=== PATIENT | male | born 1940 | race Caucasian/White ===

== ENCOUNTER 2025-05-02 13:25 | Outpatient (AMB) | payer MEDICARE, SELFPAY ==
--- NOTE | 2025-05-02 13:38 | A.OFFVIS_ITS ---
Intake Visit Reasons: urinary incontinence Intake Note: Patient is present for URINARY INCONTINENCE Urology Medication:TAMSULOSIN Antibiotic Allergy:NONE Blood Thinner:APIXABAN TODAY'S PVR:0ML'S Allergies No Known Allergies Allergy (Verified 05/02/25 23:07) Medication List - Last Reconciled 05/02/25 by VINICIO Aparicio-KHANG apixaban (Eliquis) 5 mg PO BID prednisone 5 mg PO DAILY tamsulosin 0.8 mg (2 x 0.4 mg) PO DAILY 90 days HPI Comments Details: Bryosn is a 85-year-old male patient who was accompanied by his significant other at today's office visit. He has a past medical history of inguinal hernia, rosacea, neuropathy, sick sinus syndrome status post pacemaker 2006, attention deficit disorder, hypercholesteremia, depression, hearing loss, chronic atrial fibrillation, central sleep apnea syndrome, obstructive sleep apnea syndrome, sensorineural hearing loss, polymyalgia rheumatica, and temporal arteritis. He presents to the office today as a new patient for urinary incontinence. He reports symptoms have been present for many years however feels they are worsening. He reports having followed up with his PCP in discussing this issue at which time he was started on Flomax and recommendations were made for urology referral for further assessment evaluation. He does feel Flomax has been helpful however he does continue to experience urge incontinence. He also reports noting occasional fecal incontinence however states this has improved and feels this is somewhat resolved. We did discussed potential causes of urinary incontinence as well as further treatment options and risks and benefits of these treatment options. He discusses using absorbent undergarments however they are not always soiled. In office urinalysis results reviewed with the patient today. PVR 0 mL. He denies hematuria, dysuria, foul smelling urine, changes to urinary stream, flank pain, fever, and or chills. We did discuss obtaining retroperitoneal ultrasound and PSA for further assessment evaluation. All questions were answered. He otherwise offers no other issues or concerns at this time. Discussion Notes During the consultation, we discussed the patient's urinary incontinence, which has been worsening over the past few months. The patient is currently on Tamsulosin 0.4 mg, which has provided some relief, but there is consideration to increase the dosage to 0.8 mg to improve symptoms. We reviewed the potential benefits of pelvic floor therapy, medications, and more procedures such as cystoscopy and urodynamics, emphasizing that these options can be tailored to the patient's specific needs and preferences. I explained that the urinalysis showed no signs of infection, bleeding, or other abnormalities, and the bladder scan confirmed complete emptying post-void. We also discussed the importance of hydration and regular bathroom habits to manage symptoms effectively. Follow-up plans include obtaining blood work and an ultrasound to further evaluate the urinary symptoms and consider adjustments to the current treatment regimen based on these results. Plan The patient will continue with Tamsulosin, with a potential increase in dosage from 0.4 mg to 0.8 mg, to address urinary incontinence and improve symptoms of urgency and frequency. Pelvic floor therapy is recommended as a non-invasive option to strengthen bladder control, with a referral to be made for the program, which has a waiting list. Further diagnostic evaluation will include blood work and an ultrasound to assess the kidneys and bladder for any anatomical issues contributing to the symptoms. Procedures such as cystoscopy and urodynamics may be considered if symptoms persist or worsen, to provide a more detailed assessment of bladder function and explore additional treatment options. The patient is advised to maintain adequate hydration and regular bathroom habits to help manage symptoms and prevent exacerbation of incontinence. 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 Hearing loss Chronic atrial fibrillation Spinal stenosis of lumbar region Sacroiliac instability Cardiac pacemaker Chest pain Central sleep apnea syndrome Obstructive sleep apnea syndrome Sacroiliac joint pain Sensorineural hearing loss Polymyalgia rheumatica Temporal arteritis Surgical History (Updated 04/18/25 @ 11:56 by Lorie Garcia [facility]) History of hernia repair History of total replacement of both hip joints Review of Systems Const All systems reviewed & are unremarkable except as noted in HPI and below Physical Exam Const General: cooperative, healthy appearing, comfortable, no acute distress, well developed, alert and awake Orientation/consciousness: patient oriented x3 Limitations: no limitations HEENT Head: Yes normal to inspection, Yes normocephalic and Yes atraumatic Ears: hearing grossly normal bilaterally Eyes General: appearance normal, both eyes and all related structures Neck Neck: Yes normal visual inspection and Yes trachea midline Chest Chest palpation & inspection: normal inspection of the chest Resp Effort & Inspection: normal respiratory effort and able to speak in complete sentences Cardio Rate: regular rate GI Inspection: Yes normal to inspection General: Yes no CVA tenderness Back/Spine/Pelvis Back: no CVA tenderness Skin General skin exam: no rashes or lesions noted Neuro General: patient oriented x3 Extrem General: Yes normal to inspection Psych Appearance: grossly normal and well kempt Mental Status: mental status grossly normal Speech and movement: Normal speech and movement present and Clear speech present Affect: normal affect Attitude: cooperative Thought process: Normal thought process present Thought content: Normal thought content present Insight: Fair insight present (Psych) Judgement: Fair judgement present (Psych) Office Procedures Post Void Residual Post Residual Void Post Void Residual (PVR): 0 31421-[id number] Void Residual by ultrasound Results AMB Urinalysis, Automated UA Leukoctes 0 Harjit/uL Last Edit by Claire Buck CCM on 05/02/25 14:25 UA Nitrite Negative Last Edit by Claire Buck CCM on 05/02/25 14:25 UA Urobilinogen 0.2 mg/dL Last Edit by Claire Buck CCM on 05/02/25 14:2 5 UA Protein 0 mg/dL Last Edit by Claire Buck CCM on 05/02/25 14:25 UA pH 6.0 Last Edit by Claire Buck CCM on 05/02/25 14:25 UA Blood 0 Joe/uL Last Edit by Claire Buck CCM on 05/02/25 14:25 UA Specific [place] 1.015 Last Edit by Claire Buck CCM on 05/02/25 14: 25 UA Ketone Negative Last Edit by Claire Buck CCM on 05/02/25 14:25 UA Bilirubin 0 mg/dL Last Edit by Claire Buck CCM on 05/02/25 14:25 UA Glucose 0 mg/dL Last Edit by Claire Buck [facility] on 05/02/25 14:25 Results Reviewed Results Reviewed: Laboratory Last Values Urine pH (Auto) 6.0 05/02/25 14:25 Specific [place] (Auto) 1.015 05/02/25 14:25 Urine Protein (Auto) 0 mg/dL 05/02/25 14:25 Glucose (UA)(Auto) 0 mg/dL 05/02/25 14:25 Urine Ketones (Auto) Negative 05/02/25 14:25 Urine Blood (Auto) 0 Joe/uL 05/02/25 14:25 Urine Nitrite (Auto) Negative 05/02/25 14:25 Urine Bilirubin (Auto) 0 mg/dL 05/02/25 14:25 Urine Urobilinogen (Auto) 0.2 mg/dL 05/02/25 14:25 Leukocyte Esterase (Auto) 0 Harjit/uL 05/02/25 14:25 Assessment & Plan Assessment & Plan (1) Urinary incontinence: Code(s): R32 - Unspecified urinary incontinence Category: Medical Plan In office urinalysis results with the patient today; as noted above. PVR 0 mL. Will obtain retroperitoneal ultrasound for further assessment evaluation. Will refer to pelvic floor therapy for further assessment evaluation. Will obtain PSA for further assessment evaluation. We did discussed potential causes of incontinence as well as further treatment options and risks and benefits of these treatment options. All questions were answered. Will increase Flomax to 0.8 mg daily. We discussed healthy bathroom behaviors. We also discussed importance of timed/scheduled voiding given decreased mobility. Information provided regarding cystoscopy and urodynamics. Follow-up in 3 months with imaging, PSA and PVR; or sooner with any issues, concerns, and or questions. Orders: Orders Prostate Specific Antigen Today R32 - Unspecified urinary incontinence AMB Urinalysis Automated Today Z13.9 - Encounter for screening, unspecified US retroperitoneal comp Today R32 - Unspecified urinary incontinence Medications: New tamsulosin 0.8 mg (2 x 0.4 mg) PO DAILY 180 caps 0RF 90 days Patient Instructions: The patient had an opportunity to ask questions regarding the treatment plan. All questions were answered. Physical exam, labs, and imaging were discussed and reviewed in detail. As well as risks, benefits, and discussion of treatment choices. No major barriers to understanding were identified. The patient expressed understanding and agreement with the above treatment plan. The patient was made aware they should contact our office by phone for worsening of their current condition, the appearance of new symptoms, or with any questions or concerns. Compliance is encouraged with any medications and follow up testing that is ordered. It is a privilege to be allowed the opportunity to participate in? your urological care.? Again, if you have any questions or concerns If you have any questions or concerns please do not hesitate to contact me. The office is [phone]. This note is constructed using voice recognition software. While every effort has been made to ensure accuracy clothes wringer errors may have been included. Yours sincerely, ODELL Aparicio Coding Level of Care Code New Pt Level 4 (81911) Diagnoses Urinary incontinence R32 CPT Codes Post Residual Void - PVR CPT Code: 03704-Pxwm Void Residual by ultrasound ([id number]) Time Spent (min) 40
--- OUTSIDE RECORDS SUMMARY | 2025-05-02 13:55 | XMS_ITS | Encounter Summary ---
Author Organization [facility] Address [address] [facility] [address] [place] [address] Phone Care Team Providers Care Eviscerator Name Role Phone Lance Jack MD Unavailable Orly Marquez NP Unavailable [phone] Romy Donis MD Primary Care Provider Lacie Olivares MD Unavailable [phone] Marina Richey Primary Care Provider [phone] Lacie Olivares MD Unavailable [phone] Encounter Details Date Type Department Care Team (Late st Contact Info) Description 02/26/2022 Procedure Pass Non-Invasive Cardiology [address] [place] [address] Social History Tobacco Use Types Packs/Day Years Used Date Smoking Tobacco: Never Smokeless Tobacco: Never Alcohol Use Standard Drinks/Week Comments Yes 2 (1 standard drink = 0.6 oz pur e alcohol) a couple drinks/wk Sex and Gender Information Value Date Recorded Sex Assigned at Male 02/02/2020 12:14 AM EDT Legal Sex Male 10:12 PM EDT Gender Identity Male 02/02/2020 12:14 AM EDT Sexual Orientation Straight 02/02/2020 12 :14 AM EDT documented as of this encounter Plan of Treatment Upcoming Encounters Date Type Department Care Team (Late st Contact Info) Description 06/05/2025 1:40 PM EDT Office Visit [facility] [address], [address] [place] [address] Abhay Tamayo MD 22 [facility], [address] [address] [email or web address] 07/13/2025 12:00 PM EDT Office Visit [facility] [address] 3rd [facility], [address] [place] [address] Sundar Martinez MD, MS 22 [facility], [address] [place] [address] [email or web address] 08/20/2025 1:30 PM EST Office Visit [facility] 22 [place] [address] Andi Wetzel, 22 [place] [address] [email or web address] documented as of this encounter Visit Diagnoses Not on filedocumented in this encounter Additional Health Concerns Assessment Noted Time PHQ-9 Depression Total Score: 11 022 9:47 AM EST PHQ-2 Depression Total Score: 3 10/14/19 22 9:47 AM EST documented as of this encounter Care Teams Eviscerator Relationship Specialty Start Date End Date Romy Donis MD [address] [place] [address] [email or web address] PCP - General Family Medicine 06/12/21 08/30/22 Marina Richey PA [address] [place] [address] PCP - General Enrobing Machine Corder 08/31/22 Lance Jack MD [email or web address] Historical LMR Provider 07/15/17 Orly Marquez NP [address] [place] [address] Historical LMR Provider 07/15/17 Lacie Olivares MD [address] [place] [address] [email or web address] Consulting Provider Geriatric Medicine 07/24/21 Lacie Olivares MD [address] [place] [address] [email or web address] Geriatric Medicine 07/31/24 documented as of this encounter Additional Source Comments The information contained in this document represents components of the legal health record. It is not the complete legal health record.[facility]
--- OUTSIDE RECORDS SUMMARY | 2025-05-02 13:55 | XMS_ITS | Clinical Summary ---
Author Organization [facility] Address [address] [place] [address] Care Team Providers Care Taxonomist Name Role Phone Romy Donis MD Primary Care Provider [phone] Social History Tobacco Use Types Packs/Day Years Used Date Smoking Tobacco: Never Assessed Sex and Gender Information Value Date Recorded Sex Assigned at Not on file Legal Sex Male 12:34 PM EDT Gender Identity Not on file Sexual Orientation Not on file Plan of Treatment Health Maintenance Due Date Last Done Comments Influenza Vaccine (#1) 2025 , 07/19/2019, 07/07/2018, Additional history exists Hepatitis B Vaccine Aged Out 11/04/2009 No longe r eligible based on patient's age to complete this topic Pneumococcal Vaccine: 50+ Years Completed 07/15/2017, 11/05/2015, 08/26/2005 Insurance [facility] Medicare Care Teams Taxonomist Relationship Specialty Start Date End Date Romy Donis MD [address] [place] [address] [phone] PCP - General Family Medicine 07/21/22
--- OUTSIDE RECORDS SUMMARY | 2025-05-02 13:55 | XMS_ITS | Clinical Summary ---
Author Organization [facility] Address [address] [place] [address] Care Team Providers Care Viticulture Teacher Name Role Phone Unavailable Primary Care Provider Unavailabl e Social History Tobacco Use Types Packs/Day Years Used Date Smoking Tobacco: Never Assessed Sex and Gender Information Value Date Recorded Sex Assigned at Not on file Gender Identity Not on file Sexual Orientation Not on file Plan of Treatment Not on file
== END 2025-05-02 14:40 | disposition home or self-care (01) ==
LOC: HO.HUSH 13:25
PROVIDERS: Visit Provider Nurse Practitioner Family
DX: R32 Unspecified urinary incontinence (principal)
CPT/HCPCS: 99204

== ENCOUNTER → 2025-05-02 13:25 | Outpatient (BNVA) | payer MEDICARE, SELFPAY | PROVIDERS: Visit Provider Nurse Practitioner Family | DX: R32 Unspecified urinary incontinence (principal) | CPT/HCPCS: 51798; 81003; 99202 ==

== ENCOUNTER 2025-05-09 14:09 | Outpatient (AMB) | payer MEDICARE, SELFPAY ==
--- NOTE | 2025-05-09 14:24 | A.SPINEOV_ITS ---
Intake Visit Reasons: compression fracture and spinal stenosis Intake Note: Mr. Jim is here today due to a compression fx. MRI done @ [facility] (brought disc). Ski Patrol Director Required: No Allergies No Known Allergies Allergy (Verified 05/02/25 23:07) Assessment & Plan Assessment & Plan (1) Lumbar stenosis with neurogenic claudication: Code(s): M48.062 - Spinal stenosis, lumbar region with neurogenic claudication Category: Medical Plan Dear colleague Thank you for referring Bryson Jim to the office today with a chief complaint of bilateral leg pain. HPI: This 85-year-old gentleman has progressive difficulty with walking and standing. He develops pain down the hips lateral thighs and outside of his lower legs. Sitting down or leaning forward improves the symptoms. Sleeping is undisturbed. In addition, he feels a weakness in his hips the walking and stand ing. The symptoms are debilitating and he is looking for permanent solution. Physical therapy and injections were not helpful. ts PMH: AFib would placement of pacemaker in 2004. Temporal arteritis for which he is using prednisone currently at 4 mg. Sleep apnea, urinary incontinence and poor memory. He had bilateral hip replaced 3 years ago. Medications: Eliquis and prednisone Allergies: NKDA Social history: Lives with his . Nonsmoker Physical Exam: Pleasant male, who looks very well for his age. Strength is 5/5. Sensory exam is intact. No pathological reflexes. No ankle edema. Radiological Studies: CT scan of the lumbar spine done at [facility] on 03/22/2025 shows osteoporosis and an L1 and L4 mild compression fracture of undetermined age. More importantly, there is moderate L4-5 spinal stenosis Impression/Plan: This patient is suffering from neurogenic claudication due to L4-5 spinal stenosis. The symptoms are bothersome and he would like to have a permanent solution if the success rate is higher than 50% and risk of surgery are low. I told him that the success rate is approximately 75-80% and that the risk of instability or giving him more back pain are minor. The surgery will be done in day stay. He wants to proceed. He has seen his hazmat tanker driver within the last 6 months and no major issues were observed. He told him to eat a lot of ice cream. He is tentatively scheduled for 06/28/2025. We will do pre testing at least 2-3 weeks prior to surgery to have enough time to get him cleared. He is aware that he needs to stop Eliquis 3 days prior to surgery. Thank you for allowing me to participate in your patients care. total time spent was 50 minutes in counseling ,coordination of plan, personal review of imaging, surgical decision making and subsequent plan Robert Hooper MD, PhD Spine Fellowship Trained Neurosurgeon Director, [facility] Coding Level of Care Code New Pt Level 4 (39259) Diagnoses Lumbar stenosis with neurogenic claudication M48.062
--- OUTSIDE RECORDS SUMMARY | 2025-05-09 14:27 | XMS_ITS | Clinical Summary ---
Author Organization [facility] Address [address] [place] [address] Care Team Providers Care Cellar Worker Name Role Phone Unavailable Primary Care Provider Unavailabl e Social History Tobacco Use Types Packs/Day Years Used Date Smoking Tobacco: Never Assessed Sex and Gender Information Value Date Recorded Sex Assigned at Not on file Gender Identity Not on file Sexual Orientation Not on file Plan of Treatment Not on file
--- OUTSIDE RECORDS SUMMARY | 2025-05-09 14:27 | XMS_ITS | Clinical Summary ---
Author Organization [facility] Address [address] [place] [address] Care Team Providers Care Software Engineer Advisor Name Role Phone Romy Donis MD Primary Care Provider [phone] Social History Tobacco Use Types Packs/Day Years [...] 50+ Years Completed 07/15/2017, 11/05/2015, 08/26/2005 Insurance [facility] Medicare Care Teams Software Engineer Advisor Relationship Specialty Start Date End Date Romy Donis MD [address] [place] [address] [phone] PCP - General Family Medicine 07/21/22
--- OUTSIDE RECORDS SUMMARY | 2025-05-09 14:27 | XMS_ITS | Encounter Summary ---
Author Organization [facility] Address [address] [facility] [address] [place] [address] Phone Care Team Providers Care Patient Services Manager Name Role Phone Lance Jack MD Unavailable Orly Marquez NP Unavailable [phone] Romy Donis MD Primary Care Provider Lacie Olivares MD Unavailable [phone] Marina Richey Primary Care Provider [phone] Lacie Olivares MD Unavailable [phone] Encounter Details Date Type Department Care Team (Late st Contact Info) Description 02/26/2022 Procedure Pass Non-Invasive Cardiology [address] [place] [address] Social History Tobacco Use Types Packs/Day Years [...] Description 06/05/2025 1:40 PM EDT Office Visit [facility] [address], [address] [place] [address] Abhay Tamayo MD 22 [facility], [address] [address] [email or web address] 07/13/2025 12:00 PM EDT Office Visit [facility] [address] [facility], [address] [place] [address] Sundar Mratinez MD, MS 22 [facility], [address] [place] [address] [email or web address] 08/20/2025 1:30 PM EST Office Visit [facility] [address] [place] [address] Andi Wetzel, [address] [place] [address] [email or web address] documented as of this encounter Visit Diagnoses Not on filedocumented in this encounter Additional Health Concerns Assessment Noted Time PHQ-9 Depression Total Score: 11 022 9:47 AM EST PHQ-2 Depression Total Score: 3 10/14/19 22 9:47 AM EST documented as of this encounter Care Teams Patient Services Manager Relationship Specialty Start Date End Date Romy Donis MD [address] [place] [address] [email or web address] PCP - General Family Medicine 06/12/21 08/30/22 Marina Richey PA [address] [place] [phone] PCP - General Striper 08/31/22 Lance Jack MD [email or web address] Historical LMR Provider 07/15/17 Orly Marquez NP [address] [place] [address] Historical LMR Provider 07/15/17 Lacie Olivares MD [address] [place] [address] [email or web address] Consulting Provider Geriatric Medicine 07/24/21 Lacie Olviares MD [address] [place] [address] [email or web address] Geriatric Medicine 07/31/24 documented as of this encounter Additional Source Comments The information contained in this document represents components of the legal health record. It is not the complete legal health record.[facility]
== END 2025-05-09 15:08 | disposition home or self-care (01) ==
LOC: HO.HNS 14:10
PROVIDERS: PCP Nurse Practitioner Family; Referring Provider Nurse Practitioner Family; Visit Provider Neurological Surgery
DX: M48.062 Spinal stenosis, lumbar region with neurogenic claudication (principal)
CPT/HCPCS: 99204

== ENCOUNTER → 2025-05-09 14:09 | Outpatient (BNVA) | payer MEDICARE, SELFPAY | PROVIDERS: PCP Nurse Practitioner Family; Referring Provider Nurse Practitioner Family; Visit Provider Neurological Surgery | DX: M48.062 Spinal stenosis, lumbar region with neurogenic claudication (principal); M80.88XA Other osteoporosis with current pathological fracture, vertebra(e), initial encounter for fracture | CPT/HCPCS: 99202 ==

== ENCOUNTER 2025-06-28 05:40 | Day surgery (SDC) | payer MEDICARE, SELFPAY ==
--- OUTSIDE RECORDS SUMMARY | 2018-12-22 13:00 | XMS_ITS | Encounter Summary ---
Author Organization [facility] Address [address] [facility] [address] [place] [address] Phone Care Team Providers Care Workers Compensation Claims Adjuster Name Role Phone Orly Marquez NP Primary Care Provider Lance Jack MD Unavailable Jael Rodriguez PA-C Unavailable [phone] Orly Marquez NP Unavailable [phone] Jose Hansen NP Unavailable [phone] Flower Jacobson MD Unavailable Encounter Details Date Type Department Care Team (Late st Contact Info) Description 12/22/2018 1:00 PM EDT Hospital Encounter Non-Invasive Cardiology [address] [place] [address] Social History Tobacco Use Types Packs/Day Years [...] with a working camera? Not on file 05 / Intimate Partner Violence Answer Date R ecorded [...] AM EDT documented as of this encounter Functional Status * Calculated C-SSRS Risk Score (Lifetime/Recent) Answer Date of Assessment Author No Risk Indicated 07/18/2022 1:37 AM EDT Jose Cid RN * [place] Suicide Severity Rating Scale (Screener/Recent Self-Report) Question Answer Date of Assessment Author 1. Wish to be (Past 1 Month) No 022 1:37 AM EDT Jose Cid, SANDRA 2. Non-Specific Active Suici isamar Thoughts (Past 1 Month) No 07/18/2022 1:37 AM EDT James Cid, SANDRA 6. Suicidal Behavior (Lifetime) No 1:37 AM EDT Jose Cid, RN documented as of this encounter Plan of Treatment Upcoming Encounters Date Type Department Care Team (Late st Contact Info) Description 06/05/2025 Procedure Pass Non-Invasive Cardiology [address] [place] [address] 06/05/2025 Procedure Pass Non-Invasive Cardiology [address] [place] [address] 07/13/2025 12:00 PM EDT Office Visit [facility] [address], [address] [place] [address] Sundar Martinez MD, MS [address] [facility], [address] [place] [address] 08/20/2025 1:30 PM EST Office Visit [facility] [address] [place] [address] Andi Wetzel DO [address] [place] [address] 12/11/2025 12:20 PM EDT Appointment Non-Invasive Cardiology [address] [place] [address] Abhay Tamayo MD [address] [place] [address], [address] [place] [address] 12/11/2025 12:40 PM EDT Office Visit [facility] [address] [place] [address] 3rd Floor, [address] [place] [address] Abhay Tamayo MD [address] [place] [address], [address] [place] [address] [email or web address] documented as of this encounter Procedures Procedure [...] interrogation HPI: Routine in-office pacemaker interrogation with [employer] rep Nunez, using iterative adjustment to test the function of the device and select optimal permanent programmed values. No device related complaints. Indication for device: SSS Examination: Device type: Pacemaker Aquaculture Farmer: [employer] Mode: DDD LRL/URL: 60/120 bpm Thresholds, [...] interrogation HPI: Routine in-office pacemaker interrogation with [employer] Kapri,using iterative adjustment to test the function of the device and selectoptimal permanent programmed values. No device related complaints. Indication for device: SSS Examination: Device type: Pacemaker Aquaculture Farmer: [employer] Mode: DDD LRL/URL: 60/120 bpm Thresholds, impedances, [...] months Report prepared by Jena Ramon RN Lance Jack MD CV CARDIAC SERVICES ORDER JOSUÉ Final Result documented in this encounter Visit Diagnoses Diagnosis Sick sinus syndrome Sinoatrial node dysfunction documented in this encounter Care Teams Workers Compensation Claims Adjuster Relationship Specialty Start Date End Date Orly Marquez NP [address] [place] [address] PCP - General 07/15/17 06/11/21 Lance Jack MD [address] [place] [address] [email or web address] Historical LMR Provider 07/15/17 Jael Rodriguez PA-C [address] [place] [address] [email or web address] Historical LMR Provider 07/15/17 10/04/21 Orly Marquez SENIOR INFORMATION SECURITY ENGINEER [address] [place] [address] Historical LMR Provider 07/15/17 Jose Hansen, MARIAN [address] [place] [phone] Historical LMR Provider 07/15/17 2 Flower Jacobson MD [address] [place] [address] [facility], [place] [address] [email or web address] Historical LMR Provider 07/15/17 10/04/21 documented as of this encounter Additional Source Comments The information contained in this document represents components of the legal health record. It is not the complete legal health record.[facility]
--- OUTSIDE RECORDS SUMMARY | 2025-06-05 13:30 | XMS_ITS | Encounter Summary ---
Author Organization [facility] Address [address] [facility] [address] [place] [address] Phone Care Team Providers Care Signals Analyst Name Role Phone Lance Jack MD Unavailable [phone] Orly Marquez NP Unavailable [phone] Lacie Olivares MD Unavailable [phone] Marina Richey Primary Care Provider [phone] Lacie Olivares MD Unavailable [phone] Encounter Details Date Type Department Care Team (Latest Contact Info) Description 06/05/2025 1:30 PM EDT - 06/05/2025 11:59 PM EDT Hospital Encounter Non-Invasive Cardiology [address] [place] [address] Abhay Tamayo MD 22 [facility], [address] [place] [address] [email or web address] Arrived Discharge Disposition: Home or Self Care Social History Tobacco Use Types Packs/Day Years [...] AM EDT documented as of this encounter Medications at Time of Discharge apixaban (ELIQUIS) 5 mg tabletIndications :Medication refill Take 1 tablet (5 mg total) by mouth 2 (two) times a day. 180 tablet 3 05/10/2025 multivitamin-mine rals-lutein (CENTRUM SILVER) Tab Take 1 tablet by mouth daily. PREDNISONE ORAL Take 2 mg by mouth daily. tamsulosin (FLOMAX) 0.4 mg Cap 01/16/2025 documented as of this encounter Plan of Treatment Upcoming Encounters Date Type Department Care Team (Late st Contact Info) Description 06/05/2025 Procedure Pass Non-Invasive Cardiology [address] [place] [address] 06/05/2025 Procedure Pass Non-Invasive Cardiology [address] [place] [address] 07/13/2025 12:00 PM EDT Office Visit [facility] [address], [address] [place] [address] Sundar Martinez MD, MS 22 [facility], [address] [place] [address] 08/20/2025 1:30 PM EST Office Visit [facility] [address] [place] [address] Andi Wetzel, [address] [place] [address] 12/11/2025 12:20 PM EDT Appointment Non-Invasive Cardiology [address] [place] [address] Abhay Tamayo MD [address] [place] [address], [address] [place] [address] 12/11/2025 12:40 PM EDT Office Visit [facility] [address] [place] [address] 3rd Floor, [address] [place] [address] Abhay Tamayo MD [address] [place] [address], [address] [place] [address] [email or web address] documented as of this encounter Procedures Procedure Name Priority Date/Time Associated Diagnosis Comments DEVICE CHECK: PPM IN-PERSON PROGRAMMING DUAL LEAD Routine 06/06/2025 4:52 PM EDT Presence of cardiac pacemaker documented in this encounter Results * DEVICE CHECK: PPM IN-PERSON PROGRAMMING DUAL LEAD (06/06/2025 4:52 PM EDT) Narrative Abhay Tamayo MD - 06/07/2025 12:10 PM EDT Table formatting from the original result was not included. Reason for appointment: In-office pacemaker interrogation HPI: Routine in-office pacemaker interrogation during visit w/Dr. Tamayo, using iterative adjustment to test the function of the device and select optimal permanent programmed values. No device related complaints. Indication for device: SSS Examination: Device type: Pacemaker Linux Unix Administrator: [employer] Mode: DDDR LRL/URL: 60/130 bpm Thresholds, impedances, and sensing stable. High V rates: 7 brief NSVT f Mode switches: Numerous brief for AF burden of <1% AF/AT: Patient is currently taking Eliquis daily. Atrial pacin% Ventricular pacin% Battery: 1.5 yrs RA RV LV Sensing 3.3mV 18.9mV Threshold 0.7V@.4ms 0.7V@.4ms Impedance 526 ohms 475 ohms Additional comments or changes: normal pacemaker function and stable pacing and sensing thresholds Patient will return for in-office device check in: 6 months, Bryson's home monitor is still disconnected, will have him try to download tonight and will order a new monitor IF his HM is set up with either phone or cellular, and not both, as that could be a reason why it is not functioning Report prepared by Jena Hollins RN us Abhay Tamayo MD [facility] CARDIAC SERVICES ORDERABLE S Final Result documented in this encounter Visit Diagnoses Diagnosis Presence of cardiac pacemaker Cardiac pacemaker in situ documented in this encounter Additional Health Concerns Assessment Noted Time PHQ-9 Depression Total Score: 11 022 9:47 AM EST PHQ-2 Depression Total Score: 3 10/14/19 22 9:47 AM EST documented as of this encounter Care Teams Signals Analyst Relationship Specialty Start Date End Date Marina Richey PA [address] [place] [address] PCP - General Contracts Advisor 08/31/22 Lance Jack MD [email or web address] Historical LMR Provider 07/15/17 Orly Marquez NP [address] [place] [address] Historical LMR Provider 07/15/17 Lacie Olivares MD [address] [place] [address] [email or web address] Consulting Provider Geriatric Medicine 07/24/21 Lacie Olivares MD [address] [place] [address] [email or web address] Geriatric Medicine 07/31/24 documented as of this encounter Additional Source Comments The information contained in this document represents components of the legal health record. It is not the complete legal health record.[facility]
--- OUTSIDE RECORDS SUMMARY | 2025-06-05 13:40 | XMS_ITS | Encounter Summary ---
Author Organization [facility] Address [address] [place] [address] Phone Care Team Providers Care Foundry Worker Apprentice Name Role Phone Lance Jack MD Unavailable Orly Marquez NP Unavailable [phone] Lacie Olivares MD Unavailable Marina Richey Primary Care Provider [phone] Lacie Olivares MD Unavailable [phone] Encounter Details Date Type Department Care Team (Latest Contact Info) Description 06/05/2025 1:40 PM EDT Office Visit [facility] [address] [place] [address] 3rd Floor, [address] [place] [address] Abhay Tamayo MD [address] [place] [address], [address] [place] [address] [email or web address] Pre-operative examination (Primary Dx); Paroxysmal atrial fibrillation; Sick sinus syndrome Social History Tobacco Use Types Packs/Day Years Used Date Smoking Tobacco: Never Smokeless Tobacco: Never Tobacco Cessation:Counseling Given: Not Answered Alcohol Use Standard Drinks/Week Comments Not Currently [...] AM EDT documented as of this encounter Last Filed Vital Signs Vital Sign Reading Time Taken Comments Blood Pressure 108/70 06/05/2025 1:43 PM EDT Pulse 69 06/05/2025 1:43 PM EDT Temperature - - Respiratory Rate - - Oxygen Saturation 93% 06/05/2025 1:43 PM EDT Inhaled Oxygen Concentration - - Weight 87.1 kg (192 lb) 06/05/2025 1:43 PM EDT Height 170.2 cm (5' 7.01 ) 06/05/2025 1:43 PM ED T Body Mass Index 30.06 06/05/2025 1:43 PM EDT documented in this encounter Progress Notes * Abhay Tamayo MD - 06/05/2025 1:40 PM EDT [facility] Cardiology follow up Date: 06/05/2025 Referring Physician: Marina Richey PA Primary Chocolate Production Machine Operator: Roin HPI: Mr. Jim is an 85-year-old gentleman with past medical history of SSS s/p Jean Claude Sci PPM, pericarditis, pAF on Eliquis, and esophageal spasm who presents today for follow up. To review: I first met him in the hospital in June 2022 when he presented with chest pain which we felt wasclassic for pericarditis. He was started on colchicine and high-dose aspirin. He had a nuclear MPI showing a basal anterior wall reversible defect and we recommended he proceed with cardiac catheterization if his renal function allowed. Dr. Quinones performed the procedure the next day and found no obstructive coronary artery disease and the conclusion was to treat him for myopericarditis. Past Medical History: Past Medical History: Diagnosis Date Abnormal electrocardiogram ADD (attention deficit disorder) Anxiety disorder Arthritis CAD (coronary artery disease) Listed in record but patient denies Central sleep apnea CPAP treatment emergent Osmani-Keller respiration Circadian rhythm sleep disorder, delayed sleep phase type Depressive disorder Esophageal spasm distant history, nothing recent Gastroesophageal reflux disease Hearing loss Hiatal hernia 07/18/2022 CT chest Hypercholesteremia Insomnia LBBB (left bundle branch block) Lower back pain Neuropathy TANI (obstructive sleep apnea) 11/06/2022 AHI 12.0, mild to moderate, with minimal hypoxemia; Rx CPAP. Paroxysmal atrial fibrillation Pericarditis Polymyalgia rheumatica Short-term memory loss Seen in consultation by Dr. Olivares Sick sinus syndrome Followed by [facility] Steroid dependence Current Medications: Outpatient Medications Marked as Taking for the 06/05/25 encounter (Office Visit) with Arline Tamayo MD Medication Sig Dispense Refill Last Dispense apixaban (ELIQUIS) 5 mg tablet Take 1 tablet (5 mg total) by mouth 2 (two) times a day. 180 tablet 3 Unknown (outside pharmacy) lrohlvqbrhwa-rolckkis-zyvcxk (CENTRUM SILVER) Tab Take 1 tablet by mouth daily. Unknown (patient-reported) PREDNISONE ORAL Take 2 mg by mouth daily. Unknown (patient-reported) tamsulosin (FLOMAX) 0.4 mg Cap Unknown (patient-reported) Review of Systems: Constitutional: Denies subjective fever, weight loss, or chills. Eyes: Denies blurred vision or vision loss. Ear, Nose, & Throat: Denies dysphagia, sore throat, rhinorrhea, or otalgia. Respiratory: Denies cough, wheezing, or hemoptysis. Gastrointestinal: Denies diarrhea, vomiting, constipation, or abdominal pain. Genitourinary: Denies dysuria, frequency, urgency, rash, or flank pain. Musculoskeletal: Denies myalgias, arthralgias, or weakness. Hematologic: Denies abnormal bruising or bleeding. Skin: Denies rash or other lesions. Neurologic: Denies altered mental status, weakness, numbness, or paresthesias. Psychiatric: Denies agitation or psychosis. Physical Examination: Vital Signs: Vitals: 06/05/25 1343 BP: 108/70 Pulse: 69 SpO2: 93% Weight: 87.1 kg (192 lb) Height: 170.2 cm (5' 7.01 ) BMI: Body mass index is 30.06 kg/m??. Cardiovascular: Normal PMI, no thrills/heave. Normal S1 and S2. No added murmurs, gallops, or rubs. General Appearance: No acute distress, well-nourished. Neurologic: Alert, awake, and oriented, normal affect. Eyes: No conjunctival pallor, xanthelasma, or arcus senilis. Pupils equal. ENT: Normal dentition, no pallor/cyanosis/inflammation of the oral mucosa. Neck: No JVD or hepatojugular reflux. No enlargement of the thyroid. Carotid pulse 2+ bilaterally. No carotid bruits. Respiratory: Appropriate respiratory effort. Lungs clear to auscultation bilaterally, no wheezing/rhonchi/rales. Musculoskeletal: Normal curvature of the spine without kyphosis or scoliosis. Normal gait. Extremities/Skin: Warm and well perfused peripherally, no edema Relevant Testing: EKG: Twelve-lead EKG 07/18/2022 shows an atrial sensed ventricular paced rhythm without any significant ST changes. 12/15/2023 shows an atrial sensed ventricular paced rhythm at 75 bpm with intermittent PACs and PVCs. 12/14/2024 shows an atrial sensed ventricular paced rhythm 60 bpm. Echo: His last echocardiogram August 2022 was limited to rule out pericardial effusion, which it did. His previous echo in June 2022 at [facility] showed normal biventricular size and function with EF 60 to 65% and no hemodynamically significant valvular disease. Other Cardiovascular Testing: He had a nuclear MPI showing a basal anterior wall reversible defect and we recommended he proceed with cardiac catheterization if his renal function allowed. Dr. Quinones performed the procedure thenext day and found no obstructive coronary artery disease and the conclusion was to treat him for my opericarditis. Labs: Lab Results Component Value Date LDL 62 07/18/2022 Lab Results Component Value Date CHOL 136 07/18/2022 Lab Results Component Value Date HDL 64 07/18/2022 No results found for: LDLCALC Lab Results Component Value Date TRIG 50 07/18/2022 Lab Results Component Value Date CHOLHDL 2.1 (L) 07/18/2022 WBC Date Value Ref Range Status 07/23/2022 9.34 4.00 - 11.00 K/uL Final HGB Date Value Ref Range Status 07/23/2022 13.1 12.4 - 17.3 g/dL Final HCT Date Value Ref Range Status 07/23/2022 38.8 37.0 - 51.0 % Final Lab Results Component Value Date NA 137 07/26/2022 K 4.5 07/26/2022 CL 99 07/26/2022 CO2 27 07/26/2022 BUN 20 (H) 07/26/2022 CRE 0.90 07/26/2022 GLU 108 (H) 07/26/2022 CA 8.8 07/26/2022 GFR 85 07/26/2022 ANION 16 07/26/2022 Assessment: Mr. Jim is an 85-year-old gentleman with past medical history of SSS s/p Jean Claude Sci PPM, pericarditis, pAF on Eliquis, and esophageal spasm who presents today for follow up. He continues to do well from a cardiac standpoint and denies any symptoms concerning for angina or congestive heart failure. He has had workup for pericardial pain in the past which included a stresstest and cardiac catheterization that revealed no obstructive CAD. He does have electrophysiologic cardiac issues, primarily sick sinus syndrome which was treated adequately with a [employer] pacemaker that is functioning well on interrogation today. He has ahistory of rare paroxysms of atrial fibrillation, which have not recurred since a brief episode in January according to his pacemaker report. He is on Eliquis anticoagulation without any bleeding issues. Today he tells me he is going for minimally invasive spinal surgery and will need to hold his Eliquis for 3 days, which I think is perfectly fine. He is a low cardiac risk patient for anesthesia and I have no concerns about him undergoing this procedure at this juncture. Plan: No changes to his current cardiac medications. Follow-up: In office device check and follow-up in 6 months. Electronically signed by: Abhay Tamayo MD [facility] 06/05/2025 documented in this encounter Plan of Treatment Upcoming Encounters Date Type Department Care Team (Late st Contact Info) Description 06/05/2025 Procedure Pass Non-In[facility] Cardiology [address] [place] [address] 06/05/2025 Procedure Pass Non-Invasive Cardiology [address] [place] [address] 07/13/2025 12:00 PM EDT Office Visit [address] 3rd [facility], [address] [place] [address] Sundar Martinez MD, MS [address] [place] [address], [address] [address] 08/20/2025 1:30 PM EST Office Visit [facility] [address] [place] [address] Andi Wetzel DO [address] [place] [address] 12/11/2025 12:20 PM EDT Appointment Non-Invasive Cardiology [address] [place] [address] [place] [address] Abhay Tamayo MD [address] [place] [address], [address] [address] 12/11/2025 12:40 PM EDT Office Visit [address] 3rd [facility], [address] [place] [address] Abhay Tamayo MD [address] [place] [address], [address] [address] documented as of this encounter Visit Diagnoses Diagnosis Pre-operative examination- Primary Unspecified pre-operative examination Paroxysmal atrial fibrillation Atrial fibrillation Sick sinus syndrome Sinoatrial node dysfunction documented in this encounter Additional Health Concerns Assessment Noted Time PHQ-9 Depression Total Score: 11 022 9:47 AM EST PHQ-2 Depression Total Score: 3 10/14/19 22 9:47 AM EST documented as of this encounter Care Teams Foundry Worker Apprentice Relationship Specialty Start Date End Date Marina Richey PA [address] [place] [address] PCP - General Lockstitch Zipper Setter 08/31/22 Lance Jack MD [email or web address] Historical LMR Provider 07/15/17 Orly Marquez NP [address] [place] [address] Historical LMR Provider 07/15/17 Lacie Olivares MD [address] [place] [address] [email or web address] Consulting Provider Geriatric Medicine 07/24/21 Lacie Olivares MD [address] [place] [address] [email or web address] Geriatric Medicine 07/31/24 documented as of this encounter Additional Source Comments The information contained in this document represents components of the legal health record. It is not the complete legal health record.[facility]
--- OUTSIDE RECORDS SUMMARY | 2025-06-07 17:50 | XMS_ITS | Clinical Summary ---
Author Organization [facility] Facility Address [address] [place] [address] Care Team Providers Care Mother Helper Name Role Phone Romy Donis MD Primary Care Provider Social History Tobacco Use Types Packs/Day Years [...] 50+ Years Completed 07/15/2017, 11/05/2015, 08/26/2005 Insurance [facility] Medicare Care Teams Mother Helper Relationship Specialty Start Date End Date Romy Donis MD [address] [place] [address] [phone] PCP - General Family Medicine 07/21/22
--- OUTSIDE RECORDS SUMMARY | 2025-06-07 17:50 | XMS_ITS | Encounter Summary ---
Author Organization [facility] Address [address] [place] [address] Phone Care Team Providers Care Plant Biology Professor Name Role Phone Lance Jack MD Unavailable [phone] Orly Marquez NP Unavailable [phone] Romy Donis MD Primary Care Provider Lacie Olivares MD Unavailable [phone] Marina Richey Primary Care Provider [phone] Lacie Olivares MD Unavailable [phone] Encounter Details Date Type Department Care Team (Late st Contact Info) Description 02/26/2022 Procedure Pass Non-Invasive Cardiology [address] [place] [address] Social History Tobacco Use Types Packs/Day Years [...] Description 06/05/2025 Procedure Pass Non-Invasive Cardiology [address] [place] [address] 06/05/2025 Procedure Pass Non-Invasive Cardiology [address] [place] [address] 07/13/2025 12:00 PM EDT Office Visit [facility] [address]rd Floor, [address] [place] [address] Sundar Martinez MD, MS 22 [facility], [address] [address] 08/20/2025 1:30 PM EST Office Visit [facility] [address] [place] [address] Andi Wetzel DO 22 [place] [address] 12/11/2025 12:20 PM EDT Appointment Non-Invasive Cardiology [address] [place] [address] Abhay Tamayo MD [address] [place] [address], [address] [address] 12/11/2025 12:40 PM EDT Office Visit [facility] [address] [facility], [address] [place] [address] Abhay Tamayo MD [address] [place] [address], [address] [address] documented as of this encounter Visit Diagnoses Not on filedocumented in this encounter Additional Health Concerns Assessment Noted Time PHQ-9 Depression Total Score: 11 022 9:47 AM EST PHQ-2 Depression Total Score: 3 10/14/19 22 9:47 AM EST documented as of this encounter Care Teams Plant Biology Professor Relationship Specialty Start Date End Date Romy Donis MD [address] [place] [address] [email or web address] PCP - General Family Medicine 06/12/21 08/30/22 Marina Richey PA [address] [place] [address] PCP - General Inventory Clerk 08/31/22 Lance Jack MD [email or web address] Historical LMR Provider 07/15/17 Orly Marquez NP [address] [place] [address] Historical LMR Provider 07/15/17 Lacie Olivares MD [address] [place] [address] [email or web address] Consulting Provider Geriatric Medicine 07/24/21 Lacie Olivares MD [address] [place] [address] [email or web address] Geriatric Medicine 07/31/24 documented as of this encounter Additional Source Comments The information contained in this document represents components of the legal health record. It is not the complete legal health record.[facility]
--- OUTSIDE RECORDS SUMMARY | 2025-06-07 17:50 | XMS_ITS | Encounter Summary ---
Author Organization [facility] Address [address] [place] [address] Phone Care Team Providers Care Panel Cutter Name Role Phone Lance Jack MD Unavailable [phone] Orly Marquez NP Unavailable [phone] Romy Donis MD Primary Care Provider Lacie Olivares MD Unavailable [phone] Marina Richey Primary Care Provider + [phone] Lacie Olivares MD Unavailable [phone] Encounter Details Date Type Department Care Team (Late st Contact Info) Description 10/21/2021 Procedure Pass Non-Invasive Cardiology [address] [place] [address] Social History Tobacco Use Types Packs/Day Years [...] Description 06/05/2025 Procedure Pass Non-Invasive Cardiology [address] [place] [address] 06/05/2025 Procedure Pass Non-Invasive Cardiology [address] [place] [address] 07/13/2025 12:00 PM EDT Office Visit [facility] [address] 3rd Floor, [address] [place] [address] Sundar Martniez MD, MS 22 [facility], [address] [address] 08/20/2025 1:30 PM EST Office Visit [facility] [address] [place] [address] Andi Wetzel DO [address] [place] [address] 12/11/2025 12:20 PM EDT Appointment Non-Invasive Cardiology [address] [place] [address] Abhay Tamayo MD [address] [place] [address], [address] [address] 12/11/2025 12:40 PM EDT Office Visit [facility] [address] [facility], [address] [place] [address] Abhay Tamayo MD [address] [place] [address], [address] [address] documented as of this encounter Visit Diagnoses Not on filedocumented in this encounter Additional Health Concerns Assessment Noted Time PHQ-9 Depression Total Score: 11 022 9:47 AM EST PHQ-2 Depression Total Score: 3 10/14/19 22 9:47 AM EST documented as of this encounter Care Teams Panel Cutter Relationship Specialty Start Date End Date Romy Donis MD [address] [place] [address] [email or web address] PCP - General Family Medicine 06/12/21 08/30/22 Marina Richey PA [address] [place] [address] PCP - General Band Singer 08/31/22 Lance Jack MD [email or web address] Historical LMR Provider 07/15/17 Orly Marquez NP [address] [place] [address] Historical LMR Provider 07/15/17 Lacie Olivares MD [address] [place] [address] [email or web address] Consulting Provider Geriatric Medicine 07/24/21 Lacie Olivares MD [address] [place] [address] [email or web address] Geriatric Medicine 07/31/24 documented as of this encounter Additional Source Comments The information contained in this document represents components of the legal health record. It is not the complete legal health record.[facility]
--- OUTSIDE RECORDS SUMMARY | 2025-06-07 17:50 | XMS_ITS | Clinical Summary ---
Author Organization [facility] Address [address] [place] [address] Care Team Providers Care Senior Technical Recruiter Name Role Phone Unavailable Primary Care Provider Unavailabl e Social History Tobacco Use Types Packs/Day Years Used Date Smoking Tobacco: Never Assessed Sex and Gender Information Value Date Recorded Sex Assigned at Not on file Gender Identity Not on file Sexual Orientation Not on file Plan of Treatment Not on file
--- OUTSIDE RECORDS SUMMARY | 2025-06-07 17:50 | XMS_ITS | Encounter Summary ---
Author Organization [facility] Address [address] [place] [address] Phone Care Team Providers Care Photoengraving Sketch Maker Name Role Phone Orly Marquez NP Primary Care Provider Lance Jack MD Unavailable Jael Rodriguez PA-C Unavailable Orly Marquez NP Unavailable Jose Hansen NP Unavailable Flower Jacobson MD Unavailable Romy Donis MD Primary Care Provider Lacie Olivares MD Unavailable Marina Richey Primary Care Provider + [phone] Lacie Olivares MD Unavailable [phone] Encounter Details Date Type Department Care Team (Latest Contact Info) Description 04/25/2019 Ancillary [facility] [address] [place] [address] Lance Jack MD [address] [place] [address] [place] [address] [email or web address] SSS (sick sinus syndrome) Social History Tobacco Use Types Packs/Day Years Used Date Smoking Tobacco: Never Smokeless Tobacco: Never Alcohol Use Standard Drinks/Week Comments Yes 0 (1 standard drink = 0.6 oz pur e alcohol) Sex and Gender Information Value Date Recorded Sex Assigned at Male 02/02/2020 12:14 AM EDT Legal Sex Male 10:12 PM EDT Gender Identity Male 02/02/2020 12:14 AM EDT Sexual Orientation Straight 02/02/2020 12 :14 AM EDT documented as of this encounter Plan of Treatment Upcoming Encounters Date Type Department Care Team (Late st Contact Info) Description 06/05/2025 Procedure Pass Non-Invasive Cardiology [address] [place] [address] 06/05/2025 Procedure Pass Non-Invasive Cardiology [address] [place] [address] 07/13/2025 12:00 PM EDT Office Visit [facility] [address] [place] [address] 3rd [facility], [address] [place] [address] Sundar Martinez MD, MS 22 [facility], [address] [address] 08/20/2025 1:30 PM EST Office Visit [facility] [address] [place] [address] Andi Wetzel DO [address] [place] [address] 12/11/2025 12:20 PM EDT Appointment Non-Invasive Cardiology [address] [place] [address] [place] [address] Abhay Tamayo MD [address] [place] [address], [address] [place] [address] 12/11/2025 12:40 PM EDT Office Visit [facility] [address] [place] [address] [address] [facility], [address] [place] [address] Abhay Tamayo MD [address] [place] [address], [address] [address] [email or web address] Pending Results Name Type Priority Associated Diagnoses Date /Time EP Device Check / Follow Up Cardiac Monitors Routine SSS (sick sinus syndrome) 05/01/2019 1:12 PM EDT Scheduled Orders Name Type Priority Associated Diagnoses Orde r Schedule EP Device Check / Follow Up Cardiac Monitors Routine SSS (sick sinus syndrome) Expected: 04/25/2019, Expires: 04/25/2020 documented as of this encounter Visit Diagnoses Diagnosis SSS (sick sinus syndrome) Sinoatrial node dysfunction documented in this encounter Care Teams Photoengraving Sketch Maker Relationship Specialty Start Date End Date Orly Marquez NP [address] [place] [address] PCP - General 07/15/17 06/11/21 Romy Donis MD [address] [place] [address] [facility], [place] [address] [email or web address] PCP - General Family Medicine 06/12/21 08/30/22 Marina Richey PA [address] [place] [address] PCP - General Rail Manager 08/31/22 Lance Jack MD [address] [place] [address] [email or web address] Historical LMR Provider 07/15/17 Jael Rodriguez PA-C [address] [place] [address] [email or web address] Historical LMR Provider 07/15/17 10/04/21 Orly Marquez NP [address] [place] [address] Historical LMR Provider 07/15/17 Jose Hansen NP [address] [place] [address] [address] Historical LMR Provider 07/15/17 2 Flower Jacobson MD [address] [place] [address] Orthopedics Sports [facility], [place] [address] [email or web address] Historical LMR Provider 07/15/17 10/04/21 Lacie Olivares MD [address] [place] [address], [place] [address] Consulting Provider Geriatric Medicine 07/24/21 Lacie Olivares MD [address] [place] [address] [facility] [place] [address] Geriatric Medicine 07/31/24 documented as of this encounter Additional Source Comments The information contained in this document represents components of the legal health record. It is not the complete legal health record.[facility]
--- OUTSIDE RECORDS SUMMARY | 2025-06-07 17:50 | XMS_ITS | Encounter Summary ---
Author Organization [facility] Address [address] [place] [address] Phone Care Team Providers Care Mat Gauger Name Role Phone Lance Jack MD Unavailable [phone] Orly Marquez NP Unavailable [phone] Romy Donis MD Primary Care Provider Lacie Olivares MD Unavailable [phone] Marina Richey Primary Care Provider + [phone] Lacie Olivares MD Unavailable [phone] Encounter Details Date Type Department Care Team (Late st Contact Info) Description 02/03/2022 Procedure Pass Non-Invasive Cardiology [address] [place] [address] Social History Tobacco Use Types Packs/Day Years [...] Description 06/05/2025 Procedure Pass Non-Invasive Cardiology [address] [place] [address] 06/05/2025 Procedure Pass Non-Invasive Cardiology [address] [place] [address] 07/13/2025 12:00 PM EDT Office Visit [facility] [address] Floor, [address] [place] [address] Sundar Martinez MD, [place] 22 [facility], [address] [address] 08/20/2025 1:30 PM EST Office Visit [facility] [address] [place] [address] Andi Wetzel DO 22 [place] [address] 12/11/2025 12:20 PM EDT Appointment Non-Invasive Cardiology [address] [place] [address] Abhay Tamayo MD [address] [place] [address], [address] [address] 12/11/2025 12:40 PM EDT Office Visit [facility] [address] [facility], [address] [place] [address] Abhay Tamayo MD [address] [place] [address], [address] [address] documented as of this encounter Visit Diagnoses Not on filedocumented in this encounter Additional Health Concerns Assessment Noted Time PHQ-9 Depression Total Score: 11 022 9:47 AM EST PHQ-2 Depression Total Score: 3 10/14/19 22 9:47 AM EST documented as of this encounter Care Teams Mat Gauger Relationship Specialty Start Date End Date Romy Donis MD [address] [place] [address] [email or web address] PCP - General Family Medicine 06/12/21 08/30/22 Marina Richey PA [address] [place] [address] PCP - General Director Of Content Marketing 08/31/22 Lance Jack MD [email or web address] Historical LMR Provider 07/15/17 Orly Marquez NP [address] [place] [address] Historical LMR Provider 07/15/17 Lacie Olivares MD [address] [place] [address] [email or web address] Consulting Provider Geriatric Medicine 07/24/21 Lacie Olivares MD [address] [place] [address] [email or web address] Geriatric Medicine 07/31/24 documented as of this encounter Additional Source Comments The information contained in this document represents components of the legal health record. It is not the complete legal health record.[facility]
--- OUTSIDE RECORDS SUMMARY | 2025-06-07 17:51 | XMS_ITS | Encounter Summary ---
Author Organization [facility] Address [address] [address] Phone Care Team Providers Care Noc Technician Name Role Phone Lance Jack MD Unavailable [phone] Orly Marquez NP Unavailable [phone] Lacie Olivares MD Unavailable [phone] Marina Richey Primary Care Provider + [phone] Lacie Olivares MD Unavailable [phone] Encounter Details Date Type Department Care Team (Late st Contact Info) Description 06/16/2023 Procedure Pass Non-Invasive Cardiology [address] [place] [address] Social History Tobacco Use Types Packs/Day Years [...] with a working camera? Not on file Sex and Gender Information Value Date Recorded Sex Assigned at Male 02/02/2020 12:14 AM EDT Legal Sex Male 10:12 PM EDT Gender Identity Male 02/02/2020 12:14 AM EDT Sexual Orientation Straight 02/02/2020 12 :14 AM EDT documented as of this encounter Plan of Treatment Upcoming Encounters Date Type Department Care Team (Late st Contact Info) Description 06/05/2025 Procedure Pass Non-Invasive Cardiology [address] [place] [address] 06/05/2025 Procedure Pass Non-Invasive Cardiology [address] [place] [address] 07/13/2025 12:00 PM EDT Office Visit [facility] [address] [facility], [address] [place] [address] Sundar Martinez MD, MS [address] [place] [address] 08/20/2025 1:30 PM EST Office Visit [facility] [address] [place] [address] Andi Wetzel DO [address] [place] [address] 12/11/2025 12:20 PM EDT Appointment Non-Invasive Cardiology [address] [place] [address] Abhay Tamayo MD [address] [place] [address], [address] [address] 12/11/2025 12:40 PM EDT Office Visit [facility] [address] [facility], [address] [place] [address] Abhay Tamayo MD [address] [place] [address] documented as of this encounter Visit Diagnoses Not on filedocumented in this encounter Additional Health Concerns Assessment Noted Time PHQ-9 Depression Total Score: 11 022 9:47 AM EST PHQ-2 Depression Total Score: 3 10/14/19 22 9:47 AM EST documented as of this encounter Care Teams Noc Technician Relationship Specialty Start Date End Date Marina Richey PA [address] [place] [address] PCP - General Lollypop Machine Operator 08/31/22 Lance Jack MD [email or web address] Historical LMR Provider 07/15/17 Orly Marquez NP [address] [place] [address] Historical LMR Provider 07/15/17 Lacie Olivares MD [address] [place] [address] [email or web address] Consulting Provider Geriatric Medicine 07/24/21 Lacie Olivares MD [address] [place] [address] [email or web address] Geriatric Medicine 07/31/24 documented as of this encounter Additional Source Comments The information contained in this document represents components of the legal health record. It is not the complete legal health record.[facility]
--- OUTSIDE RECORDS SUMMARY | 2025-06-07 17:51 | XMS_ITS | Encounter Summary ---
Author Organization [facility] Address [address] [address] Phone Care Team Providers Care Visual Basic Programmer Name Role Phone Lance Jack MD Unavailable Orly Marquez NP Unavailable [phone] Lacie Olivares MD Unavailable [phone] Marina Richey Primary Care Provider + [phone] Lacie Olivares MD Unavailable [phone] Encounter Details Date Type Department Care Team (Late st Contact Info) Description 09/16/2023 Procedure Pass Non-Invasive Cardiology [address] [place] [address] Social History Tobacco Use Types Packs/Day Years [...] Description 06/05/2025 Procedure Pass Non-Invasive Cardiology [address] [place] [address] 06/05/2025 Procedure Pass Non-Invasive Cardiology [address] [place] [address] 07/13/2025 12:00 PM EDT Office Visit [facility] [address] [facility], [address] [place] [address] Sundar Martinez MD, MS [address] [place] [address] 08/20/2025 1:30 PM EST Office Visit [facility] [address] [place] [address] Andi Wetzel DO [address] [place] [address] 12/11/2025 12:20 PM EDT Appointment Non-Invasive Cardiology [address] [place] [address] Abhay Tamayo MD [address] [place] [address], [address] [address] 12/11/2025 12:40 PM EDT Office Visit [facility] [address] [facility], [address] [place] [address] Abhay Tamayo MD [address] [place] [address] documented as of this encounter Visit Diagnoses Not on filedocumented in this encounter Additional Health Concerns Assessment Noted Time PHQ-9 Depression Total Score: 11 022 9:47 AM EST PHQ-2 Depression Total Score: 3 10/14/19 22 9:47 AM EST documented as of this encounter Care Teams Visual Basic Programmer Relationship Specialty Start Date End Date Marina Richey PA [address] [place] [address] PCP - General Strickler Attendant 08/31/22 Lance Jack MD [email or web address] Historical LMR Provider 07/15/17 Orly Marquez NP [address] [place] [address] Historical LMR Provider 07/15/17 Lacie Olivares MD [address] [place] [address] [email or web address] Consulting Provider Geriatric Medicine 07/24/21 Lacie Olivares MD [address] [place] [address] [email or web address] Geriatric Medicine 07/31/24 documented as of this encounter Additional Source Comments The information contained in this document represents components of the legal health record. It is not the complete legal health record.[facility]
--- OUTSIDE RECORDS SUMMARY | 2025-06-07 17:51 | XMS_ITS | Encounter Summary ---
Author Organization [facility] Address [address] [place] [address] Phone Care Team Providers Care Gravel Hauler Name Role Phone Lance Jack MD Unavailable Orly Marquez NP Unavailable [phone] Romy Donis MD Primary Care Provider Lacie Olivares MD Unavailable [phone] Marina Richey Primary Care Provider [phone] Lacie Olivares MD Unavailable [phone] Encounter Details Date Type Department Care Team (Late st Contact Info) Description 07/18/2022 Procedure Pass [facility], Ct Scan - [address] [address] Social History Tobacco Use Types Packs/Day Years [...] 1:37 AM EDT Jose Cid RN * [place] Suicide Severity Rating Scale (Screener/Recent Self-Report) Question Answer Date of Assessment Author 1. Wish to be (Past 1 Month) No 022 1:37 AM EDT Jose Cid, SANDRA 2. Non-Specific Active Suici isamar Thoughts (Past 1 Month) No 07/18/2022 1:37 AM EDT James Cid, SANDRA 6. Suicidal Behavior (Lifetime) No 1:37 AM EDT Jose Cid RN documented as of this encounter Plan of Treatment Upcoming Encounters Date Type Department Care Team (Late st Contact Info) Description 06/05/2025 Procedure Pass Non-Invasive Cardiology [address] [place] [address] 06/05/2025 Procedure Pass Non-Invasive Cardiology [address] [place] [address] [place] [address] 07/13/2025 12:00 PM EDT Office Visit [facility] [address] 3[address] [facility], [address] [place] [address] Sundar Martinez MD, MS 22 [facility], [address] [place] [address] 08/20/2025 1:30 PM EST Office Visit [facility] [address] [place] [address] [place] [address] Andi Wetzel, [address] [place] [address] 12/11/2025 12:20 PM EDT Appointment Non-Invasive Cardiology [address] [place] [address] [place] [address] Abhay Tamayo MD [address] [place] [address], [address] [place] [address] 12/11/2025 12:40 PM EDT Office Visit [address] 3[address] [facility], [address] [place] [address] Abhay Tamayo MD 22 [facility], [address] [place] [address] [email or web address] documented as of this encounter Visit Diagnoses Not on filedocumented in this encounter Additional Health Concerns Assessment Noted Time PHQ-9 Depression Total Score: 11 022 9:47 AM EST PHQ-2 Depression Total Score: 3 10/14/19 22 9:47 AM EST documented as of this encounter Care Teams Gravel Hauler Relationship Specialty Start Date End Date Romy Donis MD [address] [place] [address] [email or web address] PCP - General Family Medicine 06/12/21 08/30/22 Marina Richey PA [address] [place] [address] PCP - General Injection Mold Tooling Technician 08/31/22 Lance Jack MD [email or web address] Historical LMR Provider 07/15/17 Orly Marquez NP [address] [place] [address] Historical LMR Provider 07/15/17 Lacie Olivares MD [address] [place] [address] [email or web address] Consulting Provider Geriatric Medicine 07/24/21 Lacie Olivares MD [address] [place] [address] Geriatric Medicine 07/31/24 documented as of this encounter Additional Source Comments The information contained in this document represents components of the legal health record. It is not the complete legal health record.[facility]
--- OUTSIDE RECORDS SUMMARY | 2025-06-07 17:51 | XMS_ITS | Encounter Summary ---
Author Organization [facility] Address [address] [address] Phone Care Team Providers Care Kiln Operator Helper Name Role Phone Orly Marquez NP Primary Care Provider [phone] Lance Jack MD Unavailable [phone] Jael RodriguezC Unavailable [phone] Orly Marquez NP Unavailable [phone] Jose Hansen NP Unavailable Flower Jacobson MD Unavailable [phone] Romy Donis MD Primary Care Provider [phone] Lacie Olivares MD Unavailable [phone] Marina Richey Primary Care Provider + [phone] Lacie Olivares MD Unavailable [phone] Encounter Details Date Type Department Care Team (Late st Contact Info) Description 05/23/2021 Procedure Pass Non-Invasive Cardiology [address] [place] [address] Social History Tobacco Use Types Packs/Day Years [...] Description 06/05/2025 Procedure Pass Non-Invasive Cardiology [address] [place] [address] 06/05/2025 Procedure Pass Non-Invasive Cardiology [address] [place] [address] 07/13/2025 12:00 PM EDT Office Visit [facility] [address] [place] [address] [address]rd [facility], [address] [place] [address] Sundar Martinez MD, MS [address] [place] [address], [address] [address] 08/20/2025 1:30 PM EST Office Visit [facility] [address] [place] [address] Andi Wetzel DO [address] [place] [address] 12/11/2025 12:20 PM EDT Appointment Non-Invasive Cardiology [address] [place] [address] [place] [address] Abhay Tamayo MD [address] [place] [address], [address] [address] 12/11/2025 12:40 PM EDT Office Visit [facility] [address] [facility], [address] [place] [address] Abhay Tamayo MD [address] [place] [address], [address] [address] [email or web address] documented as of this encounter Visit Diagnoses Not on filedocumented in this encounter Care Teams Kiln Operator Helper Relationship Specialty Start Date End Date Orly Marquez NP [address] [place] [address] PCP - General 07/15/17 06/11/21 Romy Donis MD [address] [place] [address] [facility], [place] [address] [email or web address] PCP - General Family Medicine 06/12/21 08/30/22 Marina Richey PA [address] [place] [address] PCP - General System Manager 08/31/22 Lance Jack MD [address] [place] [address] [email or web address] Historical LMR Provider 07/15/17 Jael Rodriguez PA-C [address] [place] [address] [email or web address] Historical LMR Provider 07/15/17 10/04/21 Orly Marquez NP [address] [place] [address] Historical LMR Provider 07/15/17 Jose Hansen NP [address] [place] [address] [address] Historical LMR Provider 07/15/17 2 Flower Jacobson MD [address] [place] [address] [facility], [place] [address] [email or web address] Historical LMR Provider 07/15/17 10/04/21 Lacie Olivares MD 4 [facility], [place] [address] [email or web address] Consulting Provider Geriatric Medicine 07/24/21 Lacie Olivares MD 4 [facility], [place] [address] [email or web address] Geriatric Medicine 07/31/24 documented as of this encounter Additional Source Comments The information contained in this document represents components of the legal health record. It is not the complete legal health record.[facility]
--- OUTSIDE RECORDS SUMMARY | 2025-06-07 17:51 | XMS_ITS | Encounter Summary ---
Author Organization [facility] Address [address] [facility] [address] [place] [address] Phone Care Team Providers Care Manager Hair Name Role Phone Lance Jack MD Unavailable Orly Marquez NP Unavailable [phone] Lacie Olivares MD Unavailable Marina Richey Primary Care Provider [phone] Lacie Olivares MD Unavailable [phone] Reason for Referral * MRI/CAT Scan - Closed Specialty Diagnoses / Procedures Referred By Lydia brush Referred To Contact Radiology Diagnoses Low back pain, unspecified back pain laterality, unspecified chronicity, unspecified whether sciatica present Procedures CT Lumbar Spine Marina Richey PA [address] [place] [address] Phone: tel: fax: Referral ID Status Reason Start Date Expiration Date Visits Re quested Visits Authorized [id number] Closed 03/12/2025 03/12/2026 1 1 Encounter Details Date Type Department Care Team (Latest Contact Info) Description 03/12/2025 Transcribe Orders Virtual Department [address] [place], [place] [id number] Marina Richey PA [address] [place] [address] Low back pain, unspecified back pain laterality, unspecified chronicity, unspecified whether sciatica present (Primary Dx) Social History Tobacco Use Types Packs/Day Years [...] Description 06/05/2025 Procedure Pass Non-Invasive Cardiology [address] [place] [address] 06/05/2025 Procedure Pass Non-Invasive Cardiology [address] [place] [address] 07/13/2025 12:00 PM EDT Office Visit [facility] [address], [address] [place] [address] Sundar Martinez MD, [place] 22 [facility], [address] [place] [address] 08/20/2025 1:30 PM EST Office Visit [facility] [address] [place] [address] Andi Wetzel, 22 [place] [address] 12/11/2025 12:20 PM EDT Appointment Non-Invasive Cardiology [address] [place] [address] Abhay Tamayo MD [address] [place] [address], [address] [place] [address] 12/11/2025 12:40 PM EDT Office Visit [facility] [address], [address] [place] [address] Abhay Tamayo MD [address] [place] [address], [address] [place] [address] [email or web address] documented as of this encounter Results * CT LUMBAR SPINE WITHOUT CONTRAST (03/22/2025 11:00 AM EDT) Anatomical Region Laterality Modality L-spine Computed Tomogra phy 03/24/2025 9:02 PM EDT Impressions 03/24/2025 9:05 PM EDT 1. New, subacute to chronic appearing compression fractures of L1 and L4. 2. Moderate spinal stenosis at L4-5. Narrative 03/24/2025 9:[address] LUMBAR SPINE WITHOUT CONTRAST Referring clinician's provided indication for this examination in Epic: Outside Radiology Order; spinal stenosis TECHNIQUE: Multidetector-row CT of the lumbar spine was performed without intravenous contrast using tailored dose modulation techniques. Images were reconstructed in the axial, coronal, and sagittal planes. COMPARISON: CT LUMBAR SPINE WITHOUT CONTRAST FINDINGS: Since prior study there is a compression fracture of the L1 vertebral body with between 25 and 40% loss of vertebral body height. There is vacuum disc phenomenon at the T12-L1 and L1-2 levels in addition to a small amount of intraosseous gas, suggesting a subacute time course. There is also mild sclerosis within the vertebral body suggesting healing. There is an inferior endplate compression fracture of the L4 vertebral body which is new since prior study with less than 25% loss of height. There is vacuum disc phenomenon at the L4-5 level. No other compression fractures visualized. Alignment is unchanged from prior study with grade 1 anterolisthesis of L5 on S1. Multilevel endplate degenerative changes and facet arthropathy are present. There is moderate spinal stenosis at L4-5 secondary to diffuse disc bulge, facet arthropathy, and ligamentum flavum thickening. There is moderate foraminal narrowing at nearly all lumbar levels, similar to prior study, and without any level demonstrating severe stenosis. Hiatal hernia. Mild atelectasis at the lung bases. Vascular atherosclerotic calcifications. Procedure Note Jairo Devlin MD - 03/24/2025 CT LUMBAR SPINE WITHOUT CONTRAST Referring clinician's provided indication for this examination in Epic:Outside Radiology Order; spinal stenosis TECHNIQUE: Multidetector-row CT of the lumbar spine was performed withoutintravenous contrast using tailored dose modulation techniques. Imageswere reconstructed in the axial, coronal, and sagittal planes. COMPARISON: CT LUMBAR SPINE WITHOUT CONTRAST FINDINGS: Since prior study there is a compression fracture of the L1 vertebral bodywith between 25 and 40% loss of vertebral body height. There is vacuumdisc phenomenon at the T12-L1 and L1-2 levels in addition to a smallamount of intraosseous gas, suggesting a subacute time course. There isalso mild sclerosis within the vertebral body suggesting healing. There is an inferior endplate compression fracture of the L4 vertebralbody which is new since prior study with less than 25% loss of height.There is vacuum disc phenomenon at the L4-5 level. No other compression fractures visualized. Alignment is unchanged from prior study with grade 1 anterolisthesis of L5on S1. Multilevel endplate degenerative changes and facet arthropathy arepresent. There is moderate spinal stenosis at L4-5 secondary to diffuse disc bulge,facet arthropathy, and ligamentum flavum thickening. There is moderate foraminal narrowing at nearly all lumbar levels, similarto prior study, and without any level demonstrating severe stenosis. Hiatal hernia. Mild atelectasis at the lung bases. Vascularatherosclerotic calcifications. IMPRESSION: 1. New, subacute to chronic appearing compression fractures of L1 andL4. 2. Moderate spinal stenosis at L4-5. Marina CAMACHO IMG CT XSPECIALTY ORDERABL ES Final Result documented in this encounter Visit Diagnoses Diagnosis Low back pain, unspecified back pain laterality, unspecified chronicity, unspecified whether sciatica present- Primary Low back pain, unspecified back pain laterality, unspecified chronicity, unspecified whether sciatica present documented in this encounter Additional Health Concerns Assessment Noted Time PHQ-9 Depression Total Score: 11 022 9:47 AM EST PHQ-2 Depression Total Score: 3 10/14/19 22 9:47 AM EST documented as of this encounter Care Teams Manager Hair Relationship Specialty Start Date End Date Marina Richey PA [address] [place], [place] PCP - General Transport Corps Officer 08/31/22 Lance Jack MD [email or web address] Historical LMR Provider 07/15/17 Orly Marquez NP [address] [place], [place] Historical LMR Provider 07/15/17 Lacie Olivares MD [address] [place], [place] [email or web address] Consulting Provider Geriatric Medicine 07/24/21 Lacie Olivares MD [address] [place] [address] [email or web address] Geriatric Medicine 07/31/24 documented as of this encounter Additional Source Comments The information contained in this document represents components of the legal health record. It is not the complete legal health record.[facility]
--- OUTSIDE RECORDS SUMMARY | 2025-06-07 17:51 | XMS_ITS | Encounter Summary ---
Author Organization [facility] Address [address] [facility] [address] [place] [address] Phone Care Team Providers Care Director Of Strategic Programs Name Role Phone Lance Jack MD Unavailable [phone] Orly Marquez NP Unavailable [phone] Lacie Olivares MD Unavailable [phone] Marina Richey Primary Care Provider [phone] Lacie Olivares MD Unavailable [phone] Encounter Details Date Type Department Care Team (Late st Contact Info) Description 11/21/2024 Procedure Pass [facility], Ct Scan - [address] [address] Social History Tobacco Use Types Packs/Day Years [...] 06/05/2025 Procedure Pass Non-Invasive Cardiology [address] [place] [address] 06/05/2025 Procedure Pass Non-Invasive Cardiology [address] [place] [address] 07/13/2025 12:00 PM EDT Office Visit [facility] [address] [facility], [address] [place] [address] Sundar Martinez MD, MS [address] [place] [address], [address] [address] 08/20/2025 1:30 PM EST Office Visit [facility] [address] [place] [address] Andi Wetzel DO 22 [place] [address] 12/11/2025 12:20 PM EDT Appointment Non-Invasive Cardiology [address] [place] [address] [place] [address] Abhay Tamayo MD [address] [place] [address], [address] [address] 12/11/2025 12:40 PM EDT Office Visit [facility] [address] [facility], [address] [place] [address] Abhay Tamayo MD [address] [place] [address], [address] [address] documented as of this encounter Visit Diagnoses Not on filedocumented in this encounter Additional Health Concerns Assessment Noted Time PHQ-9 Depression Total Score: 11 022 9:47 AM EST PHQ-2 Depression Total Score: 3 10/14/19 22 9:47 AM EST documented as of this encounter Care Teams Director Of Strategic Programs Relationship Specialty Start Date End Date Marina Richey PA [address] [place] [address] PCP - General Hris Developer 08/31/22 Lance Jack MD [email or web address] Historical LMR Provider 07/15/17 Orly Marquez NP [address] [place] [address] Historical LMR Provider 07/15/17 Lacie Olivares MD [address] [place] [address] [email or web address] Consulting Provider Geriatric Medicine 07/24/21 Lacie Olivares MD [address] [place] [address] [email or web address] Geriatric Medicine 07/31/24 documented as of this encounter Additional Source Comments The information contained in this document represents components of the legal health record. It is not the complete legal health record.[facility]
--- OUTSIDE RECORDS SUMMARY | 2025-06-07 17:51 | XMS_ITS | Encounter Summary ---
Author Organization [facility] Address [address] [place] [address] Phone Care Team Providers Care Line And Frame Poler Name Role Phone Lance Jack MD Unavailable Orly Marquez NP Unavailable [phone] Romy Donis MD Primary Care Provider Lacie Olivares MD Unavailable [phone] Marina Richey Primary Care Provider [phone] Lacie Olivares MD Unavailable [phone] Encounter Details Date Type Department Care Team (Late st Contact Info) Description 07/18/2022 Procedure Pass [facility], Ct Scan - [address] [address] Social History Tobacco Use Types Packs/Day Years [...] 1:37 AM EDT Jose Cid RN * [place] Suicide Severity Rating Scale (Screener/Recent Self-Report) Question [...] Description 06/05/2025 Procedure Pass Non-Invasive Cardiology [address] [place] [address] 06/05/2025 Procedure Pass Non-Invasive Cardiology [address] [place] [address] [place] [address] 07/13/2025 12:00 PM EDT Office Visit [facility] [address] 3rd [facility], [address] [place] [address] Sundar Martinez MD, MS 22 [facility], [address] [place] [address] 08/20/2025 1:30 PM EST Office Visit [facility] [address] [place] [address] [place] [address] Andi Wetzel, [address] [place] [address] 12/11/2025 12:20 PM EDT Appointment Non-Invasive Cardiology [address] [place] [address] [place] [address] Abhay Tamayo MD [address] [place] [address], [address] [place] [address] 12/11/2025 12:40 PM EDT Office Visit [address] 3rd [facility], [address] [place] [address] Abhay Tamayo MD 22 [facility], [address] [place] [address] [email or web address] documented as of this encounter Visit Diagnoses Not on filedocumented in this encounter Additional Health Concerns Assessment Noted Time PHQ-9 Depression Total Score: 11 022 9:47 AM EST PHQ-2 Depression Total Score: 3 10/14/19 22 9:47 AM EST documented as of this encounter Care Teams Line And Frame Poler Relationship Specialty Start Date End Date Romy Donis MD [address] [place] [address] [email or web address] PCP - General Family Medicine 06/12/21 08/30/22 Marina Richey PA [address] [place] [address] PCP - General Exhaust And Muffler Fitter 08/31/22 Lance Jack MD [email or web address] Historical LMR Provider 07/15/17 Orly Marquez NP [address] [place] [address] Historical LMR Provider 07/15/17 Lacie Olivares MD [address] [place] [address] [email or web address] Consulting Provider Geriatric Medicine 07/24/21 Lacie Olivares MD [address] [place] [address] Geriatric Medicine 07/31/24 documented as of this encounter Additional Source Comments The information contained in this document represents components of the legal health record. It is not the complete legal health record.[facility]
--- OUTSIDE RECORDS SUMMARY | 2025-06-07 17:51 | XMS_ITS | Encounter Summary ---
Author Organization [facility] Address [address] [address] Phone Care Team Providers Care Plastics Factory Worker Name Role Phone Orly Marquez NP Primary Care Provider [phone] Lance Jack MD Unavailable [phone] Jael RodriguezC Unavailable [phone] Orly Marquez NP Unavailable [phone] Jose Hansen NP Unavailable Flower Jacobson MD Unavailable [phone] Romy Donis MD Primary Care Provider [phone] Lacie Olivares MD Unavailable [phone] Marina Richey Primary Care Provider + [phone] Lacie Olivares MD Unavailable [phone] Encounter Details Date Type Department Care Team (Late st Contact Info) Description 03/10/2019 Procedure Pass [facility] Cardiovascular And Interventional Radiology [address] [place] [address] Social History Tobacco Use Types Packs/Day Years [...] Description 06/05/2025 Procedure Pass Non-Invasive Cardiology [address] [place] [address] 06/05/2025 Procedure Pass Non-Invasive Cardiology [address] [place] [address] 07/13/2025 12:00 PM EDT Office Visit [facility] [address] [place] [address] 3rd [facility], [address] [place] [address] Sundar Martinez MD, MS [address] [place] [address], [address] [address] 08/20/2025 1:30 PM EST Office Visit [facility] [address] [place] [address] Andi Wetzel DO [address] [place] [address] 12/11/2025 12:20 PM EDT Appointment Non-Invasive Cardiology [address] [place] [address] [place] [address] Abhay Tamayo MD [address] [place] [address], [address] [address] 12/11/2025 12:40 PM EDT Office Visit [facility] [address] 3rd [facility], [address] [place] [address] Abhay Tamayo MD [address] [place] [address] [email or web address] documented as of this encounter Visit Diagnoses Not on filedocumented in this encounter Care Teams Plastics Factory Worker Relationship Specialty Start Date End Date Orly Marquez, MARIAN [address] [place] [address] PCP - General 07/15/17 06/11/21 Romy Donis MD [address] [place] [address] Orthopedics [facility], [place] [address] [email or web address] PCP - General Family Medicine 06/12/21 08/30/22 Marina Richey PA [address] [place] [address] PCP - General Assembler Dc Field Yoke 08/31/22 Lance Jack MD [address] [place] [address] [email or web address] Historical LMR Provider 07/15/17 Jeal Rodriguez PA-C [address] [place] [address] [email or web address] Historical LMR Provider 07/15/17 10/04/21 Orly Marquez NP [address] [place] [address] Historical LMR Provider 07/15/17 Jose Hansen NP [address] [place] [address] Historical LMR Provider 07/15/17 2 Flower Jacobson MD [address] [place] [address] Orthopedics [facility], [place] [address] [email or web address] Historical LMR Provider 07/15/17 10/04/21 Lacie Olivares MD [address] [facility], [place] [address] [email or web address] Consulting Provider Geriatric Medicine 07/24/21 Lacie Olivares MD [address] [facility] Orthoped[facility], [place] [address] [email or web address] Geriatric Medicine 07/31/24 documented as of this encounter Additional Source Comments The information contained in this document represents components of the legal health record. It is not the complete legal health record.[facility]
--- OUTSIDE RECORDS SUMMARY | 2025-06-07 17:51 | XMS_ITS | Encounter Summary ---
Author Organization [facility] Address [address] [place] [address] [place] [address] Phone Care Team Providers Care Hogshead Hand Name Role Phone Lance Jack MD Unavailable Orly Marquez NP Unavailable [phone] Romy Donis MD Primary Care Provider Lacie Olivares MD Unavailable [phone] Marina Richey Primary Care Provider [phone] Lacie Olivares MD Unavailable [phone] Encounter Details Date Type Department Care Team (Late st Contact Info) Description 07/21/2022 Procedure Pass [facility] Cardiovascular And Interventional Radiology [address] [place] [address] Social History Tobacco Use Types Packs/Day Years [...] Description 06/05/2025 Procedure Pass Non-Invasive Cardiology 22 [place] [address] 06/05/2025 Procedure Pass Non-Invasive Cardiology [address] [place] [address] 07/13/2025 12:00 PM EDT Office Visit [facility] 22 [facility] 3rd [facility], [address] [place] [address] Sundar Martinez MD, MS 22 [facility], [address] [place] [address] 08/20/2025 1:30 PM EST Office Visit [facility] [address] [place] [address] Andi Wetzel DO 22 [place] [address] 12/11/2025 12:20 PM EDT Appointment Non-Invasive Cardiology [address] [place] [address] Abhay Tamayo MD [address] [place] [address], [address] [address] 12/11/2025 12:40 PM EDT Office Visit [facility] 22 [facility] 3rd [facility], [address] [place] [address] Abhay Tamayo MD [address] [place] [address], [address] [address] documented as of this encounter Visit Diagnoses Not on filedocumented in this encounter Additional Health Concerns Assessment Noted Time PHQ-9 Depression Total Score: 11 022 9:47 AM EST PHQ-2 Depression Total Score: 3 10/14/19 22 9:47 AM EST documented as of this encounter Care Teams Hogshead Hand Relationship Specialty Start Date End Date Romy Donis MD [address] [place] [address] [email or web address] PCP - General Family Medicine 06/12/21 08/30/22 Marina Richey PA [address] [place] [address] PCP - General Fish Icer 08/31/22 Lance Jack MD [email or web address] Historical LMR Provider 07/15/17 Orly Marquez NP [address] [place] [address] Historical LMR Provider 07/15/17 Lacie Olivares MD [address] [place] [address] [email or web address] Consulting Provider Geriatric Medicine 07/24/21 Lacie Olivares MD [address] [place] [address] [email or web address] Geriatric Medicine 07/31/24 documented as of this encounter Additional Source Comments The information contained in this document represents components of the legal health record. It is not the complete legal health record.[facility]
--- OUTSIDE RECORDS SUMMARY | 2025-06-07 17:51 | XMS_ITS | Encounter Summary ---
Author Organization [facility] Address [address] [address] Phone Care Team Providers Care Assembler Deck And Hull Name Role Phone Lance Jack MD Unavailable [phone] Orly Marquez NP Unavailable [phone] Lacie Olivares MD Unavailable [phone] Marina Richey Primary Care Provider [phone] Lacie Olivares MD Unavailable [phone] Encounter Details Date Type Department Care Team (Late st Contact Info) Description 11/30/2023 Procedure Pass [facility] [place], Ct Scan - [address] [address] Social History Tobacco Use Types Packs/Day Years [...] Description 06/05/2025 Procedure Pass [facility]-Invasive [facility]iology [address] [place] [address] 06/05/2025 Procedure Pass Non-Invasive Cardiology [address] [place] [address] 07/13/2025 12:00 PM EDT Office Visit [facility] [address] [facility], [address] [place] [address] Sundar Martinez MD, MS [address] [place] [address], [address] [address] 08/20/2025 1:30 PM EST Office Visit [facility] [address] [place] [address] Andi Wetzel DO 22 [place] [address] 12/11/2025 12:20 PM EDT Appointment Non-Invasive Cardiology [address] [place] [address] [place] [address] Abhay Tamayo MD [address] [place] [address], [address] [address] 12/11/2025 12:40 PM EDT Office Visit [facility] [address] [facility], [address] [place] [address] Abhay Tamayo MD [address] [place] [address], [address] [address] documented as of this encounter Visit Diagnoses Not on filedocumented in this encounter Additional Health Concerns Assessment Noted Time PHQ-9 Depression Total Score: 11 022 9:47 AM EST PHQ-2 Depression Total Score: 3 10/14/19 22 9:47 AM EST documented as of this encounter Care Teams Assembler Deck And Hull Relationship Specialty Start Date End Date Marina Richey PA [address] [place] [address] PCP - General Basket Bottom Machine Operator 08/31/22 Lance Jack MD [email or web address] Historical LMR Provider 07/15/17 Orly Marquez NP [address] [place] [address] Historical LMR Provider 07/15/17 Lacie Olivares MD [address] [place] [address] [email or web address] Consulting Provider Geriatric Medicine 07/24/21 Lacie Olivares MD [address] [place] [address] [email or web address] Geriatric Medicine 07/31/24 documented as of this encounter Additional Source Comments The information contained in this document represents components of the legal health record. It is not the complete legal health record.[facility]
--- OUTSIDE RECORDS SUMMARY | 2025-06-07 17:51 | XMS_ITS | Clinical Summary ---
Author Organization [facility] Address [address] [address] Phone Care Team Providers Care Detail Assembler Name Role Phone Lance Jack MD Unavailable Orly Marquez NP Unavailable [phone] Lacie Olivares MD Unavailable [phone] Marina Richey Primary Care Provider [phone] Lacie Olivares MD Unavailable [phone] Allergies No known active allergies Medications multivitamin-mi nerals-lutein (CENTRUM SILVER) Tab Take 1 tablet by mouth daily. Active PREDNISONE ORAL Take 2 mg by mouth daily. Active tamsulosin (FLOMAX) 0.4 mg Cap 5 Active apixaban (ELIQUIS) 5 mg tabletIndicatio ns:Medication refill Take 1 tablet (5 mg total) by mouth 2 (two) times a day. 180 tablet 3 5 Active ELIQUIS 5 mg tabletIndicatio ns:Medication refill TAKE 1 TABLET BY MOUTH TWICE A DAY 180 tablet 3 4 05/09/20 25 Discontinu ed(Reorder ) Active Problems Problem Noted Date Diagnosed Date PMT (pacemaker-mediated tachycardia) 07/30/2022 Assessment & Plan (07/30/2022 5:29 PM EDT): Interrogation of the pacemaker showed episodes of PMT. We increase the P wave today programmed it hopefully that will prevent his PMT. Pericarditis 07/30/2022 Assessment & Plan (08/03/2022 12:20 PM EST): The patient presented with pleuritic type chest pain worse with breathing and bending forward. He will continue to take his colchicine. He reports that his chest pain has improved but is not completely gone. Assessment & Plan (07/30/2022 5:32 PM EDT): He had presented with pleuritic type of chest pain and the pain was worse with breathing and forward bending. After he was started on colchicine his pain got better. He will continue his colchicine but I could not hear any pericardial rub today and he does not have any fever. We will schedule another echocardiogram for pericardial effusion. Paroxysmal atrial fibrillation 07/30/2022 Assessment & Plan (08/03/2022 12:19 PM EST): Mr. Jim was found to have episodes of paroxysmal atrial fibrillation through his pacemaker interrogations. His longest episode was more than 8 hours and it occurred while he had been in the hospital for several days for the pericarditis. He was totally asymptomatic. He met with Dr. Mathis to discuss starting anticoagulation but given the patient's acute pericarditis, Dr. Mathis noted that there would be risk of pericardial effusion and tamponade so he wanted to hold off on anticoagulation for now. Today, the patient comes in with multiple questions about A. fib. I have discussed atrial fibrillation seemingly to his satisfaction with him. For now, we will stick with the plan. We will hold off on anticoagulation. The patient has a follow-up with Dr. Mathis scheduled for August 27. Of note, the patient is interested in getting the [employer] mobile potentially. I have discussed with him that in his case, he will likely be placed on anticoagulation anyway but he would like to know when he is in it. Assessment & Plan (07/30/2022 5:34 PM EDT): He was found to have episodes of paroxysmal atrial fibrillation through the interrogation of the pacemaker. The longest episode was more than 8 hours. Point he is in sinus rhythm. Patient was totally asymptomatic. We talked about starting him on him on anticoagulation but because of his acute pericarditis there is a risk of pericardial effusion and tamponade so we will hold onto the anticoagulation I explained the risk of thromboembolism and it was acceptable to the patient and his . Hypoxia 07/23/2022 Assessment & Plan (07/25/2022 4:35 PM EDT): Persistent hypoxia but this is slowly resolving. Patient not taking deep breaths due to pleuritic chest pain. Significant low lung volumes on imaging with bilateral atelectasis and pleural effusions. He was evaluated by respiratory for home O2 but they determined him to be borderline and as he does not have a qualifying diagnosis, insurance company would not pay for home oxygen over the short-term. No concern at this point for pneumonia but certainly with those lung volumes and atelectasis he is at increased risk. He is aware. -No evidence of volume overload had a trial of Lasix with no change to his hypoxia. Hypoxia secondary to splinting. Patient unable to move incentive spirometer beyond a few millimeters. - Improved pain control as noted above. - No indication for continued Lasix. -Continue to wean oxygen as tolerated. -Continue incentive spirometry MAC (acute kidney injury) 07/23/2022 Assessment & Plan (07/25/2022 4:36 PM EDT): Resolved. Patient developed acute kidney injury likely secondary to IV contrast and high- dose NSAIDs to treat his pericarditis. He was seen by nephrology who recommended discontinuing ibuprofen, not using aspirin and renally dosing his colchicine. Unfortunately, his pain has worsened since decreasing his NSAID use. 07/24 Creatinine peaked at 1.3 with a GFR down to 51. - Creatinine has improved and GFR is now 44. -Colchicine dose increased to 0.6 twice daily. 07/25 -Creatinine 1.0 with GFR 105. -Continue with increased dose of colchicine. - Repeat renal labs in a.m. -readdress his NSAID dosing with nephrology, as his shallow breathing is causing atelectasis and contributing to his hypoxia. NSTEMI (non-ST elevated myocardial infarction) 1 Abnormal stress test 07/21/2022 Assessment & Plan (07/25/2022 4:36 PM EDT): Patient evaluated with stress test as well as echo due to chest pain complaints. Echo was reassuring but stress test indicated patient had anterior wall ischemia. -Cardiac catheterization was done and was unremarkable. -No further work-up planned. Pericarditis 07/18/2022 Assessment & Plan (07/25/2022 4:34 PM EDT): Due to COVID-vaccine. Initially started on colchicine twice daily and ibuprofen however renal function bumped and nephrology recommended decreasing colchicine to daily and discontinuing NSAIDs. The patient continues to have chest discomfort. Due to suboptimal pericarditis treatment (unable to optimally treat due to creatinine clearance) patient is likely to have prolonged pleuritic pain. He is hypoxic today, I suspect it is secondary to splinting due to pericarditis. Incentive spirometer was given he was educated to get out of bed is much as possible. Chest x-ray 07/19 with atelectasis and low lung volumes, repeat chest x-ray 07/23 shows the same. 07/25- continued pain with inspiration. Splinting. -Colchicine increased to 0.6 mg twice daily on 07/24. No significant decrease in pain at present Plan -Continue colchicine 0.6 mg twice daily for 3 months -Follow renal function on the increased dose. -Increase scheduled oxycodone to 7.5 mg 3 times daily and attempts to improve pain control and ability to take deep breaths to mitigate hypoxia. Abdominal pain 07/18/2022 Assessment & Plan (07/24/2022 5:56 PM EDT): Resolved. Patient described abdominal pain during past week. This could be related to his low back problems. Patient says he has began to have discomfort radiating into his legs. He has had problems with low back pain chronically. He has an appoint with Dr. Santillan in August Abdominal CT done 07/19 unremarkable. Patient has not had abdominal pain in the hospital Status post bilateral total hip replacement 05/28 Presence of cardiac pacemaker 10/02/2017 Assessment & Plan (07/30/2022 5:30 PM EDT): His pacemaker was interrogated he has still 4 years left for the pacemaker interrogation revealed that he had episodes of atrial fibrillation and PMT. Thresholds and sensing were checked and thresholds sensing and impedance there were all normal Assessment & Plan (02/26/2022 3:02 PM EDT): No concern on device interrogation today. We will continue remote downloads every three months as well as in-person device checks every 6 months. Assessment & Plan (05/23/2021 9:28 AM EDT): He has a history for sick sinus syndrome s/p [employer] pacemaker. Interrogation today shows he has had 10 episodes of atrial fibrillation since March 15 with the longest 57 minutes in duration. He is not on anticoagulation and has not met criteria yet to be placed on anticoagulation. If his atrial fibrillation episodes last longer than an hour we will consider starting NOAC. He was on a full dose aspirin however his blood count dropped and his aspirin was stopped. His blood count recovered after stopping aspirin. He does give blood often. He is a low risk surgical candidate per NS Q IP calculator. No further cardiac testing needed prior to surgery. Continue to monitor his device every 3 months remotely with in person check yearly. Assessment & Plan (04/15/2021 3:24 PM EDT): As noted above there are no EKGs in the [facility] system to compare to since 2014. He has had multiple visits to the [facility] so we will have them take a look at the EKG, again based on his ability to use rower for an hour a day no further work-up is indicated prior to surgery. Resolved Problems Problem Noted Date Diagnosed Date Resolved Date Preop examination 04/15/2021 06/14/2021 Assessment & Plan (04/15/2021 3:20 PM EDT): This is a reasonably healthy 81-year-old patient of Orly Marquez at [facility] for planned bilateral hip replacement with Dr. Mancini for June 13. The patient's risk factor evaluation include the following. His STO{P BANG score indicates no concerns for sleep apnea. His RCRI score for cardiovascular risk including CHF and arrhythmia is 0.4%, considered a very low risk on the scale. His Zapata cardiovascular risk score is also 0.4% risk of cardiac event in the perioperative period of first 30 days. His NSQIP cardiovascular score is 0.2%. All of the other risk factors on this particular scale are all considered below average. His DASI score total is 38.95 showing some moderate dysfunction secondary to the hip limitations. He is able to achieve 7.53 METS. His EKG today shows a sinus rhythm with PACs. He has a pacemaker and which was last evaluated at [facility] in January when he was atrial pacing 75% of the time and ventricular pacing 9% of the time. We will review this strip with cardiology but it will not change the plan for him to go forward with surgery based on his functional capacity. His hemoglobin A1c, CBC, and BMP are currently pending as he did not get them done prior to the visit. All of the risk calculators were done with a creatinine under 1.5. These will need to be recalculated if that is not the case. He should have standard antibiotic and DVT prophylaxis postoperatively. He can continue his regular medicines through the perioperative period, but hold his Adderall on the morning of surgery. Bradycardia 02/27/2021 04/15/2021 Primary osteoarthritis of both hips 02/27/2021 04/15/2021 Sick sinus syndrome 10/02/2017 04/15/20 21 Assessment & Plan (03/27/2019 11:43 AM EDT): He is in the office today after having a scheduled battery change to his pacemaker. I removed the Steri-Strips. There was no erythema to the site, no drainage and no areas of induration. Overall appears to be healing quite well and without evidence of infection. I did instruct him to refrain from applying lotions or creams directly to his incision until it has been completely healed. He may shower normally. He will follow-up with his usual schedule of remote downloads in an office device interrogation. Assessment & Plan (04/04/2018 1:45 PM EDT): Programming device evaluation with iterative adjustment of the implantable device to test the function of the device and select optimal permanent program values with analysis review and report. No device related complaints. Generally he is feeling well. We have arranged for a device clinic visit in 3 months. He will see Dr. Jack in 6 months. Encounters Date Type Department Care Team Description 06/05/2025 1:40 PM EDT Office Visit [facility] [place] [address] [place] [address], [address] [place] [address] Abhay Tamayo MD Pre-operative examination (Primary Dx); Paroxysmal atrial fibrillation; Sick sinus syndrome 06/05/2025 1:30 PM EDT - 06/05/2025 11:59 PM EDT Hospital Encounter Non-Invasive Cardiology [address] [place] [address] Abhay Tamayo MD Arrived Discharge Disposition: Home or Self Care 06/05/2025 Transcribe Orders [address] [place] [address], [address] [place] [address] Sundar Martinez MD, MS Mixed sleep apnea (Primary Dx) 06/04/2025 Procedure Pass Non-Invasive Cardiology [address] [place] [address] 06/04/2025 Orders Only [address] [place] [address], [address] [place] [address] Abhay Tamayo MD Presence of cardiac pacemaker (Primary Dx) 05/11/2025 Transcribe Orders Virtual Department [address] [place] [address] Marina Richey PA Polymyalgia rheumatica (Primary Dx) 05/09/2025 Refill [facility] [address] [place] [address], [address] [place] [address] Abhay Tamayo MD Medication Refill 03/22/2025 10:47 AM EDT - 03/22/2025 11:59 PM EDT Hospital Encounter [facility], Ct Scan - [facility] [address] [place] [address] Marina Richey PA Discharge Disposition: Home or Self Care 03/12/2025 11:40 AM EDT Office Visit [facility] [address] [place] [address], [address] [place] [address] Sundar Martinez MD, MS Mixed sleep apnea (Primary Dx); Osmani-Keller respiration; Obesity (BMI 30.0-34.9) 03/12/2025 Procedure Pass [facility], Ct Scan - [address] [address] 03/12/2025 Transcribe Orders Virtual Department [address] [place] [address] Marina Richey PA Low back pain, unspecified back pain laterality, unspecified chronicity, unspecified whether sciatica present (Primary Dx) from Last 3 Months Immunizations Immunization Administration Dates Next Due COVID-19 (Pre-07/19) Pfizer Vaccine, mRNA, PF 11/04/2020,10/14/2020 COVID-19, Unspecified Formulation 12/12/2020, Hepatitis A, Unspecified 07/10/1998,10/22/1997 Hepatitis B Adult 11/04/2009 INFLUENZA, SPLIT VIRUS, TRIV ALENT W/ PRESERVATIVE IM 06/21/2012,07/16/2010,06/17/2009 Influenza High-Dose Quadriva lent Preservative Free IM 06/14/2021 Influenza High-Dose Trivalen t Preservative Free IM 07/19/2019,07/07/2018,07/15/2017,08/29,08/10/2014,06/17/2011 Influenza Quadrivalent Prese rvative Free IM 06/05/2016,08/08/2013 Influenza Quadrivalent w/ Pr eservative IM 07/02/2020 Influenza, Unspecified Formulation 07/30/2008 Novel [id number], Injectable 10/16/2009 Pneumococcal conjugate PCV13 11/05/2015 Pneumococcal conjugate, PCV 7 08/26/2005 Pneumococcal polysaccharide PPSV23 07/15/2017 Td, unspecified formulation 07/30/2008, 1 Tdap 06/21/2012 Zoster live 09/03/2008 Zoster recombinant 04/19/2019,02/03/2019 Family History Medical History Relation Comments Schizoaffective disorder Daughter 2 Heart attack Father Stroke Mother Breast cancer Sister Schizoaffective disorder Son Relation Status Comments Daughter 1 Alive Daughter 2 Alive Father Mother Sister Alive Son Alive Social History Tobacco Use Types Packs/Day Years [...] Orientation Straight 02/02/2020 12 :14 AM EDT Last Filed Vital Signs Vital Sign Reading Time Taken Comments Blood Pressure 108/70 06/05/2025 1:43 PM EDT Pulse 69 06/05/2025 1:43 PM EDT Temperature 36.4 C (97.5 F) 12/08/2024 1:45 PM EDT Respiratory Rate 26 12/08/2024 12:15 PM EDT Oxygen Saturation 93% 06/05/2025 1:43 PM EDT Inhaled Oxygen Concentration - - Weight 87.1 kg (192 lb) 06/05/2025 1:43 PM EDT Height 170.2 cm (5' 7.01 ) 06/05/2025 1:43 PM ED T Body Mass Index 30.06 06/05/2025 1:43 PM EDT Plan of Treatment Upcoming Encounters Date Type Department Care Team (Late st Contact Info) Description 06/05/2025 Procedure Pass [facility]-In[facility] Cardiology [address] [place] [address] 06/05/2025 Procedure Pass Non-Invasive Cardiology [address] [place] [address] 07/13/2025 12:00 PM EDT Office Visit [facility] [address] [facility], [address] [place] [address] Sundar Martinez MD, MS 22 [facility], [address] [address] 08/20/2025 1:30 PM EST Office Visit [facility] [address] [place] [address] Andi Wetzel DO [address] [place] [address] 12/11/2025 12:20 PM EDT Appointment Non-Invasive Cardiology [address] [place] [address] Abhay Tamayo MD [address] [place] [address], [address] [address] 12/11/2025 12:40 PM EDT Office Visit [address] [facility], [address] [place] [address] Abhay Tamayo MD [address] [place] [address], [address] [address] Health Maintenance Due Date Last Done Comments DEPRESSION SCREENING 10/14/2022 10/14/2021, 10/14/19 22 CREATININE LEVEL 07/26/2023 07/26/2022, , 07/24/2022, Additional history exists INFLUENZA VACCINE (#1) 2025 , 06/24/2023, 07/14/2022, Additional history exists COVID-19 VACCINE ( season) 2025 05/24/2024, 12/14/2023, 07/13/2023, Additional history exists Adult Td,Tdap Booster 05/15/2032 05/15/2022 , 06/21/2012, 07/30/2008, Additional history exists HEPATITIS A VACCINES Aged Out 07/10/1998, 10/22/18 98 No longer eligible based on patient's age to complete this topic PNEUMOCOCCAL VACCINES (50+ years) Completed 07/15/2017, 11/05/2015 ZOSTER VACCINES Completed 04/19/2019, 01/25, 09/03/2008 RSV VACCINE Completed 07/27/2023 HIB VACCINES Aged Out No longer eligi ble based on patient's age to complete this topic MENINGOCOCCAL VACCINES (ACWY) Aged Out No longer eligible based on patient's age to complete this topic MENINGOCOCCAL VACCINES (B) Aged Out N o longer eligible based on patient's age to complete this topic Medical Devices Implanted Type Area Carton Making Machine Operator Device Identifier Shelf Expiration Date Model / Serial / Lot Lead-03/14/2007 Implanted:02/25 by Sundar Merrill MD (Quantity not on file) Lead [employer] [id number] / [id number] / Lead-03/14/2007 Implanted:02/25 by Sundar Merrill MD (Quantity not on file) Lead [employer] [id number] / [id number] / Pacemaker Essentio 13.7cc 4.45cm 5.02cm .75cm 23.6g Dr Bojorquez Is1/Rv Is1 Connector - [id number] Implanted:Qty: 1 on 03/10/2019 by Lance Jack MD at [facility] Pacemaker [employer] [id number] 03/22/2020 [id number] / [id number] / Hip 36mm 3.0 G7 George Modular Type 1 Tapered Plus - [id number] Implanted:Qty: 1 on 06/11/2021 by Rodney Mancini MD at [facility] STANDARD Right: Acetabulum [employer] 02/21/2031 -[id number] / / [id number] Hip 36mm 6.0 G7 George Modular Type 1 Tapered Plus - [id number] Implanted:Qty: 1 on 06/11/2021 by Rodney Mancini MD at [facility] STANDARD Left: Acetabulum [employer] 09/02/[id number] / / [id number] Hip Stem [id number] 130deg Echo Bi Metric Titanium Alloy Porous Plasma Sprayed Full Proximalimal Profile Standard Lateralized - [id number] Implanted:Qty: 1 on 06/11/2021 by Rodney Mancini MD at [facility] Left: Femur [employer] 11/06/2025 [id number] / / [id number] Acetabular Shell 56mm Size F G7 Porous Plasma [place] [employer] Hole - [id number] Implanted:Qty: 1 on 06/11/2021 by Rodney Mancini MD at [facility] Right: Acetabulum [employer] 12/09/2030 [id number] / / [id number] Hip Liner 36mm F Acetabular Neutral G7 Longevity - [id number] Implanted:Qty: 1 on 06/11/2021 by Rodney Mancini MD at [facility] Right: Acetabulum AMPARO / [employer]STOL [employer] 02/02/[id number] / / [id number] Hip Stem [id number] 130deg Echo Bi Metric Titanium Alloy Porous Plasma Sprayed Full Proximalimal Profile Standard Lateralized - [id number] Implanted:Qty: 1 on 06/11/2021 by Rodney Mancini MD at [facility] Right: Femur [employer] 05/30/2029 [id number] / / [id number] Acetabular Shell 54mm Size F G7 Porous Plasma [place] [employer] Hole - [id number] Implanted:Qty: 1 on 06/11/2021 by Rodney Mancini MD at [facility] Left: Acetabulum [employer] 02/13/2031 [id number] / / [id number] Screw Dome 6.5x35mm G7 Aceetabular Low Profile Hip - [id number] Implanted:Qty: 1 on 06/11/2021 by Rodney Mancini MD at [facility] Left: Acetabulum [employer] 06/24/2025 [id number] / / [id number] Hip Liner 36mm F Acetabular Neutral G7 Longevity - [id number] Implanted:Qty: 1 on 06/11/2021 by Rodney Mancini MD at [facility] Left: [employer] / [employer] 04/12/2026 [id number] / / [id number] Procedures Procedure Name Priority Date/Time Associated Diagnosis Comments DEVICE CHECK: PPM IN-PERSON PROGRAMMING DUAL LEAD Routine 06/06/2025 4:52 PM EDT Presence of cardiac pacemaker CT LUMBAR SPINE WITHOUT CONTRAST Routine 03/22/2025 11:00 AM EDT Low back pain, unspecified back pain laterality, unspecified chronicity, unspecified whether sciatica present BASIC METABOLIC PANEL Routine 07/26/2022 3:12 AM EDT from Last 3 Months or Most Recently Relevant to Health Maintenance Results * DEVICE CHECK: PPM IN-PERSON PROGRAMMING [...] for device: SSS Examination: Device type: Pacemaker Carton Making Machine Operator: [employer] Mode: DDDR LRL/URL: 60/130 bpm Thresholds, [...] CV CARDIAC SERVICES ORDERABLE S Final Result * CT LUMBAR SPINE WITHOUT CONTRAST (03/22/2025 [...] Moderate spinal stenosis at L4-5. Marina CAMACHO IM CT XSPECIALTY ORDERABL ES Final Result * (ABNORMAL) Basic metabolic panel (07/26/2022 3:12 AM EDT) SODIUM 137 133 - 146 mmol/L [facility] CHLORIDE 99 96 - 108 mmol/L [facility] POTASSIUM 4.5 3.3 - 5.1 mmol/L [facility] CO2 27 21 - 35 mmol/L [facility] BUN 20(H) 6 - 19 mg/dL [facility] CREATININE 0.90 0.5 - 1.5 mg/dL [facility] GLUCOSE 108(H) 70 - 99 mg/dL [facility] CALCIUM 8.8 8.4 - 10.3 mg/dL [facility] EGFR 85 >59 mL/min/1.7 3m2 [facility] Comment:Estimated glomerular filtration rate calculated using the CKD-EPI refit equation. ANION GAP 16 10 - 20 mmol/L [facility] Blood 07/26/2022 3:12 AM EDT 07/26/2022 4:07 AM EDT us Aure Deleon MD LAB BLOOD ORDERABLES Final Resu lt Performing Organization Address City/State/[facility] Co de Phone Number [address] [address] from Last 3 Months or Most Recently Relevant to Health Maintenance Insurance [facility] [employer] RE[facility] [place]PLAC[place] [address] [address] MEDICARE REPLACEMENT [facility] REPLACEMENT [facility] RE[facility]ACEMENT [facility] RE[facility]EMENT [facility] RE[facility]EMENT [facility] MED[employer] REPLACEMENT [facility] MED[employer] REPLACEMENT CIG DENTAL Advance Directives For more information, please contact: [phone] (9AM - 5PM [facility], Wednesday-Wednesday) Documents on File Type Date Recorded Patient Sociology Research Assistant Expl anation Healthcare Proxy 06/17/2021 9:06 AM * Full Code (Latest Code Status on File) Date Activated Date Inactivated Comments 06/11/2021 8:29 AM Question Answer Comments Code Status Confirmed With: Patient * Full Code (Confirmed) Date Activated Date Inactivated Comments 03/10/2019 10:12 AM 03/10/2019 3:52 PM Question Answer Comments Code Status Confirmed With: Patient * Full Code (Presumed) Date Activated Date Inactivated Comments 03/10/2019 7:01 AM 03/10/2019 10:12 AM Healthcare Agents on File Name Relationship Healthcare Agent Relationship Communication Isabel Jim Spouse .Primary Health Care Agent (Proxy form on file) josé eva Montes De Ocaer Alternate He althcare Agent (Proxy form on file) Care Teams Detail Assembler Relationship Specialty Start Date End Date Marina Richey PA [address] [place] [address] PCP - General Event Staff 08/31/22 Lance Jack MD [email or web address] Historical LMR Provider 07/15/17 Orly Marquez NP [address] [place] [address] Historical LMR Provider 07/15/17 Lacie Olivares MD [address] [place] [address] [email or web address] Consulting Provider Geriatric Medicine 07/24/21 Lacie Olivares MD [address] [place] [address] [email or web address] Geriatric Medicine 07/31/24 Additional Source Comments The information contained in this document represents components of the legal health record. It is not the complete legal health record.[facility]
--- OUTSIDE RECORDS SUMMARY | 2025-06-07 17:51 | XMS_ITS | Encounter Summary ---
Author Organization [facility] Address [address] [address] Phone Care Team Providers Care Policy Advisor Name Role Phone Orly Marquez NP Primary Care Provider [phone] Lance Jack MD Unavailable [phone] Jael Rodriguez-C Unavailable [phone] Orly Marquez NP Unavailable [phone] Jose Hansen NP Unavailable Flower Jacobson MD Unavailable [phone] Romy Donis MD Primary Care Provider [phone] Lacie Olivares MD Unavailable [phone] Marina Richey Primary Care Provider + [phone] Lacie Olivares MD Unavailable [phone] Reason for Referral * MRI/CAT Scan - Closed Specialty Diagnoses / Procedures Referred By Lydia brush Referred To Contact Radiology Diagnoses Lumbar radiculopathy Procedures MRI Lumbar Spine Ethan Guillory DO Phone: tel: fax: [email or web address] Referral ID Status Reason Start Date Expiration Date Visits Re quested Visits Authorized [id number] Closed 03/06/2020 07/02/2020 1 1 Encounter Details Date Type Department Care Team (Latest Contact Info) Description 04/30/2020 Ancillary Orders Virtual Department [address] [place] [address] Ethan Guillory DO [address] [place] [address] [email or web address] Lumbar radiculopathy Social History Tobacco Use Types Packs/Day Years [...] Description 06/05/2025 Procedure Pass Non-Invasive Cardiology [address] [place] [address] 06/05/2025 Procedure Pass Non-Invasive Cardiology [address] [place] [address] 07/13/2025 12:00 PM EDT Office Visit [facility] [address] [place] [address] 3rd Floor, [address] [place] [address] Sundar Martinez MD, MS 22 [facility], [address] [address] 08/20/2025 1:30 PM EST Office Visit [facility] [address] [place] [address] Andi Wetzel DO 22 [place] [address] 12/11/2025 12:20 PM EDT Appointment Non-Invasive Cardiology [address] [place] [address] [place] [address] Abhay Tamayo MD 22 [facility], [address] [place] [address] [email or web address] 12/11/2025 12:40 PM EDT Office Visit [facility] [address]rd Floor, [address] [place] [address] Abhay Tamayo MD 22 [facility], [address] [place] [address] [email or web address] documented as of this encounter Results * MRI LUMBAR SPINE (NEURO) WITHOUT CONTRAST (05/21/2020 12:59 PM EDT) Anatomical Region Laterality Modality L-spine Magnetic Resonan ce 05/21/2020 1:21 PM EDT Impressions 05/21/2020 1:36 PM EDT Chronic grade 1 spondylolisthesis at the L1-2, L2-3, and L5-S1 levels. No acute disc protrusion or central canal stenosis. Moderate L2-3 disc bulge and right L3-4 and left L4-5 neural foraminal narrowing which could be correlated with any associated clinical findings of radiculopathy. Marrow edema underlying the inferior L1 and superior L2 endplates may be reactive and related to Schmorl's node formation, without vertebral body compression deformity apparent. POS - [id number] Narrative 05/21/2020 1:36 PM EDT TECHNIQUE: Exam performed on a 1.5 Lynette high-field MRI scanner. Sagittal T1, T2 and STIR, axial T1 and T2 sequences were obtained. FINDINGS: Comparisons made with the CT of 12/11/2014. T11-T12: No focal disc protrusion, central canal stenosis, or significant neural foraminal compromise. T12-L1: Negligible disc bulge without focal disc protrusion, central canal stenosis, or significant neural foraminal compromise. L1-2: Disc space narrowing and disc desiccation. Chronic retrolisthesis of the L1 vertebral body is measured at approximately 5 mm. No focal disc protrusion or central canal stenosis. Bilateral neural foraminal narrowing without overt mass-effect upon the exiting L1 nerve roots. L2-L3: There is mild broad-based disc bulge without focal disc protrusion or central canal stenosis. There is a chronic retrolisthesis of the L2 body currently measured at approximately 4 mm. There is mild bilateral neural foraminal narrowing due to the spondylolisthesis but without overt mass-effect upon the exiting L2 nerve roots. L3-L4: There is mild broad-based disc bulge and minimal posterior spondylosis without focal disc protrusion or central canal stenosis. Mild hypertrophic facet arthropathy and minimal ligamentum flavum prominence contribute to early bilateral recess stenosis. Left neural foramen is patent. There is right neural foraminal narrowing apparently related to foraminal disc bulge and facet osteoarthropathy which causes borderline mass-effect upon the exiting L3 nerve root. L4-L5: There is moderate posterior central disc bulge which does not appear to represent a cyst true protrusion. No central canal stenosis. Hypertrophic facet arthropathy contributes to bilateral recess stenosis. There is bilateral neural foraminal narrowing due to foraminal disc bulge and mild endplate spurring, more pronounced on the left than right with borderline mass-effect upon the exiting L4 nerve root. L5-S1: There is a chronic anterolisthesis of the L5 body currently measured at 4 mm which uncovers the roof of the intervening disc but the disc does not project dorsal to the S1 corner to imply true protrusion. No central canal stenosis. Bilateral neural foraminal narrowing without overt mass-effect upon the exiting nerve roots. Prominent hypertrophic facet arthropathy. There is marrow edema underlying the inferior L1 and superior L2 endplates, most pronounced the left of midline and possibly related to Schmorl's node formation without definitive fracture apparent. No other significant abnormality of vertebral body marrow signal is noted. Visualized portions of the conus are unremarkable. No paraspinal soft tissue mass apparent. Procedure Note Rodney Hu MD - 05/21/2020 TECHNIQUE: Exam performed on a 1.5 Lynette high-field MRI scanner. SagittalT1, T2 and STIR, axial T1 and T2 sequences were obtained. FINDINGS: Comparisons made with the CT of 12/11/2014. T11-T12: No focal disc protrusion, central canal stenosis, or significantneural foraminal compromise. T12-L1: Negligible disc bulge without focal disc protrusion, central canalstenosis, or significant neural foraminal compromise. L1-2: Disc space narrowing and disc desiccation. Chronic retrolisthesis ofthe L1 vertebral body is measured at approximately 5 mm. No focal discprotrusion or central canal stenosis. Bilateral neural foraminal narrowingwithout overt mass-effect upon the exiting L1 nerve roots. L2-L3: There is mild broad-based disc bulge without focal disc protrusionor central canal stenosis. There is a chronic retrolisthesis of the L2body currently measured at approximately 4 mm. There is mild bilateralneural foraminal narrowing due to the spondylolisthesis but without overtmass-effect upon the exiting L2 nerve roots. L3-L4: There is mild broad-based disc bulge and minimal posteriorspondylosis without focal disc protrusion or central canal stenosis. Mildhypertrophic facet arthropathy and minimal ligamentum flavum prominencecontribute to early bilateral recess stenosis. Left neural foramen ispatent. There is right neural foraminal narrowing apparently related toforaminal disc bulge and facet osteoarthropathy which causes borderlinemass-effect upon the exiting L3 nerve root. L4-L5: There is moderate posterior central disc bulge which does notappear to represent a cyst true protrusion. No central canal stenosis.Hypertrophic facet arthropathy contributes to bilateral recess stenosis.There is bilateral neural foraminal narrowing due to foraminal disc bulgeand mild endplate spurring, more pronounced on the left than right withborderline mass-effect upon the exiting L4 nerve root. L5-S1: There is a chronic anterolisthesis of the L5 body currentlymeasured at 4 mm which uncovers the roof of the intervening disc but thedisc does not project dorsal to the S1 corner to imply true protrusion. Nocentral canal stenosis. Bilateral neural foraminal narrowing without overtmass-effect upon the exiting nerve roots. Prominent hypertrophic facetarthropathy. There is marrow edema underlying the inferior L1 and superior [id number], most pronounced the left of midline and possibly related toSchmorl's node formation without definitive fracture apparent. No othersignificant abnormality of vertebral body marrow signal is noted.Visualized portions of the conus are unremarkable. No paraspinal softtissue mass apparent. IMPRESSION: Chronic grade 1 spondylolisthesis at the L1-2, L2-3, and L5-S1 levels. Noacute disc protrusion or central canal stenosis. Moderate L2-3 disc bulgeand right L3-4 and left L4-5 neural foraminal narrowing which could becorrelated with any associated clinical findings of radiculopathy. Marrowedema underlying the inferior L1 and superior L2 endplates may be reactiveand related to Schmorl's node formation, without vertebral bodycompression deformity apparent. POS - [id number] us Ethan Guillory DO IMG MR XSPECIALTY Final Resu lt documented in this encounter Visit Diagnoses Diagnosis Lumbar radiculopathy Thoracic or lumbosacral neuritis or radiculitis, unspecified Lumbar radiculopathy Thoracic or lumbosacral neuritis or radiculitis, unspecified documented in this encounter Care Teams Policy Advisor Relationship Specialty Start Date End Date Orly Marquez NP [address] [place] [address] PCP - General 07/15/17 06/11/21 Romy Donis MD [address] [place] [address] Orthopedics & Sports Medicine, [place] [address] [email or web address] PCP - General Family Medicine 06/12/21 08/30/22 Marina Richey PA [address] [place] [address] PCP - General Clinical Trainer 08/31/22 Lance Jack MD [address] [place] [address] [email or web address] Historical LMR Provider 07/15/17 Jael Rodriguez PA-C [address] [place] [address] Historical LMR Provider 07/15/17 10/04/21 Orly Marquez TRAVELING REPAIR ACCOUNTANT [address] [place] [address] Historical LMR Provider 07/15/17 Jose Hansen NP [address] [place] [address] 21 [place] [phone] Historical LMR Provider 07/15/17 2 Flower Jacobson MD [address] [place] [address] Orthopedics Sports [facility], [place] [address] [email or web address] Historical LMR Provider 07/15/17 10/04/21 Lacie Olivares MD [address] [place] [address] Orthopedics Sports [facility], [place] [address] Consulting Provider Geriatric Medicine 07/24/21 Lacie Olivares MD [address] [place] [address] [facility] [place] [address] Geriatric Medicine 07/31/24 documented as of this encounter Additional Source Comments The information contained in this document represents components of the legal health record. It is not the complete legal health record.[facility]
--- OUTSIDE RECORDS SUMMARY | 2025-06-07 17:51 | XMS_ITS | Encounter Summary ---
Author Organization [facility] Address [address] [address] Phone Care Team Providers Care Sugar Cane Planter Machine Operator Name Role Phone Orly Marquez NP Primary Care Provider Lance Jack MD Unavailable [phone] Jael Rodriguez-C Unavailable [phone] Orly Marquez NP Unavailable [phone] Jose Hansen NP Unavailable Flower Jacobson MD Unavailable [phone] Romy Donis MD Primary Care Provider [phone] Lacie Olivares MD Unavailable [phone] Marina Richey Primary Care Provider + [phone] Lacie Olivares MD Unavailable [phone] Encounter Details Date Type Department Care Team (Late st Contact Info) Description 11/04/2020 Ancillary Orders Virtual Department 30 [place] [address] Ethan Guillory, [address] [place] [address] [email or web address] Pain in hip Social History Tobacco Use Types Packs/Day Years [...] Description 06/05/2025 Procedure Pass Non-Invasive Cardiology [address] [place] [address] 06/05/2025 Procedure Pass Non-Invasive Cardiology [address] [place] [address] 07/13/2025 12:00 PM EDT Office Visit [facility] [address] [facility], [address] [place] [address] Sundar Martinez MD, MS [address] [place] [address], [address] [address] 08/20/2025 1:30 PM EST Office Visit [facility] [address] [place] [address] Andi Wetzel DO 22 [place] [address] 12/11/2025 12:20 PM EDT Appointment Non-Invasive Cardiology [address] [place] [address] [place] [address] Abhay Tamayo MD [address] [place] [address], [address] [place] [address] 12/11/2025 12:40 PM EDT Office Visit [facility] [address] [place] [address] 3rd [facility], [address] [place] [address] Abhay Tamayo MD [address] [place] [address], [address] [address] [email or web address] documented as of this encounter Results * XR HIPS 2+ VW EA BILAT PLUS PELVIS (11/05/2020 11:34 AM EST) Anatomical Region Laterality Modality Hip, Pelvis Computed Radiogr aphy 11/05/2020 11:3 7 AM EST Impressions 11/05/2020 11:41 AM EST 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 Narrative 11/05/2020 11:41 AM EST TECHNIQUE: XR HIPS 2+ VW EA BILAT PLUS PELVIS COMPARISON: None HISTORY: Hip pain FINDINGS: There is evidence of severe degenerative osteoarthritis at both hip joints. There is mild generalized underlying osteopenia. The trabecular pattern is maintained. There is no evidence of fracture or dislocation. The sacral arches are intact. There is suggestion of prior pelvic surgery. Degenerative changes of the lumbar spine are incidentally noted. Procedure Note Willard Hutton MD - 11/05/2020 TECHNIQUE: XR HIPS 2+ VW EA BILAT PLUS PELVIS COMPARISON: None HISTORY: Hip pain FINDINGS: There is evidence of severe degenerative osteoarthritis at both hipjoints. There is mild generalized underlying osteopenia. The trabecularpattern is maintained. There is no evidence of fracture or dislocation.The sacral arches are intact. There is suggestion of prior pelvic surgery.Degenerative changes of the lumbar spine are incidentally noted. 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 Ethan Guillory DO IMG XR PELVIS Final Result documented in this encounter Visit Diagnoses Diagnosis Pain in hip Pain in hip documented in this encounter Care Teams Sugar Cane Planter Machine Operator Relationship Specialty Start Date End Date Orly Marquez NP [address] [place] [address] PCP - General 07/15/17 06/11/21 Romy Donis MD [address] [place] [address] Orthopedics & Sports Medicine, [place] [address] [email or web address] PCP - General Family Medicine 06/12/21 08/30/22 Marina Richey PA [address] [place] [address] PCP - General Hearing Officer 08/31/22 Lance Jack MD [address] [place] [address] [email or web address] Historical LMR Provider 07/15/17 Jael Rodriguez PA-C [address] [place] [address] Historical LMR Provider 07/15/17 10/04/21 Orly Marquez NP [address] [place] [address] Historical LMR Provider 07/15/17 Jose Hansen, MARIAN [address] [place] [phone] Historical LMR Provider 07/15/17 Flower Smith MD [address] [place] [address] Orthopedics & Sports Medicine, [facility] [place] [address] Historical LMR Provider 07/15/17 10/04/21 Lacie Olivares MD [address] [place] [address] Orthopedics & Sports Medicine, [facility] [place] [address] [email or web address] Consulting Provider Geriatric Medicine 07/24/21 Lacie Olivares MD [address] [place] [address] Orthopedics & Sports Medicine, [place] [address] [email or web address] Geriatric Medicine 07/31/24 documented as of this encounter Additional Source Comments The information contained in this document represents components of the legal health record. It is not the complete legal health record.[facility]
--- OUTSIDE RECORDS SUMMARY | 2025-06-07 17:51 | XMS_ITS | Encounter Summary ---
Author Organization [facility] Address 399 [facility] [address] [place] [address] Phone Care Team Providers Care Library Helper Name Role Phone Lance Jack MD Unavailable Orly Marquez NP Unavailable [phone] aLcie Olivares MD Unavailable Marina Richey Primary Care Provider [phone] Lacie Olivares MD Unavailable [phone] Encounter Details Date Type Department Care Team (Latest Contact Info) Description 11/18/2023 Transcribe Orders Virtual Department 30 [place] [address] Sanya Delacruz PA [address] [address] Radiculopathy, lumbar region (Primary Dx); Spondylosis, unspecified Social History Tobacco Use Types Packs/Day Years [...] Description 06/05/2025 Procedure Pass Non-Invasive Cardiology [address] [place] [address] 06/05/2025 Procedure Pass Non-Invasive Cardiology [address] [place] [address] 07/13/2025 12:00 PM EDT Office Visit [facility] [address] [place] [address] [place] [address], [address] [place] [address] Sundar Martinez MD, MS [address] [place] [address], [address] [address] 08/20/2025 1:30 PM EST Office Visit [facility] [address] [place] [address] [place] [address] Andi Wetzel DO 22 [place] [address] 12/11/2025 12:20 PM EDT Appointment Non-Invasive Cardiology [address] [place] [address] [place] [address] Abhay Tamayo MD [address] [place] [address], [address] [place] [address] 12/11/2025 12:40 PM EDT Office Visit [facility] [address] 3rd [facility], [address] [place] [address] Abhay Tamayo MD [address] [place] [address], [address] [address] [email or web address] documented as of this encounter Visit Diagnoses Diagnosis Radiculopathy, lumbar region- Primary Thoracic or lumbosacral neuritis or radiculitis, unspecified Spondylosis, unspecified documented in this encounter Additional Health Concerns Assessment Noted Time PHQ-9 Depression Total Score: 11 022 9:47 AM EST PHQ-2 Depression Total Score: 3 10/14/19 22 9:47 AM EST documented as of this encounter Care Teams Library Helper Relationship Specialty Start Date End Date Marina Richey PA [address] [place] [address] PCP - General Doctor Of Audiology 08/31/22 Lance Jack MD [email or web address] Historical LMR Provider 07/15/17 Orly Marquez NP [address] [place] [address] Historical LMR Provider 07/15/17 Lacie Olivares MD [address] [place] [address] [email or web address] Consulting Provider Geriatric Medicine 07/24/21 Lacie Olivares MD [address] [place] [address] [email or web address] Geriatric Medicine 07/31/24 documented as of this encounter Additional Source Comments The information contained in this document represents components of the legal health record. It is not the complete legal health record.[facility]
--- OUTSIDE RECORDS SUMMARY | 2025-06-07 17:51 | XMS_ITS | Encounter Summary ---
Author Organization [facility] Address [address] [address] Phone Care Team Providers Care Veterinary Practitioner Name Role Phone Orly Marquez NP Primary Care Provider [phone] Lance Jack MD Unavailable [phone] Jael RodriguezC Unavailable [phone] Orly Marquez NP Unavailable [phone] Jose Hansen NP Unavailable Flower Jacobson MD Unavailable [phone] Romy Donis MD Primary Care Provider [phone] Lacie Olivares MD Unavailable [phone] Marina Richey Primary Care Provider + [phone] Lacie Olivares MD Unavailable [phone] Encounter Details Date Type Department Care Team (Late st Contact Info) Description 04/18/2019 Procedure Pass [facility], [address] [address] Social History Tobacco Use Types Packs/Day Years [...] Description 06/05/2025 Procedure Pass Non-Invasive Cardiology [address] [place] [address] 06/05/2025 Procedure Pass Non-Invasive Cardiology [address] [place] [address] 07/13/2025 12:00 PM EDT Office Visit [facility] [address] [place] [address] 3rd [facility], [address] [place] [address] Sundar Martinez MD, MS [address] [place] [address], [address] [address] 08/20/2025 1:30 PM EST Office Visit [facility] [address] [place] [address] Andi Wetzel DO [address] [place] [address] 12/11/2025 12:20 PM EDT Appointment Non-Invasive Cardiology [address] [place] [address] [place] [address] Abhay Tamayo MD [address] [place] [address], [address] [address] 12/11/2025 12:40 PM EDT Office Visit [facility] [address] 3[address] [facility], [address] [place] [address] Abhay Tamayo MD [address] [place] [address], [address] [address] documented as of this encounter Visit Diagnoses Not on filedocumented in this encounter Care Teams Veterinary Practitioner Relationship Specialty Start Date End Date Orly Marquez NP [address] [place] [address] PCP - General 07/15/17 06/11/21 Romy Donis MD [address] [place] [address] Orthopedics Sports [facility], [place] [address] [email or web address] PCP - General Family Medicine 06/12/21 08/30/22 Marina Richey PA [address] [place] [address] PCP - General Kitchenwhere Maker 08/31/22 Lance Jcak MD [address] [place] [address] [email or web address] Historical LMR Provider 07/15/17 Jael Rodriguez PA-C [address] [place] [address] [email or web address] Historical LMR Provider 07/15/17 10/04/21 Orly Marquez NP [address] [place] [address] Historical LMR Provider 07/15/17 Jose Hansen NP [address] [place] [address] [address] Historical LMR Provider 07/15/17 2 Flower Jacobson MD [address] [place] [address] Orthopedics Sports [facility], [place] [address] [email or web address] Historical LMR Provider 07/15/17 10/04/21 Lacie Olivares MD 4 [facility] Orthopedics Sports [facility], [place] [address] [email or web address] Consulting Provider Geriatric Medicine 07/24/21 Lacie Olivares MD 4 [facility] Orthopedics Sports [facility], [place] [address] [email or web address] Geriatric Medicine 07/31/24 documented as of this encounter Additional Source Comments The information contained in this document represents components of the legal health record. It is not the complete legal health record.[facility]
--- OUTSIDE RECORDS SUMMARY | 2025-06-07 17:51 | XMS_ITS | Encounter Summary ---
Author Organization Located [facility] Address [address] [address] Phone Care Team Providers Care Data Architect Name Role Phone Orly Marquez NP Primary Care Provider [phone] Lance Jack MD Unavailable [phone] Jael RodriguezC Unavailable [phone] Orly Marquez NP Unavailable [phone] Jose Hansen NP Unavailable [phone] Flower Jacobson MD Unavailable [phone] Romy Donis MD Primary Care Provider [phone] Lacie Olivares MD Unavailable [phone] Marina Richey Primary Care Provider + [phone] Lacie Olivares MD Unavailable [phone] Reason for Referral * MRI/CAT Scan - Closed Specialty Diagnoses / Procedures Referred By Lydia brush Referred To Contact Radiology Diagnoses Other amnesia Poor short term memory Procedures MRI Brain Orly Marquez NP Phone: tel: Referral ID Status Reason Start Date Expiration Date Visits Re quested Visits Authorized [id number] Closed 04/17/2019 06/15/2019 1 1 Encounter Details Date Type Department Care Team (Late st Contact Info) Description 04/18/2019 Transcribe Orders Virtual Department [address] [place] [address] Orly Marquez NP [address] [place] [address] Other amnesia (Primary Dx); Poor short term memory Social History Tobacco Use Types Packs/Day Years [...] Encounters Date Type Department Care Team (Late Contact Info) Description 06/05/2025 Procedure Pass Non-Invasive Cardiology [address] [place] [address] 06/05/2025 Procedure Pass Non-Invasive Cardiology [address] [place] [address] 07/13/2025 12:00 PM EDT Office Visit [facility] [address] [place] [address] 3rd Floor, [address] [address] Sundar Martinez MD, MS [address] [place] [address] 08/20/2025 1:30 PM EST Office Visit [facility] [address] [place] [address] Andi Wetzel DO [address] [place] [address] 12/11/2025 12:20 PM EDT Appointment Non-Invasive Cardiology [address] [place] [address] [place] [address] Abhay Tamayo MD [address] [place] [address], [address] [address] [email or web address] 12/11/2025 12:40 PM EDT Office Visit [facility] 22 [facility] 3rd Floor, [address] [place] [address] Abhay Tamayo MD 22 [facility], [address] [place] [address] [email or web address] documented as of this encounter Results * MRI BRAIN WITHOUT CONTRAST (05/01/2019 1:30 PM EDT) Anatomical Region Laterality Modality Head Magnetic Resonan ce 05/01/2019 1:30 PM EDT Impressions 05/01/2019 1:42 PM EDT Multiple white matter lesions which may be on the basis of demyelinating disease/MS or chronic microangiopathic ischemic disease. POS - [id number] Narrative 05/01/2019 1:42 PM EDT COMPARISON: None. TECHNIQUE: Exam performed on a 1.5 Lynette high-field MRI scanner. Axial T1, T2, T2*, T2 FLAIR and diffusion-weighted imaging with ADC map, sagittal FLAIR and T1 sequences were obtained. MRI HEAD FINDINGS: Brain: No cerebellar tonsil herniation. Pituitary gland is not enlarged. No restricted diffusion to indicate acute or subacute ischemia. 2 mm intraparenchymal susceptibility artifact in the left parietal lobe likely volume averaging with a vessel. No definite findings of hemorrhage. There are multiple nodular T2 hyperintense periventricular white matter lesions many of which are oriented perpendicular to the lateral ventricles and some are cystic in the left centrum semiovale and chaves radiata. No cerebellar, brainstem or corpus callosum signal abnormalities. No mass, mass effect, midline shift or extra-axial fluid collections. Ventricles: No hydrocephalus. Vasculature: Normal vascular flow-voids. Orbits: Normal. Mastoids/Middle Ear/Paranasal Sinuses: Mild pansinus mucosal thickening. Right nasal septal deviation. Soft Tissues: Unremarkable. Bone Marrow: Unremarkable. Procedure Note Katherine Richard MD - 05/01/2019 COMPARISON: None. TECHNIQUE: Exam performed on a 1.5 Lynette high-field MRI scanner. AxialT1, T2, T2*, T2 FLAIR and diffusion-weighted imaging with ADC map,sagittal FLAIR and T1 sequences were obtained. MRI HEAD FINDINGS: Brain: No cerebellar tonsil herniation. Pituitary gland is not enlarged.No restricted diffusion to indicate acute or subacute ischemia. 2 mmintraparenchymal susceptibility artifact in the left parietal lobe likelyvolume averaging with a vessel. No definite findings of hemorrhage.There are multiple nodular T2 hyperintense periventricular white matterlesions many of which are oriented perpendicular to the lateral ventriclesand some are cystic in the left centrum semiovale and chaves radiata. Nocerebellar, brainstem or corpus callosum signal abnormalities. No mass,mass effect, midline shift or extra-axial fluid collections. Ventricles: No hydrocephalus. Vasculature: Normal vascular flow-voids. Orbits: Normal. Mastoids/Middle Ear/Paranasal Sinuses: Mild pansinus mucosal thickening.Right nasal septal deviation. Soft Tissues: Unremarkable. Bone Marrow: Unremarkable. IMPRESSION: Multiple white matter lesions which may be on the basis of demyelinatingdisease/MS or chronic microangiopathic ischemic disease. POS - [id number] Orly Marquez NP IMG MR HEAD/NECK Final Result documented in this encounter Visit Diagnoses Diagnosis Other amnesia- Primary Poor short term memory Memory loss Other amnesia Poor short term memory Memory loss documented in this encounter Care Teams Data Architect Relationship Specialty Start Date End Date Orly Marquez NP [address] [place] [address] PCP - General 07/15/17 06/11/21 Romy Donis MD [address] [place] [address] Orthopedics [facility] Sports Medicine, [place] [address] [email or web address] PCP - General Family Medicine 06/12/21 08/30/22 Marina Richey PA [address] [place] [address] PCP - General Internal Combustion Engine Subassembler 08/31/22 Lance Jack MD [address] [place] [address] [email or web address] Historical LMR Provider 07/15/17 Jael Rodriguez PA-C [address] [place] [address] [email or web address] Historical LMR Provider 07/15/17 10/04/21 Orly Marquez NP [address] [place] [address] Historical LMR Provider 07/15/17 Jose Hansen, MARIAN [address] [place] [phone] Historical LMR Provider 07/15/17 Flower Smith MD [address] [place] [address] [facility], [place] [address] [email or web address] Historical LMR Provider 07/15/17 10/04/21 Lacie Olivares MD [address] [place] [address] Orthopedics Sports [facility], [place] [address] Consulting Provider Geriatric Medicine 07/24/21 Lacie Olivares MD [address] [place] [address] Orthopedics Sports [facility], [place] [address] [email or web address] Geriatric Medicine 07/31/24 documented as of this encounter Additional Source Comments The information contained in this document represents components of the legal health record. It is not the complete legal health record.[facility]
--- OUTSIDE RECORDS SUMMARY | 2025-06-07 17:51 | XMS_ITS | Encounter Summary ---
Author Organization [facility] Address [address] [place] [address] Phone Care Team Providers Care Stretching Machine Tender Frame Name Role Phone Lance Jack MD Unavailable [phone] Orly Marquez NP Unavailable [phone] Romy Donis MD Primary Care Provider Lacie Olivares MD Unavailable [phone] Marina Richey Primary Care Provider [phone] Lacie Olivares MD Unavailable [phone] Encounter Details Date Type Department Care Team (Late st Contact Info) Description 07/19/2022 Procedure Pass [facility] [address] [place], [place] [id number] Social History Tobacco Use Types Packs/Day Years [...] Description 06/05/2025 Procedure Pass Non-Invasive Cardiology 22 [place] [address] 06/05/2025 Procedure Pass Non-Invasive Cardiology [address] [place] [address] 07/13/2025 12:00 PM EDT Office Visit [facility] [address] 3rd Floor, [address] [place] [address] Sundar Martinez MD, MS 22 [facility], [address] [address] 08/20/2025 1:30 PM EST Office Visit [facility] [address] [place] [address] Andi Wetzel DO 22 [place] [address] 12/11/2025 12:20 PM EDT Appointment Non-Invasive Cardiology [address] [place] [address] Abhay Tamayo MD [address] [place] [address], [address] [address] 12/11/2025 12:40 PM EDT Office Visit [facility] [address] [facility], [address] [place] [address] Abhay Tamayo MD [address] [place] [address], [address] [address] documented as of this encounter Visit Diagnoses Not on filedocumented in this encounter Additional Health Concerns Assessment Noted Time PHQ-9 Depression Total Score: 11 022 9:47 AM EST PHQ-2 Depression Total Score: 3 10/14/19 22 9:47 AM EST documented as of this encounter Care Teams Stretching Machine Tender Frame Relationship Specialty Start Date End Date Romy Donis MD [address] [place] [address] [email or web address] PCP - General Family Medicine 06/12/21 08/30/22 Marina Richey PA [address] [place] [address] PCP - General Body Shop Worker 08/31/22 Lance Jack MD [email or web address] Historical LMR Provider 07/15/17 Orly Marquez NP [address] [place] [address] Historical LMR Provider 07/15/17 Lacie Olivares MD [address] [place] [address] [email or web address] Consulting Provider Geriatric Medicine 07/24/21 Lacie Olivares MD [address] [place] [address] [email or web address] Geriatric Medicine 07/31/24 documented as of this encounter Additional Source Comments The information contained in this document represents components of the legal health record. It is not the complete legal health record.[facility]
--- OUTSIDE RECORDS SUMMARY | 2025-06-07 17:51 | XMS_ITS | Encounter Summary ---
Author Organization [facility] Address [address] [facility] [address] [place] [address] Phone Care Team Providers Care Spa Manager Name Role Phone Orly Marquez NP Primary Care Provider Lance Jack MD Unavailable Jael RodriguezC Unavailable [phone] Orly Marquez NP Unavailable Jose Hansen NP Unavailable Flower Jacobson MD Unavailable Romy Donis MD Primary Care Provider Lacie Olivares MD Unavailable [phone] Marina Richey Primary Care Provider + [phone] Lacie Olivares MD Unavailable [phone] Encounter Details Date Type Department Care Team (Late st Contact Info) Description 12/17/2020 Ancillary Orders [facility] [address] 3rd Floor, [address] [place] [address] Shreyas Lu MD [address] [place] [address] [email or web address] Social History Tobacco Use Types Packs/Day Years [...] Description 06/05/2025 Procedure Pass Non-Invasive Cardiology [address] [place] [address] 06/05/2025 Procedure Pass Non-Invasive Cardiology [address] [place] [address] 07/13/2025 12:00 PM EDT Office Visit [facility] [address] [facility], [address] [place] [address] uSndar Martinez MD, MS [address] [place] [address], [address] [address] 08/20/2025 1:30 PM EST Office Visit [facility] [address] [place] [address] Andi Wetzel DO 22 [place] [address] 12/11/2025 12:20 PM EDT Appointment Non-Invasive [place] [address] Abhay Tamayo MD [address] [place] [address], [address] [place] [address] 12/11/2025 12:40 PM EDT Office Visit [facility] [address] [place] [address] 3rd [facility], [address] [place] [address] Abhay Tamayo MD [address] [place] [address], [address] [address] documented as of this encounter Visit Diagnoses Not on filedocumented in this encounter Care Teams Spa Manager Relationship Specialty Start Date End Date Orly Marquez, FLOAT PHLEBOTOMIST [address] [place] [address] PCP - General 07/15/17 06/11/21 Romy Donis MD [address] [place] [address] Orthopedics & Sports Medicine, [place] [address] [email or web address] PCP - General Family Medicine 06/12/21 08/30/22 Marina Richey PA [address] [place] [address] PCP - General Cloth Drier 08/31/22 Lance Jack MD [address] [place] [address] [email or web address] Historical LMR Provider 07/15/17 Jael Rodriguez PA-C [address] [place] [address] [email or web address] Historical LMR Provider 07/15/17 10/04/21 Orly Marquez, FLOAT PHLEBOTOMIST [address] [place] [address] Historical LMR Provider 07/15/17 Jose Hansen, MARIAN [address] [place] [address] [phone] Historical LMR Provider 07/15/17 2 Flower Jacobson MD 4 [facility] Orthopedics Sports [facility], [place] [address] [email or web address] Historical LMR Provider 07/15/17 10/04/21 Lacie Olivares MD [address] [place] [address] Orthopedics Sports [facility], [place] [address] [email or web address] Consulting Provider Geriatric Medicine 07/24/21 Lacie Olivares MD 4 [facility] Orthopedics Sports [facility], [place] [address] [email or web address] Geriatric Medicine 07/31/24 documented as of this encounter Additional Source Comments The information contained in this document represents components of the legal health record. It is not the complete legal health record.[facility]
--- OUTSIDE RECORDS SUMMARY | 2025-06-07 17:51 | XMS_ITS | Encounter Summary ---
Author Organization [facility] Address [address] [place] [address] Phone Care Team Providers Care Chief Design Drafter Name Role Phone Lance Jack MD Unavailable Orly Marquez NP Unavailable [phone] Lacie Olivares MD Unavailable [phone] Marina Richey Primary Care Provider + [phone] Lacie Olivares MD Unavailable [phone] Encounter Details Date Type Department Care Team (Late st Contact Info) Description 12/16/2022 Procedure Pass Non-Invasive Cardiology [address] [place] [address] Social History Tobacco Use Types Packs/Day Years [...] Description 06/05/2025 Procedure Pass Non-Invasive Cardiology [address] [place] [address] 06/05/2025 Procedure Pass Non-Invasive Cardiology [address] [place] [address] 07/13/2025 12:00 PM EDT Office Visit [facility] [address] 3[address] [facility], [address] [place] [address] Sundar Martinez MD, MS 22 [facility], [address] [address] 08/20/2025 1:30 PM EST Office Visit [facility] 22 [place] [address] Andi Wetzel DO [address] [place] [address] 12/11/2025 12:20 PM EDT Appointment Non-Invasive Cardiology [address] [place] [address] Abhay Tamayo MD [address] [place] [address], [address] [address] 12/11/2025 12:40 PM EDT Office Visit [address] 3rd [facility], [address] [place] [address] Abhay Tamayo MD [address] [place] [address] documented as of this encounter Visit Diagnoses Not on filedocumented in this encounter Additional Health Concerns Assessment Noted Time PHQ-9 Depression Total Score: 11 022 9:47 AM EST PHQ-2 Depression Total Score: 3 10/14/19 22 9:47 AM EST documented as of this encounter Care Teams Chief Design Drafter Relationship Specialty Start Date End Date Marina Richey PA [address] [place] [address] PCP - General Shadowgraph Operator 12/5/22 Lance Jack MD [email or web address] Historical LMR Provider 07/15/17 Orly Marquez NP [address] [place] [address] Historical LMR Provider 07/15/17 Lacie Olivares MD [address] [place] [address] [email or web address] Consulting Provider Geriatric Medicine 07/24/21 Lacie Olivares MD [address] [place] [address] Geriatric Medicine 07/31/24 documented as of this encounter Additional Source Comments The information contained in this document represents components of the legal health record. It is not the complete legal health record.[facility]
--- OUTSIDE RECORDS SUMMARY | 2025-06-07 17:51 | XMS_ITS | Encounter Summary ---
Author Organization [facility] Address [address] [address] Phone Care Team Providers Care Photo Checker Name Role Phone Orly Marquez NP Primary Care Provider [phone] Lance Jack MD Unavailable [phone] Jael RodriguezC Unavailable [phone] Orly Marquez NP Unavailable [phone] Jose Hansen NP Unavailable Flower Jacobson MD Unavailable [phone] Romy Donis MD Primary Care Provider [phone] Lacie Olivares MD Unavailable [phone] Marina Richey Primary Care Provider + [phone] Lacie Olivares MD Unavailable [phone] Encounter Details Date Type Department Care Team (Late st Contact Info) Description 12/17/2020 Procedure Pass Non-Invasive Cardiology [address] [place] [address] Social History Tobacco Use Types Packs/Day Years [...] Description 06/05/2025 Procedure Pass Non-Invasive Cardiology [address] [place] [address] 06/05/2025 Procedure Pass Non-Invasive Cardiology [address] [place] [address] 07/13/2025 12:00 PM EDT Office Visit [facility] [address] [place] [address] 3rd [facility], [address] [place] [address] Sundar Martinez MD, MS [address] [place] [address], [address] [address] 08/20/2025 1:30 PM EST Office Visit [facility] [address] [place] [address] Andi Wetzel DO [address] [place] [address] 12/11/2025 12:20 PM EDT Appointment Non-Invasive Cardiology [address] [place] [address] [place] [address] Abhay Tamayo MD [address] [place] [address], [address] [address] 12/11/2025 12:40 PM EDT Office Visit [facility] [address] [facility], [address] [place] [address] Abhay Tamayo MD [address] [place] [address] documented as of this encounter Visit Diagnoses Not on filedocumented in this encounter Care Teams Photo Checker Relationship Specialty Start Date End Date Orly Marquez, MARIAN [address] [place] [address] PCP - General 07/15/17 06/11/21 Romy Donis MD [address] [place] [address] Orthopedics & Sports [facility], [place] [address] PCP - General Family Medicine 06/12/21 08/30/22 Marina Richey PA [address] [place] [address] PCP - General Acid Etch Operator 08/31/22 Lance Jack MD [address] [place] [address] [email or web address] Historical LMR Provider 07/15/17 Jael Rodriguez PA-C [address] [place] [address] Historical LMR Provider 07/15/17 10/04/21 Orly Marquez NP [address] [place] [address] Historical LMR Provider 07/15/17 Jose Hansen NP [address] [place] [phone] Historical LMR Provider 07/15/17 2 Flower Jacobson MD [address] [place] [address] Orthopedics Sports [facility], [place] [address] Historical LMR Provider 07/15/17 10/04/21 Lacie Olivares MD 4 [facility] Orthopedics Sports [facility], [place] [address] Consulting Provider Geriatric Medicine 07/24/21 Lacie Olivares MD 4 [facility] Orthopedics Sports [facility], [place] [address] Geriatric Medicine 07/31/24 documented as of this encounter Additional Source Comments The information contained in this document represents components of the legal health record. It is not the complete legal health record.[facility]
--- OUTSIDE RECORDS SUMMARY | 2025-06-07 17:51 | XMS_ITS | Encounter Summary ---
Author Organization [facility] Address [address] [address] Phone Care Team Providers Care Delivery Driver Name Role Phone Lance Jack MD Unavailable Orly Marquez NP Unavailable [phone] Lacie Olivares MD Unavailable [phone] Marina Richey Primary Care Provider [phone] Lacie Olivares MD Unavailable [phone] Reason for Referral * MRI/CAT Scan - Closed Specialty Diagnoses / Procedures Referred By Lydia brush Referred To Contact Radiology Diagnoses Radiculopathy, lumbar region Spondylosis, unspecified Procedures CT Lumbar Spine Sanya Delacruz PA [address] [address] Phone: tel: fax: Referral ID Status Reason Start Date Expiration Date Visits Re quested Visits Authorized [id number] Closed 11/30/2023 1 1 Encounter Details Date Type Department Care Team (Latest Contact Info) Description 11/30/2023 Transcribe Orders [facility] [address] [place] [address] Sanya Delacruz PA 1050 [facility] [address] [place], [place] [id number] Radiculopathy, lumbar region (Primary Dx); Spondylosis, unspecified [...] Description 06/05/2025 Procedure Pass Non-Invasive Cardiology [address] [place] [address] 06/05/2025 Procedure Pass Non-Invasive Cardiology [address] [place] [address] 07/13/2025 12:00 PM EDT Office Visit [facility] [address] [place] [address] 3rd Floor, [address] [place] [address] Sundar Martinez MD, MS 22 [facility], [address] [place] [address] 08/20/2025 1:30 PM EST Office Visit [facility] [address] [place] [address] Andi Wetzel, 22 [place] [address] 12/11/2025 12:20 PM EDT Appointment Non-Invasive Cardiology [address] [place] [address] Abhay Tamayo MD 22 [facility], [address] [place] [address] [email or web address] 12/11/2025 12:40 PM EDT Office Visit [facility] [address] 3rd Floor, [address] [place] [address] Abhay Tamayo MD [address] [place] [address], [address] [place] [address] [email or web address] documented as of this encounter Results * CT LUMBAR SPINE WITHOUT CONTRAST (12/31/2023 3:38 PM EDT) Anatomical Region Laterality Modality L-spine Computed Tomogra phy 01/04/2024 11:2 3 AM EDT Impressions 01/04/2024 11:46 AM EDT 1. Chronic grossly stable degenerative changes and multilevel grade 1 spondylolistheses as above without large acute disc protrusion or central canal stenosis. Multilevel neural foraminal narrowing without definitive change from the 05/21/2020 MR. Recommend correlation with any associated clinical levels of radiculopathy. Narrative 01/04/2024 11:[address] LUMBAR SPINE WITHOUT CONTRAST Referring clinician's provided indication for this examination in Epic: Outside Radiology Order; RADICULOPATHY, LUMBAR REGION TECHNIQUE: Multidetector-row CT of the lumbar spine was performed without intravenous contrast using tailored dose modulation techniques. Images were reconstructed in the axial, coronal, and sagittal planes. COMPARISON: 05/21/2020 MRI FINDINGS: LUMBAR SPINE: Alignment and Vertebrae: Stable chronic grade 1 spondylolistheses at L1-2, L2-3, and L5-S1. No new fracture or subluxation. Discs and Endplates: Chronic stable disc space narrowing the lower thoracic spine with minimal progressive narrowing of the dorsal L2-3 disc space and stable narrowing of the L5-S1 disc space, with internal vacuum phenomena in demonstrated at multiple levels and with mild stable inferior L1 endplate irregularity. Soft Tissue: No discrete paraspinal mass or prevertebral edema demonstrated. Other Findings: None. T10-11: No bony central canal stenosis. Prominent left neural foraminal narrowing due to facet osteoarthropathy. Right neural foramen grossly patent. No large disc protrusion. T10-11: No large disc protrusion or central canal stenosis. No significant neural foraminal narrowing suggested. T11-12: Negligible disc bulge. No large disc protrusion. No bony central canal or neural foraminal stenosis. L1-2: No bony central canal stenosis or large disc protrusion. Chronic bilateral neural foraminal narrowing. L2-3: Stable spondylolisthesis. No acute disc protrusion suggested. No bony central canal stenosis or significant neural foraminal narrowing. L3-4: Chronic disc bulge and mild spondylosis without large disc protrusion. No bony central canal stenosis. Mild left neural foraminal narrowing. No bony right neural foraminal narrowing. L4-5: Stable mild disc bulge without large acute disc protrusion. No bony central canal stenosis. Chronic right foraminal disc bulge and advanced degenerative facet arthropathy may slightly impinge upon the nerve root once it leaves the foramen. Stable mild left neural foraminal narrowing. L5-S1: Stable grade 1 spondylolisthesis. No large disc protrusion or bony central canal stenosis. Chronic grossly stable bilateral neural foraminal narrowing due to the spondylolisthesis and advanced degenerative facet arthropathy. Procedure Note Rodney Hu MD - 01/04/2024 CT LUMBAR SPINE WITHOUT CONTRAST Referring clinician's provided indication for this examination in Epic:Outside Radiology Order; RADICULOPATHY, LUMBAR REGION TECHNIQUE: Multidetector-row CT of the lumbar spine was performed withoutintravenous contrast using tailored dose modulation techniques. Imageswere reconstructed in the axial, coronal, and sagittal planes. COMPARISON: 05/21/2020 MRI FINDINGS: LUMBAR SPINE: Alignment and Vertebrae: Stable chronic grade 1 spondylolistheses at L1-2,L2-3, and L5-S1. No new fracture or subluxation. Discs and Endplates: Chronic stable disc space narrowing the lowerthoracic spine with minimal progressive narrowing of the dorsal L2-3 discspace and stable narrowing of the L5-S1 disc space, with internal vacuumphenomena in demonstrated at multiple levels and with mild stable inferiorL1 endplate irregularity. Soft Tissue: No discrete paraspinal mass or prevertebral edemademonstrated. Other Findings: None. T10-11: No bony central canal stenosis. Prominent left neural foraminalnarrowing due to facet osteoarthropathy. Right neural foramen grosslypatent. No large disc protrusion. T10-11: No large disc protrusion or central canal stenosis. No significantneural foraminal narrowing suggested. T11-12: Negligible disc bulge. No large disc protrusion. No bony centralcanal or neural foraminal stenosis. L1-2: No bony central canal stenosis or large disc protrusion. Chronicbilateral neural foraminal narrowing. L2-3: Stable spondylolisthesis. No acute disc protrusion suggested. Nobony central canal stenosis or significant neural foraminal narrowing. L3-4: Chronic disc bulge and mild spondylosis without large discprotrusion. No bony central canal stenosis. Mild left neural foraminalnarrowing. No bony right neural foraminal narrowing. L4-5: Stable mild disc bulge without large acute disc protrusion. No bonycentral canal stenosis. Chronic right foraminal disc bulge and advanceddegenerative facet arthropathy may slightly impinge upon the nerve rootonce it leaves the foramen. Stable mild left neural foraminal narrowing. L5-S1: Stable grade 1 spondylolisthesis. No large disc protrusion or bonycentral canal stenosis. Chronic grossly stable bilateral neural foraminalnarrowing due to the spondylolisthesis and advanced degenerative facetarthropathy. IMPRESSION: 1. Chronic grossly stable degenerative changes and multilevel grade 1spondylolistheses as above without large acute disc protrusion or centralcanal stenosis. Multilevel neural foraminal narrowing without definitivechange from the 05/21/2020 MR. Recommend correlation with any associatedclinical levels of radiculopathy. Sanya CAMACHO IMG CT XSPECIALTY ORDERABLES F inal Result documented in this encounter Visit Diagnoses Diagnosis Radiculopathy, lumbar region- Primary Thoracic or lumbosacral neuritis or radiculitis, unspecified Spondylosis, unspecified Radiculopathy, lumbar region Thoracic or lumbosacral neuritis or radiculitis, unspecified Spondylosis, unspecified documented in this encounter Additional Health Concerns Assessment Noted Time PHQ-9 Depression Total Score: 11 022 9:47 AM EST PHQ-2 Depression Total Score: 3 10/14/19 22 9:47 AM EST documented as of this encounter Care Teams Delivery Driver Relationship Specialty Start Date End Date Marina Richey PA [address] [place] [address] PCP - General Chief Enterprise Architect 08/31/22 Lance Jack MD [email or web address] Historical LMR Provider 07/15/17 Orly Marquez NP [address] [place] [address] Historical LMR Provider 07/15/17 Lacie Olivares MD [address] [place] [address] [email or web address] Consulting Provider Geriatric Medicine 07/24/21 Lacie Olivares MD [address] [place] [address] [email or web address] Geriatric Medicine 07/31/24 documented as of this encounter Additional Source Comments The information contained in this document represents components of the legal health record. It is not the complete legal health record.[facility]
--- OUTSIDE RECORDS SUMMARY | 2025-06-07 17:51 | XMS_ITS | Encounter Summary ---
Author Organization [facility] Address 399 [facility] [address] [place] [address] Phone Care Team Providers Care Relay Repairer Name Role Phone Lance Jack MD Unavailable [phone] Orly Marquez NP Unavailable [phone] Lacie Olivares MD Unavailable [phone] Marina Richey Primary Care Provider [phone] Lacie Olivares MD Unavailable [phone] Encounter Details Date Type Department Care Team (Late st Contact Info) Description 03/12/2025 Procedure Pass [facility], Ct Scan - [address] [address] Social History Tobacco Use Types Packs/Day Years [...] Description 06/05/2025 Procedure Pass Non-Invasive Cardiology [address] [place] [address] 06/05/2025 Procedure Pass Non-Invasive Cardiology [address] [place] [address] [place] [address] 07/13/2025 12:00 PM EDT Office Visit [facility] [address] Floor, [address] [place] [address] Sundar Martinez MD, [place] [address] [place] [address], [address] [address] 08/20/2025 1:30 PM EST Office Visit [facility] [address] [place] [address] Andi Wetzel, 22 [place] [address] 12/11/2025 12:20 PM EDT Appointment Non-Invasive [place] [address] Abhay Tamayo MD [address] [place] [address], [address] [place] [address] 12/11/2025 12:40 PM EDT Office Visit [facility] [address] [place] [address] 3rd Floor, [address] [place] [address] Abhay Tamayo MD 22 [facility], [address] [place] [address] documented as of this encounter Visit Diagnoses Not on filedocumented in this encounter Additional Health Concerns Assessment Noted Time PHQ-9 Depression Total Score: 11 022 9:47 AM EST PHQ-2 Depression Total Score: 3 10/14/19 22 9:47 AM EST documented as of this encounter Care Teams Relay Repairer Relationship Specialty Start Date End Date Marina Richey PA [address] [place] [address] PCP - General Package Sorter 08/31/22 Lance Jack MD [email or web address] Historical LMR Provider 07/15/17 Orly Marquez NP [address] [place] [address] Historical LMR Provider 07/15/17 Lacie Olivares MD [address] [place] [address] Consulting Provider Geriatric Medicine 07/24/21 Lacie Olivares MD [address] [place] [address] Geriatric Medicine 07/31/24 documented as of this encounter Additional Source Comments The information contained in this document represents components of the legal health record. It is not the complete legal health record.[facility]
--- OUTSIDE RECORDS SUMMARY | 2025-06-07 17:51 | XMS_ITS | Encounter Summary ---
Author Organization [facility] Address 399 [facility] [address] [place] [address] Phone Care Team Providers Care Deck Scaler Name Role Phone Lance Jack MD Unavailable Orly Marquez NP Unavailable [phone] Lacie Olivares MD Unavailable [phone] Marina Richey Primary Care Provider [phone] Lacie Olivares MD Unavailable [phone] Encounter Details Date Type Department Care Team (Late st Contact Info) Description 12/08/2024 Procedure Pass OR Admitting Dept - Virtual Department [address] [place] [address] Social History Tobacco Use Types Packs/Day Years [...] Description 06/05/2025 Procedure Pass Non-Invasive Cardiology [address] [place] [address] 06/05/2025 Procedure Pass Non-Invasive Cardiology [address] [place] [address] [place] [address] 07/13/2025 12:00 PM EDT Office Visit [facility] [address] [place] [address] 3rd Floor, [address] [place] [address] Sundar Martinez MD, MS [address] [place] [address], [address] [address] 08/20/2025 1:30 PM EST Office Visit [facility] [address] [place] [address] Andi Wetzel, [address] [place] [address] 12/11/2025 12:20 PM EDT Appointment Non-Invasive Cardiology [place] [address] Abhay Tamayo MD [address] [place] [address], [address] [address] 12/11/2025 12:40 PM EDT Office Visit [facility] [address] [place] [address] 3rd Floor, [address] [place] [address] Abhay Tamayo MD 22 [facility], [address] [place] [address] documented as of this encounter Visit Diagnoses Not on filedocumented in this encounter Additional Health Concerns Assessment Noted Time PHQ-9 Depression Total Score: 11 022 9:47 AM EST PHQ-2 Depression Total Score: 3 10/14/19 22 9:47 AM EST documented as of this encounter Care Teams Deck Scaler Relationship Specialty Start Date End Date Marina Richey PA [address] [place] [address] PCP - General Jet Dyeing Machine Operator 08/31/22 Lance Jack MD [email or web address] Historical LMR Provider 07/15/17 Orly Marquez NP [address] [place] [address] Historical LMR Provider 07/15/17 Lacie Olivares MD [address] [place] [address] Consulting Provider Geriatric Medicine 07/24/21 Lacie Olivares MD [address] [place] [address] Geriatric Medicine 07/31/24 documented as of this encounter Additional Source Comments The information contained in this document represents components of the legal health record. It is not the complete legal health record.[facility]
--- OUTSIDE RECORDS SUMMARY | 2025-06-07 17:51 | XMS_ITS | Encounter Summary ---
Author Organization [facility] Address [address] [address] Phone Care Team Providers Care External Grinder Name Role Phone Lance Jack MD Unavailable [phone] Orly Marquez NP Unavailable [phone] Lacie Olivares MD Unavailable [phone] Marina Richey Primary Care Provider + [phone] Lcaie Olivares MD Unavailable [phone] Encounter Details Date Type Department Care Team (Late st Contact Info) Description 06/16/2023 Procedure Pass Non-Invasive Cardiology [address] [place] [address] Social History Tobacco Use Types Packs/Day Years [...] Description 06/05/2025 Procedure Pass Non-Invasive Cardiology [address] [place] [address] 06/05/2025 Procedure Pass Non-Invasive Cardiology [address] [place] [address] 07/13/2025 12:00 PM EDT Office Visit [facility] [address] [facility], [address] [place] [address] Sundar Martinez MD, MS [address] [place] [address] 08/20/2025 1:30 PM EST Office Visit [facility] [address] [place] [address] Andi Wetzel DO [address] [place] [address] 12/11/2025 12:20 PM EDT Appointment Non-Invasive Cardiology [address] [place] [address] Abhay Tamayo MD [address] [place] [address], [address] [address] 12/11/2025 12:40 PM EDT Office Visit [facility] [address] [facility], [address] [place] [address] Abhay Tamayo MD [address] [place] [address] documented as of this encounter Visit Diagnoses Not on filedocumented in this encounter Additional Health Concerns Assessment Noted Time PHQ-9 Depression Total Score: 11 022 9:47 AM EST PHQ-2 Depression Total Score: 3 10/14/19 22 9:47 AM EST documented as of this encounter Care Teams External Grinder Relationship Specialty Start Date End Date Marina Richey PA [address] [place] [address] PCP - General Ivory Carver 08/31/22 Lance Jack MD [email or web address] Historical LMR Provider 07/15/17 Orly Marquez NP [address] [place] [address] Historical LMR Provider 07/15/17 Lacie Olivares MD [address] [place] [address] [email or web address] Consulting Provider Geriatric Medicine 07/24/21 Lacie Olivares MD [address] [place] [address] [email or web address] Geriatric Medicine 07/31/24 documented as of this encounter Additional Source Comments The information contained in this document represents components of the legal health record. It is not the complete legal health record.[facility]
--- OUTSIDE RECORDS SUMMARY | 2025-06-07 17:51 | XMS_ITS | Encounter Summary ---
Author Organization [facility] Address [address] [address] Phone Care Team Providers Care Community Health Coordinator Name Role Phone Orly Marquez NP Primary Care Provider [phone] Lance Jack MD Unavailable [phone] Jael RodriguezC Unavailable [phone] Orly Marquez NP Unavailable [phone] Jose Hansen NP Unavailable [phone] Flower Jacobson MD Unavailable [phone] Romy Donis MD Primary Care Provider [phone] Lacie Olivares MD Unavailable [phone] Marina Richey Primary Care Provider + [phone] Lacie Olivares MD Unavailable [phone] Encounter Details Date Type Department Care Team (Late st Contact Info) Description 04/30/2020 Procedure Pass [facility], [address] [address] Social History Tobacco Use Types Packs/Day Years [...] Description 06/05/2025 Procedure Pass Non-Invasive Cardiology [address] [place] [address] 06/05/2025 Procedure Pass Non-Invasive Cardiology [address] [place] [address] 07/13/2025 12:00 PM EDT Office Visit [facility] [address] [place] [address] 3rd [facility], [address] [place] [address] Sundar Martinez MD, MS [address] [place] [address], [address] [address] 08/20/2025 1:30 PM EST Office Visit [facility] [address] [place] [address] Andi Wetzel DO [address] [place] [address] 12/11/2025 12:20 PM EDT Appointment Non-Invasive Cardiology [address] [place] [address] [place] [address] Abhay Tamayo MD [address] [place] [address], [address] [address] 12/11/2025 12:40 PM EDT Office Visit [facility] [address] 3rd [facility], [address] [place] [address] Abhay Tamayo MD [address] [place] [address], [address] [address] documented as of this encounter Visit Diagnoses Not on filedocumented in this encounter Care Teams Community Health Coordinator Relationship Specialty Start Date End Date Orly Marquez NP [address] [place] [address] PCP - General 07/15/17 06/11/21 Romy Donis MD [address] [place] [address] [facility], [place] [address] [email or web address] PCP - General Family Medicine 06/12/21 08/30/22 Marina Richey PA [address] [place] [address] PCP - General Measurer 08/31/22 Lance Jack MD [address] [place] [address] [email or web address] Historical LMR Provider 07/15/17 Jael Rodriguez PA-C [address] [place] [address] [email or web address] Historical LMR Provider 07/15/17 10/04/21 Orly Marquez NP [address] [place] [address] Historical LMR Provider 07/15/17 Jose Hansen NP [address] [place] [address] [address] Historical LMR Provider 07/15/17 2 Flower Jacobson MD [address] [place] [address] [facility], [place] [address] [email or web address] Historical LMR Provider 07/15/17 10/04/21 Lacie Olivares MD [address] [facility] [address] [facility], [place] [address] [email or web address] Consulting Provider Geriatric Medicine 07/24/21 Lacie Olivares MD [address] [facility] [address] [facility], [place] [address] [email or web address] Geriatric Medicine 07/31/24 documented as of this encounter Additional Source Comments The information contained in this document represents components of the legal health record. It is not the complete legal health record.[facility]
--- OUTSIDE RECORDS SUMMARY | 2025-06-07 17:51 | XMS_ITS | Encounter Summary ---
Author Organization [facility] Address [address] [address] Phone Care Team Providers Care Recreation Aide Name Role Phone Lance Jack MD Unavailable Orly Marquez NP Unavailable [phone] Lacie Olivares MD Unavailable [phone] Marina Richey Primary Care Provider [phone] Lacie Olivares MD Unavailable [phone] Encounter Details Date Type Department Care Team (Late st Contact Info) Description 05/08/2024 Procedure Pass [facility], Ct Scan - [address] [address] Social History Tobacco Use Types Packs/Day Years [...] Description 06/05/2025 Procedure Pass Non-Invasive Cardiology [address] [place] [address] 06/05/2025 Procedure Pass Non-Invasive Cardiology [address] [place] [address] 07/13/2025 12:00 PM EDT Office Visit [facility] [address] [facility], [address] [place] [address] Sundar Martinez MD, MS [address] [place] [address], [address] [address] 08/20/2025 1:30 PM EST Office Visit [facility] [address] [place] [address] Andi Wetzel DO 22 [place] [address] 12/11/2025 12:20 PM EDT Appointment Non-Invasive Cardiology [address] [place] [address] [place] [address] Abhay Tamayo MD [address] [place] [address], [address] [address] 12/11/2025 12:40 PM EDT Office Visit [facility] [address] [facility], [address] [place] [address] Abhay Tamayo MD [address] [place] [address], [address] [address] documented as of this encounter Visit Diagnoses Not on filedocumented in this encounter Additional Health Concerns Assessment Noted Time PHQ-9 Depression Total Score: 11 022 9:47 AM EST PHQ-2 Depression Total Score: 3 10/14/19 22 9:47 AM EST documented as of this encounter Care Teams Recreation Aide Relationship Specialty Start Date End Date Marina Richey PA [address] [place] [address] PCP - General Information Technology Technician 08/31/22 Lance Jack MD [email or web address] Historical LMR Provider 07/15/17 Orly Marquez NP [address] [place] [address] Historical LMR Provider 07/15/17 Lacie Olivares MD [address] [place] [address] [email or web address] Consulting Provider Geriatric Medicine 07/24/21 Lacie Olivares MD [address] [place] [address] [email or web address] Geriatric Medicine 07/31/24 documented as of this encounter Additional Source Comments The information contained in this document represents components of the legal health record. It is not the complete legal health record.[facility]
--- OUTSIDE RECORDS SUMMARY | 2025-06-07 17:51 | XMS_ITS | Encounter Summary ---
Author Organization [facility] Address [address] [place] [address] Phone Care Team Providers Care Technology Administrator Name Role Phone Lance Jack MD Unavailable [phone] Orly Marquez NP Unavailable [phone] Romy Donis MD Primary Care Provider Lacie Olivares MD Unavailable [phone] Marina Richey Primary Care Provider + [phone] Lacie Olivares MD Unavailable [phone] Encounter Details Date Type Department Care Team (Late st Contact Info) Description 08/27/2022 Procedure Pass [facility] [address] [place] [address] Social History Tobacco Use Types Packs/Day Years [...] 06/05/2025 Procedure Pass Non-Invasive Cardiology [address] [place] [address] 06/05/2025 Procedure Pass Non-Invasive Cardiology [address] [place] [address] 07/13/2025 12:00 PM EDT Office Visit [facility] [address] 3rd Floor, [address] [place] [address] Sundar Martinez MD, MS 22 [facility], [address] [address] 08/20/2025 1:30 PM EST Office Visit [facility] [address] [place] [address] Andi Wetzel DO 22 [place] [address] 12/11/2025 12:20 PM EDT Appointment Non-Invasive Cardiology [address] [place] [address] Abhay Tamayo MD [address] [place] [address], [address] [address] 12/11/2025 12:40 PM EDT [facility] Visit [facility] [address] [facility], [address] [place] [address] Abhay Tamayo MD [address] [place] [address], [address] [address] documented as of this encounter Visit Diagnoses Not on filedocumented in this encounter Additional Health Concerns Assessment Noted Time PHQ-9 Depression Total Score: 11 022 9:47 AM EST PHQ-2 Depression Total Score: 3 10/14/19 22 9:47 AM EST documented as of this encounter Care Teams Technology Administrator Relationship Specialty Start Date End Date Romy Donis MD [address] [place] [address] [email or web address] PCP - General Family Medicine 06/12/21 08/30/22 Marina Richey PA [address] [place] [address] PCP - General Media Account Executive 08/31/22 Lance Jack MD [email or web address] Historical LMR Provider 07/15/17 Orly Marquez NP [address] [place] [address] Historical LMR Provider 07/15/17 Lacie Olivares MD [address] [place] [address] [email or web address] Consulting Provider Geriatric Medicine 07/24/21 Lacie Olivares MD [address] [place] [address] [email or web address] Geriatric Medicine 07/31/24 documented as of this encounter Additional Source Comments The information contained in this document represents components of the legal health record. It is not the complete legal health record.[facility]
--- OUTSIDE RECORDS SUMMARY | 2025-06-07 17:51 | XMS_ITS | Encounter Summary ---
Author Organization [facility] Address [address] [address] Phone Care Team Providers Care Blog Writer Name Role Phone Orly Marquez NP Primary Care Provider Lance Jack MD Unavailable [phone] Jael RodriguezC Unavailable [phone] Orly Marquez NP Unavailable [phone] Jose Hansen NP Unavailable [phone] Flower Jacobson MD Unavailable [phone] Romy Donis MD Primary Care Provider [phone] Lacie Olivares MD Unavailable [phone] Marina Richey Primary Care Provider + [phone] Lacie Olivares MD Unavailable [phone] Encounter Details Date Type Department Care Team (Late st Contact Info) Description 12/17/2020 Ancillary Orders Non-Invasive Cardiology [address] [place] [address] Shreyas Lu MD 30 [place] [address] [email or web address] Sick sinus syndrome Social History Tobacco Use [...] Description 06/05/2025 Procedure Pass Non-Invasive Cardiology [address] [place] [address] 06/05/2025 Procedure Pass Non-Invasive Cardiology [address] [place] [address] 07/13/2025 12:00 PM EDT Office Visit [facility] [address] [place] [address] 3rd [facility], [address] [place] [address] Sundar Martinez MD, MS [address] [place] [address], [address] [address] 08/20/2025 1:30 PM EST Office Visit [facility] [address] [place] [address] Andi Wetzel, [address] [place] [address] 12/11/2025 12:20 PM EDT Appointment Non-Invasive Cardiology [address] [place] [address] [place] [address] Abhay Tamayo MD [address] [place] [address], [address] [place] [address] 12/11/2025 12:40 PM EDT Office Visit [facility] [address] 3rd [facility], [address] [place] [address] Abhay Tamayo MD [address] [place] [address], [address] [address] [email or web address] documented as of this encounter Results * DEVICE CHECK: PPM IN-HOME INTERROGATION (12/17/2020 3:23 PM EDT) Narrative Shreyas Lu MD - 12/22/2020 2:20 PM EDT Reason for appointment: Remote pacemaker interrogation HPI: Routine 3 month remote pacemaker interrogation. No device related complaints. Indication for device: SSS. Examination: Device type: Pacemaker Cyber Security Administrator: [employer] Mode: DDDR LRL/UPL: 60/130 bpm Mode switches: 0 High V rates: 0 Thresholds, impedances, and sensing stable. Atrial pacin% Ventricular pacin% Battery: 6 yrs Additional comments: Device functioning appropriately. Normal device function. Patient to follow-up for continued monitoring every 3 months. Report prepared by Jena Ramon RN Shreyas Lu MD [facility] ORDER JOSUÉ Final Result documented in this encounter Visit Diagnoses Diagnosis Sick sinus syndrome Sinoatrial node dysfunction Sick sinus syndrome Sinoatrial node dysfunction documented in this encounter Care Teams Blog Writer Relationship Specialty Start Date End Date Orly Marquez NP [address] [place] [address] PCP - General 07/15/17 06/11/21 Romy Donis MD [address] [place] [address] [facility] Medicine, [place] [address] [email or web address] PCP - General Family Medicine 06/12/21 08/30/22 Marina Richey PA [address] [place] [address] PCP - General Observer Gravity Prospecting 08/31/22 Lance Jack MD [address] [place] [address] [email or web address] Historical LMR Provider 07/15/17 Jael Rodriguez PA-C [address] [place] [address] Historical LMR Provider 07/15/17 10/04/21 Orly Marquez, SLIP CASTER [address] [place] [address] Historical LMR Provider 07/15/17 Jose Hansen, MARIAN [address] [place] [phone] Historical LMR Provider 07/15/17 2 Flower Jacobson MD [address] [place] [address] Orthopedics & Sports [facility], [place] [address] [email or web address] Historical LMR Provider 07/15/17 10/04/21 Lacie Olivares MD [address] [place] [address] [facility], [place] [address] Consulting Provider Geriatric Medicine 07/24/21 Lacie Olivares MD [address] [place] [address] Orthopedics Sports [facility], [place] [address] Geriatric Medicine 07/31/24 documented as of this encounter Additional Source Comments The information contained in this document represents components of the legal health record. It is not the complete legal health record.[facility]
--- OUTSIDE RECORDS SUMMARY | 2025-06-07 17:51 | XMS_ITS | Encounter Summary ---
Author Organization [facility] Address [address] [address] Phone Care Team Providers Care Journal Entry Audit Clerk Name Role Phone Lance Jack MD Unavailable Orly Marquez NP Unavailable [phone] Lacie Olivares MD Unavailable [phone] Marina Richey Primary Care Provider [phone] Lacie Olivares MD Unavailable [phone] Reason for Referral * MRI/CAT Scan - Closed Specialty Diagnoses / Procedures Referred By Lydia brush Referred To Contact Radiology Diagnoses Cervicalgia Spondylosis, unspecified Cervicogenic headache Procedures CT Cervical Spine Sanya Delacruz PA [address] [address] Phone: tel: fax: Referral ID Status Reason Start Date Expiration Date Visits Re quested Visits Authorized [id number] Closed 05/08/2024 05/08/2025 1 1 Encounter Details Date Type Department Care Team (Latest Contact Info) Description 05/08/2024 Transcribe Orders Virtual Department [address] [place] [address] Sanya Delacruz PA [address] [phone] Cervicalgia (Primary Dx); Spondylosis, unspecified; Cervicogenic headache Social History Tobacco Use Types Packs/Day Years [...] Description 06/05/2025 Procedure Pass Non-Invasive Cardiology [address] [place] [address] 06/05/2025 Procedure Pass Non-Invasive Cardiology [address] [place] [address] 07/13/2025 12:00 PM EDT Office Visit [facility] [address] [place] [address] 3rd Floor, [address] [place] [address] Sundar Martinez MD, MS 22 [facility], [address] [place] [address] 08/20/2025 1:30 PM EST Office Visit [facility] [address] [place] [address] Andi Wetzel, 22 [place] [address] 12/11/2025 12:20 PM EDT Appointment Non-Invasive Cardiology [address] [place] [address] Abhay Tamayo MD 22 [facility], [address] [place] [address] [email or web address] 12/11/2025 12:40 PM EDT Office Visit [facility] [address] 3rd Floor, [address] [place] [address] Abahy Tamayo MD [address] [place] [address], [address] [place] [address] [email or web address] documented as of this encounter Results * CT CERVICAL SPINE WITHOUT CONTRAST (05/25/2024 5:37 PM EDT) Anatomical Region Laterality Modality C-spine Computed Tomogra phy 05/28/2024 9:29 AM EDT Impressions 05/28/2024 9:32 AM EDT 1. Degenerative changes as detailed. No severe spinal stenosis or foraminal narrowing. Narrative 05/28/2024 9:[address] CERVICAL SPINE WITHOUT CONTRAST Referring clinician's provided indication for this examination in Epic: Outside Radiology Order; cervicalgia TECHNIQUE: Multidetector-row CT of the cervical spine was performed without intravenous contrast using tailored dose modulation techniques. Images were reconstructed in the axial, coronal, and sagittal planes. COMPARISON: FINDINGS: Alignment and Vertebrae: Mild anterolisthesis of C7 on T1. Endplate remodeling with mild superior endplate loss of height at C6, likely due to chronic degenerative change or a prior low-grade compression deformity.. No evidence of fracture. Discs and Endplates: Multilevel loss of disc height. Craniocervical Junction: Imaged posterior fossa structures are normal. Alignment is normal. No fracture. Soft Tissue: No prevertebral soft tissue thickening. Other Findings: There is no severe spinal stenosis at any level. Secondary to facet arthropathy and endplate degenerative changes, multiple levels demonstrate at least moderate foraminal narrowing, most prominently on the RIGHT at C4-5 and on the LEFT at C4-5 and C6-7. Facet degenerative changes are most prominent at C7-T1 on the RIGHT. Ossification in the posterior nuchal ligament likely from prior trauma. Procedure Note Jairo Devlin MD - 05/28/2024 CT CERVICAL SPINE WITHOUT CONTRAST Referring clinician's provided indication for this examination in Epic:Outside Radiology Order; cervicalgia TECHNIQUE: Multidetector-row CT of the cervical spine was performedwithout intravenous contrast using tailored dose modulation techniques.Images were reconstructed in the axial, coronal, and sagittal planes. COMPARISON: FINDINGS: Alignment and Vertebrae: Mild anterolisthesis of C7 on T1. Endplateremodeling with mild superior endplate loss of height at C6, likely due tochronic degenerative change or a prior low-grade compression deformity..No evidence of fracture. Discs and Endplates: Multilevel loss of disc height. Craniocervical Junction: Imaged posterior fossa structures are normal.Alignment is normal. No fracture. Soft Tissue: No prevertebral soft tissue thickening. Other Findings: There is no severe spinal stenosis at any level. Secondaryto facet arthropathy and endplate degenerative changes, multiple levelsdemonstrate at least moderate foraminal narrowing, most prominently on theRIGHT at C4-5 and on the LEFT at C4-5 and C6-7. Facet degenerative changesare most prominent at C7-T1 on the RIGHT. Ossification in the posteriornuchal ligament likely from prior trauma. IMPRESSION: 1. Degenerative changes as detailed. No severe spinal stenosis orforaminal narrowing. Sanya CAMACHO [facility] CT XSPECIALTY ORDERABLES F inal Result documented in this encounter Visit Diagnoses Diagnosis Cervicalgia- Primary Spondylosis, unspecified Cervicogenic headache Headache Cervicalgia Spondylosis, unspecified Cervicogenic headache Headache documented in this encounter Additional Health Concerns Assessment Noted Time PHQ-9 Depression Total Score: 11 022 9:47 AM EST PHQ-2 Depression Total Score: 3 10/14/19 22 9:47 AM EST documented as of this encounter Care Teams Journal Entry Audit Clerk Relationship Specialty Start Date End Date Marina Richey PA [address] [place] [address] PCP - General Process Area Supervisor 08/31/22 Lance Jack MD [email or web address] Historical LMR Provider 07/15/17 Orly Marquez NP [address] [place] [address] Historical LMR Provider 07/15/17 Lacie Olivares MD [address] [place] [address] [email or web address] Consulting Provider Geriatric Medicine 07/24/21 Lacie Olivares MD [address] [place] [address] Geriatric Medicine 07/31/24 documented as of this encounter Additional Source Comments The information contained in this document represents components of the legal health record. It is not the complete legal health record.[facility]
--- OUTSIDE RECORDS SUMMARY | 2025-06-07 17:51 | XMS_ITS | Encounter Summary ---
Author Organization [facility] Address [address] [address] Phone Care Team Providers Care Tissue Packer Name Role Phone Lance Jack MD Unavailable Orly Marquez NP Unavailable [phone] Lacie Olivares MD Unavailable [phone] Marina Richey Primary Care Provider + [phone] Lacie Olivares MD Unavailable [phone] Encounter Details Date Type Department Care Team (Late st Contact Info) Description 12/15/2023 Procedure Pass Non-Invasive Cardiology [address] [place] [address] Social History Tobacco Use Types Packs/Day Years [...] Description 06/05/2025 Procedure Pass Non-Invasive Cardiology [address] [place] [address] 06/05/2025 Procedure Pass Non-Invasive Cardiology [address] [place] [address] 07/13/2025 12:00 PM EDT Office Visit [facility] [address] [facility], [address] [place] [address] Sundar Martinez MD, MS [address] [place] [address] 08/20/2025 1:30 PM EST Office Visit [facility] Geriatrics [address] [place] [address] Andi Wetzel DO [address] [place] [address] 12/11/2025 12:20 PM EDT Appointment Non-Invasive Cardiology [address] [place] [address] Abhay Tamayo MD [address] [place] [address], [address] [address] 12/11/2025 12:40 PM EDT Office Visit [facility] [address] [facility], [address] [place] [address] Abhay Tamayo MD [address] [place] [address] documented as of this encounter Visit Diagnoses Not on filedocumented in this encounter Additional Health Concerns Assessment Noted Time PHQ-9 Depression Total Score: 11 022 9:47 AM EST PHQ-2 Depression Total Score: 3 10/14/19 22 9:47 AM EST documented as of this encounter Care Teams Tissue Packer Relationship Specialty Start Date End Date Marina Richey PA [address] [place] [address] PCP - General Washer Repairman 08/31/22 Lance Jack MD [email or web address] Historical LMR Provider 07/15/17 Orly Marquez NP [address] [place] [address] Historical LMR Provider 07/15/17 Lacie Olivares MD [address] [place] [place] [address] [email or web address] Consulting Provider Geriatric Medicine 07/24/21 Lacie Olivares MD [address] [place] [place] [address] [email or web address] Geriatric Medicine 07/31/24 documented as of this encounter Additional Source Comments The information contained in this document represents components of the legal health record. It is not the complete legal health record.[facility]
--- OUTSIDE RECORDS SUMMARY | 2025-06-07 17:51 | XMS_ITS | Encounter Summary ---
Author Organization [facility] Address [address] [address] Phone Care Team Providers Care Tier Truck Driver Name Role Phone Orly Marquez NP Primary Care Provider Lance Jack MD Unavailable [phone] Jael RodriguezC Unavailable [phone] Orly Marquez NP Unavailable [phone] Jose Hansen NP Unavailable Flower Jacobson MD Unavailable [phone] Romy Donis MD Primary Care Provider [phone] Lacie Olivares MD Unavailable [phone] Marina Richey Primary Care Provider + [phone] Lacie Olivares MD Unavailable [phone] Encounter Details Date Type Department Care Team (Latest Contact Info) Description 04/15/2021 Transcribe Orders [facility] EKG 30 [place] [address] Yefri Mccartney MD 30 [place], [place] [id number] [email or web address] Preop examination (Primary Dx) Social History Tobacco Use Types [...] Description 06/05/2025 Procedure Pass Non-Invasive Cardiology [address] [place] [address] 06/05/2025 Procedure Pass Non-Invasive Cardiology [address] [place] [address] 07/13/2025 12:00 PM EDT Office Visit [facility] [address] [place] [address] [place] [address], [address] [place] [address] Sundar Martinez MD, MS [address] [place] [address], [address] [address] 08/20/2025 1:30 PM EST Office Visit [facility] [address] [place] [address] Andi Wetzel DO [address] [place] [address] 12/11/2025 12:20 PM EDT Appointment Non-Invasive Cardiology [address] [place] [address] [place] [address] Abhay Tamayo MD [address] [place] [address], [address] [address] 12/11/2025 12:40 PM EDT Office Visit [facility] [address] [place] [address] 3rd [facility], [address] [place] [address] Abhay Tamayo MD [address] [place] [address], [address] [address] [email or web address] documented as of this encounter Results * ECG 12-LEAD (04/15/2021 1:57 PM EDT) Ventricular Rate EKG/MIN 72 BPM [facility] Atrial Rate 72 BPM [facility] [place] Interval 180 ms [facility] QRS Duration 148 ms [facility] QT Interval 428 ms [facility] QTC Interval 468 ms [facility] P [place] 99 degrees [facility] R Wave [place] -67 degrees [facility] T Wave [place] 71 degrees [facility] 04/15/2021 1:57 PM EDT 04/16/2021 7:41 AM EDT Narrative [facility] - 04/16/2021 7:41 AM EDT Sinus rhythm with occasional Premature ventricular complexes and Premature atrial complexes Left axis deviation Left bundle branch block Abnormal ECG When compared with ECG of 10-DEC-2014 05:29, Premature ventricular complexes are now Present Premature atrial complexes are now Present Left bundle branch block is now Present Confirmed by Lance Conklin ([id number]) on 04/16/2021 7:41:10 AM us Yefri Mccartney MD ECG ORDERABLES Final Resul t [facility] documented in this encounter Visit Diagnoses Diagnosis Preop examination- Primary Unspecified pre-operative examination Presence of cardiac pacemaker Cardiac pacemaker in situ Preop examination- Primary Unspecified pre-operative examination documented in this encounter Care Teams Tier Truck Driver Relationship Specialty Start Date End Date Orly Marquez NP [address] [place] [address] PCP - General 07/15/17 06/11/21 Romy Donis MD [address] [place] [address] [facility] [place] [address] [email or web address] PCP - General Family Medicine 06/12/21 08/30/22 Marina Richey PA [facility] [place] [address] PCP - General Hooker Machine Tender 08/31/22 Lance Jack MD [address] [place] [address] [email or web address] Historical LMR Provider 07/15/17 Jael Rodriguez PA-C [address] [place] [address] [email or web address] Historical LMR Provider 07/15/17 10/04/21 Orly Marquez HYDROMETER CALIBRATOR [address] [place] [address] Historical LMR Provider 07/15/17 Jose Hansen NP [address] [place] [phone] Historical LMR Provider 07/15/17 2 Flower Jacobson MD [address] [place] [address] Orthopedics & Sports [facility], [place] [address] Historical LMR Provider 07/15/17 10/04/21 Lacie Olivares MD [address] [place] [address] [address] [facility], [place] [address] Consulting Provider Geriatric Medicine 07/24/21 Lacie Olivares MD [address] [place] [address] Orthopedics & Sports [facility], [place], [place] [id number] [email or web address] Medicine 07/31/24 documented as of this encounter Additional Source Comments The information contained in this document represents components of the legal health record. It is not the complete legal health record.[facility]
--- OUTSIDE RECORDS SUMMARY | 2025-06-07 17:51 | XMS_ITS | Encounter Summary ---
Author Organization [facility] Address [address] [address] Phone Care Team Providers Care Afterschool Name Role Phone Orly Marquez NP Primary Care Provider [phone] Lance Jack MD Unavailable [phone] Jael RodriguezC Unavailable [phone] Orly Marquez NP Unavailable [phone] Jose Hansen NP Unavailable [phone] Flower Jacobson MD Unavailable [phone] Romy Donis MD Primary Care Provider [phone] Lacie Olivares MD Unavailable [phone] Marina Richey Primary Care Provider + [phone] Lacie Olivares MD Unavailable [phone] Encounter Details Date Type Department Care Team (Late st Contact Info) Description 06/11/2021 Procedure Pass OR Admitting Dept - Virtual Department [address] [place] [address] Social History Tobacco Use Types Packs/Day Years [...] Date of Assessment Author No Risk Indicated 06/11/2021 6:02 PM EDT Dorene Wolff, SANDRA * [place] Suicide Severity Rating Scale (Screener/Recent Self-Report) Question Answer Date of Assessment Author 1. Wish to be (Past 1 Month) No 06/11/2021 6:02 PM EDT Dorene Wolff RN 2. Non-Specific Active Suici isamar Thoughts (Past 1 Month) No 06/11/2021 6:02 PM EDT Shaylee Wolff, SANDRA 6. Suicidal Behavior (Lifetime) No 6:02 PM EDT Dorene Wolff, SANDRA documented as of this encounter Plan of Treatment Upcoming Encounters Date Type Department Care Team (Late st Contact Info) Description 06/05/2025 Procedure Pass Non-Invasive Cardiology [address] [place] [address] 06/05/2025 Procedure Pass Non-Invasive Cardiology [address] [place] [address] 07/13/2025 12:00 PM EDT Office Visit [facility] [address] [place] [address] 3rd Floor, [address] [place] [address] Sundar Martinez MD, MS 22 [facility], [address] [place] [address] 08/20/2025 1:30 PM EST Office Visit [facility] [address] [place] [address] Andi Wetzel DO 22 [place] [address] 12/11/2025 12:20 PM EDT Appointment Non-Invasive Cardiology [address] [place] [address] [place] [address] Abhay Tamayo MD [address] [place] [address], [address] [place] [address] 12/11/2025 12:40 PM EDT Office Visit [facility] [address] [place] [address] 3rd Floor, [address] [place] [address] Abhay Tamayo MD [address] [place] [address], [address] [address] [email or web address] documented as of this encounter Visit Diagnoses Not on filedocumented in this encounter Care Teams Afterschool Relationship Specialty Start Date End Date Orly Marquez, PRODUCT DEVELOPMENT INTERN [address] [place] [address] PCP - General 07/15/17 06/11/21 Romy Donis MD [address] [place] [address] [facility], [place] [address] [email or web address] PCP - General Family Medicine 06/12/21 08/30/22 Marina Richey PA [address] [place] [address] PCP - General Woods Laborer 08/31/22 Lance Jack MD [address] [place] [address] [email or web address] Historical LMR Provider 07/15/17 Jael Rodriguez PA-C [address] [place] [address] Historical LMR Provider 07/15/17 10/04/21 Orly Marquez NP [address] [place] [address] Historical LMR Provider 07/15/17 Jose Hansen NP [address] [place] [address] [phone] Historical LMR Provider 07/15/17 2 Flower Jacobson MD [address] [place] [address] Orthopedics Sports [facility], [place] [address] Historical LMR Provider 07/15/17 10/04/21 Lacie Olivares MD [address] [place] [address] [facility], [place] [address] Consulting Provider Geriatric Medicine 07/24/21 Lacie Olivares MD [address] [place] [address], [place] [address] Geriatric Medicine 07/31/24 documented as of this encounter Additional Source Comments The information contained in this document represents components of the legal health record. It is not the complete legal health record.[facility]
--- OUTSIDE RECORDS SUMMARY | 2025-06-07 17:51 | XMS_ITS | Encounter Summary ---
Author Organization [facility] Address [address] [place] [address] Phone Care Team Providers Care Fuller Brush Man Name Role Phone Orly Marquez NP Primary Care Provider Lance Jack MD Unavailable Jael Rodriguez PA-C Unavailable [phone] Orly Marquez NP Unavailable Jose Hansen NP Unavailable Flower Jacobson MD Unavailable [phone] Romy Donis MD Primary Care Provider Lacie Olivares MD Unavailable Marina Rcihey Primary Care Provider + [phone] Lacie Olivares MD Unavailable [phone] Encounter Details Date Type Department Care Team (Latest Contact Info) Description 04/30/2020 Ancillary Orders [facility] Cardiovascular And Interventional Radiology 30 [place] [address] Lance Jack MD 22 [place] [address] [email or web address] SSS (sick sinus syndrome) Social [...] Description 06/05/2025 Procedure Pass Non-Invasive Cardiology [address] [place] [address] 06/05/2025 Procedure Pass Non-Invasive Cardiology [address] [place] [address] 07/13/2025 12:00 PM EDT Office Visit [facility] [address] [place] [address] 3rd [facility], [address] [place] [address] Sundar Martinez MD, MS [address] [place] [address], [address] [address] 08/20/2025 1:30 PM EST Office Visit [facility] [address] [place] [address] Andi Wetzel DO 22 [place] [address] 12/11/2025 12:20 PM EDT Appointment Non-Invasive Cardiology [address] [place] [address] [place] [address] Abhay Tamayo MD [address] [place] [address], [address] [place] [address] 12/11/2025 12:40 PM EDT Office Visit [facility] [address] [place] [address] 3rd [facility], [address] [place] [address] Abhay Tamayo MD [address] [place] [address], [address] [address] [email or web address] [email or web address] Results Name Type Priority Associated Diagnoses Date /Time EP Device Check / Follow Up Cardiac Monitors Routine SSS (sick sinus syndrome) 05/21/2020 2:01 PM EDT Scheduled Orders Name Type Priority Associated Diagnoses Orde r Schedule EP Device Check / Follow Up Cardiac Monitors Routine SSS (sick sinus syndrome) Expected: 04/30/2020, Expires: 04/30/2021 documented as of this encounter Visit Diagnoses Diagnosis SSS (sick sinus syndrome) Sinoatrial node dysfunction documented in this encounter Care Teams Fuller Brush Man Relationship Specialty Start Date End Date Orly Marquez PHYSICAL TRAINER [address] [place] [address] PCP - General 07/15/17 06/11/21 Romy Donis MD [address] [place] [address] [facility], [place] [address] [email or web address] PCP - General Family Medicine 06/12/21 08/30/22 Marina Richey PA [address] [place] [address] PCP - General Tea Leaf Reader 08/31/22 Lance Jack MD [address] [place] [address] [email or web address] Historical LMR Provider 07/15/17 Jael Rodriguez PA-C [address] [place] [address] [email or web address] Historical LMR Provider 07/15/17 10/04/21 Orly Marquez PHYSICAL TRAINER [address] [place] [address] Historical LMR Provider 07/15/17 Jose Hansen NP [address] [place] [address] [address] Historical LMR Provider 07/15/17 2 Flower Jacobson MD [address] [place] [address] Orthopedics Sports [facility], [place] [address] [email or web address] Historical LMR Provider 07/15/17 10/04/21 Lacie Olivares MD [address] [place] [address], [place] [address] Consulting Provider Geriatric Medicine 07/24/21 Lacie Olivares MD [address] [place] [address] [facility] [place] [address] Geriatric Medicine 07/31/24 documented as of this encounter Additional Source Comments The information contained in this document represents components of the legal health record. It is not the complete legal health record.[facility]
--- OUTSIDE RECORDS SUMMARY | 2025-06-07 17:52 | XMS_ITS | Encounter Summary ---
Author Organization [facility] Address 399 [facility] [address] [place] [address] Phone Care Team Providers Care News Commentator Name Role Phone Lance Jack MD Unavailable Orly Marquez NP Unavailable Lacie Olivares MD Unavailable Marina Richey Primary Care Provider [phone] Lacie Olivares MD Unavailable Encounter Details Date Type Department Care Team (Late st Contact Info) Description 06/04/2025 [facility] [address] [place] [address] 3rd Floor, [address] [place] [address] Abhay Tamayo MD 22 [facility], [address] [place] [address] [email or web address] Presence of cardiac pacemaker (Primary Dx) Social History Tobacco Use Types [...] AM EDT documented as of this encounter Progress Notes * Henry Sutherland MA - 06/04/2025 1:28 PM EDTAddended by: HENRY SUTHERLAND on: 06/04/2025 01:34 PM Modules accepted: Orders documented in this encounter Plan of Treatment Upcoming Encounters Date Type Department Care Team (Late st Contact Info) Description 06/05/2025 Procedure Pass Non-Invasive Cardiology [address] [place] [address] 06/05/2025 Procedure Pass [place] [address] 07/13/2025 12:00 PM EDT Office Visit [facility] [address] 3rd Floor, [address] [place] [address] Sundar Martinez MD, MS 22 [facility], [address] [place] [address] 08/20/2025 1:30 PM EST Office Visit [facility] [address] [place] [address] Andi Wetzel DO 22 [place] [address] [email or web address] 12/11/2025 12:20 PM EDT Appointment Non-Invasive Cardiology [address] [place] [address] Abhay Tamayo MD [address] [place] [address], [address] [place] [address] [email or web address] 12/11/2025 12:40 PM EDT Office Visit [facility] [address] Floor, [address] [place] [address] Abhay Tamayo MD [address] [place] [address], [address] [address] [email or web address] Scheduled Orders Name Type Priority Associated Diagnoses Orde r Schedule EP Device Check / Follow Up Cardiac Monitors Routine Presence of cardiac pacemaker Other for 12 Occurrences starting 06/04/2025 until 06/04/2027, 1 completed documented as of this encounter Results * [...] for device: SSS Examination: Device type: Pacemaker Collateral Clerk: [employer] Mode: DDDR LRL/URL: 60/130 bpm Thresholds, [...] encounter Visit Diagnoses Diagnosis Presence of cardiac pacemaker- Primary Cardiac pacemaker in situ Presence of cardiac pacemaker Cardiac pacemaker in situ documented in this encounter Additional Health Concerns Assessment Noted Time PHQ-9 Depression Total Score: 11 022 9:47 AM EST PHQ-2 Depression Total Score: 3 10/14/19 22 9:47 AM EST documented as of this encounter Care Teams News Commentator Relationship Specialty Start Date End Date Marina Richey PA [address] [place] [address] PCP - General Collateral Clerk 08/31/22 Lance Jack MD [email or web address] Historical LMR Provider 07/15/17 Orly Marquez NP [address] [place] [address] Historical LMR Provider 07/15/17 Lacie Olivares MD [address] [place] [address] Consulting Provider Geriatric Medicine 07/24/21 Lacie Olivares MD [address] [place] [address] [email or web address] Geriatric Medicine 07/31/24 documented as of this encounter Additional Source Comments The information contained in this document represents components of the legal health record. It is not the complete legal health record.[facility]
--- OUTSIDE RECORDS SUMMARY | 2025-06-07 17:52 | XMS_ITS | Encounter Summary ---
Author Organization [facility] Address [address] [address] Phone Care Team Providers Care Nuclear Engineer Name Role Phone Orly Marquez NP Primary Care Provider [phone] Lance Jack MD Unavailable [phone] Jael RodriguezC Unavailable [phone] Orly Marquez NP Unavailable [phone] Jose Hansen NP Unavailable [phone] Flower Jacobson MD Unavailable [phone] Romy Donis MD Primary Care Provider [phone] Lacie Olivares MD Unavailable [phone] Marina Richey Primary Care Provider + [phone] Lacie Olivares MD Unavailable [phone] Encounter Details Date Type Department Care Team (Late st Contact Info) Description 10/14/2018 Procedure Pass [facility] Endoscopy Admitting Dept Virtual Department 30 [place] [address] Social History Tobacco Use Types Packs/Day Years [...] Description 06/05/2025 Procedure Pass Non-Invasive Cardiology [address] [place] [address] 06/05/2025 Procedure Pass Non-Invasive Cardiology [address] [place] [address] 07/13/2025 12:00 PM EDT Office Visit [facility] [address] [place] [address] 3rd [facility], [address] [place] [address] Sundar Martinez MD, MS [address] [place] [address] 08/20/2025 1:30 PM EST Office Visit [facility] [address] [place] [address] Andi Wetzel DO [address] [place] [address] 12/11/2025 12:20 PM EDT Appointment Non-Invasive Cardiology [address] [place] [address] [place] [address] Abhay Tamayo MD [address] [place] [address], [address] [address] 12/11/2025 12:40 PM EDT Office Visit [address] 3rd [facility], [address] [place] [address] Abhay Tamayo MD [address] [place] [address], [address] [address] [email or web address] documented as of this encounter Visit Diagnoses Not on filedocumented in this encounter Care Teams Nuclear Engineer Relationship Specialty Start Date End Date Orly Marquez NP [address] [place] [address] PCP - General 07/15/17 06/11/21 Romy Donis MD [address] [place] [address] Orthopedics Sports [facility], [place] [address] [email or web address] PCP - General Family Medicine 06/12/21 08/30/22 Marina Richey PA [address] [place] [address] PCP - General Glove Wrapper 08/31/22 Lance Jack MD [address] [place] [address] [email or web address] Historical LMR Provider 07/15/17 Jael Rodriguez PA-C [address] [place] [address] [email or web address] Historical LMR Provider 07/15/17 10/04/21 Orly Marquez NP [address] [place] [address] Historical LMR Provider 07/15/17 Jose Hansen NP [address] [place] [address] [address] Historical LMR Provider 07/15/17 2 Flower Jacobson MD [address] [place] [address] Orthopedics Sports [facility], [place] [address] [email or web address] Historical LMR Provider 07/15/17 10/04/21 Lacie Olivares MD 4 [facility] Orthopedics Sports [facility], [place] [address] [email or web address] Consulting Provider Geriatric Medicine 07/24/21 Lacie Olivares MD 4 [facility] Orthopedics Sports [facility], [place] [address] [email or web address] Geriatric Medicine 07/31/24 documented as of this encounter Additional Source Comments The information contained in this document represents components of the legal health record. It is not the complete legal health record.[facility]
--- OUTSIDE RECORDS SUMMARY | 2025-06-07 17:52 | XMS_ITS | Encounter Summary ---
Author Organization [facility] Address [address] [facility] [address] [place] [address] Phone Care Team Providers Care Project Lead Name Role Phone Lance Jack MD Unavailable Orly Marquez NP Unavailable [phone] Lacie Olivares MD Unavailable [phone] Marina Richey Primary Care Provider + [phone] Lacie Olivares MD Unavailable [phone] Encounter Details Date Type Department Care Team (Late st Contact Info) Description 06/04/2025 Procedure Pass Non-Invasive Cardiology [address] [place] [address] Social History Tobacco Use Types Packs/Day Years [...] Info) Description 06/05/2025 Procedure Pass Non-Invasive Cardiology [address] [place] [address] [place] [address] 06/05/2025 Procedure Pass Non-Invasive Cardiology [address] [place] [address] [place] [address] 07/13/2025 12:00 PM EDT Office Visit [facility] [address] [place] [address] 3rd Floor, [address] [place] [address] Sundar Martinez MD, [place] [address] [place] [address], [address] [address] 08/20/2025 1:30 PM EST Office Visit [facility] [address] [place] [address] [place] [address] Andi Wetzel, [address] [place] [address] 12/11/2025 12:20 PM EDT Appointment Non-Invasive Cardiology [address] [place] [address] [place] [address] Abhay Tamayo MD [address] [place] [address], [address] [place] [address] 12/11/2025 12:40 PM EDT Office Visit [facility] [address] [place] [address] 3rd Floor, [address] [place] [address] Abhay Tamayo MD 22 [facility], [address] [place] [address] [email or web address] documented as of this encounter Visit Diagnoses Not on filedocumented in this encounter Additional Health Concerns Assessment Noted Time PHQ-9 Depression Total Score: 11 022 9:47 AM EST PHQ-2 Depression Total Score: 3 10/14/19 22 9:47 AM EST documented as of this encounter Care Teams Project Lead Relationship Specialty Start Date End Date Marina Richey PA [address] [place] [address] PCP - General Event Sales Representative 08/31/22 Lance Jack MD [email or web address] Historical LMR Provider 07/15/17 Orly Marquez NP [address] [place] [address] Historical LMR Provider 07/15/17 Lacie Olivares MD [address] [place] [address] [email or web address] Consulting Provider Geriatric Medicine 07/24/21 Lacie Olivares MD [address] [place] [address] Geriatric Medicine 07/31/24 documented as of this encounter Additional Source Comments The information contained in this document represents components of the legal health record. It is not the complete legal health record.[facility]
--- OUTSIDE RECORDS SUMMARY | 2025-06-07 17:52 | XMS_ITS | Encounter Summary ---
Author Organization [facility] Address 399 [facility] [address] [place] [address] Phone Care Team Providers Care Wood Tank Builder Name Role Phone Lance Jack MD Unavailable [phone] Orly Marquez NP Unavailable [phone] Lacie Olivares MD Unavailable [phone] Marina Richey Primary Care Provider [phone] Lacie Olivares MD Unavailable [phone] Reason for Referral * Sleep Center - New Request Specialty Diagnoses / Procedures Referred By Lydia brush Referred To Contact Sleep Medicine Diagnoses Mixed sleep apnea Procedures Polysomnography Sundar Martinez MD, MS 22 [facility], [address] [address] Phone: tel: fax: [email or web address] Referral ID Status Reason Start Date Expiration Date V isits Requested Visits Authorized [id number] New Request 06/05/2025 1 1 Encounter Details Date Type Department Care Team (Latest Contact Info) Description 06/05/2025 Transcribe [facility] [address] [place] [address] 3rd Floor, [address] [place], [place] [phone] Sundar Martinez MD, MS 22 [facility], [address] [id number] [email or web address] Mixed sleep apnea (Primary Dx) Social History Tobacco Use Types [...] Pass Non-Invasive Cardiology [address] [place] [address] 06/05/2025 Procedure Pass Non-Invasive Cardiology [address] [place] [address] 07/13/2025 12:00 PM EDT Office Visit [facility] [address]rd Floor, [address] [place] [address] Sundar Martinez MD, MS 22 [facility], [address] [place] [address] [email or web address] 08/20/2025 1:30 PM EST Office Visit [facility] [address] [place] [address] Anid Wetzel DO 22 [place] [address] [email or web address] 12/11/2025 12:20 PM EDT Appointment Non-Invasive Cardiology [address] [place] [address] [place] [address] Abhay Tamayo MD [address] [place] [address], [address] [address] [email or web address] 12/11/2025 12:40 PM EDT Office Visit [facility] [address] [place] [address] 3rd Floor, [address] [place] [address] Abhay Tamayo MD [address] [place] [address], [address] [address] [email or web address] Scheduled Orders Name Type Priority Associated Diagnoses Orde r Schedule Polysomnography Sleep Center Routine Mixed sleep apnea Expected: 06/05/2025, Expires: 06/05/2026 documented as of this encounter Visit Diagnoses Diagnosis Mixed sleep apnea- Primary Other organic sleep apnea documented in this encounter Additional Health Concerns Assessment Noted Time PHQ-9 Depression Total Score: 11 022 9:47 AM EST PHQ-2 Depression Total Score: 3 10/14/19 22 9:47 AM EST documented as of this encounter Care Teams Wood Tank Builder Relationship Specialty Start Date End Date Marina Richey PA [address] [place] [address] PCP - General Neuro Intensivist Physician 08/31/22 Lance Jack MD [email or web address] Historical LMR Provider 07/15/17 Orly Marquez NP [address] [place] [address] Historical LMR Provider 07/15/17 Lacie Olivares MD [address] [place] [address] [email or web address] Consulting Provider Geriatric Medicine 07/24/21 Lacie Olivares MD [address] [place] [address] [email or web address] Geriatric Medicine 07/31/24 documented as of this encounter Additional Source Comments The information contained in this document represents components of the legal health record. It is not the complete legal health record.[facility]
--- OUTSIDE RECORDS SUMMARY | 2025-06-07 17:52 | XMS_ITS | Encounter Summary ---
Author Organization [facility] Address 399 [facility] [address] [place] [address] Phone Care Team Providers Care Teacher'S Assistant Name Role Phone Lance Jack MD Unavailable Orly Marquez NP Unavailable Lacie Olivares MD Unavailable [phone] Marina Richey Primary Care Provider [phone] Lacie Olivares MD Unavailable Encounter Details Date Type Department Care Team (Latest Contact Info) Description 05/11/2025 Transcribe Orders Virtual Department [address] [place] [address] Marina Richey PA [address] [place] [address] [place] [phone] Polymyalgia rheumatica (Primary Dx) Social History Tobacco Use Types [...] Description 06/05/2025 Procedure Pass Non-Invasive Cardiology [address] [place] [address] 06/05/2025 Procedure Pass Non-Invasive Cardiology [address] [place] [address] 07/13/2025 12:00 PM EDT Office Visit [facility] [address] [place] [address] 3rd Floor, [address] [place] [address] Sundar Martinez MD, MS 22 [facility], [address] [place] [address] 08/20/2025 1:30 PM EST Office Visit [facility] [address] [place] [address] Andi Wetzel, 22 [place] [address] 12/11/2025 12:20 PM EDT Appointment Non-Invasive Cardiology [address] [place] [address] [place] [address] Abhay Tamayo MD [address] [place] [address], [address] [place] [address] [email or web address] 12/11/2025 12:40 PM EDT Office Visit [facility] [address] [place] [address] 3rd Floor, [address] [place] [address] Abhay Tamayo MD [address] [place] [address], [address] [place] [address] [email or web address] Scheduled Orders Name Type Priority Associated Diagnoses Orde r Schedule DXA Screening Imaging Routine Polymyalgia rheumatica Expected: 06/10/2025, Expires: 05/11/2026 documented as of this encounter Visit Diagnoses Diagnosis Polymyalgia rheumatica- Primary documented in this encounter Additional Health Concerns Assessment Noted Time PHQ-9 Depression Total Score: 11 022 9:47 AM EST PHQ-2 Depression Total Score: 3 10/14/19 22 9:47 AM EST documented as of this encounter Care Teams Teacher'S Assistant Relationship Specialty Start Date End Date Marina Richey PA [address] [place], [place] PCP - General Sprinkler Tender 08/31/22 Lance Jack MD [email or web address] Historical LMR Provider 07/15/17 Orly Marquez NP [address] [place] [address] Historical LMR Provider 07/15/17 Lacie Olivares MD [address] [place] [address] [email or web address] Consulting Provider Geriatric Medicine 07/24/21 Lacie Olivares MD [address] [place] [address] [email or web address] Geriatric Medicine 07/31/24 documented as of this encounter Additional Source Comments The information contained in this document represents components of the legal health record. It is not the complete legal health record.[facility]
--- OUTSIDE RECORDS SUMMARY | 2025-06-07 17:52 | XMS_ITS | Encounter Summary ---
Author Organization [facility] Address [address] [address] Phone Care Team Providers Care Electric Motor Mechanic Name Role Phone Orly Marquez NP Primary Care Provider Lance Jack MD Unavailable [phone] Jael Rodriguez PA-C Unavailable [phone] Orly Marquez NP Unavailable [phone] Jose Hansen NP Unavailable Flower Jacobson MD Unavailable [phone] Romy Donis MD Primary Care Provider [phone] Lacie Olivares MD Unavailable [phone] Marina Richey Primary Care Provider [phone] Lacie Olivares MD Unavailable [phone] Encounter Details Date Type Department Care Team (Late st Contact Info) Description 01/13/2018 Ancillary Orders Non-Invasive Cardiology [address] [place] [address] Lance Jack MD [address] [place] [address] [email or web address] Sick sinus syndrome Social History Tobacco Use Types Packs/Day Years Used Date Smoking Tobacco: Never Smokeless Tobacco: Never Alcohol Use Standard Drinks/Week Comments Yes 0 (1 standard drink = 0.6 oz pur e alcohol) occasionally Sex and Gender Information Value Date Recorded Sex Assigned at Male 02/02/2020 12:14 AM EDT Legal Sex Male 10:12 PM EDT Gender Identity Male 02/02/2020 12:14 AM EDT Sexual Orientation Straight 02/02/2020 12 :14 AM EDT documented as of this encounter Plan of Treatment Upcoming Encounters Date Type Department Care Team (Late st Contact Info) Description 06/05/2025 Procedure Pass Non-Invasive Cardiology [address] [place] [address] 06/05/2025 Procedure Pass Non-Invasive Cardiology [address] [place] [address] 07/13/2025 12:00 PM EDT Office Visit [facility] [address] [place] [address] 3rd [facility], [address] [place] [address] Sundar Martinez MD, MS [address] [place] [address], [address] [address] 08/20/2025 1:30 PM EST Office Visit [facility] [address] [place] [address] Andi Wetzel DO 22 [place] [address] 12/11/2025 12:20 PM EDT Appointment Non-Invasive Cardiology [address] [place] [address] Abhay Tamayo MD [address] [place] [address], [address] [place] [address] 12/11/2025 12:40 PM EDT Office Visit [facility] [address] 3rd [facility], [address] [place] [address] Abhay Tamayo MD [address] [place] [address], [address] [address] [email or web address] documented as of this encounter Visit Diagnoses Diagnosis Sick sinus syndrome Sinoatrial node dysfunction documented in this encounter Care Teams Electric Motor Mechanic Relationship Specialty Start Date End Date Orly Marquez, COMMUNITY ARTS WORKER [address] [place] [address] PCP - General 07/15/17 06/11/21 Romy Donis MD [address] [place] [address] [facility], [place] [address] [email or web address] PCP - General Family Medicine 06/12/21 08/30/22 Marina Richey PA [address] [place] [address] PCP - General Imaging Clerk 08/31/22 Lance Jack MD [address] [place] [address] [email or web address] Historical LMR Provider 07/15/17 Jael Rodriguez PA-C [address] [place] [address] [email or web address] Historical LMR Provider 07/15/17 10/04/21 Orly Marquez COMMUNITY ARTS WORKER [address] [place] [address] Historical LMR Provider 07/15/17 Jose Hansen NP [address] [place] [phone] Historical LMR Provider 07/15/17 Flower Jacobson MD [address] [place] [address] Orthopedics Sports [facility], [place] [address] Historical LMR Provider 07/15/17 10/04/21 Lacie Olivares MD [address] [place] [address] Orthoped[facility], [place] [address] [email or web address] Consulting Provider Geriatric Medicine 07/24/21 Lacie Olivares MD [address] [place] [address] Orthopedics [facility], [place] [address] Geriatric Medicine 07/31/24 documented as of this encounter Additional Source Comments The information contained in this document represents components of the legal health record. It is not the complete legal health record.[facility]
--- OUTSIDE RECORDS SUMMARY | 2025-06-07 17:52 | XMS_ITS | Encounter Summary ---
Author Organization [facility] Address [address] [facility] [address] [place] [address] Phone Care Team Providers Care Nurse Specialist Name Role Phone Orly Marquez NP Primary Care Provider Lance Jack MD Unavailable Jael Rodriguez PA-C Unavailable Orly Marquez NP Unavailable [phone] Jose Hansen NP Unavailable [phone] Flower Jacobson MD Unavailable [phone] Romy Donis MD Primary Care Provider Lacie Olivares MD Unavailable [phone] Marina Richey Primary Care Provider + [phone] Lacie Olivares MD Unavailable [phone] Encounter Details Date Type Department Care Team (Latest Contact Info) Description 02/06/2019 Prep for Surgery [facility] [address] 3rd Floor, [address] [place], [place] [phone] Lance Jack MD [address] [place] [address] [email or web address] Sick sinus syndrome (Primary Dx) Social History Tobacco Use Types [...] Description 06/05/2025 Procedure Pass Non-Invasive Cardiology [address] [place] [address] 06/05/2025 Procedure Pass Non-Invasive Cardiology [address] [place] [address] 07/13/2025 12:00 PM EDT Office Visit [facility] [address] [place] [address] [place] [address], [address] [place] [address] Sundar Martinez MD, MS 22 [facility], [address] [address] 08/20/2025 1:30 PM EST Office Visit [facility] [address] [place] [address] [place] [address] Andi Wetzel, 22 [place] [address] 12/11/2025 12:20 PM EDT Appointment Non-Invasive Cardiology [address] [place] [address] [place] [address] Abhay Tamayo MD [address] [place] [address], [address] [address] 12/11/2025 12:40 PM EDT Office Visit [facility] [address]rd [facility], [address] [place] [address] Abhay Tamayo MD [address] [place] [address], [address] [address] [email or web address] documented as of this encounter Visit Diagnoses Diagnosis Sick sinus syndrome- Primary Sinoatrial node dysfunction documented in this encounter Care Teams Nurse Specialist Relationship Specialty Start Date End Date Orly Marquez, MARIAN [address] [place] [address] PCP - General 07/15/17 06/11/21 Romy Donis MD [address] [place] [address] [facility], [place] [address] [email or web address] PCP - General Family Medicine 06/12/21 08/30/22 Marina Richey PA [address] [place] [address] PCP - General Contract Negotiation Manager 08/31/22 Lance Jack MD [address] [place] [address] [email or web address] Historical LMR Provider 07/15/17 Jael Rodriguez PA-C [address] [place] [address] [email or web address] Historical LMR Provider 07/15/17 10/04/21 Orly Marquez NP [address] [place] [address] Historical LMR Provider 07/15/17 Jose Hansen NP [address] [place] [address] [address] [place] [address] Historical LMR Provider 07/15/17 2 Flower Jacobson MD [address] [place] [address] [facility], [place] [address] Historical LMR Provider 07/15/17 10/04/21 Lacie Olivares MD [address] [place] [address] [facility], [place] [address] Consulting Provider Geriatric Medicine 07/24/21 Lacie Olivares MD [address] [place] [address], [place] [address] Geriatric Medicine 07/31/24 documented as of this encounter Additional Source Comments The information contained in this document represents components of the legal health record. It is not the complete legal health record.[facility]
--- OUTSIDE RECORDS SUMMARY | 2025-06-07 17:52 | XMS_ITS | Encounter Summary ---
Author Organization [facility] Address [address] [facility] [address] [place] [address] Phone Care Team Providers Care Forklift Truck Operator Name Role Phone Lance Jack MD Unavailable [phone] Orly Marquez NP Unavailable [phone] Lacie Olivares MD Unavailable [phone] Marina Richey Primary Care Provider [phone] Lacie Olivares MD Unavailable [phone] Reason for Referral * MRI/CAT Scan - Closed Specialty Diagnoses / Procedures Referred By Lydia brush Referred To Contact Radiology Diagnoses Nonintractable headache, unspecified chronicity pattern, unspecified headache type Nausea Vision changes Procedures CT Head Marina Richey PA [address] [place] [address] Phone: tel: fax: Referral ID Status Reason Start Date Expiration Date Visits Re quested Visits Authorized [id number] Closed 11/21/2024 11/21/2025 1 1 Encounter Details Date Type Department Care Team (Latest Contact Info) Description 11/21/2024 Transcribe Orders Virtual Department [address], [place] [phone] Marina Richey PA [address] [place] [address] Nonintractable headache, unspecified chronicity pattern, unspecified headache type (Primary Dx); Nausea; Vision changes Social History Tobacco Use Types Packs/Day Years [...] Info) Description 06/05/2025 Procedure Pass Non-Invasive Cardiology [address] [place] [address] [place] [address] 06/05/2025 Procedure Pass Non-Invasive Cardiology [address] [place] [address] 07/13/2025 12:00 PM EDT Office Visit [facility] [address] [place] [address] 3rd Floor, [address] [place] [address] Sundar Martinez MD, MS [address] [facility], [address] [place] [address] 08/20/2025 1:30 PM EST Office Visit [facility] [address] [place] [address] Andi Wetzel, [address] [place] [address] [email or web address] 12/11/2025 12:20 PM EDT Appointment Non-Invasive Cardiology [address] [place] [address] Abhay Tamayo MD [address] [facility], [address] [place] [address] [email or web address] 12/11/2025 12:40 PM EDT Office Visit [facility] [address], [address] [place] [address] Abhay Tamayo MD [address] [facility], [address] [place] [address] documented as of this encounter Results * CT HEAD WITHOUT CONTRAST (11/24/2024 10:05 AM EST) Anatomical Region Laterality Modality Head Computed Tomogra phy 11/27/2024 3:53 PM EST Impressions 11/27/2024 4:03 PM EST 1. No acute intracranial findings. Narrative 11/27/2024 4:[address] HEAD WITHOUT CONTRAST Referring clinician's provided indication for this examination in Epic: Outside Radiology Order; headache TECHNIQUE: Multidetector-row CT of the head was performed without intravenous contrast using tailored dose modulation techniques. Images were reconstructed in the axial, coronal, and sagittal planes. COMPARISON: MRI BRAIN WITHOUT CONTRAST FINDINGS: Brain Parenchyma: No midline shift, mass effect, parenchymal hemorrhage, or evidence of acute territorial infarct. There are areas of hypodensity in the periventricular white matter, likely a manifestation of chronic small vessel disease. 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 Ventricular System and Extra-Axial Spaces: The ventricles and sulci are prominent. No extra-axial fluid collections. Basilar cisterns are patent. No hydrocephalus. Osseous and Extracranial Structures: Patient is status post bilateral cataract surgery. There is mild mucosal thickening and the paranasal sinuses. The mastoid air cells are clear. No acute osseous abnormalities are identified. Procedure Note Jong Flower MD - 11/27/2024 CT HEAD WITHOUT CONTRAST Referring clinician's provided indication for this examination in [facility]:Outside Radiology Order; headache TECHNIQUE: Multidetector-row CT of the head was performed withoutintravenous contrast using tailored dose modulation techniques. Imageswere reconstructed in the axial, coronal, and sagittal planes. COMPARISON: MRI BRAIN WITHOUT CONTRAST FINDINGS: Brain Parenchyma: No midline shift, mass effect, parenchymal hemorrhage,or evidence of acute territorial infarct. There are areas of hypodensityin the periventricular white matter, likely a manifestation of chronicsmall vessel disease. There are chronic lacunar infarcts in bilateralcerebellar hemisphere and right centrum semiovale. Ventricular System and Extra-Axial Spaces: The ventricles and sulci areprominent. No extra-axial fluid collections. Basilar cisterns are patent.No hydrocephalus. Osseous and Extracranial Structures: Patient is status post bilateralcataract surgery. There is mild mucosal thickening and the paranasalsinuses. The mastoid air cells are clear. No acute osseous abnormalitiesare identified. IMPRESSION: 1. No acute intracranial findings. Marina CAMACHO [facility] HEAD/NECK Final Res ult documented in this encounter Visit Diagnoses Diagnosis Nonintractable headache, unspecified chronicity pattern, unspecified headache type- Primary Nausea Nausea alone Vision changes Nonintractable headache, unspecified chronicity pattern, unspecified headache type Nausea Nausea alone Vision changes documented in this encounter Additional Health Concerns Assessment Noted Time PHQ-9 Depression Total Score: 11 022 9:47 AM EST PHQ-2 Depression Total Score: 3 10/14/19 22 9:47 AM EST documented as of this encounter Care Teams Forklift Truck Operator Relationship Specialty Start Date End Date Marina Richey PA [address] [place] [address] PCP - General Seismic Survey Assistant 08/31/22 Lance Jack MD [email or web address] Historical LMR Provider 07/15/17 Orly Marquez NP [address] [place] [address] Historical LMR Provider 07/15/17 Lacie Olivares MD [address] [place] [address] [email or web address] Consulting Provider Geriatric Medicine 07/24/21 Lacie Olivares MD [address] [place] [address] [email or web address] Geriatric Medicine 07/31/24 documented as of this encounter Additional Source Comments The information contained in this document represents components of the legal health record. It is not the complete legal health record.[facility]
--- OUTSIDE RECORDS SUMMARY | 2025-06-07 17:52 | XMS_ITS | Encounter Summary ---
Author Organization [facility] Address [address] [address] Phone Care Team Providers Care Customs Opener Verifier Packer Name Role Phone Orly Marquez NP Primary Care Provider [phone] Lance Jack MD Unavailable [phone] Jael Rodriguez PA-C Unavailable [phone] Orly Marquez NP Unavailable [phone] Jose Hansen NP Unavailable Flower Jacobson MD Unavailable Romy Donis MD Primary Care Provider [phone] Lacie Olivares MD Unavailable [phone] Marina Richey Primary Care Provider + [phone] Lacie Olivares MD Unavailable [phone] Encounter Details Date Type Department Care Team (Late st Contact Info) Description 01/13/2018 [facility] [address] [place] [address] Lance Jack MD [address] [place] [address] [email or web address] Social History Tobacco Use Types Packs/Day Years [...] Description 06/05/2025 Procedure Pass Non-Invasive Cardiology [address] [place] [address] 06/05/2025 Procedure Pass Non-Invasive Cardiology [address] [place] [address] 07/13/2025 12:00 PM EDT Office Visit [facility] [address] [facility], [address] [place] [address] Sundar Martinez MD, MS [address] [place] [address], [address] [address] 08/20/2025 1:30 PM EST Office Visit [facility] [address] [place] [address] Andi Wetzel DO [address] [place] [address] 12/11/2025 12:20 PM EDT Appointment Non-Invasive Card[place] [address] Abhay Tamayo MD [address] [place] [address], [address] [place] [address] 12/11/2025 12:40 PM EDT Office Visit [facility] [address] [place] [address] [address] [facility], [address] [place] [address] Abhay Tamayo MD [address] [place] [address], [address] [address] documented as of this encounter Visit Diagnoses Not on filedocumented in this encounter Care Teams Customs Opener Verifier Packer Relationship Specialty Start Date End Date Orly [place], QUALITY ASSURANCE TESTER [address] [place] [address] PCP - General 07/15/17 06/11/21 Romy Donis MD [address] [place] [address] [facility], [place] [address] [email or web address] PCP - General Family Medicine 06/12/21 08/30/22 Marina Richey PA [address] [place] [address] PCP - General Head Still Operator 08/31/22 Lance Jack MD [address] [place] [address] [email or web address] Historical LMR Provider 07/15/17 Jael Rodriguez PA-C [address] [place] [address] [email or web address] Historical LMR Provider 07/15/17 10/04/21 Orly Marquez QUALITY ASSURANCE TESTER [address] [place] [address] Historical LMR Provider 07/15/17 Jose Hansen, MARIAN [address] [place] [address] [phone] Historical LMR Provider 07/15/17 2 Flower Jacobson MD [facility] Orthopedics Sports [facility], [place] [address] [email or web address] Historical LMR Provider 07/15/17 10/04/21 Lacie Oilvares MD [address] [place] [address] Orthopedics Sports [facility], [place] [address] [email or web address] Consulting Provider Geriatric Medicine 07/24/21 Lacie Olivares MD 4 [facility] Orthopedics Sports [facility], [place] [address] [email or web address] Geriatric Medicine 07/31/24 documented as of this encounter Additional Source Comments The information contained in this document represents components of the legal health record. It is not the complete legal health record.[facility]
--- OUTSIDE RECORDS SUMMARY | 2025-06-07 17:52 | XMS_ITS | Encounter Summary ---
Author Organization [facility] Address [address] [address] Phone Care Team Providers Care Rifle Case Repairer Name Role Phone Orly Mar[place] NP Primary Care Provider [phone] Lance Jack MD Unavailable [phone] Jael RodriguezC Unavailable [phone] Orly Marquez NP Unavailable [phone] Jose Hansen NP Unavailable [phone] Flower Jacobson MD Unavailable [phone] Romy Donis MD Primary Care Provider [phone] Lacie Olivares MD Unavailable [phone] Marina Richey Primary Care Provider [phone] Lacie Olivares MD Unavailable [phone] Encounter Details Date Type Department Care Team (Late st Contact Info) Description 05/23/2021 Procedure Pass Non-Invasive Cardiology [address] [place] [address] Social History Tobacco Use Types Packs/Day Years [...] Description 06/05/2025 Procedure Pass Non-Invasive Cardiology [address] [place] [address] 06/05/2025 Procedure Pass Non-Invasive Cardiology [address] [place] [address] 07/13/2025 12:00 PM EDT Office Visit [facility] [address] [facility], [address] [place] [address] Sundar Martinez MD, MS [address] [place] [address], [address] [address] 08/20/2025 1:30 PM EST Office Visit [facility] [address] [place] [address] Andi Wetzel DO [address] [place] [address] [email or web address] 12/11/2025 12:20 PM EDT Appointment Non-Invasive Cardiology [address] [place] [address] [place] [address] Abhay Tamayo MD [address] [place] [address], [address] [address] 12/11/2025 12:40 PM EDT Office Visit [facility] [address] [facility], [address] [place] [address] Abhay Tamayo MD [address] [place] [address] [email or web address] documented as of this encounter Visit Diagnoses Not on filedocumented in this encounter Additional Health Concerns Assessment Noted Time PHQ-9 Depression Total Score: 11 022 9:47 AM EST PHQ-2 Depression Total Score: 3 10/14/19 22 9:47 AM EST documented as of this encounter Care Teams Rifle Case Repairer Relationship Specialty Start Date End Date Orly Marquez, LETTUCE TRIMMER [address] [place] [address] PCP - General 07/15/17 06/11/21 Romy Donis MD [address] [place] [address] [facility], [place] [address] [email or web address] PCP - General Family Medicine 06/12/21 08/30/22 Marina Richey PA [address] [address] PCP - General Hotel Office Manager 08/31/22 Lance Jack MD [address] [place] [address] [email or web address] Historical LMR Provider 07/15/17 Jael Rodriguez PA-C [address] [place] [address] [email or web address] Historical LMR Provider 07/15/17 10/04/21 Orly Marquez LETTUCE TRIMMER [address] [place] [address] Historical LMR Provider 07/15/17 Jose Hansen, MARIAN [address] [place] [address] [address] Historical LMR Provider 07/15/17 2 Flower Jacobson MD [facility] Orthopedics Sports [facility], [place] [address] [email or web address] Historical LMR Provider 07/15/17 10/04/21 Lacie Olivares MD [address] [place] [address] Orthopedics Sports [facility], [place] [address] [email or web address] Consulting Provider Geriatric Medicine 07/24/21 Lacie Olivares MD [address] [facility] Orthopedics Sports [facility], [place] [address] [email or web address] Geriatric Medicine 07/31/24 documented as of this encounter Additional Source Comments The information contained in this document represents components of the legal health record. It is not the complete legal health record.[facility]
--- OUTSIDE RECORDS SUMMARY | 2025-06-07 17:52 | XMS_ITS | Encounter Summary ---
Author Organization [facility] Address [address] [facility] [address] [place] [address] Phone Care Team Providers Care Distribution District Supervisor Name Role Phone Orly Marquez NP Primary Care Provider Lance Jack MD Unavailable Jael Rodriguez PA-C Unavailable Orly Marquez NP Unavailable Jose Hansen NP Unavailable Flower Jacobson MD Unavailable [phone] Romy Donis MD Primary Care Provider Lacie Olivares MD Unavailable Marina Richey Primary Care Provider + [phone] Lacie Olivares MD Unavailable [phone] Encounter Details Date Type Department Care Team (Latest Contact Info) Description 09/07/2017 Transcribe Orders [facility] [address], [address] [place], [place] [phone] Lance Jack MD [address] [place] [address] [email or web address] Sick sinus syndrome (Primary Dx) Social History [...] Description 06/05/2025 Procedure Pass Non-Invasive Cardiology [address] [place] [address] 06/05/2025 Procedure Pass Non-Invasive Cardiology [address] [place] [address] 07/13/2025 12:00 PM EDT Office Visit [facility] [address] [place] [address] [place] [address], [address] [place] [address] Sundar Martinez MD, MS [address] [place] [address], [address] [address] 08/20/2025 1:30 PM EST Office Visit [facility] [address] [place] [address] [place] [address] Andi Wetzel DO [address] [place] [address] 12/11/2025 12:20 PM EDT Appointment Non-Invasive Cardiology [address] [place] [address] [place] [address] Abhay Tamayo MD [address] [place] [address], [address] [address] 12/11/2025 12:40 PM EDT Office Visit [facility] [address] [facility], [address] [place] [address] Abhay Tamayo MD [address] [place] [address] [email or web address] documented as of this encounter Results * TTE COMPREHENSIVE (09/08/2017 12:50 PM EST) Body Surface Area 1.92 m2 Anatomical Region Laterality Modality Heart Ultrasound us Irwin Quinones MD CV ECHO ORDERABLES Final Re sult documented in this encounter Visit Diagnoses Diagnosis Sick sinus syndrome- Primary Sinoatrial node dysfunction documented in this encounter Care Teams Distribution District Supervisor Relationship Specialty Start Date End Date Orly Marquez NP [address] [place] [address] PCP - General 07/15/17 06/11/21 Romy Donis MD [address] [place] [address] [facility], [place] [address] [email or web address] PCP - General Family Medicine 06/12/21 08/30/22 Marina Richey PA [address] [place] [address] PCP - General Chair Installer 08/31/22 Lance Jack MD [address] [place] [address] [email or web address] Historical LMR Provider 07/15/17 Jael Rodriguez PA-C [address] [place] [address] [email or web address] Historical LMR Provider 07/15/17 10/04/21 Orly Marquez STORE PRODUCT DEMONSTRATOR [address] [place] [address] Historical LMR Provider 07/15/17 Jose Hansen NP [address] [place] [address] [address] Historical LMR Provider 07/15/17 2 Flower Jacobson MD [address] [place] [address] Orthopedics Sports [facility], [place] [address] [email or web address] Historical LMR Provider 07/15/17 10/04/21 Lacie Olivares MD [address] [place] [address], [place] [address] Consulting Provider Geriatric Medicine 07/24/21 Lacie Olivares MD [address] [place] [address], [place] [address] Geriatric Medicine 07/31/24 documented as of this encounter Additional Source Comments The information contained in this document represents components of the legal health record. It is not the complete legal health record.[facility]
[2025-06-08 10:01] VITALS: BP 123/68; PULSE 60; RESP 16; O2SAT 95; BMI 28.5
--- NOTE | 2025-06-08 10:37 | HO.ANESPROP2 ---
Documented by User: Jessy Barnes NP 06/11/25 12:22 HPI - Anesthesia Eval Consult details Narrative: Pending: Pacer interrogation, echo, stress 85yo M for L4-5 Decompression, 06/28/25 Cardiac optimized. Follows [facility] for SSS (pacer), PAF, hx myopericarditis (2021) No recent illness No CP/SOB with recumbent stepper. 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 Following with specialist in [place] with reassuring testing. Discussed risk for post-op delirium and transient exacerbation of memory/confusion, risk with GA and opiates. Verbalized understanding and will discuss with . [facility] Active Problems Active Problems: All Active Problems Lumbar stenosis with neurogenic claudication (Acute) Urinary incontinence (Acute) Past Medical History Medical History Wears hearing aid in both ears Hx of cardiac pacemaker (~2018) Steroid dependence Lower back pain LBBB (left bundle branch block) Hiatal hernia GERD (gastroesophageal reflux disease) Depression Anxiety Inguinal hernia with obstruction without gangrene Pain in joint Adenomatous colon polyp Rosacea Neuropathy Sick sinus syndrome Attention deficit disorder Paroxysmal atrial fibrillation Pure hypercholesterolemia Recurrent major depressive episodes, 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 Hearing loss Chronic atrial fibrillation Spinal stenosis of lumbar region Sacroiliac instability Cardiac pacemaker Chest pain Central sleep apnea syndrome Obstructive sleep apnea syndrome Sacroiliac joint pain Sensorineural hearing loss Polymyalgia rheumatica Temporal arteritis Family History Family history of problems with anesthesia: No Surgical History Surgical History Hx of cardiac catheterization Hx of colonoscopy Hx of bilateral inguinal hernia repair History of total replacement of both hip joints History of Problems with Anesthesia: No Social History Social History Household Members: Spouse Housing: Apartment Are you a primary career resource specialist to a significant other at home: No ( frail) Do you presently have visiting nurse or other home services: No Patient Tobacco Use Status: Never used Tobacco e-Cigarette/Vaping Use: Never Used Use of substances other than those prescribed or required for medical reasons: No Have you been hit, kicked, punched, or otherwise hurt by someone within the past year? If so, by whom?: No Are you DNR?: No Advance Directives: No (will bring DOS) Advance Directives Information Provided: Yes Advance Directives on File: No Poor oral hygiene: No Meds Allergies Allergy/AdvReac Type Severity Reaction Status Date / Time No Known Allergies Allergy Verified 06/08/25 10:18 Home Medications ?Medication ?Instructions ?Recorded ?Confirmed ?Last Taken ?Type apixaban 5 mg tablet (Eliquis) 5 mg PO BID 04/18/25 06/28/25 06/24/25 History Held on 06/26/25. Instructions: Resume on 07/01/25. You may restart Eliquis 3 days after surgery acetaminophen 325 mg tablet 650 mg PO Q6H PRN Pain 06/08/25 06/28/25 Unknown History multivitamin 1 tab PO DAILY 06/08/25 06/28/25 06/27/25 History Exam Height,Weight and Vital Signs: Height 5 ft 7 in Weight 82.554 kg Last Vital Signs Pulse 60 06/08/25 10:01 Resp 16 06/08/25 10:01 BP 123/68 06/08/25 10:01 Pulse Ox 95 06/08/25 10:01 O2 Del Method Room Air 06/08/25 10:01 Pertinent Lab Results Pertinent Lab Results: Lab Results 06/08/25 Range/Units 11:09 WBC 9.7 (4.8-10.8) X10*3/uL RBC 4.38 L (4.60-5.80) X10*6/uL Hgb 13.5 L (14.0-18.0) g/dl Hct 40.5 L (42.0-52.0) % MCV 92.5 (80.0-98.0) fL MCH 30.8 (27.0-33.0) pg MCHC 33.3 (31.0-36.0) g/dl RDW 14.2 (11.0-16.0) % Plt Count 232 (160-400) X10*3/uL MPV 11.4 (9.4-12.4) fL Absolute Nucleated RBC 0.000 (0.0-0.012) X10*3/uL Nucleated RBC % (auto) 0.0 (0.0-0.2) /100WBC Sodium 141 (135-145) mmol/L Potassium 4.5 (3.3-5.1) mmol/L Chloride 109 H (96-108) mmol/L Carbon Dioxide 25 (22-29) mmol/L Anion Gap 12 (12-20) BUN 33 H (9-16) mg/dL Creatinine 1.18 (0.5-1.4) mg/dL Estim Creat Clear Calc 47.0 Estimated GFR 59 Random Glucose 96 (60-115) mg/dL Calcium 9.4 (8.4-10.2) mg/dL Narrative Narrative: EKG 11/2024 A-sensed V-Paced at 60 LAD LBBB Pacer interrogation 05/2025 DDDR 60-130 ~90% paced Limited ECHO 2021 - no pericardial effusion 2021 MPI showed basal anterior wall reversible defect. Cardiac cath negative for obstructive CAD Airway Mallampati Class: III (small opening) TM Dist: >3cm Neck ROM: Full (occassional stiff neck) Loose/Missing/Broken Teeth: Yes (missing side molars) Heart: irreg Lungs: fine crackles in the bases. Improves with cough. Encouraged deep breathe and cough daily preop Assessment and Plan Assessment Anesthesia Assessment: Anesthesia Plan Discussed and PAT Visit Final Anesthetic Review Family History of Problems with Anesthesia: No History of Problems with Anesthesia: No Documented by User: Amy Zapata MD 06/28/25 08:14 [facility] Past Medical History Medical History Wears hearing aid in both ears Hx of cardiac pacemaker (~2018) Steroid dependence Lower back pain LBBB (left bundle branch block) Hiatal hernia GERD (gastroesophageal reflux disease) Depression Anxiety Inguinal hernia with obstruction without gangrene Pain in joint Adenomatous colon polyp Rosacea Neuropathy Sick sinus syndrome Attention deficit disorder Paroxysmal atrial fibrillation Pure hypercholesterolemia Recurrent major depressive episodes, 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 Hearing loss Chronic atrial fibrillation Spinal stenosis of lumbar region Sacroiliac instability Cardiac pacemaker Chest pain Central sleep apnea syndrome Obstructive sleep apnea syndrome Sacroiliac joint pain Sensorineural hearing loss Polymyalgia rheumatica Temporal arteritis Surgical History Surgical History Hx of cardiac catheterization Hx of colonoscopy Hx of bilateral inguinal hernia repair History of total replacement of both hip joints Social History Social History Household Members: Spouse Housing: Apartment Are you a primary career resource specialist to a significant other at home: No ( frail) Do you presently have visiting nurse or other home services: No Patient Tobacco Use Status: Never used Tobacco e-Cigarette/Vaping Use: Never Used Use of substances other than those prescribed or required for medical reasons: No Have you been hit, kicked, punched, or otherwise hurt by someone within the past year? If so, by whom?: No Are you DNR?: No Advance Directives: No (will bring DOS) Advance Directives Information Provided: Yes Advance Directives on File: No Poor oral hygiene: No Meds Allergies Allergy/AdvReac Type Severity Reaction Status Date / Time No Known Allergies Allergy Verified 06/08/25 10:18 Home Medications ?Medication ?Instructions ?Recorded ?Confirmed ?Last Taken ?Type apixaban 5 mg tablet (Eliquis) 5 mg PO BID 04/18/25 06/28/25 06/24/25 History Held on 06/26/25. Instructions: Resume on 07/01/25. You may restart Eliquis 3 days after surgery acetaminophen 325 mg tablet 650 mg PO Q6H PRN Pain 06/08/25 06/28/25 Unknown History multivitamin 1 tab PO DAILY 06/08/25 06/28/25 06/27/25 History Exam Airway Mallampati Class: IV (small opening) Assessment and Plan Assessment Anesthesia Assessment: Chart Reviewed Final Anesthetic Review NPO: Yes ASA Class: III Final Preanesthetic Review: No Changes in Pt Med Stat, Meds/Allgs Chart Reviewed, Consent Obtained/Reviewed and Anes Risks/Benef Reviewed Patient Risk: Intermediate Procedure Risk: Intermediate Anesthetic Plan Anesthetic Plan: GA Disposition: Standard PACU
[2025-06-08 11:51] LABS: Hematocrit 40.5 % (42.0-52.0); Hemoglobin 13.5 g/dl (14.0-18.0); Mean Corpuscular HGB Conc 33.3 g/dl (31.0-36.0); Mean Corpuscular Hemoglobin 30.8 pg (27.0-33.0); Mean Corpuscular Volume 92.5 fL (80.0-98.0); NRBC Abs Auto 0.000 X10*3/uL (0.0-0.012); NRBC Pct Auto 0.0 /100WBC (0.0-0.2); Platelet Count 232 X10*3/uL (160-400); Red Blood Count 4.38 X10*6/uL (4.60-5.80); White Blood Count 9.7 X10*3/uL (4.8-10.8)
[2025-06-08 12:43] LABS: Anion Gap 12 (12-20); Blood Urea Nitrogen 33 mg/dL (9-16); Calcium 9.4 mg/dL (8.4-10.2); Carbon Dioxide 25 mmol/L (22-29); Chloride 109 mmol/L (96-108); Creatinine Clr Calc Pharmacy 47.0; Estimated Glomerular Filt Rate 59; Potassium 4.5 mmol/L (3.3-5.1); Sodium 141 mmol/L (135-145)
--- NOTE | 2025-06-26 15:37 | P.DS_ITS ---
DS: Providers Provider Date of Service: 06/28/25 Date of discharge: 06/28/25 Primary care physician: Marina Richey PA-C Admitting clinician: Robert Hooper DS: Diagnosis Discharge Diagnosis (1) Lumbar stenosis with neurogenic claudication: Status: Acute DS: Summary Time Attestation Discharge Coordination Time (in mins): 5 Quality: Safe Use of Opioids Does Pt have an Active Cancer Diagnosis on the Problem List?: No Quality: Stroke Does the patient have a stroke diagnosis?: No Physical Exam Vital Signs: Vital Signs: Last Vital Signs Pulse 60 06/08/25 10:01 Resp 16 06/08/25 10:01 BP 123/68 06/08/25 10:01 Pulse Ox 95 06/08/25 10:01 O2 Del Method Room Air 06/08/25 10:01 BMI result Body Mass Index 28.5 Discharge Plan Discharge Patient Disposition: Home, Self-Care Referrals: Marina Richey PA-C [Primary Care Provider, Family Practice] - 1 Week Discharge Medications: New oxycodone 5 mg tablet 5 mg PO Q8H PRN (Reason: pain) Qty: 10 0RF Rx Instructions: Partial Fill upon patient request. docusate sodium [Colace] 100 mg capsule 100 mg PO BID Qty: 20 0RF Continued tamsulosin 0.4 mg capsule 0.8 mg PO DAILY 90 Days Qty: 180 0RF multivitamin Tablet 1 tab PO DAILY acetaminophen 325 mg Tablet 650 mg PO Q6H PRN (Reason: Pain) Held Eliquis 5 mg tablet 5 mg PO BID Hold Instructions: Resume on 07/01/25. You may restart Eliquis 3 days after surgery Discontinued prednisone 1 mg tablet 2 mg PO DAILY Patient Comments: will decrease to 1 mg daily starting 06/12/25 Discharge Orders: Discharge Order (Routine); Ordered 06/28/25 Ordered By: Derian Birch Diet: Advance to usual diet Activity on Discharge: As tolerated Activity Restrictions/Additional Instructions: After your spinal surgery we ask you to observe the following restrictions/guidelines: Activity: It is normal to feel some discomfort as you increase your activity, but that will improve with time. We ask you avoid heavy lifting or acitivities that cause pain. As a general rule, 8lbs is a safe limit for lifting right after surgery. Walk as much as you feel comfortable but not to exhaustion. You will feel extra tired the first few days after surgery. Stay well hydrated. It is OK to walk up and down stairs You may return to driving when you are off narcotics (such as vicodin, oxycodone, dilaudid, etc), and you are back to normal functional capacity. If you have any concerns please check with office before driving. Return to work is specific to each patient and each surgery, so please speak with your doctor/PA at first follow up. Please bring paperwork such as FMLA at that time if you need it filled out. Medications: You may restart Eliquis 3 days after surgery For optimum pain control, it is best to start with a combination of 500 mg of Tylenol every 4 hours with 600 mg of Motrin every 8 hours, and use narcotics as needed in between for breakthrough pain. We will give you a short supply of narcotics after surgery (usually one weeks worth). If you need more please call the office but do not use more than prescribed. You will need to give our office 48 hours notice if you need narcotics refilled and we do not fill narcotics on weekends or evenings. If you are on a narcotic, it is a good idea to take a stool softener such as colace or senna to avoid constipation If you take blood thinner such as aspirin, Plavix, Coumadin, Effient, Eliquis etc for conditions such as Afib, DVT, Pulmonary embolus, coronary disease, st ents etc please speak with your surgeon about specific details as to when you can resume these medications. Follow up: Please call the office, , after surgery to arrange a 3 week follow up for wound check. Wound Care: You may remove your dressing on the first day after surgery. ?You may ?leave open to air. Please do not remove the steri strips underneath. they will fall off on their own in one week. IT IS NORMAL FOR THE WOUND TO OOZE OR BE BLOODY FOR A FEW DAYS AFTER SURGERY. ?IF THIS HAPPENS JUST PLACE NEW DRESSING OVER IT TO AVOID STAINING CLOTHES. You may shower on post op day # 1 We ask that you do not let the water soak the wound. If it does get wet, just towel dry lightly. Please do not scrub your incision or place any type of chemical/ointment on the wound. No tub baths, pools or jacuzzis for one month. If you have any leaking or redness from your wound, or fevers, please call office Print Language: Turkish
[2025-06-28] VITALS (7 sets, daily range): BP systolic 106–141; BP diastolic 51–76; PULSE 60–74; RESP 12–16; TEMP 36.1–36.3; O2SAT 92–97
--- NOTE | ~2025-06-28 | FL_ITS ---
EXAMINATION: XR FLUOROSCOPY WITH IMAGES CLINICAL INFORMATION: L4-5 decompression. COMPARISON: None available. TECHNIQUE: Fluoroscopy provided to: Dr. Hooper Fluoroscopy time: 0.0 minutes DAP: 2.903 Gycm2 Images: 1 FINDINGS: Solitary fluoroscopic spot image of the lower lumbar spine obtained during L4-5 decompression surgery. Please refer to the full operative report for details. FL/FL guidance in OR IMPRESSION: Fluoroscopic guidance. Electronically signed by: Trent Shirley MD 06/28/2025 08:38 AM EDT
[2025-06-28] MEDS: Lactated Ringers 1,000 ML 100 ML IVCONT (06:33)
--- NOTE | 2025-06-28 07:05 | MHC.SHP ---
Pre-Procedural Eval Section A - 24 Hr Update-Section A only Date of Service: 06/28/25 The patient is an INPATIENT: No Changes since office visit: No Cold of Flu in the past 2 weeks, No New Medical Problems, No Changes in Medication and No Patient answered all questions The patient has been examined within 24 hours of the surgical procedure. The History & Physical has been completed within 30 days and I have reviewed it.: No Section B - Complete if H&P > 30 days Chief Complaint: Spinal stenosis, lumbar region with neurogenic Allergies: Allergies Allergy/AdvReac Type Severity Reaction Status Date / Time No Known Allergies Allergy Verified 06/08/25 10:18 Review of Systems Sugical H&P ROS: Negative: Constitution, Cardiovascular, Respiratory, Neurological, Psychiatric, Hem-Onc, Allergic/Immunologic, Gastrointestinal, Genitourinary, Musculoskeletal, Integumentary, Endocrine and Eyes/Ears/Nose/Throat Exam Surgical H&P Exam: Normal: HEENT, Normal: Heart, Normal: Lungs, Normal: Extremities, Normal: Abdomen, Normal: Skin and Normal: Neurological (awake, alert,oriented x 3 ) Plan Diagnosis/Plan: Unchanged L4-5 decompression Time Spent With Patient Time: Total time managing care of this patient today __6__ minutes.
--- NOTE | 2025-06-28 08:25 | P.OP_ITS ---
Operative Note Operative Note Date of Service: 06/28/25 Narrative: Preoperative Diagnosis: L4-5 spinal stenosis/lateral recess stenosis/neural foraminal stenosis Operation: L4-5 Laminotomy, Partial facetectomy and foraminotomy with use of microscope Consent Informed Consent was obtained for this operation. I have explained the nature, purpose and benefits of the operation. I have discussed the risks and benefit of the operation including possible complications or adverse events with patient/family. Alternative(s) were discussed with the patient with their relative benefits and risks as well as the consequences of not accepting the operation were included in obtaining consent. Surgeon: FERNANDA WHITTAKER MD, PHD Procedure Assisted By: Derian Simons Description of Procedure This 85-year-old male suffering from neurogenic claudication due to L4-5 spinal stenosis. The patient was offered a decompression. The procedure complications were explained. The patient was consented. The patient was brought to the operating room and endotracheally intubated. The patient was turned in prone position on the [place] frame. Prep and drape was done followed by timeout. The Physician seismic survey assistant provided access. A mid lumbar incision was made followed by release of the paravertebral muscle on the left to expose the L4-5 lamina and facet joints. An intraoperative x-ray was obtained to confirm the correct level. The microscope was brought in. I took over the procedure. The high-speed drill was used to do a L4-5 laminotomy until flavum ligament was reached. A #2 Kerrison was used to expand the laminotomy near flush to the pedicle and to include a partial facetectomy. The flavum ligament was opened and resected with a #3 Kerrison to decompress the underlying thecal sac. The flavum ligament was removed to decompress the lateral recess and the exiting L5 nerve root. The patient was turned contralaterally. The spinous process was undercut and in this way I was able to decompress the contralateral side by removing more flavum ligament. A long nerve hook could be easily passed along the medial side of the pedicles as a sign of adequate decompression. The microscope was removed. Hemostasis was done. The physician seismic survey assistant close the Incision in 2 layers. Steri-Strips were used to approximate incision. An OpSite with Tegaderm was used to cover the incision. All sponge needle counts were correct. Patient was extubated and transported in stable is to recovery room. Anesthesia: General Estimated Blood Loss (ml): 15 Complications: None Duration of Surgery: Under 35 Minutes Postoperative Plan: Discharge to home
== END 2025-06-28 10:28 | disposition home or self-care (01) ==
LOC: HO.SSS 05:40
PROVIDERS: PCP Physician Assistant Medical; Visit Provider Neurological Surgery
PROC: (CPT 63047; principal; 2025-06-28 07:30)
DX: M48.062 Spinal stenosis, lumbar region with neurogenic claudication (principal); R26.2 Difficulty in walking, not elsewhere classified; M79.605 Pain in left leg; M79.604 Pain in right leg; M80.08XA Age-related osteoporosis with current pathological fracture, vertebra(e), initial encounter for fracture; I48.0 Paroxysmal atrial fibrillation; I49.5 Sick sinus syndrome; Z95.0 Presence of cardiac pacemaker; M31.6 Other giant cell arteritis; G47.33 Obstructive sleep apnea (adult) (pediatric); Z79.01 Long term (current) use of anticoagulants; Z79.52 Long term (current) use of systemic steroids
CPT/HCPCS: 63047; 36415; 80048; 85027; J0131; J0330; J0690; J1100; J2003; J2405; J2704; J3010

== ENCOUNTER → 2025-06-28 05:40 | Outpatient (BNV) | payer MEDICARE, SELFPAY | PROVIDERS: PCP Physician Assistant Medical; Visit Provider Neurological Surgery | DX: M48.062 Spinal stenosis, lumbar region with neurogenic claudication (principal) | CPT/HCPCS: 63047; 99499 ==

== ENCOUNTER 2025-07-19 10:45 | Outpatient (AMB) | payer MEDICARE, SELFPAY ==
--- NOTE | 2025-07-19 10:48 | HO.SPINEOV ---
Intake Visit Reasons: 1st post op Intake Note: Mr. Jim is here today for his 1st post op. Classification Case Manager Required: No Allergies No Known Allergies Allergy (Verified 06/08/25 10:18) Assessment & Plan Assessment & Plan (1) Lumbar stenosis with neurogenic claudication: Code(s): M48.062 - Spinal stenosis, lumbar region with neurogenic claudication Category: Medical Plan Operation: L4-5 Laminotomy, Partial facetectomy and foraminotomy Bryson is a pleasant 85 year old male who underwent L4-[address] Hooper on 06/28/25 for neurogenic claudication as a result of stenosis at L4-5. He comes in today for his 1st postoperative visit. He reports that overall his pain and overall discomfort has remained similar to how it was prior to surgery. He expressed some concerns regarding this. He also disclosed that he lives in a senior care community that recently started offering free physical therapy sessions with the physical therapist who comes to their home and helps them with stretching/exercise. Both he and his have been doing 3-4 45 minute sessions of physical therapy since his surgery. He reports he has not taken any prescribed pain medications since his surgery, and has primarily been relying on [id number] medications such as Tylenol/ibuprofen. We discussed the postoperative healing course at length, and I answered any questions that he had. No new neurological deficits. The patient ambulates well and rises from a seated position without difficulty. His posterior incision site is closed and well healing. He uses no assistive devices to ambulate. I would like to follow up with Bryson again in 6 weeks for his 2nd postoperative visit. He is likely suffering from a protracted course of postoperative inflammation. I advised him to discontinue the physical therapy exercises and instead focus on basic activities of daily living and walking preferably outdoors. It is quite possible that this increased activity with physical therapy is protracting his postoperative healing course. If he sees no benefit by his next visit, we may recommend a formal course of outpatient physical therapy. Cristóbal Hooper MD,PhD [facility] Coding Level of Care Code Global (87564) Diagnoses Lumbar stenosis with neurogenic claudication M48.062
--- OUTSIDE RECORDS SUMMARY | 2025-07-19 13:08 | XMS_ITS | Clinical Summary ---
Author Organization [facility] Address [address] [place] [address] Care Team Providers Care Fixed Assets Accountant Name Role Phone Unavailable Primary Care Provider Unavailabl e Social History Tobacco Use Types Packs/Day Years Used Date Smoking Tobacco: Never Assessed Sex and Gender Information Value Date Recorded Sex Assigned at Not on file Gender Identity Not on file Sexual Orientation Not on file Plan of Treatment Not on file
--- OUTSIDE RECORDS SUMMARY | 2025-07-19 13:09 | XMS_ITS | Clinical Summary ---
Author Organization [facility] Address [address] [place] [id number] Care Team Providers Care Business Performance Manager Name Role Phone Romy Donis MD Primary Care Provider [phone] Social History Tobacco Use Types Packs/Day Years [...] 50+ Years Completed 07/15/2017, 11/05/2015, 08/26/2005 Insurance [facility] Medicare Care Teams Business Performance Manager Relationship Specialty Start Date End Date Romy Donis MD [address] [place] [address] [phone] PCP - General Family Medicine 07/21/22
== END 2025-07-19 13:35 | disposition home or self-care (01) ==
LOC: HO.HNS 10:46
PROVIDERS: PCP Physician Assistant Medical; Visit Provider Physician Assistant
DX: M48.062 Spinal stenosis, lumbar region with neurogenic claudication (principal)
CPT/HCPCS: 99024

== ENCOUNTER → 2025-07-19 10:45 | Outpatient (BNVA) | payer MEDICARE, SELFPAY | PROVIDERS: PCP Physician Assistant Medical; Visit Provider Physician Assistant | DX: M48.062 Spinal stenosis, lumbar region with neurogenic claudication (principal); Z48.89 Encounter for other specified surgical aftercare | CPT/HCPCS: 99212 ==

== ENCOUNTER 2025-08-30 11:22 | Outpatient (AMB) | payer MEDICARE, SELFPAY ==
--- NOTE | 2025-08-30 11:29 | HO.SPINEOV ---
Intake Visit Reasons: 2nd post op Intake Note: Mr. Jim is here today for his 2nd post op. Special Needs Nanny Required: No Allergies No Known Allergies Allergy (Verified 06/08/25 10:18) Assessment & Plan Assessment & Plan (1) Status post lumbar spine surgery for decompression of spinal cord: Code(s): Z98.890 - Other specified postprocedural states Category: Surgical Plan Operation: L4-5 Laminotomy, Partial facetectomy and foraminotomy Bryson is a pleasant 85-year-old male who comes in today for a 2nd postoperative visit after having the above-listed procedure with Dr. Hooper. He reports that overall he feels his pain is very similar to the pain that he had prior to surgery. He is somewhat concerned regarding this. We did discuss this during his last visit, in the was some concern that his free physical therapy sessions offered by his [place] community which he had been engaging in since the day after surgery may have been somewhat responsible. He has stopped these since our last conversation but his pain persists. We discussed the postoperative healing course, and I answered all questions related to his surgery that he had. No new neurological deficits. The patient ambulates well and rises from a seated position without difficulty. He uses no assistive devices to ambulate. I discussed the continuum of potential treatment options for his continued pain, including medication management and further occupational/physical therapy completed by a licensed PT professional here at [facility]. He denied the want/needed for further conservative interventions, and stated that he will try instead to set a goal to walk 1 mile in total per day as we discussed during this office visit. He will call the office to follow up with Dr. Hooper if he continues to experience the same symptoms he had prior to surgery after a couple of more months. Cristóbal Hooper MD,PhD [facility] Coding Level of Care Code Global (40108) Diagnoses Status post lumbar spine surgery for decompression of spinal cord Z98.890
== END 2025-08-30 11:47 | disposition home or self-care (01) ==
LOC: HO.HNS 11:23
PROVIDERS: PCP Physician Assistant Medical; Visit Provider Physician Assistant
DX: Z98.890 Other specified postprocedural states (principal)
CPT/HCPCS: 99024

== ENCOUNTER → 2025-08-30 11:22 | Outpatient (BNVA) | payer MEDICARE, SELFPAY | PROVIDERS: PCP Physician Assistant Medical; Visit Provider Physician Assistant | DX: G89.18 Other acute postprocedural pain (principal); Z98.890 Other specified postprocedural states | CPT/HCPCS: 99212 ==

== ENCOUNTER 2025-09-21 14:38 | Outpatient (REF) | payer MEDICARE, SELFPAY ==
--- OUTSIDE RECORDS SUMMARY | 2018-12-22 12:00 | XMS_ITS | Encounter Summary ---
Author Organization [facility] Address [address] [facility] [address] [place] [address] Phone Care Team Providers Care Anger Control Counselor Name Role Phone Orly Marquez NP Primary Care Provider [phone] Lance Jack MD Unavailable Jael Rodriguez Unavailable [email or web address] Orly Marquez NP Unavailable [phone] Jose Hansen NP Unavailable [phone] Flower Jacobson MD Unavailable Encounter Details Date Type Department Care Team (Late st Contact Info) Description 12/22/2018 1:00 PM EDT Hospital Encounter [facility] [address] [place] [address] Social History Tobacco Use Types Packs/Day Years Used Date Smoking Tobacco: Never Smokeless Tobacco: Never Alcohol Use Standard Drinks/Week Comments Not Currently 2 (1 standard drink = 0.6 oz pur e alcohol) a couple drinks/wk Education Answer Date Recorded Are you interested in more education? Not on antwan e 01/22/2023 Are you concerned about learning? Not on file 01/22/2023 No 01/22/2023 No 01/22/2023 Digital Access Answer Date Recorded No 02/22/2023 No 02/22/2023 Reliable internet access at home? Not on file 02/22/2023 Device with a working camera? Not on file Intimate Partner Violence Answer Date R ecorded Are you denied basic needs s uch as food, clothing, or medical care? No 12/08/2024 In the past 12 months have y ou been in a relationship with a person who hurts, threatens, or tries to control you? No 12/08/2024 Are you denied basic needs s uch as food, clothing, or medical care? No 12/08/2024 In the past 12 months have y ou been in a relationship with a person who hurts, threatens, or tries to control you? No 12/08/2024 Sex and Gender Information Value Date Recorded Sex Assigned at Male 02/02/2020 12:14 AM EDT Legal Sex Male 10:12 PM EDT Gender Identity Male 02/02/2020 12:14 AM EDT Sexual Orientation Straight 02/02/2020 12 :14 AM EDT documented as of this encounter Plan of Treatment Upcoming Encounters Date Type Department Care Team (Late st Contact Info) Description 06/05/2025 Procedure Pass [facility] [address] [place] [address] 06/05/2025 Procedure Pass [facility] [address] [place] [address] 10/05/2025 12:20 PM EST Office Visit [facility] [address] [place] [address] [place] [address], [address] [place] [address] Sundar Martinez MD, MS [address] [place] [address], [address] [address] [email or web address] 12/11/2025 12:20 PM EDT Appointment [facility] [place] [address] Abhay Tamayo MD [address] [place] [address], [address] [address] 12/11/2025 12:40 PM EDT Office Visit [facility] [address] [facility], [address] [place] [address] Abhay Tamayo MD [address] [place] [address], [address] [place] [address] [email or web address] documented as of this encounter Procedures Procedure Name Priority Date/Time Associated Diagnosis Comments DEVICE CHECK: PPM IN-PERSON PROGRAMMING DUAL LEAD Routine 12/22/2018 1:40 PM EDT Sick sinus syndrome documented in this encounter Results * DEVICE CHECK: PPM IN-PERSON PROGRAMMING DUAL LEAD (12/22/2018 1:40 PM EDT) Narrative Lance Jack MD - 12/22/2018 4:44 PM EDT Reason for appointment: In-office pacemaker interrogation HPI: Routine in-office pacemaker interrogation with [employer] rep Kapri, using iterative adjustment to test the function of the device and select optimal permanent programmed values. No device related complaints. Indication for device: SSS Examination: Device type: Pacemaker Mosaic Layer: [employer] Mode: DDD LRL/URL: 60/120 bpm Thresholds, impedances, and sensing stable. High V rates: 0 Mode switches: 0 Atrial pacin% Ventricular pacin% Battery: < 6 mos RA RV LV Sensing 3.3mV Paced Threshold .6V@.5ms .6V@.4ms Impedance 480 ohms 440 ohms Additional comments or changes: normal pacemaker function, approaching ANJANA, continue with frequent in office checks, as remote is not available. Patient will return for in-office device check in: 2 months Report prepared by Jena Ramon RN Procedure Note Lance Jack MD - 12/22/2018 Reason for appointment: In-office pacemaker interrogation HPI: Routine in-office pacemaker interrogation with [employer] rep Kapri,using iterative adjustment to test the function of the device and selectoptimal permanent programmed values. No device related complaints. Indication for device: SSS Examination: Device type: Pacemaker Mosaic Layer: [employer] Mode: DDD LRL/URL: 60/120 bpm Thresholds, impedances, and sensing stable. High V rates: 0 Mode switches: 0 Atrial pacin% Ventricular pacin% Battery: < 6 mos RA RV LV Sensing 3.3mV Paced Threshold .6V@.5ms .6V@.4ms Impedance 480 ohms 440 ohms Additional comments or changes: normal pacemaker function, approachingERI, continue with frequent in office checks, as remote is notavailable. Patient will return for in-office device check in: 2 months Report prepared by Jena Ramon RN us Lance Jack MD CV CARDIAC SERVICES ORDER JOSUÉ Final Result documented in this encounter Visit Diagnoses Diagnosis Sick sinus syndrome Sinoatrial node dysfunction documented in this encounter Care Teams Anger Control Counselor Relationship Specialty Start Date End Date Orly Marquez BIOSECURITY OFFICER [address] [place] [address] PCP - General 07/15/17 06/11/21 Lance Jack MD [address] [place] [address] [email or web address] Historical LMR Provider 07/15/17 Jael Rodriguez PA Historical LMR Provider 07/15/17 10/04/21 Orly Marquez BIOSECURITY OFFICER [address] [place] [address] Historical LMR Provider 07/15/17 Jose Hansen NP [address] [place] [address] [address] Historical LMR Provider 07/15/17 2 Flower Jacobson MD [address] [place] [address] [facility], [place], [place] [id number] Historical LMR Provider 07/15/17 10/04/21 documented as of this encounter Additional Source Comments The information contained in this document represents components of the legal health record. It is not the complete legal health record.[facility]
--- OUTSIDE RECORDS SUMMARY | 2025-09-21 14:42 | XMS_ITS | Encounter Summary ---
Author Organization [facility] Address [address] [facility] [address] [place] [address] Phone Care Team Providers Care Buffet Server Name Role Phone Lance Jack MD Unavailable Orly Marquez NP Unavailable [phone] Lacie Olivares MD Unavailable [phone] Marina Richey Primary Care Provider [phone] Lacie Olivares MD Unavailable [phone] Andi Wetzel DO Unavailable [phone] Encounter Details Date Type Department Care Team (Late st Contact Info) Description 06/16/2023 Procedure Pass [facility] [address] [place] [address] Social History Tobacco Use Types Packs/Day Years [...] st Contact Info) Description 06/05/2025 Procedure Pass [facility] [address] [place] [address] 06/05/2025 Procedure Pass [facility] [address] [place] [address] 10/05/2025 12:20 PM EST Office Visit [facility] [address] 3rd [facility], [address] [address] Sundar Martinez MD, [place] [address] [place] [address], [address] [address] [email or web address] 12/11/2025 12:20 PM EDT Appointment [facility] [address] [place] [address] [place] [address] Abhay Tamayo MD [address] [place] [address], [address] [address] 12/11/2025 12:40 PM EDT Office Visit [facility] [address] 3rd [facility], [address] [place] [address] Abhay Tamayo MD [address] [place] [address], [address] [address] documented as of this encounter Visit Diagnoses Not on filedocumented in this encounter Additional Health Concerns Assessment Noted Time PHQ-9 Depression Total Score: 11 022 9:47 AM EST PHQ-2 Depression Total Score: 3 10/14/19 22 9:47 AM EST documented as of this encounter Care Teams Buffet Server Relationship Specialty Start Date End Date Marina Richey PA [address] [place] [address] PCP - General Paper Conservator 08/31/22 Lance Jack MD [email or web address] Historical LMR Provider 07/15/17 Orly Marquez NP 238 [place] [address] Historical LMR Provider 07/15/17 Lacie Olivares MD [address] [place] [address] [email or web address] Consulting Provider Geriatric Medicine 07/24/21 08/07/25 Lacie Olivares MD 238 [place] [address] Geriatric Medicine 07/31/24 08/07/25 Andi Wetzel DO 22 [place] [address] Geriatric Medicine 08/08/25 documented as of this encounter Additional Source Comments The information contained in this document represents components of the legal health record. It is not the complete legal health record.[facility]
--- OUTSIDE RECORDS SUMMARY | 2025-09-21 14:42 | XMS_ITS | Encounter Summary ---
Author Organization [facility] Address [address] [address] Phone Care Team Providers Care Equal Opportunity Assistant Name Role Phone Lance Jack MD Unavailable Orly Marquez NP Unavailable [phone] Lacie Olivares MD Unavailable [phone] Marina Richey Primary Care Provider [phone] Lacie Olivares MD Unavailable Andi Wetzel DO Unavailable [phone] Encounter Details Date Type Department Care Team (Latest Contact Info) Description 11/18/2023 Transcribe Orders Virtual Department 30 [place] [address] Sanya Delacruz, [place] [address] [address] Radiculopathy, lumbar region (Primary Dx); Spondylosis, unspecified [...] Procedure Pass [facility] [address] [place] [place] [address] 06/05/2025 Procedure Pass [facility] [address] [place] [place] [address] 10/05/2025 12:20 PM EST Office Visit [facility] [address] [place] [address] [facility], [address] [place] [address] Sundar Martinez MD, MS [address] [place] [address], [address] [address] [email or web address] 12/11/2025 12:20 PM EDT Appointment [facility] Non-Invasive Cardiology [address] [place] [address] Abhay Tamayo MD [address] [place] [address], [address] [address] 12/11/2025 12:40 PM EDT Office Visit [facility] [address] [facility], [address] [place] [address] Abhay Tamayo MD [address] [place] [address], [address] [address] documented as of this encounter Visit Diagnoses Diagnosis Radiculopathy, lumbar region- Primary Thoracic or lumbosacral neuritis or radiculitis, unspecified Spondylosis, unspecified documented in this encounter Additional Health Concerns Assessment Noted Time PHQ-9 Depression Total Score: 11 022 9:47 AM EST PHQ-2 Depression Total Score: 3 10/14/19 22 9:47 AM EST documented as of this encounter Care Teams Equal Opportunity Assistant Relationship Specialty Start Date End Date Marina Richey PA [address] [place] [address] PCP - General Tire Service Supervisor 08/31/22 Lance Jack MD [email or web address] Historical LMR Provider 07/15/17 Orly Marquez NP 238 [place] [address] Historical LMR Provider 07/15/17 Lacie Olivares MD 238 [place] [address] [email or web address] Consulting Provider Geriatric Medicine 07/24/21 08/07/25 Lacie Olivares MD 238 [place] [address] [email or web address] Geriatric Medicine 07/31/24 08/07/25 Andi Wetzel DO 22 [place] [address] [email or web address] Geriatric Medicine 08/08/25 documented as of this encounter Additional Source Comments The information contained in this document represents components of the legal health record. It is not the complete legal health record.[facility]
--- OUTSIDE RECORDS SUMMARY | 2025-09-21 14:42 | XMS_ITS | Encounter Summary ---
Author Organization [facility] Address [address] [place] [address] Phone Care Team Providers Care Black Leather Trimmer Name Role Phone Lance Jack MD Unavailable [phone] Orly Marquez NP Unavailable [phone] Romy Donis MD Primary Care Provider [phone] Lacie Olivares MD Unavailable [phone] Marina Richey Primary Care Provider + [phone] Lacie Olivares MD Unavailable [phone] Andi Wetzel DO Unavailable [phone] Encounter Details Date Type Department Care Team (Late st Contact Info) Description 10/21/2021 Procedure Pass [facility] [address] [place] [address] Social History Tobacco Use Types Packs/Day Years [...] st Contact Info) Description 06/05/2025 Procedure Pass [facility] Non-Invasive Cardiology [address] [place] [address] 06/05/2025 Procedure Pass [facility] Non-Invasive Cardiology [address] [place] [address] 10/05/2025 12:20 PM EST Office Visit [facility] [address] [place] [address] 3rd Floor, [address] [place] [address] Sundar Martinez MD, MS [address] [place] [address], [address] [address] 12/11/2025 12:20 PM EDT Appointment [facility] Non-Invasive Cardiology [address] [place] [address] [place] [address] Abhay Tmaayo MD [address] [place] [address], [address] [address] 12/11/2025 12:40 PM EDT Office Visit [facility] [address] 3rd [facility], [address] [place] [address] Abhay Tamayo MD [address] [place] [address], [address] [address] documented as of this encounter Visit Diagnoses Not on filedocumented in this encounter Additional Health Concerns Assessment Noted Time PHQ-9 Depression Total Score: 11 022 9:47 AM EST PHQ-2 Depression Total Score: 3 10/14/19 22 9:47 AM EST documented as of this encounter Care Teams Black Leather Trimmer Relationship Specialty Start Date End Date Romy Donis MD [address] [place] [address] PCP - General Family Medicine 06/12/21 08/30/22 Marina Richey PA 238 [place] [address] PCP - General Gas Meter Checker 08/31/22 Lance Jack MD [email or web address] Historical LMR Provider 07/15/17 Orly Marquez NP 238 [place] [address] Historical LMR Provider 07/15/17 Lacie Olivares MD [address] [place] [address] Consulting Provider Geriatric Medicine 07/24/21 08/07/25 Lacie Olivares MD [address] [place] [address] Geriatric Medicine 07/31/24 08/07/25 Andi Wetzel DO 22 [place] [address] Geriatric Medicine 08/08/25 documented as of this encounter Additional Source Comments The information contained in this document represents components of the legal health record. It is not the complete legal health record.[facility]
--- OUTSIDE RECORDS SUMMARY | 2025-09-21 14:42 | XMS_ITS | Encounter Summary ---
Author Organization [facility] Address [address] [facility] [address] [place] [address] Phone Care Team Providers Care Hris Coordinator Name Role Phone Orly Marquez NP Primary Care Provider Lance Jack MD Unavailable Jael Rodriguez Unavailable [email or web address] Orly Marquez NP Unavailable Jose Hansen NP Unavailable Flower Jacobson MD Unavailable Roym Donis MD Primary Care Provider [phone] Lacie Olivares MD Unavailable [phone] Marina Richey Primary Care Provider [phone] Lacie Olivares MD Unavailable [phone] Andi Wetzel DO Unavailable [phone] Encounter Details Date Type Department Care Team (Late st Contact Info) Description 12/17/2020 Ancillary Orders [facility] [address] 3rd Floor, [address] [place], [place] [phone] Shreyas Lu MD 30 [place] [address] [email or web address] Social History Tobacco Use Types Packs/Day Years [...] st Contact Info) Description 06/05/2025 Procedure Pass [facility] Non-Invasive Cardiology [address] [place] [address] 06/05/2025 Procedure Pass [facility] Non-Invasive Cardiology [address] [place] [address] 10/05/2025 12:20 PM EST Office Visit [facility] [address] [place] [address] [place] [address], [address] [place] [address] Sundar Martinez MD, MS [address] [place] [address] 12/11/2025 12:20 PM EDT Appointment [facility] Non-Invasive Cardiology [address] [place] [address] [place] [address] Abhay Tamayo MD [address] [place] [address] 12/11/2025 12:40 PM EDT Office Visit [facility] [address] [place] [address] 3rd [facility], [address] [place] [address] Abhay Tamayo MD [address] [place] [address] documented as of this encounter Visit Diagnoses Not on filedocumented in this encounter Care Teams Hris Coordinator Relationship Specialty Start Date End Date Orly Marquez NP [address] [place] [address] PCP - General 07/15/17 06/11/21 Romy Donis MD [address] [place] [address] Orthopedics Sports [facility] [place], [place] [address] [email or web address] PCP - General Family Medicine 06/12/21 08/30/22 Marina Richey PA [address] [place] [address] PCP - General Biometrics Analyst 08/31/22 Lance Jack MD [address] [place] [address] [email or web address] Historical LMR Provider 07/15/17 Jael Rodriguez PA Historical LMR Provider 07/15/17 10/04/21 Orly Marquez INSTRUMENTATION TECHNOLOGIST [address] [place] [address] Historical LMR Provider 07/15/17 Jose Hansen NP [address] [place] [address] [address] Historical LMR Provider 07/15/17 Flower Smith MD [address] [place] [address] Orthopedics & Sports [facility] [place], [place] [address] Historical LMR Provider 07/15/17 10/04/21 Lacie Olivares MD 4 [facility], [facility] [place] [address] [email or web address] Consulting Provider Geriatric Medicine 07/24/21 08/07/25 Lacie Olivares MD 4 [facility] Orthopedics & Sports [facility] [place] [address] [email or web address] Geriatric Medicine 07/31/24 08/07/25 Andi Wetzel DO [address] [place] [address] [email or web address] Geriatric Medicine 08/08/25 documented as of this encounter Additional Source Comments The information contained in this document represents components of the legal health record. It is not the complete legal health record.[facility]
--- OUTSIDE RECORDS SUMMARY | 2025-09-21 14:42 | XMS_ITS | Encounter Summary ---
Author Organization [facility] Address [address] [place] [address] Phone Care Team Providers Care Bowling Ball Finisher Name Role Phone Lance Jack MD Unavailable [phone] Orly Marquez NP Unavailable [phone] Romy Donis MD Primary Care Provider [phone] Lacie Olivares MD Unavailable [phone] Marina Richey Primary Care Provider + [phone] Lacie Olivares MD Unavailable [phone] Andi Wetzel DO Unavailable [phone] Encounter Details Date Type Department Care Team (Late st Contact Info) Description 07/18/2022 Procedure Pass [facility] Ct Scan - [address] [address] Social History Tobacco Use Types Packs/Day Years [...] st Contact Info) Description 06/05/2025 Procedure Pass [facility] [address] [place] [address] 06/05/2025 Procedure Pass [facility] [address] [place] [address] 10/05/2025 12:20 PM EST Office Visit [facility] [address] [place] [address] 3rd Floor, [address] [place] [address] Sundar Martinez MD, MS [address] [place] [address], [address] [address] 12/11/2025 12:20 PM EDT Appointment [facility] Non-Invasive Cardiology [address] [place] [address] Abhay Tamayo MD [address] [place] [address] 12/11/2025 12:40 PM EDT Office Visit [facility] [address] 3rd [facility], [address] [place] [address] Abhay Tamayo MD [address] [place] [address], [address] [address] documented as of this encounter Visit Diagnoses Not on filedocumented in this encounter Additional Health Concerns Assessment Noted Time PHQ-9 Depression Total Score: 11 022 9:47 AM EST PHQ-2 Depression Total Score: 3 10/14/19 22 9:47 AM EST documented as of this encounter Care Teams Bowling Ball Finisher Relationship Specialty Start Date End Date Romy Donis MD [address] [place] [address] PCP - General Family Medicine 06/12/21 08/30/22 Marina Richey PA 238 [place] [address] PCP - General Elastic Attacher Overlock 08/31/22 Lance Jack MD [email or web address] Historical LMR Provider 07/15/17 Orly Marquez NP 238 [place] [address] Historical LMR Provider 07/15/17 Lacie Olivares MD [address] [place] [address] Consulting Provider Geriatric Medicine 07/24/21 08/07/25 Lacie Olivares MD [address] [place] [address] Geriatric Medicine 07/31/24 08/07/25 Andi Wetzel DO 22 [place] [address] Geriatric Medicine 08/08/25 documented as of this encounter Additional Source Comments The information contained in this document represents components of the legal health record. It is not the complete legal health record.[facility]
--- OUTSIDE RECORDS SUMMARY | 2025-09-21 14:42 | XMS_ITS | Encounter Summary ---
Author Organization [facility] Address [address] [facility] [address] [place] [address] Phone Care Team Providers Care Precast Concrete Products Installer Name Role Phone Orly Marquez NP Primary Care Provider Lance Jack MD Unavailable [phone] Jael Rodriguez Unavailable [email or web address] Orly Marquez NP Unavailable Jose Hansen NP Unavailable Flower Jacobson MD Unavailable [phone] Romy Donis MD Primary Care Provider [phone] Lacie Olivares MD Unavailable [phone] Marina Richey Primary Care Provider [phone] Lacie Olivares MD Unavailable [phone] Andi Wetzel DO Unavailable [phone] Encounter Details Date Type Department Care Team (Late st Contact Info) Description 04/25/2019 Ancillary Orders [facility] [address] [place] [address] Lance Jack MD [address] [place] [address] [email or web address] SSS (sick sinus syndrome) Social History Tobacco [...] Procedure Pass [facility] [address] [place] [address] 06/05/2025 Procedure Pass [facility] [address] [place] [address] 10/05/2025 12:20 PM EST Office Visit [facility] [address] [place] [address] 3rd [facility], [address] [place] [address] Sundar Martinez MD, MS [address] [place] [address], [address] [address] [email or web address] 12/11/2025 12:20 PM EDT Appointment [facility] Non-Invasive Cardiology [address] [place] [address] [place] [address] Abhay Tamayo MD [address] [place] [address], [address] [address] 12/11/2025 12:40 PM EDT Office Visit [facility] [address] [place] [address] 3rd [facility], [address] [place] [address] Abhay Tamayo MD [address] [place] [address], [address] [address] Pending Results Name Type Priority Associated Diagnoses [...] dysfunction documented in this encounter Care Teams Precast Concrete Products Installer Relationship Specialty Start Date End Date Orly Marquez NP [address] [place] [address] PCP - General 07/15/17 06/11/21 Romy Donis MD [address] [place] [address] Orthopedics & Sports Medicine, [place] [address] [email or web address] PCP - General Family Medicine 06/12/21 08/30/22 Marina Richey PA [address] [place] [address] PCP - General Concrete Worker 08/31/22 Lance Jack MD [address] [place] [address] [email or web address] Historical LMR Provider 07/15/17 Jael Rodriguez PA Historical LMR Provider 07/15/17 10/04/21 Orly Marquez NP [address] [place] [address] Historical LMR Provider 07/15/17 Jose Hansen NP [address] [place] [phone] Historical LMR Provider 07/15/17 2 Flower Jacobson MD 4 [facility] Orthopedics & Sports [facility], [place] [address] Historical LMR Provider 07/15/17 10/04/21 Lacie Olivares MD [address] [place] [address] Orthopedics Sports [facility], [place] [address] [email or web address] Consulting Provider Geriatric Medicine 07/24/21 08/07/25 Lacie Olivares MD [address] [place] [address] Orthopedics Sports [facility], [place] [address] Geriatric Medicine 07/31/24 08/07/25 Andi Wetzel DO 22 [place] [address] [email or web address] Geriatric Medicine 08/08/25 documented as of this encounter Additional Source Comments The information contained in this document represents components of the legal health record. It is not the complete legal health record.[facility]
--- OUTSIDE RECORDS SUMMARY | 2025-09-21 14:42 | XMS_ITS | Encounter Summary ---
Author Organization [facility] Address [address] [place] [address] Phone Care Team Providers Care Toolroom Machinist Name Role Phone Lance Jack MD Unavailable [phone] Orly Marquez NP Unavailable [phone] Romy Donis MD Primary Care Provider [phone] Lacie Olivares MD Unavailable [phone] Marina Richey Primary Care Provider [phone] Lacie Olivares MD Unavailable [phone] Andi Wetzel DO Unavailable [phone] Encounter Details Date Type Department Care Team (Late st Contact Info) Description 07/19/2022 Procedure Pass [facility] [address] [place] [address] Social History Tobacco Use Types Packs/Day Years [...] st Contact Info) Description 06/05/2025 Procedure Pass [facility] Non-Invasive Cardiology [address] [place] [address] 06/05/2025 Procedure Pass [facility] Non-Invasive Cardiology [address] [place] [address] 10/05/2025 12:20 PM EST Office Visit [facility] [address] [place] [address] [facility], [address] [place] [address] Sundar Martinez MD, MS [address] [place] [address], [address] [address] 12/11/2025 12:20 PM EDT Appointment [facility] Non-Invasive Cardiology [address] [place] [address] Abhay Tamayo MD [address] [place] [address] 12/11/2025 12:40 PM EDT Office Visit [facility] [address] [facility], [address] [place] [address] Abhay Tamayo MD [address] [place] [address], [address] [address] documented as of this encounter Visit Diagnoses Not on filedocumented in this encounter Additional Health Concerns Assessment Noted Time PHQ-9 Depression Total Score: 11 022 9:47 AM EST PHQ-2 Depression Total Score: 3 10/14/19 22 9:47 AM EST documented as of this encounter Care Teams Toolroom Machinist Relationship Specialty Start Date End Date Romy Donis MD [address] [place] [address] PCP - General Family Medicine 06/12/21 08/30/22 Marina Richey PA [address] [place] [address] PCP - General Shortage Worker 08/31/22 Lance Jack MD [email or web address] Historical LMR Provider 07/15/17 Orly Marquez NP 238 [place] [address] Historical LMR Provider 07/15/17 Lacie Olivares MD [address] [place] [address] [email or web address] Consulting Provider Geriatric Medicine 07/24/21 08/07/25 Lacie Olivares MD [address] [place] [address] Geriatric Medicine 07/31/24 08/07/25 Andi Wetzel DO 22 [place] [address] Geriatric Medicine 08/08/25 documented as of this encounter Additional Source Comments The information contained in this document represents components of the legal health record. It is not the complete legal health record.[facility]
--- OUTSIDE RECORDS SUMMARY | 2025-09-21 14:42 | XMS_ITS | Encounter Summary ---
Author Organization [facility] Address [address] [address] Phone Care Team Providers Care Book Shelver Name Role Phone Orly Marquez NP Primary Care Provider [phone] Lance Jack MD Unavailable [phone] Jael Rodriguez Unavailable [email or web address] Orly Marquez NP Unavailable [phone] Jose Hansen NP Unavailable Flower Jacobson MD Unavailable [phone] Romy Donis MD Primary Care Provider [phone] Lacie Olivares MD Unavailable [phone] Marina Richey Primary Care Provider [phone] Lacie Olivares MD Unavailable [phone] Andi Wetzel DO Unavailable [phone] Encounter Details Date Type Department Care Team (Late st Contact Info) Description 03/10/2019 Procedure Pass [facility] 30 [place] [address] Social History Tobacco Use Types Packs/Day Years [...] st Contact Info) Description 06/05/2025 Procedure Pass [facility] Cardiology [address] [place] [address] 06/05/2025 Procedure Pass [facility] Non-Invasive Cardiology [address] [place] [address] 10/05/2025 12:20 PM EST Office Visit [facility] [address] [place] [address] [place] [address], [address] [address] Sundar Martinez MD, MS [address] [place] [address] 12/11/2025 12:20 PM EDT Appointment [facility] Non-Invasive Cardiology [address] [place] [address] [place] [address] Abhay Tamayo MD [address] [place] [address], [address] [address] 12/11/2025 12:40 PM EDT Office Visit [facility] [address] [place] [address], [address] [address] Abhay Tamayo MD [address] [place] [address] documented as of this encounter Visit Diagnoses Not on filedocumented in this encounter Care Teams Book Shelver Relationship Specialty Start Date End Date Orly Marquez NP [address] [place] [address] PCP - General 07/15/17 06/11/21 Romy Donis MD [address] [place] [address] Orthopedics & Sports Medicine, [place] [address] [email or web address] PCP - General Family Medicine 06/12/21 08/30/22 Marina Richey PA 238 [place] [address] PCP - General Civil Service Clerk 08/31/22 Lance Jack MD 238 [place] [address] [email or web address] Historical LMR Provider 07/15/17 Jael Rodriguez PA Historical LMR Provider 07/15/17 10/04/21 Orly Marquez NP [address] [place] [address] Historical LMR Provider 07/15/17 Jose Hansen NP [address] [place] [address] [phone] Historical LMR Provider 07/15/17 Flower Smith MD [address] [place] [address] [facility] Medicine, [place] [address] Historical LMR Provider 07/15/17 10/04/21 Lacie Olivares MD [address] [place] [address] [facility], [place] [address] Consulting Provider Geriatric Medicine 07/24/21 08/07/25 Lacie Olivares MD [address] [place] [address] Orthopedics [facility] Sports Medicine, [place] [address] [email or web address] Geriatric Medicine 07/31/24 08/07/25 Andi Wetzel DO [address] [place] [address] [email or web address] Geriatric Medicine 08/08/25 documented as of this encounter Additional Source Comments The information contained in this document represents components of the legal health record. It is not the complete legal health record.[facility]
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
--- OUTSIDE RECORDS SUMMARY | 2025-09-21 14:42 | XMS_ITS | Encounter Summary ---
Author Organization [facility] Address 399 [facility] [address] [place] [address] Phone Care Team Providers Care Stranner Name Role Phone Lance Jack MD Unavailable Orly Marquez NP Unavailable [phone] Lacie Olivares MD Unavailable [phone] Marina Richey Primary Care Provider [phone] Lacie Olivares MD Unavailable [phone] Andi Wetzel DO Unavailable [phone] Encounter Details Date Type Department Care Team (Late st Contact Info) Description 03/12/2025 Procedure Pass [facility] Ct Scan - [address] [address] Social History Tobacco Use Types Packs/Day Years [...] 06/05/2025 Procedure Pass [facility] [address] [place] [address] [place] [address] 06/05/2025 Procedure Pass [facility] [address] [place] [address] 10/05/2025 12:20 PM EST Office Visit [facility] [address] [place] [address] [place] [address], [address] [place] [address] Sundar Martinez MD, MS [address] [place] [address], [address] [address] [email or web address] 12/11/2025 12:20 PM EDT Appointment [facility] [address] [address] Abhay Tamayo MD [address] [place] [address], [address] [address] 12/11/2025 12:40 PM EDT Office Visit [facility] [address] [place] [address] [place] [address], [address] [place] [address] Abhay Tamayo MD 22 [facility], [address] [place] [address] [email or web address] documented as of this encounter Visit Diagnoses Not on filedocumented in this encounter Additional Health Concerns Assessment Noted Time PHQ-9 Depression Total Score: 11 022 9:47 AM EST PHQ-2 Depression Total Score: 3 10/14/19 22 9:47 AM EST documented as of this encounter Care Teams Stranner Relationship Specialty Start Date End Date Marina Richey PA 238 [place] [address] PCP - General Blade Grinder 08/31/22 Lance Jack MD [email or web address] Historical LMR Provider 07/15/17 Orly Marquez INFECTION PREVENTION COORDINATOR [address] [place] [address] Historical LMR Provider 07/15/17 Lacie Olivares MD [address] [place] [address] [email or web address] Consulting Provider Geriatric Medicine 07/24/21 08/07/25 Lacie Olivares MD [address] [place] [address] [email or web address] Geriatric Medicine 07/31/24 08/07/25 Andi Wetzel DO 22 [place] [address] [email or web address] Geriatric Medicine 08/08/25 documented as of this encounter Additional Source Comments The information contained in this document represents components of the legal health record. It is not the complete legal health record.[facility]
--- OUTSIDE RECORDS SUMMARY | 2025-09-21 14:42 | XMS_ITS | Encounter Summary ---
Author Organization [facility] Address 399 [facility] [address] [place] [address] Phone Care Team Providers Care Processing Tech Name Role Phone Lance Jack MD Unavailable Orly Marquez NP Unavailable [phone] Lacie Olivares MD Unavailable [phone] Marina Richey Primary Care Provider [phone] Lacie Olivares MD Unavailable [phone] Andi Wetzel DO Unavailable [phone] Encounter Details Date Type Department Care Team (Late st Contact Info) Description 12/15/2023 Procedure Pass [facility]iology [address] [place] [address] Social History Tobacco Use Types Packs/Day Years [...] st Contact Info) Description 06/05/2025 Procedure Pass [facility] Non-Invasive Cardiology [address] [place] [address] 06/05/2025 Procedure Pass [facility] Non-Invasive Cardiology [address] [place] [address] 10/05/2025 12:20 PM EST Office Visit [facility] [address] 3rd [facility], [address] [address] Sundar Martinez MD, MS [address] [place] [address], [address] [address] [email or web address] 12/11/2025 12:20 PM EDT Appointment [facility] Non-Invasive Cardiology [address] [place] [address] [place] [address] Abhay Tamayo MD [address] [place] [address], [address] [address] 12/11/2025 12:40 PM EDT Office Visit [facility] [address] [facility], [address] [place] [address] Abhay Tamayo MD [address] [place] [address], [address] [address] documented as of this encounter Visit Diagnoses Not on filedocumented in this encounter Additional Health Concerns Assessment Noted Time PHQ-9 Depression Total Score: 11 022 9:47 AM EST PHQ-2 Depression Total Score: 3 10/14/19 22 9:47 AM EST documented as of this encounter Care Teams Processing Tech Relationship Specialty Start Date End Date Marina Richey PA 238 [place] [address] PCP - General Outcome Analyst 08/31/22 Lance Jack MD [email or web address] Historical LMR Provider 07/15/17 Orly Marquez NP 238 [place] [address] Historical LMR Provider 07/15/17 Lacie Olivares MD [address] [place] [address] [email or web address] Consulting Provider Geriatric Medicine 07/24/21 08/07/25 Lacie Olivares MD 238 [place] [address] Geriatric Medicine 07/31/24 08/07/25 Andi Wetzel DO 22 [place] [address] Geriatric Medicine 08/08/25 documented as of this encounter Additional Source Comments The information contained in this document represents components of the legal health record. It is not the complete legal health record.[facility]
--- OUTSIDE RECORDS SUMMARY | 2025-09-21 14:42 | XMS_ITS | Encounter Summary ---
Author Organization [facility] Address [address] [place] [address] [place] [address] Phone Care Team Providers Care Media Analyst Name Role Phone Lance Jack MD Unavailable Orly Marquez NP Unavailable [phone] Lacie Olivares MD Unavailable [phone] Marina Richey Primary Care Provider [phone] Lacie Olivares MD Unavailable [phone] Andi Wetzel DO Unavailable [phone] Encounter Details Date Type Department Care Team (Late st Contact Info) Description 12/16/2022 Procedure Pass [facility] [address] [place] [address] Social History Tobacco Use Types Packs/Day Years [...] Procedure Pass [facility] [address] [place] [address] 06/05/2025 Procedure Pass [facility] Non-Invasive Cardiology [address] [place] [address] 10/05/2025 12:20 PM EST Office Visit [facility] [address] 3rd Floor, [address] [place] [address] Sundar Martinez MD, MS [address] [place] [address], [address] [address] [email or web address] 12/11/2025 12:20 PM EDT Appointment [facility] Non-Invasive Cardiology [address] [place] [address] [place] [address] Abhay Tamayo MD [address] [place] [address], [address] [address] 12/11/2025 12:40 PM EDT Office Visit [facility] [address] 3rd Floor, [address] [place] [address] Abhay Tamayo MD [address] [place] [address], [address] [address] documented as of this encounter Visit Diagnoses Not on filedocumented in this encounter Additional Health Concerns Assessment Noted Time PHQ-9 Depression Total Score: 11 022 9:47 AM EST PHQ-2 Depression Total Score: 3 10/14/19 22 9:47 AM EST documented as of this encounter Care Teams Media Analyst Relationship Specialty Start Date End Date Marina Richey PA [address] [place] [address] PCP - General Escalator Attendant 08/31/22 Lance Jack MD [email or web address] Historical LMR Provider 07/15/17 Orly Marquez NP 238 [place] [address] Historical LMR Provider 07/15/17 Lacie Olivares MD [address] [place] [address] [email or web address] Consulting Provider Geriatric Medicine 07/24/21 08/07/25 Lacie Olivares MD [address] [place] [address] [email or web address] Geriatric Medicine 07/31/24 08/07/25 Andi Wetzel DO [address] [place] [address] [email or web address] Geriatric Medicine 08/08/25 documented as of this encounter Additional Source Comments The information contained in this document represents components of the legal health record. It is not the complete legal health record.[facility]
--- OUTSIDE RECORDS SUMMARY | 2025-09-21 14:42 | XMS_ITS | Clinical Summary ---
Author Organization [facility] Address [address] [place] [address] Care Team Providers Care Food And Beverage Attendant Name Role Phone Romy Donis MD Primary Care Provider [phone] Social History Tobacco Use Types Packs/Day Years [...] 50+ Years Completed 07/15/2017, 11/05/2015, 08/26/2005 Insurance [facility] [place] [address] Care Teams Food And Beverage Attendant Relationship Specialty Start Date End Date Romy Donis MD [address] [place] [phone] PCP - General Family Medicine 07/21/22
--- OUTSIDE RECORDS SUMMARY | 2025-09-21 14:42 | XMS_ITS | Clinical Summary ---
Author Organization [facility] Prior to 02/24/[address] [place] [address] Care Team Providers Care Special Education Resource Teacher Name Role Phone Unavailable Primary Care Provider Unavailabl e Social History Tobacco Use Types Packs/Day Years Used Date Smoking Tobacco: Never Assessed Sex and Gender Information Value Date Recorded Sex Assigned at Not on file Gender Identity Not on file Sexual Orientation Not on file Plan of Treatment Not on file
--- OUTSIDE RECORDS SUMMARY | 2025-09-21 14:42 | XMS_ITS | Encounter Summary ---
Author Organization [facility] Address [address] [place] [address] Phone Care Team Providers Care Auto Radiator Mechanic Name Role Phone Lance Jack MD Unavailable [phone] Orly Marquez NP Unavailable [phone] Romy Donis MD Primary Care Provider [phone] Lacie Olivares MD Unavailable [phone] Marina Richey Primary Care Provider [phone] Lacie Olivares MD Unavailable [phone] Andi Wetzel DO Unavailable [phone] Encounter Details Date Type Department Care Team (Late st Contact Info) Description 07/21/2022 Procedure Pass [facility] [address] [place] [address] Social History Tobacco Use Types Packs/Day Years [...] st Contact Info) Description 06/05/2025 Procedure Pass [facility] Non-Invasive Cardiology [address] [place] [address] 06/05/2025 Procedure Pass [facility] Non-Invasive Cardiology [address] [place] [address] 10/05/2025 12:20 PM EST Office Visit [facility] [address] [place] [address] 3rd Floor, [address] [place] [address] Sundar Martinez MD, MS [address] [place] [address], [address] [address] 12/11/2025 12:20 PM EDT Appointment [facility] Non-Invasive Cardiology [address] [place] [address] Abhay Tamayo MD [address] [place] [address], [address] [address] 12/11/2025 12:40 PM EDT Office Visit [facility] [address] [place] [address] 3rd [facility], [address] [place] [address] Abhay Tamayo MD [address] [place] [address], [address] [address] documented as of this encounter Visit Diagnoses Not on filedocumented in this encounter Additional Health Concerns Assessment Noted Time PHQ-9 Depression Total Score: 11 022 9:47 AM EST PHQ-2 Depression Total Score: 3 10/14/19 22 9:47 AM EST documented as of this encounter Care Teams Auto Radiator Mechanic Relationship Specialty Start Date End Date Romy Donis MD [address] [place] [address] PCP - General Family Medicine 06/12/21 08/30/22 Marina Richey PA 238 [place] [address] PCP - General Tool Smith 08/31/22 Lance Jack MD [email or web address] Historical LMR Provider 07/15/17 Orly Marquez NP 238 [place] [address] Historical LMR Provider 07/15/17 Lacie Olivares MD 238 [place] [address] Consulting Provider Geriatric Medicine 07/24/21 08/07/25 Lacie Olivares MD [address] [place] [address] Geriatric Medicine 07/31/24 08/07/25 Andi Wetzel DO 22 [place] [address] Geriatric Medicine 08/08/25 documented as of this encounter Additional Source Comments The information contained in this document represents components of the legal health record. It is not the complete legal health record.[facility]
--- OUTSIDE RECORDS SUMMARY | 2025-09-21 14:42 | XMS_ITS | Encounter Summary ---
Author Organization [facility] Address [address] [address] Phone Care Team Providers Care Hand Grinder Name Role Phone Orly Marquez NP Primary Care Provider [phone] Lance Jack MD Unavailable [phone] Jale Rodriguez Unavailable [email or web address] Orly Marquez NP Unavailable +[phone] Jose Hansen NP Unavailable [phone] Flower Jacobson MD Unavailable +[phone] Romy Donis MD Primary Care Provider [phone] Lacie Olivares MD Unavailable [phone] Marina Richey Primary Care Provider +[phone] Lacie Olivares MD Unavailable [phone] Andi Wetzel DO Unavailable [phone] Encounter Details Date Type Department Care Team (Late st Contact Info) Description 04/18/2019 Procedure Pass [facility], [address] [address] Social History Tobacco Use Types Packs/Day Years [...] st Contact Info) Description 06/05/2025 Procedure Pass [facility]vasive Cardiology [address] [place] [address] 06/05/2025 Procedure Pass [facility]-Invasive Cardiology [address] [place] [address] 10/05/2025 12:20 PM EST Office Visit [facility] [address] [place] [address], [address] [address] Sundar Martinez MD, MS [address] [place] [address] 12/11/2025 12:20 PM EDT Appointment [facility] Non-Invasive Cardiology [address] [place] [address] [place] [address] Abhay Tamayo MD [address] [place] [address], [address] [address] 12/11/2025 12:40 PM EDT Office Visit [facility] [address], [address] [address] Abhay Tamayo MD [address] [place] [address] documented as of this encounter Visit Diagnoses Not on filedocumented in this encounter Care Teams Hand Grinder Relationship Specialty Start Date End Date Orly Marquez NP [address] [place] [address] PCP - General 07/15/17 06/11/21 Romy Donis MD [address] [place] [address] [facility] [place] [address] [email or web address] PCP - General Family Medicine 06/12/21 08/30/22 Marina Richey PA [address] [place] [address] PCP - General Cyber Workforce Developer And Manager 08/31/22 Lance Jack MD 238 [place] [address] [email or web address] Historical LMR Provider 07/15/17 Jael Rodriguez PA Historical LMR Provider 07/15/17 10/04/21 Orly Marquez NP [address] [place] [address] Historical LMR Provider 07/15/17 Jose Hansen, MARIAN [address] [place] [phone] Historical LMR Provider 07/15/17 Flower Smith MD [address] [place] [address] [facility], [place] [address] [email or web address] Historical LMR Provider 07/15/17 10/04/21 Lacie Olivares MD [address] [place] [address] [facility], [place], [place] 9[address]88 [email or web address] Consulting Provider Geriatric Medicine 07/24/21 08/07/25 Lacie Olivares MD [address] [place] [address] [facility], [place] [address] [email or web address] Geriatric Medicine 07/31/24 08/07/25 Andi Wetzel DO [address] [place] [address] [email or web address] Geriatric Medicine 08/08/25 documented as of this encounter Additional Source Comments The information contained in this document represents components of the legal health record. It is not the complete legal health record.[facility]
--- OUTSIDE RECORDS SUMMARY | 2025-09-21 14:42 | XMS_ITS | Encounter Summary ---
Author Organization [facility] Address [address] [place] [address] Phone Care Team Providers Care Ballistic Technician Name Role Phone Lance Jack MD Unavailable [phone] Orly Marquez NP Unavailable [phone] Romy Donis MD Primary Care Provider [phone] Lacie Olivares MD Unavailable [phone] Marina Richey Primary Care Provider +[phone] Lacie Olivares MD Unavailable [phone] Andi Wetzel DO Unavailable [phone] Encounter Details Date Type Department Care Team (Late st Contact Info) Description 08/27/2022 Procedure Pass [facility] [address] [place] [address] Social History Tobacco Use Types Packs/Day Years [...] st Contact Info) Description 06/05/2025 Procedure Pass [facility] Non-Invasive Cardiology [address] [place] [address] 06/05/2025 Procedure Pass [facility]iology [address] [place] [address] 10/05/2025 12:20 PM EST Office Visit [facility] [address] [place] [address] [address]rd [facility], [address] [place] [address] Sundar Martinez MD, [place] [address] [place] [address], [address] [address] 12/11/2025 12:20 PM EDT Appointment [facility] Non-Invasive Cardiology [address] [place] [address] Abhay Tamayo MD [address] [place] [address] 12/11/2025 12:40 PM EDT Office Visit [facility] [address] 3rd [facility], [address] [place] [address] Abhay Tamayo MD [address] [place] [address], [address] [address] documented as of this encounter Visit Diagnoses Not on filedocumented in this encounter Additional Health Concerns Assessment Noted Time PHQ-9 Depression Total Score: 11 022 9:47 AM EST PHQ-2 Depression Total Score: 3 10/14/19 22 9:47 AM EST documented as of this encounter Care Teams Ballistic Technician Relationship Specialty Start Date End Date Romy Donis MD [address] [place] [address] PCP - General Family Medicine 06/12/21 08/30/22 Marina Richey PA [address] [place] [address] PCP - General Industrial Relations Officer 08/31/22 Lance Jack MD [email or web address] Historical LMR Provider 07/15/17 Orly Marquez NP 238 [place] [address] Historical LMR Provider 07/15/17 Lacie Olivares MD [address] [place] [address] [email or web address] Consulting Provider Geriatric Medicine 07/24/21 08/07/25 Lacie Olivares MD [address] [place] [address] Geriatric Medicine 07/31/24 08/07/25 Andi Wetzel DO 22 [place] [address] Geriatric Medicine 08/08/25 documented as of this encounter Additional Source Comments The information contained in this document represents components of the legal health record. It is not the complete legal health record.[facility]
--- OUTSIDE RECORDS SUMMARY | 2025-09-21 14:42 | XMS_ITS | Encounter Summary ---
Author Organization [facility] Address [address] [place] [address] Phone Care Team Providers Care Senior Director Name Role Phone Lance Jack MD Unavailable [phone] Orly Marquez NP Unavailable [phone] Romy Donis MD Primary Care Provider [phone] Lacie Olivares MD Unavailable [phone] Marina Richey Primary Care Provider + [phone] Lacie Olivares MD Unavailable [phone] Andi Wetzel DO Unavailable [phone] Encounter Details Date Type Department Care Team (Late st Contact Info) Description 02/03/2022 Procedure Pass [facility] [address] [place] [address] Social History Tobacco Use Types Packs/Day Years [...] st Contact Info) Description 06/05/2025 Procedure Pass [facility] Non-Invasive Cardiology [address] [place] [address] 06/05/2025 Procedure Pass [facility] Non-Invasive Cardiology [address] [place] [address] 10/05/2025 12:20 PM EST Office Visit [facility] [address] [place] [address] 3rd Floor, [address] [place] [address] Sundar Martinez MD, MS [address] [place] [address], [address] [address] 12/11/2025 12:20 PM EDT Appointment [facility] Non-Invasive Cardiology [address] [place] [address] [place] [address] Abhay Tamayo MD [address] [place] [address], [address] [address] 12/11/2025 12:40 PM EDT Office Visit [facility] [address] 3rd [facility], [address] [place] [address] Abhay Tamayo MD [address] [place] [address], [address] [address] documented as of this encounter Visit Diagnoses Not on filedocumented in this encounter Additional Health Concerns Assessment Noted Time PHQ-9 Depression Total Score: 11 022 9:47 AM EST PHQ-2 Depression Total Score: 3 10/14/19 22 9:47 AM EST documented as of this encounter Care Teams Senior Director Relationship Specialty Start Date End Date Romy Donis MD [address] [place] [address] PCP - General Family Medicine 06/12/21 08/30/22 Marina Richey PA 238 [place] [address] PCP - General Cloth Examiner Hand 08/31/22 Lance Jack MD [email or web address] Historical LMR Provider 07/15/17 Orly Marquez NP 238 [place] [address] Historical LMR Provider 07/15/17 Lacie Olivares MD [address] [place] [address] Consulting Provider Geriatric Medicine 07/24/21 08/07/25 Lacie Olivares MD [address] [place] [address] Geriatric Medicine 07/31/24 08/07/25 Andi Wetzel DO 22 [place] [address] Geriatric Medicine 08/08/25 documented as of this encounter Additional Source Comments The information contained in this document represents components of the legal health record. It is not the complete legal health record.[facility]
--- OUTSIDE RECORDS SUMMARY | 2025-09-21 14:42 | XMS_ITS | Encounter Summary ---
Author Organization [facility] Address 399 [facility] [address] [place] [address] Phone Care Team Providers Care Educational Resource Center Teacher Name Role Phone Lance Jack MD Unavailable Orly Marquez NP Unavailable [phone] Lacie Olivares MD Unavailable [phone] Marina Richey Primary Care Provider [phone] Lacie Olivares MD Unavailable +[phone] nAdi Wetzel DO Unavailable [phone] Reason for Referral * MRI/CAT Scan - Closed Specialty Diagnoses / Procedures Referred By Conthermes t Referred To Contact Radiology Diagnoses Cervicalgia Spondylosis, unspecified Cervicogenic headache Procedures CT Cervical Spine Sanya Dealcruz PA [address] [address] Phone: tel: fax: Referral ID Status Reason Start Date Expiration Date Visits Re quested Visits Authorized [id number] Closed 05/08/2024 05/08/2025 1 1 Encounter Details Date Type Department Care Team (Latest Contact Info) Description 05/08/2024 Transcribe Orders [facility] Department 30 [place] [address] Sanya Delacruz PA [address] [address] Cervicalgia (Primary Dx); Spondylosis, unspecified; Cervicogenic headache [...] 06/05/2025 Procedure Pass [facility] [address] [place] [address] [place] [address] 06/05/2025 Procedure Pass [facility] [address] [place] [address] [place] [address] 10/05/2025 12:20 PM EST Office Visit [facility] [address] [place] [address] 3rd Floor, [address] [place] [address] Sundar Martinez MD, MS 22 [facility], [address] [address] 12/11/2025 12:20 PM EDT Appointment [facility] [place] [address] Abhay Tamayo MD 22 [facility], [address] [address] [email or web address] 12/11/2025 12:40 PM EDT Office Visit [facility] 22 [facility] 3rd Floor, [address] [place] [address] Abhay Tamayo MD 22 [facility], [address] [place] [address] documented as of this encounter Results * [...] severe spinal stenosis orforaminal narrowing. Sanya CAMACHO IMG CT XSPECIALTY ORDERABLES F [...] documented as of this encounter Care Teams Educational Resource Center Teacher Relationship Specialty Start Date End Date Marina Richey PA [address] [place] [address] PCP - General Pie Maker 08/31/22 Lance Jack MD [email or web address] Historical LMR Provider 07/15/17 Orly Marquez NP 238 [place] [address] Historical LMR Provider 07/15/17 Lacie Olivares MD 238 [place] [address] [email or web address] Consulting Provider Geriatric Medicine 07/24/21 08/07/25 Lacie Olivares MD 238 [place] [address] Geriatric Medicine 07/31/24 08/07/25 Andi Wetzel DO 22 [place] [address] [email or web address] Geriatric Medicine 08/08/25 documented as of this encounter Additional Source Comments The information contained in this document represents components of the legal health record. It is not the complete legal health record.[facility]
--- OUTSIDE RECORDS SUMMARY | 2025-09-21 14:42 | XMS_ITS | Encounter Summary ---
Author Organization [facility] Address [address] [place] [address] Phone Care Team Providers Care Accounting Clerk Name Role Phone Lance Jack MD Unavailable [phone] Orly Marquez NP Unavailable [phone] Romy Donis MD Primary Care Provider [phone] Lacie Olivares MD Unavailable [phone] Marina Richey Primary Care Provider + [phone] Lacie Olivares MD Unavailable [phone] Andi Wetzel DO Unavailable [phone] Encounter Details Date Type Department Care Team (Late st Contact Info) Description 07/18/2022 Procedure Pass [facility] Ct Scan - [address] [address] Social History Tobacco Use Types Packs/Day Years [...] Procedure Pass [facility] [address] [place] [address] 06/05/2025 Procedure Pass [facility] [address] [place] [address] 10/05/2025 12:20 PM EST Office Visit [facility] [address] [place] [address] 3rd Floor, [address] [place] [address] Sundar Martinez MD, MS [address] [place] [address], [address] [address] 12/11/2025 12:20 PM EDT Appointment [facility] Non-Invasive Cardiology [address] [place] [address] Abhay Tamayo MD [address] [place] [address] 12/11/2025 12:40 PM EDT Office Visit [facility] [address] 3rd [facility], [address] [place] [address] Abhay Tamayo MD [address] [place] [address], [address] [address] documented as of this encounter Visit Diagnoses Not on filedocumented in this encounter Additional Health Concerns Assessment Noted Time PHQ-9 Depression Total Score: 11 022 9:47 AM EST PHQ-2 Depression Total Score: 3 10/14/19 22 9:47 AM EST documented as of this encounter Care Teams Accounting Clerk Relationship Specialty Start Date End Date Romy Donis MD [address] [place] [address] PCP - General Family Medicine 06/12/21 08/30/22 Marina Richey PA 238 [place] [address] PCP - General Academic Affairs Director 08/31/22 Lance Jack MD [email or web address] Historical LMR Provider 07/15/17 Orly Marquez NP 238 [place] [address] Historical LMR Provider 07/15/17 Lacie Olivares MD [address] [place] [address] Consulting Provider Geriatric Medicine 07/24/21 08/07/25 Lacie Olivares MD [address] [place] [address] Geriatric Medicine 07/31/24 08/07/25 Andi Wetzel DO 22 [place] [address] Geriatric Medicine 08/08/25 documented as of this encounter Additional Source Comments The information contained in this document represents components of the legal health record. It is not the complete legal health record.[facility]
--- OUTSIDE RECORDS SUMMARY | 2025-09-21 14:42 | XMS_ITS | Encounter Summary ---
Author Organization [facility] Address [address] [address] Phone Care Team Providers Care Manager Cardiac Name Role Phone Orly Marquez NP Primary Care Provider [phone] Lance Jack MD Unavailable [phone] Jael Rodriguez Unavailable [email or web address] Orly Marquez NP Unavailable [phone] Jose Hansen NP Unavailable [phone] Flower Jacobson MD Unavailable [phone] Romy Donis MD Primary Care Provider [phone] Lacie Olivares MD Unavailable [phone] Marina Richey Primary Care Provider [phone] Lacie Olivares MD Unavailable [phone] Andi Wetzel DO Unavailable [phone] Encounter Details Date Type Department Care Team (Late st Contact Info) Description 04/30/2020 Procedure Pass [facility], [address] [address] Social History Tobacco Use Types Packs/Day Years [...] st Contact Info) Description 06/05/2025 Procedure Pass [facility] Non-Invasive Cardiology [address] [place] [address] 06/05/2025 Procedure Pass [facility] Non-Invasive Cardiology [address] [place] [address] 10/05/2025 12:20 PM EST Office Visit [facility] [address] [place] [address], [address] [address] Sundar Martinez MD, MS [address] [place] [address] 12/11/2025 12:20 PM EDT Appointment [facility] Non-Invasive Cardiology [address] [place] [address] [place] [address] Abhay Tamayo MD [address] [place] [address], [address] [address] 12/11/2025 12:40 PM EDT Office Visit [facility] [address], [address] [address] Abhay Tamayo MD [address] [place] [address] documented as of this encounter Visit Diagnoses Not on filedocumented in this encounter Care Teams Manager Cardiac Relationship Specialty Start Date End Date Orly Marquez NP [address] [place] [address] PCP - General 07/15/17 06/11/21 Romy Donis MD [address] [place] [address] [facility] [address] [email or web address] PCP - General Family Medicine 06/12/21 08/30/22 Marina Richey PA 238 [place] [address] PCP - General Hand I Tube Bender 08/31/22 Lance Jack MD 238 [place] [address] [email or web address] Historical LMR Provider 07/15/17 Jael Rodriguez PA Historical LMR Provider 07/15/17 10/04/21 Orly Marquez NP [address] [place] [address] Historical LMR Provider 07/15/17 Jose Hansen, MARIAN [address] [place] [phone] Historical LMR Provider 07/15/17 Flower Smith MD [address] [place] [address] [facility], [place] [address] [email or web address] Historical LMR Provider 07/15/17 10/04/21 Lacie Olivares MD [address] [place] [address] [facility] [place] [phone] [email or web address] Consulting Provider Geriatric Medicine 07/24/21 08/07/25 Lacie Olivares MD [address] [place] [address] [facility], [place] [address] [email or web address] Geriatric Medicine 07/31/24 08/07/25 Andi Wetzel DO [address] [place] [address] [email or web address] Geriatric Medicine 08/08/25 documented as of this encounter Additional Source Comments The information contained in this document represents components of the legal health record. It is not the complete legal health record.[facility]
--- OUTSIDE RECORDS SUMMARY | 2025-09-21 14:42 | XMS_ITS | Encounter Summary ---
Author Organization [facility] Address [address] [address] Phone Care Team Providers Care Clinical Psychologist Private Practice Name Role Phone Lance Jack MD Unavailable Orly Marquez NP Unavailable [phone] Lacie Olivares MD Unavailable [phone] Marina Richey Primary Care Provider [phone] Lacie Olivares MD Unavailable [phone] Andi Wetzel DO Unavailable [phone] Reason for Referral * MRI/CAT Scan - Closed Specialty Diagnoses / Procedures Referred By Contac t Referred To Contact Radiology Diagnoses Low back pain, unspecified back pain laterality, unspecified chronicity, unspecified whether sciatica present Procedures CT Lumbar Spine Marina Richey PA [address] [place] [address] Phone: tel: fax: Referral ID Status Reason Start Date Expiration Date Visits Re quested Visits Authorized [id number] Closed 03/12/2025 03/12/2026 1 1 Encounter Details Date Type Department Care Team (Latest Contact Info) Description 03/12/2025 Transcribe Orders [facility] Department [address] [place] [address] Marina Richey PA [address] [place] [phone] Low back pain, unspecified back pain laterality, [...] Procedure Pass [facility] [address] [place] [address] 06/05/2025 Procedure Pass [facility] [address] [place] [address] 10/05/2025 12:20 PM EST Office Visit [facility] [address] [place] [address] 3rd [facility], [address] [place] [address] Sundar Martinez MD, MS 22 [facility], [address] [place] [address] 12/11/2025 12:20 PM EDT Appointment [facility] Non-Invasive Cardiology [address] [place] [address] [place] [address] Abhay Tamayo MD [address] [place] [address], [address] [place] [address] 12/11/2025 12:40 PM EDT Office Visit [facility] [address], [address] [place] [address] Abhay Tamayo MD [address] [place] [address], [address] [place] [address] documented as of this encounter Results * [...] documented as of this encounter Care Teams Clinical Psychologist Private Practice Relationship Specialty Start Date End Date Marina Richey PA [address] [place] [address] PCP - General Tree Fruit And Nut Crops Farmer 08/31/22 Lance Jack MD [email or web address] Historical LMR Provider 07/15/17 Orly Marquez NP [address] [place] [address] Historical LMR Provider 07/15/17 Lacie Olivares MD [address] [place] [address] [email or web address] Consulting Provider Geriatric Medicine 07/24/21 08/07/25 Lacie Olivares MD [address] [place] [address] [email or web address] Geriatric Medicine 07/31/24 08/07/25 Andi Wetzel DO [address] [place] [address] [email or web address] Geriatric Medicine 08/08/25 documented as of this encounter Additional Source Comments The information contained in this document represents components of the legal health record. It is not the complete legal health record.[facility]
--- OUTSIDE RECORDS SUMMARY | 2025-09-21 14:42 | XMS_ITS | Encounter Summary ---
Author Organization [facility] Address [address] [place] [address] Phone Care Team Providers Care Lime Puller Name Role Phone Lance Jack MD Unavailable [phone] Orly Marquez NP Unavailable [phone] Romy Donis MD Primary Care Provider [phone] Lacie Olivares MD Unavailable [phone] Marina Richey Primary Care Provider + [phone] Lacie Olivares MD Unavailable [phone] Andi Wetzel DO Unavailable [phone] Encounter Details Date Type Department Care Team (Late st Contact Info) Description 02/26/2022 Procedure Pass [facility] [address] [place] [address] Social History Tobacco Use Types Packs/Day Years [...] st Contact Info) Description 06/05/2025 Procedure Pass [facility] [address] [place] [address] 06/05/2025 Procedure Pass [facility]iology [address] [place] [address] 10/05/2025 12:20 PM EST Office Visit [facility] [address] [place] [address] 3rd Floor, [address] [place] [address] Sudnar Martinez MD, [place] [address] [place] [address], [address] [address] 12/11/2025 12:20 PM EDT Appointment [facility] Non-[facility] Cardiology [address] [place] [address] [place] [address] Abhay Tamayo MD [address] [place] [address], [address] [address] 12/11/2025 12:40 PM EDT Office Visit [facility] [address] 3rd [facility], [address] [place] [address] Abhay Tamayo MD [address] [place] [address], [address] [address] documented as of this encounter Visit Diagnoses Not on filedocumented in this encounter Additional Health Concerns Assessment Noted Time PHQ-9 Depression Total Score: 11 022 9:47 AM EST PHQ-2 Depression Total Score: 3 10/14/19 22 9:47 AM EST documented as of this encounter Care Teams Lime Puller Relationship Specialty Start Date End Date Romy Donis MD [address] [place] [address] PCP - General Family Medicine 06/12/21 08/30/22 Marina Richey PA [address] [place] [address] PCP - General Detective 08/31/22 Lance Jack MD [email or web address] Historical LMR Provider 07/15/17 Orly Marquez NP 238 [place] [address] Historical LMR Provider 07/15/17 Lacie Olivares MD [address] [place] [address] Consulting Provider Geriatric Medicine 07/24/21 08/07/25 Lacie Olivares MD [address] [place] [address] Geriatric Medicine 07/31/24 08/07/25 Andi Wetzel DO 22 [place] [address] Geriatric Medicine 08/08/25 documented as of this encounter Additional Source Comments The information contained in this document represents components of the legal health record. It is not the complete legal health record.[facility]
--- OUTSIDE RECORDS SUMMARY | 2025-09-21 14:42 | XMS_ITS | Encounter Summary ---
Author Organization [facility] Address 399 [facility] [address] [place] [address] Phone Care Team Providers Care Sensor Technician Name Role Phone Lance Jack MD Unavailable Orly Marquez NP Unavailable [phone] Lacie Olivares MD Unavailable [phone] Marina Richey Primary Care Provider [phone] Lacie Olivares MD Unavailable [phone] Andi Wetzel DO Unavailable [phone] Encounter Details Date Type Department Care Team (Late st Contact Info) Description 05/08/2024 Procedure Pass [facility] Scan - [address] [address] Social History Tobacco Use Types Packs/Day Years [...] st Contact Info) Description 06/05/2025 Procedure Pass [facility] Non-Invasive Cardiology [address] [place] [address] 06/05/2025 Procedure Pass [facility] Non-Invasive Cardiology [address] [place] [address] 10/05/2025 12:20 PM EST Office Visit [facility] [address] [place] [address] 3rd [facility], [address] [address] Sundar Martinez MD, MS [address] [place] [address] 12/11/2025 12:20 PM EDT Appointment [facility] Non-Invasive Cardiology [address] [place] [address] [place] [address] Abhay Tamayo MD [address] [place] [address] 12/11/2025 12:40 PM EDT Office Visit [facility] [address] 3rd [facility], [address] [place] [address] Abhay Tamayo MD [address] [place] [address] documented as of this encounter Visit Diagnoses Not on filedocumented in this encounter Additional Health Concerns Assessment Noted Time PHQ-9 Depression Total Score: 11 022 9:47 AM EST PHQ-2 Depression Total Score: 3 10/14/19 22 9:47 AM EST documented as of this encounter Care Teams Sensor Technician Relationship Specialty Start Date End Date Marina Richey PA [address] [place] [address] PCP - General Retail Cosmetics Sales Counter Manager 08/31/22 Lance Jack MD [email or web address] Historical LMR Provider 07/15/17 Orly Marquez NP [address] [place] [address] Historical LMR Provider 07/15/17 Lacie Olivares MD [address] [place] [address] [email or web address] Consulting Provider Geriatric Medicine 07/24/21 08/07/25 Lacie Olivares MD [address] [place] [address] Geriatric Medicine 07/31/24 08/07/25 Andi Wetzel DO 22 [place] [address] Geriatric Medicine 08/08/25 documented as of this encounter Additional Source Comments The information contained in this document represents components of the legal health record. It is not the complete legal health record.[facility]
--- OUTSIDE RECORDS SUMMARY | 2025-09-21 14:42 | XMS_ITS | Encounter Summary ---
Author Organization [facility] Address [address] [address] Phone Care Team Providers Care Meat And Seafood Clerk Name Role Phone Orly Marquez NP Primary Care Provider [phone] Lance Jack MD Unavailable [phone] Jael Rodriguez Unavailable [email or web address] Orly Marquez NP Unavailable [phone] Jose Hansen NP Unavailable [phone] Flower Jacobson MD Unavailable [phone] Romy Donis MD Primary Care Provider [phone] Lacie Olivares MD Unavailable [phone] Marina Richey Primary Care Provider [phone] Lacie Olivares MD Unavailable [phone] Andi Wetzel DO Unavailable [phone] Encounter Details Date Type Department Care Team (Late st Contact Info) Description 12/17/2020 Procedure Pass [facility] [address] [place] [address] Social History Tobacco Use Types Packs/Day Years [...] st Contact Info) Description 06/05/2025 Procedure Pass [facility] Non-Invasive Cardiology [address] [place] [address] 06/05/2025 Procedure Pass [facility] Non-Invasive Cardiology [address] [place] [address] 10/05/2025 12:20 PM EST Office Visit [facility] [address] [place] [address] [place] [address], [address] [address] Sundar Martinez MD, MS [address] [place] [address] 12/11/2025 12:20 PM EDT Appointment [facility] Non-Invasive Cardiology [address] [place] [address] [place] [address] Abhay Tamayo MD [address] [place] [address], [address] [address] 12/11/2025 12:40 PM EDT Office Visit [facility] [address] [place] [address], [address] [address] Abhay Tamayo MD [address] [place] [address] documented as of this encounter Visit Diagnoses Not on filedocumented in this encounter Care Teams Meat And Seafood Clerk Relationship Specialty Start Date End Date Orly Marquez NP [address] [place] [address] PCP - General 07/15/17 06/11/21 Romy Donis MD [address] [place] [address] [facility], [place] [address] [email or web address] PCP - General Family Medicine 06/12/21 08/30/22 Marina Richey PA [address] [place] [address] PCP - General Photography Instructor 08/31/22 Lance Jack MD [address] [place] [address] [email or web address] Historical LMR Provider 07/15/17 Jael Rodriguez PA Historical LMR Provider 07/15/17 10/04/21 Orly Marquez NP [address] [place] [address] Historical LMR Provider 07/15/17 Jose Hansen NP [address] [place] [phone] Historical LMR Provider 07/15/17 Flower Smith MD [address] [place] [address] [facility], [place] [address] Historical LMR Provider 07/15/17 10/04/21 Lacie Olivares MD [address] [place] [address] [facility], [place] [address] Consulting Provider Geriatric Medicine 07/24/21 08/07/25 Lacie Olivares MD [address] [place] [address] [facility], [place] [address] [email or web address] Geriatric Medicine 07/31/24 08/07/25 Andi Wetzel DO [address] [place] [address] [email or web address] Geriatric Medicine 08/08/25 documented as of this encounter Additional Source Comments The information contained in this document represents components of the legal health record. It is not the complete legal health record.[facility]
--- OUTSIDE RECORDS SUMMARY | 2025-09-21 14:42 | XMS_ITS | Encounter Summary ---
Author Organization [facility] Address 399 [facility] [address] [place] [address] Phone Care Team Providers Care Nicking Machine Operator Name Role Phone Lance Jack MD Unavailable Orly Marquez NP Unavailable [phone] Lacie Olivares MD Unavailable [phone] Marina Richey Primary Care Provider [phone] Lacie Olivares MD Unavailable [phone] Andi Wetzel DO Unavailable [phone] Encounter Details Date Type Department Care Team (Late st Contact Info) Description 06/16/2023 Procedure Pass [facility]-Invasive Cardiology [address] [place] [address] Social History Tobacco Use Types Packs/Day Years [...] st Contact Info) Description 06/05/2025 Procedure Pass [facility]-Invasive Cardiology [address] [place] [address] 06/05/2025 Procedure Pass [facility] Non-Invasive Cardiology [address] [place] [address] 10/05/2025 12:20 PM EST Office Visit [facility] [address] 3rd [facility], [address] [address] Sundar Martinez MD, MS [address] [place] [address], [address] [address] 12/11/2025 12:20 PM EDT Appointment [facility] Non-Invasive Cardiology [address] [place] [address] [place] [address] Abhay Tamayo MD [address] [place] [address], [address] [address] 12/11/2025 12:40 PM EDT Office Visit [facility] [address] 3rd [facility], [address] [place] [address] Abhay Tamayo MD [address] [place] [address], [address] [address] documented as of this encounter Visit Diagnoses Not on filedocumented in this encounter Additional Health Concerns Assessment Noted Time PHQ-9 Depression Total Score: 11 022 9:47 AM EST PHQ-2 Depression Total Score: 3 10/14/19 22 9:47 AM EST documented as of this encounter Care Teams Nicking Machine Operator Relationship Specialty Start Date End Date Marina Richey PA [address] [place] [address] PCP - General Mold Making Plastics Sheets Supervisor 08/31/22 Lance Jack MD [email or web address] Historical LMR Provider 07/15/17 Orly Marquez NP [address] [place] [address] Historical LMR Provider 07/15/17 Lacie Olivares MD [address] [place] [address] [email or web address] Consulting Provider Geriatric Medicine 07/24/21 08/07/25 Lacie Olivares MD [address] [place] [address] Geriatric Medicine 07/31/24 08/07/25 Andi Wetzel DO 22 [place] [address] Geriatric Medicine 08/08/25 documented as of this encounter Additional Source Comments The information contained in this document represents components of the legal health record. It is not the complete legal health record.[facility]
--- OUTSIDE RECORDS SUMMARY | 2025-09-21 14:42 | XMS_ITS | Encounter Summary ---
Author Organization [facility] Address [address] [address] Phone Care Team Providers Care Mesh Worker Name Role Phone Orly Marquez NP Primary Care Provider Lance Jack MD Unavailable [phone] Jael Rodriguez Unavailable [email or web address] Orly Marquez NP Unavailable Jose Hansen NP Unavailable Flower Jacobson MD Unavailable [phone] Romy Donis MD Primary Care Provider [phone] Lacie Olivares MD Unavailable [phone] Marina Richey Primary Care Provider [phone] Lacie Olivares MD Unavailable [phone] Andi Wetzel DO Unavailable [phone] Encounter Details Date Type Department Care Team (Latest Contact Info) Description 04/30/2020 Ancillary Orders [facility] [address] [place] [address] Lance Jack MD [address] [place] [address] [email or web address] SSS (sick sinus syndrome) Social History [...] Procedure Pass [facility] [address] [place] [address] 06/05/2025 Procedure Pass [facility] [address] [place] [address] 10/05/2025 12:20 PM EST Office Visit [facility] [address] [place] [address] 3rd [facility], [address] [place] [address] Sundar Martinez MD, MS [address] [place] [address], [address] [address] [email or web address] 12/11/2025 12:20 PM EDT Appointment [facility] Non-Invasive Cardiology [address] [place] [address] [place] [address] Abhay Tamayo MD [address] [place] [address], [address] [address] 12/11/2025 12:40 PM EDT Office Visit [facility] [address] [place] [address] 3rd [facility], [address] [place] [address] Abhay Tamayo MD [address] [place] [address], [address] [address] Pending Results Name Type Priority Associated Diagnoses [...] dysfunction documented in this encounter Care Teams Mesh Worker Relationship Specialty Start Date End Date Orly Marquez NP 238 [place] [address] PCP - General 07/15/17 06/11/21 Romy Donis MD [address] [place] [address] [facility] Sports Medicine, [place] [address] [email or web address] PCP - General Family Medicine 06/12/21 08/30/22 Marina Richey PA [address] [place] [address] PCP - General Institutional Research Director 08/31/22 Lance Jack MD [address] [place] [address] [email or web address] Historical LMR Provider 07/15/17 Jael Rodriguez PA Historical LMR Provider 07/15/17 10/04/21 Orly Marquez NP [address] [place] [address] Historical LMR Provider 07/15/17 Jose Hansen NP [address] [place] [phone] Historical LMR Provider 07/15/17 2 Flower Jacobson MD 4 [facility], [place] [address] [email or web address] Historical LMR Provider 07/15/17 10/04/21 Lacie Olivares MD [address] [place] [address] [facility], [place] [address] [email or web address] Consulting Provider Geriatric Medicine 07/24/21 08/07/25 Lacie Olivares MD [address] [place] [address] [facility], [place] [address] Geriatric Medicine 07/31/24 08/07/25 Andi Wetzel DO 22 [place] [address] [email or web address] Geriatric Medicine 08/08/25 documented as of this encounter Additional Source Comments The information contained in this document represents components of the legal health record. It is not the complete legal health record.[facility]
--- OUTSIDE RECORDS SUMMARY | 2025-09-21 14:42 | XMS_ITS | Encounter Summary ---
Author Organization [facility] Address [address] [address] Phone Care Team Providers Care Wood Finisher Name Role Phone Orly Marquez NP Primary Care Provider [phone] Lance Jack MD Unavailable [phone] Jael Rodriguez Unavailable [email or web address] Orly Marquez NP Unavailable [phone] Jose Hansen NP Unavailable [phone] Flower Jacobson MD Unavailable [phone] Romy Donis MD Primary Care Provider [phone] Lacie Olivares MD Unavailable [phone] Marina Richey Primary Care Provider [phone] Lacie Olivares MD Unavailable [phone] Andi Wetzel DO Unavailable [phone] Reason for Referral * MRI/CAT Scan - Closed Specialty Diagnoses / Procedures Referred By Lydia brush Referred To Contact Radiology Diagnoses Other amnesia Poor short term memory Procedures MRI Brain Orly Marquez NP Phone: tel: Referral ID Status Reason Start Date Expiration Date Visits Re quested Visits Authorized [id number] Closed 04/17/2019 06/15/2019 1 1 Encounter Details Date Type Department Care Team (Late st Contact Info) Description 04/18/2019 Transcribe Orders Virtual Department [address] [place] [address] Orly Marquez NP [address] [place] [address] Other amnesia (Primary Dx); Poor short term [...] st Contact Info) Description 06/05/2025 Procedure Pass [facility] [address] [place] [address] 06/05/2025 Procedure Pass [facility] [address] [place] [address] 10/05/2025 12:20 PM EST Office Visit [facility] [address] [place] [address] 3rd [facility], [address] [place] [address] Sundar Martinez MD, MS 22 [facility], [address] [address] 12/11/2025 12:20 PM EDT Appointment [facility] Non-Invasive Cardiology [address] [place] [address] [place] [address] Abhay Tamayo MD 22 [facility], [address] [address] 12/11/2025 12:40 PM EDT Office Visit [facility] [address] [place] [address] 3rd Floor, [address] [place] [address] Abhay Tamayo MD 22 [facility], [address] [place] [address] [email or web address] documented as of this encounter Results * [...] ischemic disease. POS - [id number] Orly Marquez PNEUMATIC TUBE REPAIRER IMG MR HEAD/NECK Final Result documented in this encounter Visit Diagnoses Diagnosis Other amnesia- Primary Poor short term memory Memory loss Other amnesia Poor short term memory Memory loss documented in this encounter Care Teams Wood Finisher Relationship Specialty Start Date End Date Orly Marquez, MARIAN [address] [place] [address] PCP - General 07/15/17 06/11/21 Romy Donis MD [address] [place] [address] [facility], [place] [address] [email or web address] PCP - General Family Medicine 06/12/21 08/30/22 Marina Richey PA [address] [place] [address] PCP - General Cement Loader 08/31/22 Lance Jack MD [address] [place] [address] [email or web address] Historical LMR Provider 07/15/17 Jael Rodriguez PA Historical LMR Provider 07/15/17 10/04/21 Orly Marquez PNEUMATIC TUBE REPAIRER [address] [place] [address] Historical LMR Provider 07/15/17 Jose Hansen, MARIAN [address] [place] [address] [phone] Historical LMR Provider 07/15/17 2 Flower Jacobson MD [address] [place] [address] Orthopedics & Sports [facility], [place] [address] Historical LMR Provider 07/15/17 10/04/21 Lacie Olivares MD [address] [place] [address] [facility], [place] [address] Consulting Provider Geriatric Medicine 07/24/21 08/07/25 Lacie Olivares MD [address] [place] [address] [facility]opedics [facility], [place] [address] Geriatric Medicine 07/31/24 08/07/25 Andi Wetzel DO 22 [place] [address] Geriatric Medicine 08/08/25 documented as of this encounter Additional Source Comments The information contained in this document represents components of the legal health record. It is not the complete legal health record.[facility]
--- OUTSIDE RECORDS SUMMARY | 2025-09-21 14:42 | XMS_ITS | Encounter Summary ---
Author Organization [facility] Address [address] [address] Phone Care Team Providers Care Sequencing Machine Operator Name Role Phone Orly Marquez NP Primary Care Provider [phone] Lance Jack MD Unavailable [phone] Jael Rodriguez Unavailable [email or web address] Orly Marquez NP Unavailable Jose Hansen NP Unavailable [phone] Flower Jacobson MD Unavailable [phone] Romy Donis MD Primary Care Provider [phone] Lacie Olivares MD Unavailable [phone] Marina Richey Primary Care Provider [phone] Lacie Olivares MD Unavailable [phone] Andi Wetzel DO Unavailable [phone] Encounter Details Date Type Department Care Team (Late st Contact Info) Description 12/17/2020 Ancillary Orders [facility] [address] [place] [address] Shreays Lu MD 30 [place] [address] [email or web address] Sick sinus syndrome Social History Tobacco Use [...] Procedure Pass [facility] [address] [place] [address] 06/05/2025 Procedure Pass [facility] [address] [place] [address] 10/05/2025 12:20 PM EST Office Visit [facility] [address] [place] [address] [place] [address], [address] [place] [address] Sundar Martinez MD, MS [address] [place] [address] 12/11/2025 12:20 PM EDT Appointment [facility] [address] [place] [address] Abhay Tamayo MD [address] [place] [address] 12/11/2025 12:40 PM EDT Office Visit [facility] [address] [place] [address] 3rd [facility], [address] [place] [address] Abhay Tamayo MD [address] [place] [address] documented as of this encounter Results * DEVICE CHECK: PPM IN-HOME INTERROGATION (12/17/2020 3:23 PM EDT) Narrative Shreyas Lu MD - 12/22/2020 2:20 PM EDT Reason for appointment: Remote pacemaker interrogation HPI: Routine 3 month remote pacemaker interrogation. No device related complaints. Indication for device: SSS. Examination: Device type: Pacemaker Cash Register Servicer: [employer] Mode: DDDR LRL/UPL: 60/130 bpm Mode [...] dysfunction documented in this encounter Care Teams Sequencing Machine Operator Relationship Specialty Start Date End Date Orly Marquez NP [address] [place] [address] PCP - General 07/15/17 06/11/21 Romy Donis MD [address] [place] [address] Orth[facility]ics & Sports Medicine, [place] [address] [email or web address] PCP - General Family Medicine 06/12/21 08/30/22 Marina Richey PA [address] [place] [address] PCP - General Buildings And Grounds Coordinator 08/31/22 Lance Jack MD [address] [place] [address] [email or web address] Historical LMR Provider 07/15/17 Jael Rodriguez PA Historical LMR Provider 07/15/17 10/04/21 Orly Marquez NP [address] [place] [address] Historical LMR Provider 07/15/17 Jose Hansen NP [address] [place] [address] [address] [place] [address] Historical LMR Provider 07/15/17 2 Flower Jacobson MD [address] [place] [address] Orthopedics Sports [facility], [place] [address] Historical LMR Provider 07/15/17 10/04/21 Lacie Olivares MD [address] [place] [address] Orthopedics Sports [facility], [place] [address] Consulting Provider Geriatric Medicine 07/24/21 08/07/25 Lacie Olivares MD [address] [place] [address], [place] [address] Geriatric Medicine 07/31/24 08/07/25 Andi Wetzel DO [address] [place] [address] Geriatric Medicine 08/08/25 documented as of this encounter Additional Source Comments The information contained in this document represents components of the legal health record. It is not the complete legal health record.[facility]
--- OUTSIDE RECORDS SUMMARY | 2025-09-21 14:43 | XMS_ITS | Encounter Summary ---
Author Organization [facility] Address [address] [address] Phone Care Team Providers Care Marketing Analytics Lead Name Role Phone Orly Marquez NP Primary Care Provider Lance Jack MD Unavailable [phone] Jael Rodriguez Unavailable [email or web address] Orly Marquez NP Unavailable [phone] Jose Hansen NP Unavailable [phone] Flower Jacobson MD Unavailable [phone] Romy Donis MD Primary Care Provider [phone] Lacie Olivares MD Unavailable [phone] Marina Richey Primary Care Provider [phone] Lacie Olivares MD Unavailable [phone] Andi Wetzel DO Unavailable [phone] Encounter Details Date Type Department Care Team (Late st Contact Info) Description 11/04/2020 Ancillary Orders Virtual Department 30 [place], [place] [phone] Ethan Guillory DO [address] [place] [address] [email or web address] Pain in hip Social History Tobacco Use [...] Contact Info) Description 06/05/2025 Procedure Pass [facility] [address] [place] [address] 06/05/2025 Procedure Pass [facility] [address] [place] [address] 10/05/2025 12:20 PM EST Office Visit [facility] [address] [place] [address] [place] [address], [address] [place] [address] Sundar Martinez MD, MS [address] [place] [address], [address] [address] 12/11/2025 12:20 PM EDT Appointment [facility] [address] [place] [address] [place] [address] Abhay Tamayo MD [address] [place] [address] 12/11/2025 12:40 PM EDT Office Visit [facility] [address] [place] [address] 3rd [facility], [address] [place] [address] Abhay Tamayo MD [address] [place] [address] documented as of this encounter Results * [...] hip documented in this encounter Care Teams Marketing Analytics Lead Relationship Specialty Start Date End Date Orly Marquez NP [address] [place] [address] PCP - General 07/15/17 06/11/21 Romy Donis MD [address] [place] [address] Orthopedics & Sports Medicine, [place] [address] [email or web address] PCP - General Family Medicine 06/12/21 08/30/22 Marina Richey PA [address] [place] [address] PCP - General Automation Software Engineer 08/31/22 Lance Jack MD [address] [place] [address] [email or web address] Historical LMR Provider 07/15/17 Jael Rodriguez PA Historical LMR Provider 07/15/17 10/04/21 Orly Marquez NP [address] [place] [address] Historical LMR Provider 07/15/17 Jose Hansen NP [address] [place] [address] Historical LMR Provider 07/15/17 Flower Smith MD [address] [place] [address] Orthopedics & Sports [facility], [place] [address] [email or web address] Historical LMR Provider 07/15/17 10/04/21 Lacie Olivares MD [address] [place] [address] Orthopedics Sports [facility], [place] [address] Consulting Provider Geriatric Medicine 07/24/21 08/07/25 Lacie Olivares MD [address] [place] [address] Sports [facility], [place] [address] Geriatric Medicine 07/31/24 08/07/25 Andi Wetzel DO [address] [place] [address] [email or web address] Geriatric Medicine 08/08/25 documented as of this encounter Additional Source Comments The information contained in this document represents components of the legal health record. It is not the complete legal health record.[facility]
--- OUTSIDE RECORDS SUMMARY | 2025-09-21 14:43 | XMS_ITS | Encounter Summary ---
Author Organization [facility] Address 399 [facility] [address] [place] [address] Phone Care Team Providers Care Administrative Judge Name Role Phone Lance Jack MD Unavailable Orly Marquez NP Unavailable [phone] Lacie Olivares MD Unavailable [phone] Marina Richey Primary Care Provider [phone] Lacie Olivares MD Unavailable [phone] Andi Wetzel DO Unavailable [phone] Encounter Details Date Type Department Care Team (Late st Contact Info) Description 12/08/2024 Procedure Pass OR Admitting Dept - Virtual Department 30 [place] [address] Social History Tobacco Use Types Packs/Day Years [...] Contact Info) Description 06/05/2025 Procedure Pass [facility] [address] [place] [address] 06/05/2025 Procedure Pass [facility]vasive Cardiology [address] [place] [address] [place] [address] 10/05/2025 12:20 PM EST Office Visit [facility] [address] [place] [address] [place] [address], [address] [place] [address] Sundar Martinez MD, MS [address] [place] [address], [address] [address] [email or web address] 12/11/2025 12:20 PM EDT Appointment [facility]-Invasive [place] [address] Abhay Tamayo MD [address] [place] [address], [address] [address] 12/11/2025 12:40 PM EDT Office Visit [facility] [address] [place] [address] 3rd [facility], [address] [place] [address] Abhay Tamayo MD 22 [facility], [address] [place] [address] [email or web address] documented as of this encounter Visit Diagnoses Not on filedocumented in this encounter Additional Health Concerns Assessment Noted Time PHQ-9 Depression Total Score: 11 022 9:47 AM EST PHQ-2 Depression Total Score: 3 10/14/19 22 9:47 AM EST documented as of this encounter Care Teams Administrative Judge Relationship Specialty Start Date End Date Marina Richey PA [address] [place] [address] PCP - General Screen Printer 08/31/22 Lance Jack MD [email or web address] Historical LMR Provider 07/15/17 Orly Marquez, PROFESSOR OF BIOLOGICAL SCIENCES [address] [place] [address] Historical LMR Provider 07/15/17 Lacie Olivares MD [address] [place] [address] [email or web address] Consulting Provider Geriatric Medicine 07/24/21 08/07/25 Lacie Olivares MD 238 [place] [address] [email or web address] Geriatric Medicine 07/31/24 08/07/25 Andi Wetzel DO 22 [place] [address] [email or web address] Geriatric Medicine 08/08/25 documented as of this encounter Additional Source Comments The information contained in this document represents components of the legal health record. It is not the complete legal health record.[facility]
--- OUTSIDE RECORDS SUMMARY | 2025-09-21 14:43 | XMS_ITS | Encounter Summary ---
Author Organization [facility] Address 399 [facility] [address] [place] [address] Phone Care Team Providers Care Product Marketing Programs Manager Name Role Phone Lance Jack MD Unavailable Orly Marquez NP Unavailable [phone] Lacie Olivares MD Unavailable [phone] Marina Richey Primary Care Provider [phone] Lacie Olivares MD Unavailable [phone] Andi Wetzel DO Unavailable [phone] Encounter Details Date Type Department Care Team (Latest Contact Info) Description 05/11/2025 Transcribe Orders Virtual Department 30 [place], [place] [phone] Marina Richey PA [address] [place] [phone] Polymyalgia rheumatica (Primary Dx) Social History Tobacco [...] 06/05/2025 Procedure Pass [facility] [address] [place] [address] [place] [address] 06/05/2025 Procedure Pass [facility] [address] [place] [address] 10/05/2025 12:20 PM EST Office Visit [facility] [address] [place] [address] 3rd Floor, [address] [address] Sundar Martinez MD, MS [address] [place] [address], [address] [address] 12/11/2025 12:20 PM EDT Appointment [facility] Card[place] [address] Abhay Tamayo MD [address] [place] [address], [address] [address] 12/11/2025 12:40 PM EDT Office Visit [facility] [address] [place] [address] 3rd Floor, [address] [place] [address] Abhay Tamayo MD 22 [facility], [address] [place] [address] [email or web address] documented as of this encounter Visit Diagnoses Diagnosis Polymyalgia rheumatica- Primary documented in this encounter Additional Health Concerns Assessment Noted Time PHQ-9 Depression Total Score: 11 022 9:47 AM EST PHQ-2 Depression Total Score: 3 10/14/19 22 9:47 AM EST documented as of this encounter Care Teams Product Marketing Programs Manager Relationship Specialty Start Date End Date Marina Richey PA [address] [place] [address] PCP - General Retail Bakery Manager 08/31/22 Lance Jack MD [email or web address] Historical LMR Provider 07/15/17 Orly Marquez NP 238 [place] [address] Historical LMR Provider 07/15/17 Lacie Olivares MD [address] [place] [address] [email or web address] Consulting Provider Geriatric Medicine 07/24/21 08/07/25 Lacie Olivares MD [address] [place] [address] [email or web address] Geriatric Medicine 07/31/24 08/07/25 Andi Wetzel DO 22 [place] [address] [email or web address] Geriatric Medicine 08/08/25 documented as of this encounter Additional Source Comments The information contained in this document represents components of the legal health record. It is not the complete legal health record.[facility]
--- OUTSIDE RECORDS SUMMARY | 2025-09-21 14:43 | XMS_ITS | Encounter Summary ---
Author Organization [facility] Address [address] [address] Phone Care Team Providers Care Radiology Receptionist Name Role Phone Lance Jack MD Unavailable [phone] Orly Marquez NP Unavailable [phone] Lacie Olivares MD Unavailable [phone] Marina Richey Primary Care Provider [phone] Lacie Olivares MD Unavailable [phone] Andi Wetzel DO Unavailable [phone] Reason for Referral * MRI/CAT Scan - Closed Specialty Diagnoses / Procedures Referred By Conthermes t Referred To Contact Radiology Diagnoses Nonintractable headache, unspecified chronicity pattern, unspecified headache type Nausea Vision changes Procedures CT Head Marina Richey PA [address] [place] [address] Phone: tel: fax: Referral ID Status Reason Start Date Expiration Date Visits Re quested Visits Authorized [id number] Closed 11/21/2024 11/21/2025 1 1 Encounter Details Date Type Department Care Team (Latest Contact Info) Description 11/21/2024 Transcribe Orders [facility] Department 30 [place], [place] [phone] Marina Richey PA [address] [place] [phone] Nonintractable headache, unspecified chronicity pattern, unspecified headache [...] 06/05/2025 Procedure Pass [facility] [address] [place] [address] [place] [address] 06/05/2025 Procedure Pass [facility] [address] [place] [address] 10/05/2025 12:20 PM EST Office Visit [facility] [address] [place] [address] 3rd Floor, [address] [place] [address] Sundar Martinez MD, MS 22 [facility], [address] [place] [address] 12/11/2025 12:20 PM EDT Appointment [facility] [address] [place] [address] [place] [address] Abhay Tamayo MD 22 [facility], [address] [place] [address] [email or web address] 12/11/2025 12:40 PM EDT Office Visit [facility] 22 [facility] 3rd Floor, [address] [place] [address] Abhay Tamayo MD 22 [facility], [address] [place] [address] [email or web address] documented as of this encounter Results * [...] clinician's provided indication for this examination in [facility]:Outside Radiology Order; headache TECHNIQUE: Multidetector-row CT of [...] 1. No acute intracranial findings. Marina CAMACHO IMG CT HEAD/NECK Final Res ult documented in [...] documented as of this encounter Care Teams Radiology Receptionist Relationship Specialty Start Date End Date Marina Richey PA [address] [place] [address] PCP - General Database Support 08/31/22 Lance Jack MD [email or web address] Historical LMR Provider 07/15/17 Orly Marquez NP 238 [place] [address] Historical LMR Provider 07/15/17 Lacie Olivares MD [address] [place] [address] [email or web address] Consulting Provider Geriatric Medicine 07/24/21 08/07/25 Lacie Olivares MD [address] [place] [address] Geriatric Medicine 07/31/24 08/07/25 Andi Wetzel DO [address] [place] [address] [email or web address] Geriatric Medicine 08/08/25 documented as of this encounter Additional Source Comments The information contained in this document represents components of the legal health record. It is not the complete legal health record.[facility]
--- OUTSIDE RECORDS SUMMARY | 2025-09-21 14:43 | XMS_ITS | Encounter Summary ---
Author Organization [facility] Address [address] [address] Phone Care Team Providers Care Home Planning Consultant Salesperson Name Role Phone Orly Marquez NP Primary Care Provider [phone] Lance Jack MD Unavailable [phone] Jael Rodriguez Unavailable [email or web address] Orly Marquez NP Unavailable [phone] Jose Hansen NP Unavailable [phone] Flower Jacobson MD Unavailable [phone] Romy Donis MD Primary Care Provider [phone] Lacie Olivares MD Unavailable [phone] Marina Richey Primary Care Provider [phone] Lacie Olivares MD Unavailable [phone] Andi Wetzel DO Unavailable [phone] Encounter Details Date Type Department Care Team (Late st Contact Info) Description 05/23/2021 Procedure Pass [facility] [address] [place] [address] Social History Tobacco Use Types Packs/Day [...] st Contact Info) Description 06/05/2025 Procedure Pass [facility] Non-Invasive Cardiology [address] [place] [address] 06/05/2025 Procedure Pass [facility] Non-Invasive Cardiology 22 [place] [address] 10/05/2025 12:20 PM EST Office Visit [facility] [address], [address] [address] Sundar Martinez MD, MS [address] [place] [address] 12/11/2025 12:20 PM EDT Appointment [facility] Non-Invasive Cardiology [address] [place] [address] [place] [address] Abhay Tamayo MD [address] [place] [address] 12/11/2025 12:40 PM EDT Office Visit [facility] [address], [address] [address] Abhay Tamayo MD [address] [place] [address] documented as of this encounter Visit Diagnoses Not on filedocumented in this encounter Care Teams Home Planning Consultant Salesperson Relationship Specialty Start Date End Date Orly Marquez NP [address] [place] [address] PCP - General 07/15/17 06/11/21 Romy Donis MD [address] [place] [address] Orthopedics & Sports Medicine, [place] [address] PCP - General Family Medicine 06/12/21 08/30/22 Marian Richey PA [address] [place] [address] PCP - General Cryptologist 08/31/22 Lance Jack MD [address] [place] [address] [email or web address] Historical LMR Provider 07/15/17 Jael Rodriguez PA Historical LMR Provider 07/15/17 10/04/21 Orly Marquez NP [address] [place] [address] Historical LMR Provider 07/15/17 Jose Hansen, MARIAN [address] [place] [phone] Historical LMR Provider 07/15/17 Flower Smith MD [address] [place] [address] [facility] [place] [address] Historical LMR Provider 07/15/17 10/04/21 Lacie Olivares MD [address] [place] [address] [facility] [place] [address] Consulting Provider Geriatric Medicine 07/24/21 08/07/25 Lacie Olivares MD [address] [place] [address] Orthopedics [facility] Sports Medicine, [place] [address] [email or web address] Geriatric Medicine 07/31/24 08/07/25 Andi Wetzel DO [address] [place] [address] [email or web address] Geriatric Medicine 08/08/25 documented as of this encounter Additional Source Comments The information contained in this document represents components of the legal health record. It is not the complete legal health record.[facility]
--- OUTSIDE RECORDS SUMMARY | 2025-09-21 14:43 | XMS_ITS | Encounter Summary ---
Author Organization [facility] Address 399 [facility] [address] [place] [address] Phone Care Team Providers Care Drywall Metal Stud Worker Name Role Phone Lance Jack MD Unavailable Orly Marquez NP Unavailable [phone] Lacie Olivares MD Unavailable [phone] Marina Richey Primary Care Provider [phone] Lacie Olivares MD Unavailable [phone] Andi Wetzel DO Unavailable [phone] Encounter Details Date Type Department Care Team (Late st Contact Info) Description 11/30/2023 Procedure Pass [facility], Ct Scan - [address] [address] Social History Tobacco Use Types Packs/Day Years [...] st Contact Info) Description 06/05/2025 Procedure Pass [facility] Non-Invasive Cardiology [address] [place] [address] 06/05/2025 Procedure Pass [facility] Non-Invasive Cardiology [address] [place] [address] 10/05/2025 12:20 PM EST Office Visit [facility] [address] [place] [address] 3rd [facility], [address] [address] Sundar Martinez MD, [place] [address] [place] [address] [email or web address] 12/11/2025 12:20 PM EDT Appointment [facility] Non-Invasive Cardiology [address] [place] [address] [place] [address] Abhay Tamayo MD [address] [place] [address] 12/11/2025 12:40 PM EDT Office Visit [facility]ovascular [address] 3rd [facility], [address] [place] [address] Abhay Tamayo MD [address] [place] [address] documented as of this encounter Visit Diagnoses Not on filedocumented in this encounter Additional Health Concerns Assessment Noted Time PHQ-9 Depression Total Score: 11 022 9:47 AM EST PHQ-2 Depression Total Score: 3 10/14/19 22 9:47 AM EST documented as of this encounter Care Teams Drywall Metal Stud Worker Relationship Specialty Start Date End Date Marina Richey PA [address] [place] [address] PCP - General Printing Worker Supervisor 08/31/22 Lance Jack MD [email or web address] Historical LMR Provider 07/15/17 Orly Marquez NP [address] [place] [address] Historical LMR Provider 07/15/17 Lacie Olivares MD [address] [place] [address] [email or web address] Consulting Provider Geriatric Medicine 07/24/21 08/07/25 Lacie Olivares MD 238 [place] [address] Geriatric Medicine 07/31/24 08/07/25 Andi Wetzel DO 22 [place] [address] Geriatric Medicine 08/08/25 documented as of this encounter Additional Source Comments The information contained in this document represents components of the legal health record. It is not the complete legal health record.[facility]
--- OUTSIDE RECORDS SUMMARY | 2025-09-21 14:43 | XMS_ITS | Encounter Summary ---
Author Organization [facility] Address 399 [facility] [address] [place] [address] Phone Care Team Providers Care Medical Assistant Internal Medicine Name Role Phone Orly Marquez NP Primary Care Provider Lance Jack MD Unavailable [phone] Jael Rodriguez Unavailable [email or web address] Orly Marquez NP Unavailable [phone] Jose Hansen NP Unavailable [phone] Flower Jacobson MD Unavailable [phone] Romy Donis MD Primary Care Provider [phone] Lacie Olivares MD Unavailable [phone] Marina Richey Primary Care Provider [phone] Lacie Olivares MD Unavailable [phone] Andi Wetzel DO Unavailable [phone] Encounter Details Date Type Department Care Team (Latest Contact Info) Description 04/15/2021 Transcribe Orders [facility] EKG [address] [place], [place] [phone] Yefri Mccartney MD [address] [place], [place] [phone] [email or web address] Preop examination (Primary Dx) Social History [...] Procedure Pass [facility] [address] [place] [address] 06/05/2025 Procedure Pass [facility] [address] [place] [address] 10/05/2025 12:20 PM EST Office Visit [facility] [address] [place] [address] [place] [address], [address] [address] Sundar Martinez MD, MS [address] [place] [address] [email or web address] 12/11/2025 12:20 PM EDT Appointment [facility] [address] [place] [address] [place] [address] Abhay Tamayo MD [address] [place] [address], [address] [address] 12/11/2025 12:40 PM EDT Office Visit [facility] [address] [place] [address] 3rd [facility], [address] [address] Abhay Tamayo MD [address] [place] [address] documented as of this encounter Results * ECG 12-LEAD (04/15/2021 1:57 PM EDT) Ventricular Rate EKG/MIN 72 BPM [facility] Atrial Rate 72 BPM [facility] WV Interval 180 ms [facility] QRS Duration 148 ms [facility] QT Interval 428 ms [facility] QTC Interval 468 ms [facility] P Hugo 99 degrees [facility] R Wave Hugo -67 degrees [facility] T Wave Hugo 71 degrees [facility] 04/15/2021 1:57 PM EDT [...] Lance Conklin ([id number]) on 04/16/2021 7:41:10 AM Yefri Mccartney MD ECG ORDERABLES Final Resul t [facility] documented in this encounter Visit Diagnoses Diagnosis Preop examination- Primary Unspecified pre-operative examination Presence of cardiac pacemaker Cardiac pacemaker in situ Preop examination- Primary Unspecified pre-operative examination documented in this encounter Care Teams Medical Assistant Internal Medicine Relationship Specialty Start Date End Date Orly Marquez NP [address] [place] [address] PCP - General 07/15/17 06/11/21 Romy Donis MD [address] [place] [address] [facility], [place] [address] [email or web address] PCP - General Family Medicine 06/12/21 08/30/22 Marina Richey PA 238 [place] [address] PCP - General Seasonal Recruiter 08/31/22 Lance Jack MD [address] [place] [address] [email or web address] Historical LMR Provider 07/15/17 Jael Rodriguez PA Historical LMR Provider 07/15/17 10/04/21 Orly Marquez TELETYPESETTER [address] [place] [address] Historical LMR Provider 07/15/17 Jose Hansen NP [address] [place], [place] [phone] Historical LMR Provider 07/15/17 2 Flower Jacobson MD [address] [place] [address] [facility], [place] [address] [email or web address] Historical LMR Provider 07/15/17 10/04/21 Lacie Olivares MD [address] [place] [address], [place] [address] Consulting Provider Geriatric Medicine 07/24/21 08/07/25 Lacie Olivares MD [address] [place] [address] [facility], [place] [address] Geriatric Medicine 07/31/24 08/07/25 Andi Wetzel DO 22 [place] [address] [email or web address] Geriatric Medicine 08/08/25 documented as of this encounter Additional Source Comments The information contained in this document represents components of the legal health record. It is not the complete legal health record.[facility]
--- OUTSIDE RECORDS SUMMARY | 2025-09-21 14:43 | XMS_ITS | Encounter Summary ---
Author Organization [facility] Address 399 [facility] [address] [place] [address] Phone Care Team Providers Care Game Agent Name Role Phone Lance Jack MD Unavailable Orly Marquez NP Unavailable [phone] Lacie Olivares MD Unavailable [phone] Marina Richey Primary Care Provider [phone] Lacie Olivares MD Unavailable [phone] Andi Wetzel DO Unavailable [phone] Reason for Referral * MRI/CAT Scan - Closed Specialty Diagnoses / Procedures Referred By Contac t Referred To Contact Radiology Diagnoses Radiculopathy, lumbar region Spondylosis, unspecified Procedures CT Lumbar Spine Sanya Delacruz PA 1354 [facility] [address] [place] [address] Phone: tel: fax: Referral ID Status Reason Start Date Expiration Date Visits Re quested Visits Authorized [id number] Closed 11/30/2023 1 1 Encounter Details Date Type Department Care Team (Latest Contact Info) Description 11/30/2023 Transcribe Orders [facility] [address] [place] [address] Sanya Delacruz PA 36[address] [facility] [address] [place] [address] Radiculopathy, lumbar region (Primary Dx); Spondylosis, unspecified [...] 06/05/2025 Procedure Pass [facility] [address] [place] [address] [place] [address] 06/05/2025 Procedure Pass [facility] [address] [place] [address] [place] [address] 10/05/2025 12:20 PM EST Office Visit [facility] [address] [place] [address] 3rd Floor, [address] [place] [address] Sundar Martinez MD, MS 22 [facility], [address] [address] 12/11/2025 12:20 PM EDT Appointment [facility] [address] [place] [address] Abhay Tamayo MD 22 [facility], [address] [address] [email or web address] 12/11/2025 12:40 PM EDT Office Visit [facility] 22 [facility] 3rd Floor, [address] [place] [address] Abhay Tamayo MD 22 [facility], [address] [place] [address] [email or web address] documented as of this encounter Results * [...] documented as of this encounter Care Teams Game Agent Relationship Specialty Start Date End Date Marina Richey PA [address] [place] [address] PCP - General Hand Stone Polisher 08/31/22 Lance Jack MD [email or web address] Historical LMR Provider 07/15/17 Orly Marquez NP [address] [place] [address] Historical LMR Provider 07/15/17 Lacie Olivares MD [address] [place] [address] Consulting Provider Geriatric Medicine 07/24/21 08/07/25 Lacie Olivares MD [address] [place] [address] Geriatric Medicine 07/31/24 08/07/25 Andi Wetzel DO [address] [place] [address] Geriatric Medicine 08/08/25 documented as of this encounter Additional Source Comments The information contained in this document represents components of the legal health record. It is not the complete legal health record.[facility]
--- OUTSIDE RECORDS SUMMARY | 2025-09-21 14:43 | XMS_ITS | Encounter Summary ---
Author Organization [facility] Address 399 [facility] [address] [place] [address] Phone Care Team Providers Care Impregnation Operator Name Role Phone Orly Marquez NP Primary Care Provider Lance Jack MD Unavailable [phone] Jael Rodriguez Unavailable [email or web address] Orly Marquez NP Unavailable [phone] Jose Hansen NP Unavailable [phone] Flower Jacobson MD Unavailable [phone] Romy Donis MD Primary Care Provider [phone] Lacie Olivares MD Unavailable [phone] Marina Richey Primary Care Provider [phone] Lacie Olivares MD Unavailable [phone] Andi Wetzel DO Unavailable [phone] Encounter Details Date Type Department Care Team (Latest Contact Info) Description 02/06/2019 Prep for Surgery [facility] 22 [facility] 3rd Floor, [address] [place], [place] [phone] Lance Jack MD [address] [place] [address] [email or web address] Sick sinus syndrome (Primary Dx) Social [...] Procedure Pass [facility] [address] [place] [address] 06/05/2025 Procedure Pass [facility] [address] [place] [address] 10/05/2025 12:20 PM EST Office Visit [facility] [address] [place] [address] [place] [address], [address] [address] Sundar Martinez MD, MS [address] [place] [address], [address] [address] [email or web address] 12/11/2025 12:20 PM EDT Appointment [facility] [address] [place] [address] [place] [address] Abhay Tamayo MD [address] [place] [address], [address] [address] 12/11/2025 12:40 PM EDT Office Visit [facility] [address] [place] [address] 3rd [facility], [address] [place] [address] Abhay Tamayo MD [address] [place] [address] documented as of this encounter Visit Diagnoses Diagnosis Sick sinus syndrome- Primary Sinoatrial node dysfunction documented in this encounter Care Teams Impregnation Operator Relationship Specialty Start Date End Date Orly Marquez, MARIAN [address] [place] [address] PCP - General 07/15/17 06/11/21 Romy Donis MD [address] [place] [address] Orthopedics & Sports [facility], [place], [place] [phone] PCP - General Family Medicine 06/12/21 08/30/22 Marina Richey PA 238 [place] [address] PCP - General Senior Data Warehouse Architect 08/31/22 Lance Jack MD [address] [place] [address] [email or web address] Historical LMR Provider 07/15/17 Jael Rodriguez PA Historical LMR Provider 07/15/17 10/04/21 Orly Marquez HISTORIOGRAPHER [address] [place] [address] Historical LMR Provider 07/15/17 Jose Hansen NP [address] [place] [phone] Historical LMR Provider 07/15/17 Flower Smith MD [address] [place] [address] [facility] [place], [place] [phone] Historical LMR Provider 07/15/17 10/04/21 Lacie Olivares MD 4 [facility], [place] [address] [email or web address] Consulting Provider Geriatric Medicine 07/24/21 08/07/25 Lacie Olivares MD 4 [facility], [place] [address] [email or web address] Geriatric Medicine 07/31/24 08/07/25 Andi Wetzel DO 22 [place] [address] [email or web address] Geriatric Medicine 08/08/25 documented as of this encounter Additional Source Comments The information contained in this document represents components of the legal health record. It is not the complete legal health record.[facility]
--- OUTSIDE RECORDS SUMMARY | 2025-09-21 14:43 | XMS_ITS | Encounter Summary ---
Author Organization [facility] Address [address] [address] Phone Care Team Providers Care Oil Gas And Pipe Tester Name Role Phone Orly Marquez NP Primary Care Provider [phone] Lance Jack MD Unavailable [phone] Jael Rodriguez Unavailable [email or web address] Orly Marquez NP Unavailable Jose Hansen NP Unavailable Flower Jacobson MD Unavailable [phone] Romy Donis MD Primary Care Provider [phone] Lacie Olivares MD Unavailable [phone] Marina Richey Primary Care Provider [phone] Lacie Olivares MD Unavailable [phone] Andi Wetzel DO Unavailable [phone] Encounter Details Date Type Department Care Team (Late st Contact Info) Description 01/13/2018 Ancillary Orders [facility] [address] [place] [address] [place] [address] [email or web address] Sick sinus syndrome Social History Tobacco Use [...] Procedure Pass [facility] [address] [place] [address] 06/05/2025 Procedure Pass [facility] [address] [place] [address] 10/05/2025 12:20 PM EST Office Visit [facility] [address] [place] [address] 3rd [facility], [address] [place] [address] Sundar Martinez MD, MS [address] [place] [address], [address] [address] [email or web address] 12/11/2025 12:20 PM EDT Appointment [facility] [address] [place] [address] [place] [address] Abhay Tamayo MD [address] [place] [address], [address] [address] 12/11/2025 12:40 PM EDT Office Visit [facility] [address] [place] [address] 3rd [facility], [address] [place] [address] Abhay Tamayo MD [address] [place] [address], [address] [address] documented as of this encounter Visit Diagnoses Diagnosis Sick sinus syndrome Sinoatrial node dysfunction documented in this encounter Care Teams Oil Gas And Pipe Tester Relationship Specialty Start Date End Date Orly Marquez NP 238 [place] [address] PCP - General 07/15/17 06/11/21 Romy Donis MD [address] [place] [address] Orthopedics [facility], [place], [place] [address] PCP - General Family Medicine 06/12/21 08/30/22 Marina Richey PA 238 [place], [place] [phone] PCP - General Emergency Department 08/31/22 Lance Jack MD [address] [place] [address] [email or web address] Historical LMR Provider 07/15/17 Jael Rodriguez PA Historical LMR Provider 07/15/17 10/04/21 Orly Marquez RAM PRESS OPERATOR [address] [place] [address] Historical LMR Provider 07/15/17 Jose Hansen NP [address] [place] [phone] Historical LMR Provider 07/15/17 Flower Smith MD [address] [place] [address] [facility], [place], [place] [address] Historical LMR Provider 07/15/17 10/04/21 Lacie Olivares MD 4 [facility] Sports Medicine, [facility] [place] [address] [email or web address] Consulting Provider Geriatric Medicine 07/24/21 08/07/25 Lacie Olivares MD 4 [facility], [place] [address] [email or web address] Geriatric Medicine 07/31/24 08/07/25 Andi Wetzel DO 22 [place] [address] [email or web address] Geriatric Medicine 08/08/25 documented as of this encounter Additional Source Comments The information contained in this document represents components of the legal health record. It is not the complete legal health record.[facility]
--- OUTSIDE RECORDS SUMMARY | 2025-09-21 14:43 | XMS_ITS ---
Hip 36mm 3.0 G7 [place] Modular Type 1 Tapered Plus - [id number] Implanted:Qty: 1 on 06/11/2021 by Rodney Mancini MD at [facility] STANDARD Right: Acetabulum [employer] 02/21/[id number] / / [id number] Hip 36mm 6.0 G7 [place] Modular Type 1 Tapered Plus - [id number] Implanted:Qty: 1 on 06/11/2021 by Rodney Mancini MD at [facility] STANDARD Left: Acetabulum [employer] 09/02/2029694539 / / [id number] Hip Stem [id number] 130deg Echo Bi Metric Titanium Alloy Porous Plasma Sprayed Full Proximalimal Profile Standard Lateralized - [id number] Implanted:Qty: 1 on 06/11/2021 by Rodney Mancini MD at [facility] Left: Femur [employer] 11/06/2025 [id number] / / [id number] Acetabular Shell 56mm Size F G7 Porous Plasma [place] Limited Hole - [id number] Implanted:Qty: 1 on 06/11/2021 by Rodney Mancini MD at [facility] Right: Acetabulum [employer] 12/09/2030 [id number] / / [id number] Hip Liner 36mm F Acetabular Neutral G7 Longevity - [id number] Implanted:Qty: 1 on 06/11/2021 by Rodney Mancini MD at [facility] Right: Acetabulum AMPARO / DIV [employer] BRISTOL SQUIBB 02/02/[id number] / / [id number] Hip Stem [id number] 130deg Echo Bi Metric Titanium Alloy Porous Plasma Sprayed Full Proximalimal Profile Standard Lateralized - [id number] Implanted:Qty: 1 on 06/11/2021 by Rodney Mancini MD at [facility] Right: Femur [employer] 05/30/2029 [id number] / / [id number] Acetabular Shell 54mm Size F G7 Porous Plasma [place] Limited Hole - [id number] Implanted:Qty: 1 on 06/11/2021 by Rodney Mancini MD at [facility] Left: Acetabulum [employer] 02/13/2031 [id number] / / [id number] Screw Dome 6.5x35mm G7 Aceetabular Low Profile Hip - [id number] Implanted:Qty: 1 on 06/11/2021 by Rodney Mancini MD at [facility] Left: Acetabulum [employer] 06/24/2025 [id number] / / [id number] Hip Liner 36mm F Acetabular Neutral G7 Longevity - [id number] Implanted:Qty: 1 on 06/11/2021 by Rodney Mancini MD at [facility] Left: Acetabulum [employer]ARO / [employer] 04/12/[id number] / / [id number] Procedures Procedure Name Priority Date/Time Associated Diagnosis Comments BASIC METABOLIC PANEL (BMP) Routine 07/26/2022 3:12 AM EDT from Last 3 Months or Most Recently Relevant to Health Maintenance Results * (ABNORMAL) Basic metabolic panel (07/26/2022 3:12 AM EDT) SODIUM 137 133 - 146 mmol/L [facility] CHLORIDE 99 96 - 108 mmol/L [facility] POTASSIUM 4.5 3.3 - 5.1 mmol/L [facility] CO2 27 21 - 35 mmol/L [facility] BUN 20(H) 6 - 19 mg/dL [facility] CREATININE 0.90 0.5 - 1.5 mg/dL [facility] GLUCOSE 108(H) 70 - 99 mg/dL [facility] CALCIUM 8.8 8.4 - 10.3 mg/dL [facility] EGFR 85 >59 mL/min/1.7 3m2 [facility] Comment:Estimated glomerular filtration rate calculated using the CKD-EPI refit equation. ANION GAP 16 10 - 20 mmol/L [facility] Blood 07/26/2022 3:12 AM EDT 07/26/2022 4:07 AM EDT us Aure Deleon MD LAB BLOOD BKR ORDERABLES Final Result [facility] [address] [place], [place] [phone] from Last 3 Months or Most Recently Relevant to Health Maintenance Insurance [facility] MEDICARE REPLACEMENT [facility] MEDICARE REPLACEMENT [facility] MEDICARE REPLACEMENT [facility] MEDICARE [facility]PLACEMENT [facility] MEDICARE REPLACEMENT [facility] MEDICARE REPLACEMENT [facility] MEDICARE REPLACEMENT [facility] MEDICARE REPLACEMENT [employer] Advance Directives For more information, please contact: [phone] (9AM - 5PM [facility], Wednesday-Noah) Documents on File Type Date Recorded Patient Tool And Die Engineer [employer] [facility] Proxy 06/17/2021 9:06 AM * Full [...] Agent (Proxy form on file) josé eva Jim Alternate He althcare Agent (Proxy form on file) Care Teams Attendant Lodging Facilities Relationship Specialty Start Date End Date Marina Richey PA [address] [place] [address] PCP - General Tree Pruner 08/31/22 Lance Jack MD [email or web address] Historical LMR Provider 07/15/17 Orly Marquez NP [address] [place] [address] Historical LMR Provider 07/15/17 Andi Wetzel DO [address] [place] [address] Geriatric Medicine 08/08/25 Additional Source Comments The information contained in this document represents components of the legal health record. It is not the complete legal health record.[facility]
--- OUTSIDE RECORDS SUMMARY | 2025-09-21 14:43 | XMS_ITS | Encounter Summary ---
Author Organization [facility] Address 399 [facility] [address] [place] [address] Phone Care Team Providers Care Fiberglass Luggage Molder Name Role Phone Orly Marquez NP Primary Care Provider Lance Jack MD Unavailable [phone] Jael Rodriguez Unavailable [email or web address] Orly Marquez NP Unavailable [phone] Jose Hansen NP Unavailable Flower Jacobson MD Unavailable [phone] Romy Donis MD Primary Care Provider [phone] Lacie Olivares MD Unavailable [phone] Marina Richey Primary Care Provider [phone] Lacie Olivares MD Unavailable [phone] Andi Wetzel DO Unavailable [phone] Encounter Details Date Type Department Care Team (Late st Contact Info) Description 01/13/2018 Ancillary Orders [facility] [address] [place] [address] Lance Jack MD [address] [place] [address] [email or web address] Social History Tobacco Use Types Packs/Day Years [...] st Contact Info) Description 06/05/2025 Procedure Pass [facility] Non-Invasive Cardiology [address] [place] [address] 06/05/2025 Procedure Pass [facility] Non-Invasive Cardiology [address] [place] [address] 10/05/2025 12:20 PM EST Office Visit [facility] [address] [place] [address] [place] [address], [address] [place] [address] Sundar Martinez MD, [place] [address] [place] [address] 12/11/2025 12:20 PM EDT Appointment [facility] Non-Invasive Cardiology [address] [place] [address] [place] [address] Abhay Tamayo MD [address] [place] [address] 12/11/2025 12:40 PM EDT Office Visit [facility] [address] [place] [address] 3rd [facility], [address] [place] [address] Abhay Tamayo MD [address] [place] [address] documented as of this encounter Visit Diagnoses Not on filedocumented in this encounter Care Teams Fiberglass Luggage Molder Relationship Specialty Start Date End Date Orly Marquez NP [address] [place] [address] PCP - General 07/15/17 06/11/21 Romy Donis MD [address] [place] [address] Orthopedics Sports [facility], [place], [place] [id number] [email or web address] PCP - General Family Medicine 06/12/21 08/30/22 Marina Richey PA [address] [place] [address] PCP - General Plastic Tubing Insulation Supervisor 08/31/22 Lance Jack MD [address] [place] [address] [email or web address] Historical LMR Provider 07/15/17 Jael Rodriguez PA Historical LMR Provider 07/15/17 10/04/21 Orly Marquez DEBT MANAGEMENT COUNSELOR [address] [place] [address] Historical LMR Provider 07/15/17 Jsoe Hansen NP [address] [place] [address] [address] Historical LMR Provider 07/15/17 Flower Smith MD [address] [place] [address] Orthopedics & Sports [facility], [place], [place] [id number] Historical LMR Provider 07/15/17 10/04/21 Lacie Olivraes MD 4 [facility] Orthopedics & Sports Medicine, [facility] [place] [address] [email or web address] Consulting Provider Geriatric Medicine 07/24/21 08/07/25 Lacie Olivares MD 4 [facility] Orthopedics & Sports [facility], [place] [address] [email or web address] Geriatric Medicine 07/31/24 08/07/25 Andi Wetzel DO [address] [place] [address] [email or web address] Geriatric Medicine 08/08/25 documented as of this encounter Additional Source Comments The information contained in this document represents components of the legal health record. It is not the complete legal health record.[facility]
--- OUTSIDE RECORDS SUMMARY | 2025-09-21 14:43 | XMS_ITS | Encounter Summary ---
Author Organization [facility] Address [address] [address] Phone Care Team Providers Care Anthropology Lecturer Name Role Phone Orly Marquez NP Primary Care Provider [phone] Lance Jack MD Unavailable [phone] Jael Rodriguez Unavailable [email or web address] Orly Marquez NP Unavailable [phone] Jose Hansen NP Unavailable [phone] Flower Jacobson MD Unavailable [phone] Romy Donis MD Primary Care Provider [phone] Lacie Olivares MD Unavailable [phone] Marina Richey Primary Care Provider [phone] Lacie Olivares MD Unavailable [phone] Andi Wetzel DO Unavailable [phone] Encounter Details Date Type Department Care Team (Late st Contact Info) Description 10/14/2018 Procedure Pass [facility] Admitting Dept Virtual Department [address] [place] [address] Social History Tobacco Use Types Packs/Day [...] st Contact Info) Description 06/05/2025 Procedure Pass [facility] Non-Invasive Cardiology [address] [place] [address] 06/05/2025 Procedure Pass [facility] Non-Invasive Cardiology [address] [place] [address] 10/05/2025 12:20 PM EST Office Visit [facility] [address] [place] [address], [address] [address] Sundar Martinez MD, MS [address] [place] [address] 12/11/2025 12:20 PM EDT Appointment [facility] Non-Invasive Cardiology [address] [place] [address] [place] [address] Abhay Tamayo MD [address] [place] [address], [address] [address] 12/11/2025 12:40 PM EDT Office Visit [facility] [address], [address] [address] Abhay Tamayo MD [address] [place] [address] documented as of this encounter Visit Diagnoses Not on filedocumented in this encounter Care Teams Anthropology Lecturer Relationship Specialty Start Date End Date Orly Marquez NP [address] [place] [address] PCP - General 07/15/17 06/11/21 Romy Donis MD [address] [place] [address] Orthopedics & Sports Medicine, [place] [address] [email or web address] PCP - General Family Medicine 06/12/21 08/30/22 Marina Richey PA [address] [place] [address] PCP - General Pole Shaver 08/31/22 Lance Jack MD [address] [place] [address] [email or web address] Historical LMR Provider 07/15/17 Jael Rodriguez PA Historical LMR Provider 07/15/17 10/04/21 Orly Marquez NP [address] [place] [address] Historical LMR Provider 07/15/17 Jose Hansen, MARIAN [address] [place] [phone] Historical LMR Provider 07/15/17 Flower Smith MD [address] [place] [address] [facility], [place] [address] Historical LMR Provider 07/15/17 10/04/21 Lacie Olivares MD [address] [place] [address] [facility] [place] [address] Consulting Provider Geriatric Medicine 07/24/21 08/07/25 Lacie Olivares MD [address] [place] [address] Orthopedics [facility] Medicine, [place] [address] [email or web address] Geriatric Medicine 07/31/24 08/07/25 Andi Wetzel DO [address] [place] [address] [email or web address] Geriatric Medicine 08/08/25 documented as of this encounter Additional Source Comments The information contained in this document represents components of the legal health record. It is not the complete legal health record.[facility]
--- OUTSIDE RECORDS SUMMARY | 2025-09-21 14:43 | XMS_ITS | Encounter Summary ---
Author Organization [facility] Address 399 [facility] [address] [place] [address] Phone Care Team Providers Care Speech Coach Name Role Phone Lance Jack MD Unavailable Orly Marquez NP Unavailable [phone] Lacie Olivares MD Unavailable [phone] Marina Richey Primary Care Provider [phone] Lacie Olivares MD Unavailable [phone] Andi Wetzel DO Unavailable [phone] Encounter Details Date Type Department Care Team (Late st Contact Info) Description 09/16/2023 Procedure Pass [facility]-In[facility] Cardiology [address] [place] [address] Social History Tobacco Use Types Packs/Day Years [...] st Contact Info) Description 06/05/2025 Procedure Pass [facility] Non-Invasive Cardiology [address] [place] [address] 06/05/2025 Procedure Pass [facility] Non-Invasive Cardiology [address] [place] [address] 10/05/2025 12:20 PM EST Office Visit [facility] [address] 3rd [facility], [address] [address] Sundar Martinez MD, MS [address] [place] [address], [address] [address] 12/11/2025 12:20 PM EDT Appointment [facility] Non-Invasive Cardiology [address] [place] [address] [place] [address] Abhay Tamayo MD [address] [place] [address], [address] [address] 12/11/2025 12:40 PM EDT Office Visit [facility] [address] 3rd [facility], [address] [place] [address] Abhay Tamayo MD [address] [place] [address], [address] [address] documented as of this encounter Visit Diagnoses Not on filedocumented in this encounter Additional Health Concerns Assessment Noted Time PHQ-9 Depression Total Score: 11 022 9:47 AM EST PHQ-2 Depression Total Score: 3 10/14/19 22 9:47 AM EST documented as of this encounter Care Teams Speech Coach Relationship Specialty Start Date End Date Marina Richey PA [address] [place] [address] PCP - General Fish Egg Packer 08/31/22 Lance Jack MD [email or web address] Historical LMR Provider 07/15/17 Orly Marquez NP [address] [place] [address] Historical LMR Provider 07/15/17 Lacie Olivares MD [address] [place] [address] [email or web address] Consulting Provider Geriatric Medicine 07/24/21 08/07/25 Lacie Olivares MD [address] [place] [address] Geriatric Medicine 07/31/24 08/07/25 Andi Wetzel DO 22 [place] [address] Geriatric Medicine 08/08/25 documented as of this encounter Additional Source Comments The information contained in this document represents components of the legal health record. It is not the complete legal health record.[facility]
--- OUTSIDE RECORDS SUMMARY | 2025-09-21 14:43 | XMS_ITS | Encounter Summary ---
Author Organization [facility] Address [address] [address] Phone Care Team Providers Care Online Tutor Name Role Phone Orly Marquez NP Primary Care Provider [phone] Lance Jack MD Unavailable [phone] Jael Rodriguez Unavailable [email or web address] Orly Marquez NP Unavailable [phone] Jose Hansen NP Unavailable [phone] Flower Jacobson MD Unavailable [phone] Romy Donis MD Primary Care Provider [phone] Lacie Olivares MD Unavailable [phone] Marina Richey Primary Care Provider [phone] Lacie Olivares MD Unavailable [phone] Andi Wetzel DO Unavailable [phone] Encounter Details Date Type Department Care Team (Late st Contact Info) Description 06/11/2021 Procedure Pass [place] Admitting Dept - Virtual Department 30 [place], [place] [phone] Social History Tobacco Use Types Packs/Day Years [...] st Contact Info) Description 06/05/2025 Procedure Pass [facility] Non-Invasive Cardiology [address] [place] [address] 06/05/2025 Procedure Pass [facility] Non-Invasive Cardiology [address] [place] [address] 10/05/2025 12:20 PM EST Office Visit [facility] [address] 3rd [facility], [address] [address] Sundar Martinez MD, MS [address] [place] [address], [address] [address] 12/11/2025 12:20 PM EDT Appointment [facility] Non-Invasive Cardiology [address] [place] [address] [place] [address] Abhay Tamayo MD [address] [place] [address], [address] [address] [email or web address] 12/11/2025 12:40 PM EDT Office Visit [facility] [address] 3rd [facility], [address] [address] Abhay Tamayo MD [address] [place] [address] documented as of this encounter Visit Diagnoses Not on filedocumented in this encounter Care Teams Online Tutor Relationship Specialty Start Date End Date Orly Marquez NP [address] [place] [address] PCP - General 07/15/17 06/11/21 Romy Donis MD [address] [place] [address] Orthopedics & Sports Medicine, [place] [address] PCP - General Family Medicine 06/12/21 08/30/22 Marina Richey PA 238 [place] [address] PCP - General Terrazzo Worker Helper 08/31/22 Lance Jack MD 238 [place] [address] [email or web address] Historical LMR Provider 07/15/17 Jael Rodriguez PA Historical LMR Provider 07/15/17 10/04/21 Orly Marquez NP [address] [place] [address] Historical LMR Provider 07/15/17 Jose Hansen, MARIAN [address] [place] [phone] Historical LMR Provider 07/15/17 Flower Smith MD [address] [place] [address] [facility] [place] [address] [email or web address] Historical LMR Provider 07/15/17 10/04/21 Lacie Olivares MD [address] [place] [address] [facility] [place] [address] [email or web address] Consulting Provider Geriatric Medicine 07/24/21 08/07/25 Lacie Olivares MD [address] [place] [address] Orthopedics & Sports Medicine, [place] [address] [email or web address] Geriatric Medicine 07/31/24 08/07/25 Andi Wetzel DO [address] [place] [address] [email or web address] Geriatric Medicine 08/08/25 documented as of this encounter Additional Source Comments The information contained in this document represents components of the legal health record. It is not the complete legal health record.[facility]
--- OUTSIDE RECORDS SUMMARY | 2025-09-21 14:43 | XMS_ITS | Encounter Summary ---
Author Organization [facility] Address 399 [facility] [address] [place] [address] Phone Care Team Providers Care Polishing Wheel Repairer Name Role Phone Orly Marquez NP Primary Care Provider Lance Jack MD Unavailable [phone] Jael Rodriguez Unavailable [email or web address] Orly Marquez NP Unavailable [phone] Jose Hansen NP Unavailable Flower Jacobson MD Unavailable [phone] Romy Donis MD Primary Care Provider [phone] Lacie Olivares MD Unavailable [phone] Marina Richey Primary Care Provider [phone] Lacie Olivares MD Unavailable [phone] Andi Wetzel DO Unavailable [phone] Encounter Details Date Type Department Care Team (Latest Contact Info) Description 09/07/2017 Transcribe Orders [facility] 22 [facility] 3rd Floor, [address] [place] [address] Lance Jack MD 22 [place] [address] [email or web address] Sick sinus syndrome (Primary Dx) Social [...] st Contact Info) Description 06/05/2025 Procedure Pass [facility] Non-Invasive Cardiology [address] [place] [address] 06/05/2025 Procedure Pass [facility]-Invasive Cardiology [address] [place] [address] 10/05/2025 12:20 PM EST Office Visit [facility] [address] [place] [address] [place] [address], [address] [place] [address] Sundar Martinez MD, [place] [address] [place] [address], [address] [address] 12/11/2025 12:20 PM EDT Appointment [facility]-Invasive Cardiology [address] [place] [address] [place] [address] Abhay Tamayo MD [address] [place] [address], [address] [address] 12/11/2025 12:40 PM EDT Office Visit [facility] [address] [place] [address] 3rd [facility], [address] [place] [address] Abhay Tamayo MD [address] [place] [address], [address] [address] documented as of this encounter Results * TTE COMPREHENSIVE (09/08/2017 12:50 PM EST) Body Surface Area 1.92 m2 Anatomical Region Laterality Modality Heart Ultrasound us Irwin Quinones MD CV ECHO ORDERABLES Final Re sult documented in this encounter Visit Diagnoses Diagnosis Sick sinus syndrome- Primary Sinoatrial node dysfunction documented in this encounter Care Teams Polishing Wheel Repairer Relationship Specialty Start Date End Date Orly Marquez NP [address] [place] [address] PCP - General 07/15/17 06/11/21 Romy Donis MD [address] [place] [address] Orthopedics & Sports Medicine, [place] [address] [email or web address] PCP - General Family Medicine 06/12/21 08/30/22 Marina Richey PA [address] [place] [address] PCP - General Landscape Photographer 08/31/22 Lance Jack MD [address] [place] [address] [email or web address] Historical LMR Provider 07/15/17 Jael Rodriguez PA Historical LMR Provider 07/15/17 10/04/21 Orly Marquez NP [address] [place] [address] Historical LMR Provider 07/15/17 Jose Hansen NP [address] [place] [phone] Historical LMR Provider 07/15/17 2 Flower Jacobson MD 4 [facility] Orthopedics & Sports [facility], [place] [address] Historical LMR Provider 07/15/17 10/04/21 Lacie Olivares MD [address] [place] [address] Orthopedics Sports [facility], [place] [address] [email or web address] Consulting Provider Geriatric Medicine 07/24/21 08/07/25 Lacie Olivares MD [address] [place] [address] Orthopedics Sports [facility], [place] [address] Geriatric Medicine 07/31/24 08/07/25 Andi Wetzel DO 22 [place] [address] [email or web address] Geriatric Medicine 08/08/25 documented as of this encounter Additional Source Comments The information contained in this document represents components of the legal health record. It is not the complete legal health record.[facility]
--- OUTSIDE RECORDS SUMMARY | 2025-09-21 14:43 | XMS_ITS | Encounter Summary ---
Author Organization [facility] Address 399 [facility] [address] [place] [address] Phone Care Team Providers Care Cook'S Assistant Name Role Phone Lance Jack MD Unavailable Orly Marquez NP Unavailable [phone] Lacie Olivares MD Unavailable [phone] Marina Richey Primary Care Provider [phone] Lacie Olivares MD Unavailable [phone] Andi Wetzel DO Unavailable [phone] Encounter Details Date Type Department Care Team (Late st Contact Info) Description 11/21/2024 Procedure Pass [facility], Ct Scan - [address] [address] Social History Tobacco Use Types Packs/Day Years [...] st Contact Info) Description 06/05/2025 Procedure Pass [facility] Non-Invasive Cardiology [address] [place] [address] 06/05/2025 Procedure Pass [facility] Non-Invasive Cardiology [address] [place] [address] 10/05/2025 12:20 PM EST Office Visit [facility] [address] [place] [address] 3rd [facility], [address] [address] Sundar Martinez MD, MS [address] [place] [address] 12/11/2025 12:20 PM EDT Appointment [facility] Non-Invasive Cardiology [address] [place] [address] [place] [address] Abhay Tamayo MD [address] [place] [address] 12/11/2025 12:40 PM EDT Office Visit [facility] [address] [facility], [address] [place] [address] Abhay Tamayo MD [address] [place] [address] documented as of this encounter Visit Diagnoses Not on filedocumented in this encounter Additional Health Concerns Assessment Noted Time PHQ-9 Depression Total Score: 11 022 9:47 AM EST PHQ-2 Depression Total Score: 3 10/14/19 22 9:47 AM EST documented as of this encounter Care Teams Cook'S Assistant Relationship Specialty Start Date End Date Marina Richey PA [address] [place] [address] PCP - General Clinical Dietitian 08/31/22 Lance Jack MD [email or web address] Historical LMR Provider 07/15/17 Orly Marquez NP [address] [place] [address] Historical LMR Provider 07/15/17 Lacie Olivares MD [address] [place] [address] [email or web address] Consulting Provider Geriatric Medicine 07/24/21 08/07/25 Lacie Olivares MD [address] [place] [address] Geriatric Medicine 07/31/24 08/07/25 Andi Wetzel DO 22 [place] [address] Geriatric Medicine 08/08/25 documented as of this encounter Additional Source Comments The information contained in this document represents components of the legal health record. It is not the complete legal health record.[facility]
--- OUTSIDE RECORDS SUMMARY | 2025-09-21 14:43 | XMS_ITS | Encounter Summary ---
Author Organization [facility] Address [address] [address] Phone Care Team Providers Care Vice Chancellor Name Role Phone Orly Marquez NP Primary Care Provider [phone] Lance Jack MD Unavailable [phone] Jael Rodriguez Unavailable [email or web address] Orly Marquez NP Unavailable [phone] Jose Hansen NP Unavailable [phone] Flower Jacobson MD Unavailable [phone] Romy Donis MD Primary Care Provider [phone] Lacie Olivares MD Unavailable [phone] Marina Richey Primary Care Provider [phone] Lacie Olivares MD Unavailable [phone] Andi Wetzel DO Unavailable [phone] Encounter Details Date Type Department Care Team (Late st Contact Info) Description 05/23/2021 Procedure Pass [facility] Non-Invasive Cardiology [address] [place] [address] Social History Tobacco Use Types Packs/Day [...] Pass [facility] Non-Invasive Cardiology [address] [place] [address] 06/05/2025 Procedure Pass [facility] Non-Invasive Cardiology [address] [place] [address] 10/05/2025 12:20 PM EST Office Visit [facility] Cardiovascular [address] 3rd [facility], [address] [address] Sundar Martinez MD, [place] [address] [place] [address] [email or web address] 12/11/2025 12:20 PM EDT Appointment [facility] Non-Invasive Cardiology [address] [place] [address] [place] [address] Abhay Tamayo MD [address] [place] [address] [email or web address] 12/11/2025 12:40 PM EDT Office Visit [facility] [address] 3rd [facility], [address] [address] Abhay Tamayo MD [address] [place] [address] documented as of this encounter Visit Diagnoses Not on filedocumented in this encounter Additional Health Concerns Assessment Noted Time PHQ-9 Depression Total Score: 11 022 9:47 AM EST PHQ-2 Depression Total Score: 3 10/14/19 22 9:47 AM EST documented as of this encounter Care Teams Vice Chancellor Relationship Specialty Start Date End Date Orly Marquez NP [address] [place] [address] PCP - General 07/15/17 06/11/21 Romy Donis MD [address] [place] [address] Orthopedics Sports [facility], [place], [place] [address] [email or web address] PCP - General Family Medicine 06/12/21 08/30/22 Marina Richey PA [address] [place] [address] PCP - General Statistical Programmer Analyst 08/31/22 Lance Jack MD [address] [place] [address] [email or web address] Historical LMR Provider 07/15/17 Jael Rodriguez PA Historical LMR Provider 07/15/17 10/04/21 Orly Marquez WHEEL CLEANER [address] [place] [address] Historical LMR Provider 07/15/17 Jose Hansen NP [address] [place] [address] [address] Historical LMR Provider 07/15/17 Flower Smith MD [address] [place] [address] Orthopedics & Sports [facility], [place], [place] [address] Historical LMR Provider 07/15/17 10/04/21 Lacie Olivares MD 4 [facility] Orthopedics & Sports Medicine, [facility] [place] [address] [email or web address] Consulting Provider Geriatric Medicine 07/24/21 08/07/25 Lacie Olivares MD 4 [facility] Orthopedics & Sports [facility], [place] [address] [email or web address] Geriatric Medicine 07/31/24 08/07/25 Andi Wetzel DO [address] [place] [address] [email or web address] Geriatric Medicine 08/08/25 documented as of this encounter Additional Source Comments The information contained in this document represents components of the legal health record. It is not the complete legal health record.[facility]
--- OUTSIDE RECORDS SUMMARY | 2025-09-21 14:43 | XMS_ITS | Encounter Summary ---
Author Organization [facility] Address 399 [facility] [address] [place] [address] Phone Care Team Providers Care Rig Site Engineer Name Role Phone Lance Jack MD Unavailable Orly Marquez NP Unavailable [phone] Lacie Olivares MD Unavailable [phone] Marina Richey Primary Care Provider [phone] Lacie Olivares MD Unavailable [phone] Andi Wetzel DO Unavailable [phone] Encounter Details Date Type Department Care Team (Late st Contact Info) Description 06/04/2025 Procedure Pass [facility] Non-Invasive Cardiology [address] [place] [address] Social History Tobacco Use Types Packs/Day Years [...] Procedure Pass [facility]iology [address] [place] [address] 06/05/2025 Procedure Pass [facility] Non-Invasive Cardiology [address] [place] [address] 10/05/2025 12:20 PM EST Office Visit [facility] [address] [place] [address], [address] [place] [address] Sundar Martinez MD, MS [address] [place] [address], [address] [address] [email or web address] 12/11/2025 12:20 PM EDT Appointment [facility] [place] [address] Abhay Tamayo MD [address] [place] [address], [address] [address] 12/11/2025 12:40 PM EDT Office Visit [facility] [place] [address] 3rd [facility], [address] [place] [address] Abhay Tamayo MD 22 [facility], [address] [place] [address] [email or web address] documented as of this encounter Visit Diagnoses Not on filedocumented in this encounter Additional Health Concerns Assessment Noted Time PHQ-9 Depression Total Score: 11 022 9:47 AM EST PHQ-2 Depression Total Score: 3 10/14/19 22 9:47 AM EST documented as of this encounter Care Teams Rig Site Engineer Relationship Specialty Start Date End Date Marina Richey PA [address] [place] [address] PCP - General Tractor Operator Helper 08/31/22 Lance Jack MD [email or web address] Historical LMR Provider 07/15/17 Orly Marquez RESIDENTIAL SALES CONSULTANT 238 [place] [address] Historical LMR Provider 07/15/17 Lacie Olivares MD [address] [place] [address] [email or web address] Consulting Provider Geriatric Medicine 07/24/21 08/07/25 Lacie Olivares MD 238 [place] [address] [email or web address] Geriatric Medicine 07/31/24 08/07/25 Andi Wetzel DO 22 [place] [address] [email or web address] Geriatric Medicine 08/08/25 documented as of this encounter Additional Source Comments The information contained in this document represents components of the legal health record. It is not the complete legal health record.[facility]
[2025-09-21 17:01] LABS: Prostate Specific Antigen 5.04 ng/mL (<0.05-4.0)
== END 2025-09-21 14:39 | disposition home or self-care (01) ==
LOC: HO.LAB 14:38
PROVIDERS: PCP Physician Assistant Medical; Visit Provider Nurse Practitioner Family
DX: Z12.5 Encounter for screening for malignant neoplasm of prostate (principal); R32 Unspecified urinary incontinence
CPT/HCPCS: 36415; 84153

== ENCOUNTER 2025-09-25 14:37 | Outpatient (REF) | payer MEDICARE, SELFPAY ==
--- NOTE | ~2025-09-25 | US_ITS ---
EXAMINATION: US RETROPERITONEAL COMPLETE (RENAL) CLINICAL INFORMATION: Unspecified urinary incontinence.. COMPARISON: No prior. TECHNIQUE: Real-time imaging of the kidneys and bladder. FINDINGS: RIGHT KIDNEY: 9.1 x 4.0 x 4.9 cm (SAG x AP x TRV). The kidney is normal in size, contour, and echogenicity. Renal cortical thickness is normal. No calculi or focal parenchymal lesions. No hydronephrosis. LEFT KIDNEY: 11.2 x 5.1 x 4.6 cm (SAG x AP x TRV). The kidney is normal in size, contour, and echogenicity. Renal cortical thickness is normal. No calculi or focal parenchymal lesions. No hydronephrosis. BLADDER: Well distended and normal. Bilateral ureteral jets are not demonstrated, nonspecific. Prevoid bladder volume is 129 mL. Postvoid bladder volume is 10 mL. Estimated prostate volume is 25.3 mL. There are central prostatic calcifications. US/US retroperitoneal comp IMPRESSION: 1. Normal kidneys and urinary bladder. Postvoid residual estimated at 10 mL. 2. Minimal prostate enlargement. Electronically signed by: Trent Shirley MD 09/25/2025 04:41 PM EST RP
--- OUTSIDE RECORDS SUMMARY | 2025-09-25 18:15 | XMS_ITS | Encounter Summary ---
Author Organization [facility] Address [address] [place] [address] Phone Care Team Providers Care Pipe Fitter Marine Name Role Phone Lance Jack MD Unavailable [phone] Orly Marquez NP Unavailable [phone] Romy Donis MD Primary Care Provider [phone] Lacie Olivares MD Unavailable [phone] Marina Richey Primary Care Provider + [phone] Lacie Olivares MD Unavailable [phone] Andi Wetzel DO Unavailable [phone] Encounter Details Date Type Department Care Team (Late st Contact Info) Description 08/27/2022 Procedure Pass [facility] [address] [place] [address] Social History Tobacco Use Types Packs/Day Years [...] st Contact Info) Description 06/05/2025 Procedure Pass [facility] Non-Invasive Cardiology [address] [place] [address] 06/05/2025 Procedure Pass [facility] Non-Invasive Cardiology [address] [place] [address] 10/05/2025 12:20 PM EST Office Visit [facility] [address] [place] [address] 3rd [facility], [address] [place] [address] Sundar Martinez MD, [place] [address] [place] [address], [address] [address] 12/11/2025 12:20 PM EDT Appointment [facility] Non-Invasive Cardiology [address] [place] [address] Abhay Tamayo MD [address] [place] [address] 12/11/2025 12:40 PM EDT Office Visit [facility] Cardiovascular [address] 3rd [facility], [address] [place] [address] Abhay Tamayo MD [address] [place] [address], [address] [address] documented as of this encounter Visit Diagnoses Not on filedocumented in this encounter Additional Health Concerns Assessment Noted Time PHQ-9 Depression Total Score: 11 022 9:47 AM EST PHQ-2 Depression Total Score: 3 10/14/19 22 9:47 AM EST documented as of this encounter Care Teams Pipe Fitter Marine Relationship Specialty Start Date End Date Romy Donis MD [address] [place] [address] PCP - General Family Medicine 06/12/21 08/30/22 Marina Richey PA [address] [place] [address] PCP - General Skiver Machine Operator 08/31/22 Lance Jack MD [email or web address] Historical LMR Provider 07/15/17 Orly Marquez NP 238 [place] [address] Historical LMR Provider 07/15/17 Lacie Olivares MD [address] [place] [address] [email or web address] Consulting Provider Geriatric Medicine 07/24/21 08/07/25 Lacie Olivares MD [address] [place] [address] Geriatric Medicine 07/31/24 08/07/25 Andi Wetzel DO 22 [place] [address] Geriatric Medicine 08/08/25 documented as of this encounter Additional Source Comments The information contained in this document represents components of the legal health record. It is not the complete legal health record.[facility]
--- OUTSIDE RECORDS SUMMARY | 2025-09-25 18:15 | XMS_ITS | Encounter Summary ---
Author Organization [facility] Address [address] [place] [address] Phone Care Team Providers Care Cable Television Installer Name Role Phone Lance Jack MD Unavailable [phone] Orly Marquez NP Unavailable [phone] Romy Donis MD Primary Care Provider [phone] Lacie Olivares MD Unavailable [phone] Marina Richey Primary Care Provider + [phone] Lacie Olivares MD Unavailable [phone] Andi Wetzel DO Unavailable [phone] Encounter Details Date Type Department Care Team (Late st Contact Info) Description 07/21/2022 Procedure Pass [facility] Inter[facility] Radiology 30 [place] [address] Social History Tobacco Use Types Packs/Day Years [...] Pass [facility] Non-Invasive Cardiology [address] [place] [address] 06/05/2025 Procedure Pass [facility] Non-Invasive Cardiology [address] [place] [address] 10/05/2025 12:20 PM EST Office Visit [facility] [address] [place] [address] 3rd Floor, [address] [place] [address] Sundar Martinez MD, MS [address] [place] [address], [address] [address] 12/11/2025 12:20 PM EDT Appointment [facility] Non-Invasive Cardiology [address] [place] [address] Abhay Tamayo MD [address] [place] [address], [address] [address] 12/11/2025 12:40 PM EDT Office Visit [facility] [address] [place] [address] 3rd [facility], [address] [place] [address] Abhay Tamayo MD [address] [place] [address], [address] [address] documented as of this encounter Visit Diagnoses Not on filedocumented in this encounter Additional Health Concerns Assessment Noted Time PHQ-9 Depression Total Score: 11 022 9:47 AM EST PHQ-2 Depression Total Score: 3 10/14/19 22 9:47 AM EST documented as of this encounter Care Teams Cable Television Installer Relationship Specialty Start Date End Date Romy Donis MD [address] [place] [address] PCP - General Family Medicine 06/12/21 08/30/22 Marina Richey PA 238 [place] [address] PCP - General Library Media Technician 08/31/22 Lance Jack MD [email or web address] Historical LMR Provider 07/15/17 Orly Marquez NP 238 [place] [address] Historical LMR Provider 07/15/17 Lacie Olivares MD 238 [place] [address] Consulting Provider Geriatric Medicine 07/24/21 08/07/25 Lacie Olivares MD [address] [place] [address] Geriatric Medicine 07/31/24 08/07/25 Andi Wetzel DO 22 [place] [address] Geriatric Medicine 08/08/25 documented as of this encounter Additional Source Comments The information contained in this document represents components of the legal health record. It is not the complete legal health record.[facility]
--- OUTSIDE RECORDS SUMMARY | 2025-09-25 18:15 | XMS_ITS | Encounter Summary ---
Author Organization [facility] Address 399 [facility] [address] [place] [address] Phone Care Team Providers Care Thermite Bomb Loader Name Role Phone Lance Jack MD Unavailable Orly Marquez NP Unavailable [phone] Lacie Olivares MD Unavailable [phone] Marina Richey Primary Care Provider [phone] Lacie Olivares MD Unavailable [phone] Andi Wetzel DO Unavailable [phone] Encounter Details Date Type Department Care Team (Late st Contact Info) Description 12/15/2023 Procedure Pass [facility] Non-Invasive Cardiology [address] [place] [address] Social History Tobacco Use Types Packs/Day Years [...] st Contact Info) Description 06/05/2025 Procedure Pass [facility] Non-Invasive Cardiology [address] [place] [address] 06/05/2025 Procedure Pass [facility] Non-Invasive Cardiology [address] [place] [address] 10/05/2025 12:20 PM EST Office Visit [facility] Cardiovascular [address] 3rd [facility], [address] [address] Sundar Martinez MD, MS [address] [place] [address], [address] [address] 12/11/2025 12:20 PM EDT Appointment [facility] Non-Invasive Cardiology [address] [place] [address] [place] [address] Abhay Tamayo MD [address] [place] [address], [address] [address] 12/11/2025 12:40 PM EDT Office Visit [facility] Cardiovascular [address] 3rd [facility], [address] [place] [address] Abhay Tamayo MD [address] [place] [address], [address] [address] documented as of this encounter Visit Diagnoses Not on filedocumented in this encounter Additional Health Concerns Assessment Noted Time PHQ-9 Depression Total Score: 11 022 9:47 AM EST PHQ-2 Depression Total Score: 3 10/14/19 22 9:47 AM EST documented as of this encounter Care Teams Thermite Bomb Loader Relationship Specialty Start Date End Date Marina Richey PA [address] [place] [address] PCP - General Nursery Supervisor 08/31/22 Lance Jack MD [email or web address] Historical LMR Provider 07/15/17 Orly Marquez NP 238 [place] [address] Historical LMR Provider 07/15/17 Lacie Olivares MD [address] [place] [address] [email or web address] Consulting Provider Geriatric Medicine 07/24/21 08/07/25 Lacie Olivares MD 238 [place] [address] Geriatric Medicine 07/31/24 08/07/25 Andi Wetzel DO 22 [place] [address] Geriatric Medicine 08/08/25 documented as of this encounter Additional Source Comments The information contained in this document represents components of the legal health record. It is not the complete legal health record.[facility]
--- OUTSIDE RECORDS SUMMARY | 2025-09-25 18:15 | XMS_ITS | Encounter Summary ---
Author Organization [facility] Address 399 [facility] [address] [place] [address] Phone Care Team Providers Care Cement Mason Maintenance Name Role Phone Orly Marquez NP Primary Care Provider Lanec Jack MD Unavailable [phone] Jael Rodriguez Unavailable [email or web address] Orly Marquez NP Unavailable Jose Hansen NP Unavailable Flower Jacobson MD Unavailable [phone] Romy Donis MD Primary Care Provider [phone] Lacie Olivares MD Unavailable [phone] Marina Richey Primary Care Provider [phone] Lacie Olivares MD Unavailable [phone] Andi Wetzel DO Unavailable [phone] Encounter Details Date Type Department Care Team (Late st Contact Info) Description 04/25/2019 Ancillary Orders [facility] [address] [place] [address] Lance Jack MD [address] [place] [address] [email or web address] SSS (sick sinus syndrome) Social History Tobacco [...] Procedure Pass [facility] Card[facility] [address] [place] [address] 06/05/2025 Procedure Pass [facility] Non-Invasive Cardiology [address] [place] [address] 10/05/2025 12:20 PM EST Office Visit [facility] [address] [place] [address] 3rd [facility], [address] [place] [address] Sundar Martinez MD, MS [address] [place] [address], [address] [address] [email or web address] 12/11/2025 12:20 PM EDT Appointment [facility] Non-Invasive Cardiology [address] [place] [address] [place] [address] Abhay Tamayo MD [address] [place] [address], [address] [address] 12/11/2025 12:40 PM EDT Office Visit [facility] [address] [place] [address] 3rd [facility], [address] [place] [address] Abhay Tamayo MD [address] [place] [address], [address] [address] Pending Results Name Type Priority Associated Diagnoses [...] dysfunction documented in this encounter Care Teams Cement Mason Maintenance Relationship Specialty Start Date End Date Orly Marquez NP [address] [place] [address] PCP - General 07/15/17 06/11/21 Romy Donis MD [address] [place] [address] Orthopedics & Sports Medicine, [place] [address] [email or web address] PCP - General Family Medicine 06/12/21 08/30/22 Marina Richey PA [address] [place] [address] PCP - General Solar Installation Supervisor 08/31/22 Lance Jack MD [address] [place] [address] [email or web address] Historical LMR Provider 07/15/17 Jael Rodriguez PA Historical LMR Provider 07/15/17 10/04/21 Orly Marquez NP [address] [place] [address] Historical LMR Provider 07/15/17 Jose Hansen NP [address] [place] [phone] Historical LMR Provider 07/15/17 2 Flower Jacobson MD 4 [facility] Orthopedics & Sports [facility], [place] [address] Historical LMR Provider 07/15/17 10/04/21 Lacie Olivares MD [address] [place] [address] Orthopedics Sports [facility], [place] [address] [email or web address] Consulting Provider Geriatric Medicine 07/24/21 08/07/25 Lacie Olivares MD [address] [place] [address] Orthopedics Sports [facility], [place] [address] Geriatric Medicine 07/31/24 08/07/25 Andi Wetzel DO 22 [place] [address] [email or web address] Geriatric Medicine 08/08/25 documented as of this encounter Additional Source Comments The information contained in this document represents components of the legal health record. It is not the complete legal health record.[facility]
--- OUTSIDE RECORDS SUMMARY | 2025-09-25 18:15 | XMS_ITS | Encounter Summary ---
Author Organization [facility] Address [address] [address] Phone Care Team Providers Care Wind Farm Designer Name Role Phone Orly Marquez NP Primary Care Provider [phone] Lance Jack MD Unavailable [phone] Jael Rodriguez Unavailable [email or web address] Orly Marquez NP Unavailable [phone] Jose Hansen NP Unavailable [phone] Flower Jacobson MD Unavailable [phone] Romy Donis MD Primary Care Provider [phone] Lacie Olivares MD Unavailable [phone] Marina Richey Primary Care Provider [phone] Lacie Olivares MD Unavailable [phone] Andi Wetzel DO Unavailable [phone] Encounter Details Date Type Department Care Team (Late st Contact Info) Description 03/10/2019 Procedure Pass [facility] Interventional Radiology 30 [place] [address] Social History Tobacco Use Types Packs/Day Years [...] st Contact Info) Description 06/05/2025 Procedure Pass [facility] Non-Invasive Cardiology [address] [place] [address] 06/05/2025 Procedure Pass [facility] Non-Invasive Cardiology [address] [place] [address] 10/05/2025 12:20 PM EST Office Visit [facility] [address] [place] [address] [place] [address], [address] [address] Sundar Martinez MD, MS [address] [place] [address] 12/11/2025 12:20 PM EDT Appointment [facility] Non-Invasive Cardiology [address] [place] [address] [place] [address] Abhay Tamayo MD [address] [place] [address], [address] [address] 12/11/2025 12:40 PM EDT Office Visit [facility] Cardiovascular [address] [place] [address], [address] [address] Abhay Tamayo MD [address] [place] [address] documented as of this encounter Visit Diagnoses Not on filedocumented in this encounter Care Teams Wind Farm Designer Relationship Specialty Start Date End Date Orly Marquez NP [address] [place] [address] PCP - General 07/15/17 06/11/21 Romy Donis MD [address] [place] [address] Orthopedics & Sports Medicine, [place] [address] [email or web address] PCP - General Family Medicine 06/12/21 08/30/22 Marina Richey PA 238 [place] [address] PCP - General Marine Water Tender 08/31/22 Lance Jack MD 238 [place] [address] [email or web address] Historical LMR Provider 07/15/17 Jael Rodriguez PA Historical LMR Provider 07/15/17 10/04/21 Orly Marquez NP [address] [place] [address] Historical LMR Provider 07/15/17 Jose Hansen NP [address] [place] [phone] Historical LMR Provider 07/15/17 Flower Smith MD [address] [place] [address] [facility], [place] [address] Historical LMR Provider 07/15/17 10/04/21 Lacie Olivares MD [address] [place] [address] [facility] Medicine, [place] [address] Consulting Provider Geriatric Medicine 07/24/21 08/07/25 Lacie Olivares MD [address] [place] [address] Orth[facility] Sports Medicine, [place] [address] [email or web address] Geriatric Medicine 07/31/24 08/07/25 Andi Wetzel DO [address] [place] [address] [email or web address] Geriatric Medicine 08/08/25 documented as of this encounter Additional Source Comments The information contained in this document represents components of the legal health record. It is not the complete legal health record.[facility]
--- OUTSIDE RECORDS SUMMARY | 2025-09-25 18:15 | XMS_ITS | Encounter Summary ---
Author Organization [facility] Address [address] [facility] [address] [place] [address] Phone Care Team Providers Care Weigher Packing Name Role Phone Lance Jack MD Unavailable Orly Marquez NP Unavailable [phone] Lacie Olivares MD Unavailable [phone] Marina Richey Primary Care Provider [phone] Lacie Olivares MD Unavailable [phone] Andi Wetzel DO Unavailable [phone] Encounter Details Date Type Department Care Team (Late st Contact Info) Description 06/16/2023 Procedure Pass [facility] [address] [place] [address] Social History Tobacco Use Types Packs/Day Years [...] st Contact Info) Description 06/05/2025 Procedure Pass [facility] Non-Invasive Cardiology [address] [place] [address] 06/05/2025 Procedure Pass [facility] Non-Invasive Cardiology [address] [place] [address] 10/05/2025 12:20 PM EST Office Visit [facility] [address] 3rd [facility], [address] [address] Sundar Martinez MD, [place] [address] [place] [address], [address] [address] [email or web address] 12/11/2025 12:20 PM EDT Appointment [facility] Non-Invasive Cardiology [address] [place] [address] [place] [address] Abhay Tamayo MD [address] [place] [address], [address] [address] 12/11/2025 12:40 PM EDT Office Visit [facility] [address] 3rd [facility], [address] [place] [address] Abhay Tamayo MD [address] [place] [address], [address] [address] documented as of this encounter Visit Diagnoses Not on filedocumented in this encounter Additional Health Concerns Assessment Noted Time PHQ-9 Depression Total Score: 11 022 9:47 AM EST PHQ-2 Depression Total Score: 3 10/14/19 22 9:47 AM EST documented as of this encounter Care Teams Weigher Packing Relationship Specialty Start Date End Date Marina Richey PA [address] [place] [address] PCP - General Supervisor Pul[employer] 08/31/22 Lance Jack MD [email or web address] Historical LMR Provider 07/15/17 Orly Marquez NP [address] [place] [address] Historical LMR Provider 07/15/17 Lacie Olivares MD [address] [place] [address] [email or web address] Consulting Provider Geriatric Medicine 07/24/21 08/07/25 Lacie Olivares MD [address] [place] [address] Geriatric Medicine 07/31/24 08/07/25 Andi Wetzel DO [address] [place] [address] Geriatric Medicine 08/08/25 documented as of this encounter Additional Source Comments The information contained in this document represents components of the legal health record. It is not the complete legal health record.[facility]
--- OUTSIDE RECORDS SUMMARY | 2025-09-25 18:15 | XMS_ITS | Encounter Summary ---
Author Organization [facility] Address [address] [place] [address] [place] [address] Phone Care Team Providers Care Deputy Director Of Finance Name Role Phone Lance Jack MD Unavailable Orly Marquez NP Unavailable [phone] Lacie Olivares MD Unavailable [phone] Marina Richey Primary Care Provider [phone] Lacie Olivares MD Unavailable [phone] Andi Wetzel DO Unavailable [phone] Encounter Details Date Type Department Care Team (Late st Contact Info) Description 12/16/2022 Procedure Pass [facility] [address] [place] [address] Social History Tobacco Use Types Packs/Day Years [...] Procedure Pass [facility] [address] [place] [address] 06/05/2025 Procedure Pass [facility] Non-Invasive Cardiology [address] [place] [address] 10/05/2025 12:20 PM EST Office Visit [facility] [address] 3rd Floor, [address] [place] [address] Sundar Martinez MD, [place] [address] [place] [address], [address] [address] [email or web address] 12/11/2025 12:20 PM EDT Appointment [facility] Non-Invasive Cardiology [address] [place] [address] [place] [address] Abhay Tamayo MD [address] [place] [address], [address] [address] 12/11/2025 12:40 PM EDT Office Visit [facility] [address] 3rd Floor, [address] [place] [address] Abhay Tamayo MD [address] [place] [address], [address] [address] documented as of this encounter Visit Diagnoses Not on filedocumented in this encounter Additional Health Concerns Assessment Noted Time PHQ-9 Depression Total Score: 11 022 9:47 AM EST PHQ-2 Depression Total Score: 3 10/14/19 22 9:47 AM EST documented as of this encounter Care Teams Deputy Director Of Finance Relationship Specialty Start Date End Date Marina Richey PA [address] [place] [address] PCP - General Traffic Investigator 08/31/22 Lance Jack MD [email or web address] Historical LMR Provider 07/15/17 Orly Marquez NP [address] [place] [address] Historical LMR Provider 07/15/17 Lacie Olivares MD [address] [place] [address] [email or web address] Consulting Provider Geriatric Medicine 07/24/21 08/07/25 Lacie Olivares MD [address] [place] [address] [email or web address] Geriatric Medicine 07/31/24 08/07/25 Andi Wetzel DO [address] [place] [address] [email or web address] Geriatric Medicine 08/08/25 documented as of this encounter Additional Source Comments The information contained in this document represents components of the legal health record. It is not the complete legal health record.[facility]
--- OUTSIDE RECORDS SUMMARY | 2025-09-25 18:15 | XMS_ITS | Encounter Summary ---
Author Organization [facility] Address [address] [place] [address] Phone Care Team Providers Care General Office Worker Name Role Phone Lance Jack MD Unavailable [phone] Orly Marquez NP Unavailable [phone] Romy Donis MD Primary Care Provider [phone] Lacie Olivares MD Unavailable [phone] Marina Richey Primary Care Provider + [phone] Lacie Olivares MD Unavailable [phone] Andi Wetzel DO Unavailable [phone] Encounter Details Date Type Department Care Team (Late st Contact Info) Description 07/18/2022 Procedure Pass [facility], Ct Scan - [address] [address] Social History Tobacco Use Types Packs/Day Years [...] Procedure Pass [facility] [address] [place] [address] 06/05/2025 Procedure Pass [facility] [address] [place] [address] 10/05/2025 12:20 PM EST Office Visit [facility] [address] [place] [address] 3rd Floor, [address] [place] [address] Sundar Martinez MD, MS [address] [place] [address], [address] [address] 12/11/2025 12:20 PM EDT Appointment [facility] Non-Invasive Cardiology [address] [place] [address] Abhay Tamayo MD [address] [place] [address] 12/11/2025 12:40 PM EDT Office Visit [facility] [address] 3rd [facility], [address] [place] [address] Abhay Tamayo MD [address] [place] [address], [address] [address] documented as of this encounter Visit Diagnoses Not on filedocumented in this encounter Additional Health Concerns Assessment Noted Time PHQ-9 Depression Total Score: 11 022 9:47 AM EST PHQ-2 Depression Total Score: 3 10/14/19 22 9:47 AM EST documented as of this encounter Care Teams General Office Worker Relationship Specialty Start Date End Date Romy Donis MD [address] [place] [address] PCP - General Family Medicine 06/12/21 08/30/22 Marina Richey PA [address] [place] [address] PCP - General Track Mechanic 08/31/22 Lance Jack MD [email or web address] Historical LMR Provider 07/15/17 Orly Marquez NP [address] [place] [address] Historical LMR Provider 07/15/17 Lacie Olivares MD [address] [place] [address] Consulting Provider Geriatric Medicine 07/24/21 08/07/25 Lacie Olivares MD [address] [place] [address] Geriatric Medicine 07/31/24 08/07/25 Andi Wetzel DO [address] [place] [address] Geriatric Medicine 08/08/25 documented as of this encounter Additional Source Comments The information contained in this document represents components of the legal health record. It is not the complete legal health record.[facility]
--- OUTSIDE RECORDS SUMMARY | 2025-09-25 18:15 | XMS_ITS | Encounter Summary ---
Author Organization [facility] Address [address] [address] Phone Care Team Providers Care Bonded Strand Operator Name Role Phone Orly Marquez NP Primary Care Provider Lance Jack MD Unavailable Jael Rodriguez Unavailable [email or web address] Orly Marquez NP Unavailable Jose Hansen NP Unavailable Flower Jacobson MD Unavailable Romy Donis MD Primary Care Provider [phone] Lacie Olivares MD Unavailable [phone] Marina Richey Primary Care Provider [phone] Lacie Olivares MD Unavailable [phone] Andi Wetzel DO Unavailable [phone] Encounter Details Date Type Department Care Team (Late st Contact Info) Description 12/17/2020 Ancillary Orders [facility] [address] [place] [address] Shreyas Lu MD 30 [facility] [place] [address] [email or web address] Sick sinus syndrome Social History Tobacco Use [...] Procedure Pass [facility] [address] [place] [address] 06/05/2025 Procedure Pass [facility] [address] [place] [address] 10/05/2025 12:20 PM EST Office Visit [facility] [address] [place] [address] [place] [address], [address] [place] [address] Sundar Martinez MD, MS [address] [place] [address] 12/11/2025 12:20 PM EDT Appointment [facility] [address] [place] [address] Abhay Tamayo MD [address] [place] [address] 12/11/2025 12:40 PM EDT Office Visit [facility] [address] [place] [address] 3rd [facility], [address] [place] [address] Abhay Tamayo MD [address] [place] [address] documented as of this encounter Results * DEVICE CHECK: PPM IN-HOME INTERROGATION (12/17/2020 3:23 PM EDT) Narrative Shreyas Lu MD - 12/22/2020 2:20 PM EDT Reason for appointment: Remote pacemaker interrogation HPI: Routine 3 month remote pacemaker interrogation. No device related complaints. Indication for device: SSS. Examination: Device type: Pacemaker Yarn Examiner Skeins: [employer] Mode: DDDR LRL/UPL: 60/130 bpm Mode [...] dysfunction documented in this encounter Care Teams Bonded Strand Operator Relationship Specialty Start Date End Date Orly Marquez NP [address] [place] [address] PCP - General 07/15/17 06/11/21 Romy Donis MD [address] [place] [address] [facility], [place] [address] [email or web address] PCP - General Family Medicine 06/12/21 08/30/22 Marina Richey PA [address] [place] [address] PCP - General Invoicing Specialist 08/31/22 Lance Jack MD [address] [place] [address] [email or web address] Historical LMR Provider 07/15/17 Jael Rodriguez PA Historical LMR Provider 07/15/17 10/04/21 Orly Marquez NP [address] [place] [address] Historical LMR Provider 07/15/17 Jose Hansen NP [address] [place] [address] [address] [place] [address] Historical LMR Provider 07/15/17 2 Flower Jacobson MD [address] [place] [address] [facility], [place] [address] Historical LMR Provider 07/15/17 10/04/21 Lacie Olivares MD [address] [place] [address] [facility], [place] [address] Consulting Provider Geriatric Medicine 07/24/21 08/07/25 Lacie Olivares MD [address] [place] [address], [place] [address] Geriatric Medicine 07/31/24 08/07/25 Andi Wetzel DO [address] [place] [address] Geriatric Medicine 08/08/25 documented as of this encounter Additional Source Comments The information contained in this document represents components of the legal health record. It is not the complete legal health record.[facility]
--- OUTSIDE RECORDS SUMMARY | 2025-09-25 18:15 | XMS_ITS | Encounter Summary ---
Author Organization [facility] Address [address] [address] Phone Care Team Providers Care Social Worker Clinical Name Role Phone Orly Marquez NP Primary Care Provider [phone] Lance Jack MD Unavailable [phone] Jael Rodriguez Unavailable [email or web address] Orly Marquez NP Unavailable [phone] Jose Hansen NP Unavailable [phone] Flower Jacobson MD Unavailable [phone] Romy Donis MD Primary Care Provider [phone] Lacie Olivares MD Unavailable [phone] Marina Richey Primary Care Provider [phone] Lacie Olivares MD Unavailable [phone] Andi Wetzel DO Unavailable [phone] Encounter Details Date Type Department Care Team (Late st Contact Info) Description 04/18/2019 Procedure Pass [facility], [address] [address] Social History Tobacco Use Types Packs/Day Years [...] st Contact Info) Description 06/05/2025 Procedure Pass [facility] Non-Invasive Cardiology [address] [place] [address] 06/05/2025 Procedure Pass [facility] Non-Invasive Cardiology [address] [place] [address] 10/05/2025 12:20 PM EST Office Visit [facility] [address] [place] [address], [address] [address] Sundar Martinez MD, MS [address] [place] [address] 12/11/2025 12:20 PM EDT Appointment [facility] Non-Invasive Cardiology [address] [place] [address] [place] [address] Abhay Tamayo MD [address] [place] [address], [address] [address] 12/11/2025 12:40 PM EDT Office Visit [facility] Cardiovascular [address], [address] [address] Abhay Tamayo MD [address] [place] [address] documented as of this encounter Visit Diagnoses Not on filedocumented in this encounter Care Teams Social Worker Clinical Relationship Specialty Start Date End Date Orly Marquez NP [address] [place] [address] PCP - General 07/15/17 06/11/21 Romy Donis MD [address] [place] [address] [facility] [address] [email or web address] PCP - General Family Medicine 06/12/21 08/30/22 Marina Richey PA [address] [place] [address] PCP - General Communication Signals Intelligence 08/31/22 Lance Jack MD [address] [place] [address] [email or web address] Historical LMR Provider 07/15/17 Jael Rodriguez PA Historical LMR Provider 07/15/17 10/04/21 Orly Marquez NP [address] [place] [address] Historical LMR Provider 07/15/17 Jose Hansen, MARIAN [address] [place] [phone] Historical LMR Provider 07/15/17 Flower Smith MD [address] [place] [address] [facility], [place] [address] [email or web address] Historical LMR Provider 07/15/17 10/04/21 Lacie Olivares MD [address] [place] [address] [facility] [place] [id number] [email or web address] Consulting Provider Geriatric Medicine 07/24/21 08/07/25 Lacie Olivares MD [address] [place] [address] [facility], [place] [address] [email or web address] Geriatric Medicine 07/31/24 08/07/25 Andi Wetzel DO [address] [place] [address] [email or web address] Geriatric Medicine 08/08/25 documented as of this encounter Additional Source Comments The information contained in this document represents components of the legal health record. It is not the complete legal health record.[facility]
--- OUTSIDE RECORDS SUMMARY | 2025-09-25 18:15 | XMS_ITS | Encounter Summary ---
Author Organization [facility] Address [address] [facility] [address] [place] [address] Phone Care Team Providers Care Mail Distribution Clerk Name Role Phone Lance Jack MD Unavailable Orly Marquez NP Unavailable [phone] Lacie Olivares MD Unavailable [phone] Marina Richey Primary Care Provider [phone] Lacie Olivares MD Unavailable [phone] Andi Wetzel DO Unavailable [phone] Encounter Details Date Type Department Care Team (Late st Contact Info) Description 05/08/2024 Procedure Pass [facility], Ct Scan - [address] [address] Social History Tobacco Use Types Packs/Day Years [...] st Contact Info) Description 06/05/2025 Procedure Pass [facility] Non-Invasive Cardiology [address] [place] [address] 06/05/2025 Procedure Pass [facility] Non-Invasive Cardiology [address] [place] [address] 10/05/2025 12:20 PM EST Office Visit [facility] [address] [place] [address] 3rd [facility], [address] [address] Sundar Martinez MD, MS [address] [place] [address] 12/11/2025 12:20 PM EDT Appointment [facility] Non-Invasive Cardiology [address] [place] [address] [place] [address] Abhay Tamayo MD [address] [place] [address] 12/11/2025 12:40 PM EDT Office Visit [facility] Cardiovascular [address] 3rd [facility], [address] [place] [address] Abhay Tamayo MD [address] [place] [address] documented as of this encounter Visit Diagnoses Not on filedocumented in this encounter Additional Health Concerns Assessment Noted Time PHQ-9 Depression Total Score: 11 022 9:47 AM EST PHQ-2 Depression Total Score: 3 10/14/19 22 9:47 AM EST documented as of this encounter Care Teams Mail Distribution Clerk Relationship Specialty Start Date End Date Marina Richey PA [address] [place] [address] PCP - General Digitizer Operator 08/31/22 Lance Jack MD [email or web address] Historical LMR Provider 07/15/17 Orly Marquez NP [address] [place] [address] Historical LMR Provider 07/15/17 Lacie Olivares MD [address] [place] [address] [email or web address] Consulting Provider Geriatric Medicine 07/24/21 08/07/25 Lacie Olivares MD [address] [place] [address] Geriatric Medicine 07/31/24 08/07/25 Andi Wetzel DO [address] [place] [address] Geriatric Medicine 08/08/25 documented as of this encounter Additional Source Comments The information contained in this document represents components of the legal health record. It is not the complete legal health record.[facility]
--- OUTSIDE RECORDS SUMMARY | 2025-09-25 18:15 | XMS_ITS | Encounter Summary ---
Author Organization [facility] Address [address] [place] [address] Phone Care Team Providers Care Slurry Plant Operator Name Role Phone Lance Jack MD Unavailable [phone] Orly Marquez NP Unavailable [phone] Romy Donis MD Primary Care Provider [phone] Lacie Olivares MD Unavailable [phone] Marina Richey Primary Care Provider + [phone] Lacie Olivares MD Unavailable [phone] Andi Wetzel DO Unavailable [phone] Encounter Details Date Type Department Care Team (Late st Contact Info) Description 02/26/2022 Procedure Pass [facility] [address] [place] [address] Social History Tobacco Use Types Packs/Day Years [...] Description 06/05/2025 Procedure Pass [facility] Non-Invasive Cardiology [address] [place] [address] 06/05/2025 Procedure Pass [facility] Non-Invasive Cardiology [address] [place] [address] 10/05/2025 12:20 PM EST Office Visit [facility] [address] [place] [address] 3rd Floor, [address] [place] [address] Sundar Martinez MD, MS [address] [place] [address], [address] [address] 12/11/2025 12:20 PM EDT Appointment [facility] Non-Invasive Cardiology [address] [place] [address] [place] [address] Abhay Tamayo MD [address] [place] [address], [address] [address] 12/11/2025 12:40 PM EDT Office Visit [facility] [address] 3rd [facility], [address] [place] [address] Abhay Tamayo MD [address] [place] [address], [address] [address] documented as of this encounter Visit Diagnoses Not on filedocumented in this encounter Additional Health Concerns Assessment Noted Time PHQ-9 Depression Total Score: 11 022 9:47 AM EST PHQ-2 Depression Total Score: 3 10/14/19 22 9:47 AM EST documented as of this encounter Care Teams Slurry Plant Operator Relationship Specialty Start Date End Date Romy Donis MD [address] [place] [address] PCP - General Family Medicine 06/12/21 08/30/22 Marina Richey PA [address] [place] [address] PCP - General Airframe And Powerplant Technician 08/31/22 Lance Jack MD [email or web address] Historical LMR Provider 07/15/17 Orly Marquez NP [address] [place] [address] Historical LMR Provider 07/15/17 Lacie Olivares MD [address] [place] [address] Consulting Provider Geriatric Medicine 07/24/21 08/07/25 Lacie Olivares MD [address] [place] [address] Geriatric Medicine 07/31/24 08/07/25 Andi Wetzel DO [address] [place] [address] Geriatric Medicine 08/08/25 documented as of this encounter Additional Source Comments The information contained in this document represents components of the legal health record. It is not the complete legal health record.[facility]
--- OUTSIDE RECORDS SUMMARY | 2025-09-25 18:15 | XMS_ITS | Encounter Summary ---
Author Organization [facility] Address [address] [place] [address] Phone Care Team Providers Care Information Technology Data Analyst Name Role Phone Lance Jack MD Unavailable [phone] Orly Marquez NP Unavailable [phone] Romy Donis MD Primary Care Provider [phone] Lacie Olivares MD Unavailable [phone] Marina Richey Primary Care Provider [phone] Lacie Olivares MD Unavailable [phone] Andi Wetzel DO Unavailable [phone] Encounter Details Date Type Department Care Team (Late st Contact Info) Description 07/19/2022 Procedure Pass [facility] [address] [place] [address] Social History Tobacco Use Types Packs/Day Years [...] st Contact Info) Description 06/05/2025 Procedure Pass [facility] Non-Invasive Cardiology [address] [place] [address] 06/05/2025 Procedure Pass [facility] Non-Invasive Cardiology [address] [place] [address] 10/05/2025 12:20 PM EST Office Visit [facility] [address] [place] [address] 3rd [facility], [address] [place] [address] Sundar Martinez MD, [place] [address] [place] [address], [address] [address] 12/11/2025 12:20 PM EDT Appointment [facility] Non-Invasive Cardiology [address] [place] [address] Abhay Tamayo MD [address] [place] [address] 12/11/2025 12:40 PM EDT Office Visit [facility] [address] 3rd [facility], [address] [place] [address] Abhay Tamayo MD [address] [place] [address], [address] [address] documented as of this encounter Visit Diagnoses Not on filedocumented in this encounter Additional Health Concerns Assessment Noted Time PHQ-9 Depression Total Score: 11 022 9:47 AM EST PHQ-2 Depression Total Score: 3 10/14/19 22 9:47 AM EST documented as of this encounter Care Teams Information Technology Data Analyst Relationship Specialty Start Date End Date Romy Donis MD [address] [place] [address] PCP - General Family Medicine 06/12/21 08/30/22 Marina Richey PA [address] [place] [address] PCP - General Historic Sites Supervisor 08/31/22 Lance Jack MD [email or web address] Historical LMR Provider 07/15/17 Orly Marquez NP [address] [place] [address] Historical LMR Provider 07/15/17 Lacie Olivares MD [address] [place] [address] [email or web address] Consulting Provider Geriatric Medicine 07/24/21 08/07/25 Lacie Olivares MD [address] [place] [address] Geriatric Medicine 07/31/24 08/07/25 Andi Wetzel DO 22 [place] [address] Geriatric Medicine 08/08/25 documented as of this encounter Additional Source Comments The information contained in this document represents components of the legal health record. It is not the complete legal health record.[facility]
--- OUTSIDE RECORDS SUMMARY | 2025-09-25 18:15 | XMS_ITS | Encounter Summary ---
Author Organization [facility] Address 399 [facility] [address] [place] [address] Phone Care Team Providers Care Supervisor Transferring And Boxing Name Role Phone Lance Jack MD Unavailable [phone] Orly Marquez NP Unavailable [phone] Lacie Olivares MD Unavailable [phone] Marina Richey Primary Care Provider [phone] Lacie Olivares MD Unavailable [phone] Andi Wetzel DO Unavailable [phone] Reason for Referral * MRI/CAT Scan - Closed Specialty Diagnoses / Procedures Referred By Contac t Referred To Contact Radiology Diagnoses Low back pain, unspecified back pain laterality, unspecified chronicity, unspecified whether sciatica present Procedures CT Lumbar Spine Marina Richey PA [address] [place] [address] Phone: tel: fax: Referral ID Status Reason Start Date Expiration Date Visits Re quested Visits Authorized [id number] Closed 03/12/2025 03/12/2026 1 1 Encounter Details Date Type Department Care Team (Latest Contact Info) Description 03/12/2025 Transcribe Orders [facility] Department 30 [place] [address] Marina Richey PA [address] [place] [phone] Low back pain, unspecified back pain laterality, [...] Procedure Pass [facility] [address] [place] [address] 06/05/2025 Procedure Pass [facility] [address] [place] [address] 10/05/2025 12:20 PM EST Office Visit [facility] [address] [place] [address] [facility], [address] [place] [address] Sundar Martinez MD, MS 22 [facility], [address] [place] [address] 12/11/2025 12:20 PM EDT Appointment [facility] Non-Invasive Cardiology [address] [place] [address] [place] [address] Abhay Tamayo MD [address] [place] [address], [address] [place] [address] 12/11/2025 12:40 PM EDT Office Visit [facility] [address], [address] [place] [address] Abhay Tamayo MD [address] [place] [address], [address] [place] [address] documented as of this encounter Results * [...] documented as of this encounter Care Teams Supervisor Transferring And Boxing Relationship Specialty Start Date End Date Marina Richey PA [address] [place] [address] PCP - General Audio Visual Aide 08/31/22 Lance Jack MD [email or web address] Historical LMR Provider 07/15/17 Orly Marquez NP [address] [place] [address] Historical LMR Provider 07/15/17 Lacie Olivares MD [address] [place] [address] [email or web address] Consulting Provider Geriatric Medicine 07/24/21 08/07/25 Lacie Olivares MD [address] [place] [address] [email or web address] Geriatric Medicine 07/31/24 08/07/25 Andi Wetzel DO [address] [place] [address] [email or web address] Geriatric Medicine 08/08/25 documented as of this encounter Additional Source Comments The information contained in this document represents components of the legal health record. It is not the complete legal health record.[facility]
--- OUTSIDE RECORDS SUMMARY | 2025-09-25 18:15 | XMS_ITS | Encounter Summary ---
Author Organization [facility] Address [address] [address] Phone Care Team Providers Care Bank Runner Name Role Phone Orly Marquez NP Primary Care Provider Lance Jack MD Unavailable [phone] Jael Rodriguez Unavailable [email or web address] Orly Marquez NP Unavailable Jose Hansen NP Unavailable [phone] Flower Jacobson MD Unavailable [phone] Romy Donis MD Primary Care Provider [phone] Lacie Olivares MD Unavailable [phone] Marina Richey Primary Care Provider [phone] Lacie Olivares MD Unavailable [phone] Andi Wetzel DO Unavailable [phone] Encounter Details Date Type Department Care Team (Latest Contact Info) Description 04/30/2020 Ancillary Orders [facility] 30 [place] [address] Lance Jack MD 22 [place] [address] [email or web address] SSS (sick sinus syndrome) Social [...] Procedure Pass [facility] [address] [place] [address] 06/05/2025 Procedure Pass [facility] [address] [place] [address] 10/05/2025 12:20 PM EST Office Visit [facility] [address] [place] [address] 3rd [facility], [address] [place] [address] Sundar Martinez MD, MS [address] [place] [address], [address] [address] [email or web address] 12/11/2025 12:20 PM EDT Appointment [facility] Non-Invasive Cardiology [address] [place] [address] [place] [address] Abhay Tamayo MD [address] [place] [address], [address] [address] 12/11/2025 12:40 PM EDT Office Visit [facility] [address] [place] [address] 3rd [facility], [address] [place] [address] Abhay Tamayo MD [address] [place] [address], [address] [address] Pending Results Name Type Priority Associated Diagnoses [...] dysfunction documented in this encounter Care Teams Bank Runner Relationship Specialty Start Date End Date Orly Marquez NP [address] [place] [address] PCP - General 07/15/17 06/11/21 Romy Donis MD [address] [place] [address] [facility], [place] [address] [email or web address] PCP - General Family Medicine 06/12/21 08/30/22 Marina Richey PA [address] [place] [address] PCP - General Videotape Operator 08/31/22 Lance Jack MD [address] [place] [address] [email or web address] Historical LMR Provider 07/15/17 Jael Rodriguez PA Historical LMR Provider 07/15/17 10/04/21 Orly Marquez NP [address] [place] [address] Historical LMR Provider 07/15/17 Jose Hansen NP [address] [place] [phone] Historical LMR Provider 07/15/17 2 Flower Jacobson MD 4 [facility], [place] [address] [email or web address] Historical LMR Provider 07/15/17 10/04/21 Lacie Olivares MD [address] [place] [address] [facility], [place] [address] [email or web address] Consulting Provider Geriatric Medicine 07/24/21 08/07/25 Lacie Olivares MD [address] [place] [address] [facility], [place] [address] Geriatric Medicine 07/31/24 08/07/25 Andi Wetzel DO 22 [place] [address] [email or web address] Geriatric Medicine 08/08/25 documented as of this encounter Additional Source Comments The information contained in this document represents components of the legal health record. It is not the complete legal health record.[facility]
--- OUTSIDE RECORDS SUMMARY | 2025-09-25 18:15 | XMS_ITS | Clinical Summary ---
Author Organization [facility] Address [address] [place] [address] Care Team Providers Care Fruit Grader Name Role Phone Romy Donis MD Primary Care Provider [phone] Social History Tobacco Use Types Packs/Day Years [...] 50+ Years Completed 07/15/2017, 11/05/2015, 08/26/2005 Insurance [facility] Medicare Care Teams Fruit Grader Relationship Specialty Start Date End Date Romy Donis MD [address] [place] [address] [phone] PCP - General Family Medicine 07/21/22
--- OUTSIDE RECORDS SUMMARY | 2025-09-25 18:15 | XMS_ITS | Clinical Summary ---
Author Organization [facility] Prior to 02/24/[address] [place] [address] Care Team Providers Care Epidemiologist Name Role Phone Unavailable Primary Care Provider Unavailabl e Social History Tobacco Use Types Packs/Day Years Used Date Smoking Tobacco: Never Assessed Sex and Gender Information Value Date Recorded Sex Assigned at Not on file Gender Identity Not on file Sexual Orientation Not on file Plan of Treatment Not on file
--- OUTSIDE RECORDS SUMMARY | 2025-09-25 18:15 | XMS_ITS | Encounter Summary ---
Author Organization [facility] Address [address] [address] Phone Care Team Providers Care Particle Board Supervisor Name Role Phone Orly Marquez NP Primary Care Provider [phone] Lance Jack MD Unavailable [phone] Jael Rodriguez Unavailable [email or web address] Orly Marquez NP Unavailable [phone] Jose Hansen NP Unavailable [phone] Flower Jacobson MD Unavailable [phone] Romy Donis MD Primary Care Provider [phone] Lacie Olivares MD Unavailable [phone] Marina Richey Primary Care Provider [phone] Lacie Olivares MD Unavailable [phone] Andi Wetzel DO Unavailable [phone] Reason for Referral * MRI/CAT Scan - Closed Specialty Diagnoses / Procedures Referred By Lydia brush Referred To Contact Radiology Diagnoses Other amnesia Poor short term memory Procedures MRI Brain Orly Marquez NP Phone: tel: Referral ID Status Reason Start Date Expiration Date Visits Re quested Visits Authorized [id number] Closed 04/17/2019 06/15/2019 1 1 Encounter Details Date Type Department Care Team (Late st Contact Info) Description 04/18/2019 Transcribe Orders Virtual Department 30 [place] [address] Orly Marquez NP 238 [place] [address] Other amnesia (Primary Dx); Poor short term [...] Contact Info) Description 06/05/2025 Procedure Pass [facility] [address] [place] [address] 06/05/2025 Procedure Pass [facility] [address] [place] [address] 10/05/2025 12:20 PM EST Office Visit [facility] [address] [place] [address] 3rd [facility], [address] [place] [address] Sundar Martinez MD, MS 22 [facility], [address] [address] 12/11/2025 12:20 PM EDT Appointment [facility] Non-Invasive Cardiology [address] [place] [address] [place] [address] Abhay Tamayo MD 22 [facility], [address] [address] 12/11/2025 12:40 PM EDT Office Visit [facility] [address] [place] [address] 3rd Floor, [address] [place] [address] Abhay Tamayo MD 22 [facility], [address] [place] [address] documented as of this encounter Results * [...] ischemic disease. POS - [id number] Orly Marquez DIGITAL LEARNING PLATFORMS MANAGER IMG MR HEAD/NECK Final Result documented in this encounter Visit Diagnoses Diagnosis Other amnesia- Primary Poor short term memory Memory loss Other amnesia Poor short term memory Memory loss documented in this encounter Care Teams Particle Board Supervisor Relationship Specialty Start Date End Date Orly Marquez, MARIAN [address] [place] [address] PCP - General 07/15/17 06/11/21 Romy Donis MD [address] [place] [address] [facility], [place] [address] [email or web address] PCP - General Family Medicine 06/12/21 08/30/22 Marina Richey PA [address] [place] [address] PCP - General Psychological Anthropologist 08/31/22 Lance Jack MD 238 [place] [address] [email or web address] Historical LMR Provider 07/15/17 Jael Rodriguez PA Historical LMR Provider 07/15/17 10/04/21 Orly Marquez DIGITAL LEARNING PLATFORMS MANAGER [address] [place] [address] Historical LMR Provider 07/15/17 Jose Hansen, MARIAN [address] [place] [address] [address] Historical LMR Provider 07/15/17 2 Flower Jacobson MD [address] [place] [address] Orthopedics & Sports [facility], [place] [address] Historical LMR Provider 07/15/17 10/04/21 Lacie Olivares MD [address] [place] [address] [facility], [place] [address] Consulting Provider Geriatric Medicine 07/24/21 08/07/25 Lacie Olivares MD [address] [place] [address] Orthopedics Sports [facility], [place] [address] Geriatric Medicine 07/31/24 08/07/25 Andi Wetzel DO 22 [place] [address] Geriatric Medicine 08/08/25 documented as of this encounter Additional Source Comments The information contained in this document represents components of the legal health record. It is not the complete legal health record.[facility]
--- OUTSIDE RECORDS SUMMARY | 2025-09-25 18:15 | XMS_ITS | Encounter Summary ---
Author Organization [facility] Address [address] [address] Phone Care Team Providers Care Concrete Pump Operator Name Role Phone Lance Jack MD Unavailable Orly Marquez NP Unavailable [phone] Lacie Olivares MD Unavailable [phone] Marina Richey Primary Care Provider [phone] Lacie Olivares MD Unavailable [phone] Andi Wetzel DO Unavailable [phone] Encounter Details Date Type Department Care Team (Latest Contact Info) Description 11/18/2023 Transcribe Orders Virtual Department 30 [place] [address] [place], [place] [address] [address] Radiculopathy, lumbar region (Primary Dx); Spondylosis, unspecified [...] Procedure Pass [facility] [address] [place] [address] 06/05/2025 Procedure Pass [facility] [address] [place] [address] 10/05/2025 12:20 PM EST Office Visit [facility] [address] [place] [address] 3rd [facility], [address] [place] [address] Sundar Martinez MD, MS [address] [place] [address], [address] [address] [email or web address] 12/11/2025 12:20 PM EDT Appointment [facility] Non-Invasive Cardiology [address] [place] [address] Abhay Tamayo MD [address] [place] [address], [address] [address] 12/11/2025 12:40 PM EDT Office Visit [facility] [address] 3rd [facility], [address] [place] [address] Abhay Tamayo MD [address] [place] [address], [address] [address] documented as of this encounter Visit Diagnoses Diagnosis Radiculopathy, lumbar region- Primary Thoracic or lumbosacral neuritis or radiculitis, unspecified Spondylosis, unspecified documented in this encounter Additional Health Concerns Assessment Noted Time PHQ-9 Depression Total Score: 11 022 9:47 AM EST PHQ-2 Depression Total Score: 3 10/14/19 22 9:47 AM EST documented as of this encounter Care Teams Concrete Pump Operator Relationship Specialty Start Date End Date Marina Richey PA 238 [place] [address] PCP - General Extension Service Agent 08/31/22 Lance Jack MD [email or web address] Historical LMR Provider 07/15/17 Orly Marquez NP 238 [place] [address] Historical LMR Provider 07/15/17 Lacie Olivares MD 238 [place] [address] [email or web address] Consulting Provider Geriatric Medicine 07/24/21 08/07/25 Lacie Olivares MD 238 [place] [address] [email or web address] Geriatric Medicine 07/31/24 08/07/25 Andi Wetzel DO 22 [place] [address] [email or web address] Geriatric Medicine 08/08/25 documented as of this encounter Additional Source Comments The information contained in this document represents components of the legal health record. It is not the complete legal health record.[facility]
--- OUTSIDE RECORDS SUMMARY | 2025-09-25 18:15 | XMS_ITS | Encounter Summary ---
Author Organization [facility] Address 399 [facility] [address] [place] [address] Phone Care Team Providers Care Roads Supervisor Name Role Phone Lance Jack MD Unavailable Orly Marquez NP Unavailable [phone] Lacie Olivares MD Unavailable [phone] Marina Richey Primary Care Provider [phone] Lacie Olivarse MD Unavailable [phone] Andi Wetzel DO Unavailable [phone] Encounter Details Date Type Department Care Team (Late st Contact Info) Description 06/16/2023 Procedure Pass [facility] [address] [place] [address] Social History Tobacco Use Types Packs/Day Years [...] st Contact Info) Description 06/05/2025 Procedure Pass [facility] Non-Invasive Cardiology [address] [place] [address] 06/05/2025 Procedure Pass [facility] Non-Invasive [facility]iology [address] [place] [address] 10/05/2025 12:20 PM EST Office Visit [facility] [address] 3rd [facility], [address] [address] Sundar Martinez MD, MS [address] [place] [address], [address] [address] [email or web address] 12/11/2025 12:20 PM EDT Appointment [facility] Non-Invasive Cardiology [address] [place] [address] [place] [address] Abhay Tamayo MD [address] [place] [address], [address] [address] 12/11/2025 12:40 PM EDT Office Visit [facility] [address] 3rd [facility], [address] [place] [address] Abhay Tamayo MD [address] [place] [address], [address] [address] documented as of this encounter Visit Diagnoses Not on filedocumented in this encounter Additional Health Concerns Assessment Noted Time PHQ-9 Depression Total Score: 11 022 9:47 AM EST PHQ-2 Depression Total Score: 3 10/14/19 22 9:47 AM EST documented as of this encounter Care Teams Roads Supervisor Relationship Specialty Start Date End Date Marina Richey PA [address] [place] [address] PCP - General V/Stol Landing Signal Officer 08/31/22 Lance Jack MD [email or web address] Historical LMR Provider 07/15/17 Orly Marquez NP 238 [place] [address] Historical LMR Provider 07/15/17 Lacie Olivares MD [address] [place] [address] [email or web address] Consulting Provider Geriatric Medicine 07/24/21 08/07/25 Lacie Olivares MD 238 [place] [address] Geriatric Medicine 07/31/24 08/07/25 Andi Wetzel DO 22 [place] [address] Geriatric Medicine 08/08/25 documented as of this encounter Additional Source Comments The information contained in this document represents components of the legal health record. It is not the complete legal health record.[facility]
--- OUTSIDE RECORDS SUMMARY | 2025-09-25 18:15 | XMS_ITS | Encounter Summary ---
Author Organization [facility] Address [address] [place] [address] Phone Care Team Providers Care Supervisor Carbon Paper Coating Name Role Phone Lance Jack MD Unavailable [phone] Orly Marquez NP Unavailable [phone] Romy Donis MD Primary Care Provider [phone] Lacie Olivares MD Unavailable [phone] Marina Richey Primary Care Provider + [phone] Lacie Olivares MD Unavailable [phone] Andi Wetzel DO Unavailable [phone] Encounter Details Date Type Department Care Team (Late st Contact Info) Description 10/21/2021 Procedure Pass [facility] [address] [place] [address] Social History Tobacco Use Types Packs/Day Years [...] st Contact Info) Description 06/05/2025 Procedure Pass [facility] Non-Invasive Cardiology [address] [place] [address] 06/05/2025 Procedure Pass [facility] Non-Invasive Cardiology [address] [place] [address] 10/05/2025 12:20 PM EST Office Visit [facility] [address] [place] [address] 3rd Floor, [address] [place] [address] Sundar Martinez MD, MS [address] [place] [address], [address] [address] 12/11/2025 12:20 PM EDT Appointment [facility] Non-Invasive Cardiology [address] [place] [address] [place] [address] Abhay Tamayo MD [address] [place] [address], [address] [address] 12/11/2025 12:40 PM EDT Office Visit [facility] [address] 3rd [facility], [address] [place] [address] Abhay Tamayo MD [address] [place] [address], [address] [address] documented as of this encounter Visit Diagnoses Not on filedocumented in this encounter Additional Health Concerns Assessment Noted Time PHQ-9 Depression Total Score: 11 022 9:47 AM EST PHQ-2 Depression Total Score: 3 10/14/19 22 9:47 AM EST documented as of this encounter Care Teams Supervisor Carbon Paper Coating Relationship Specialty Start Date End Date Romy Donis MD [address] [place] [address] PCP - General Family Medicine 06/12/21 08/30/22 Marina Richey PA 238 [place] [address] PCP - General Oracle Business Intelligence Developer 08/31/22 Lance Jack MD [email or web address] Historical LMR Provider 07/15/17 Orly Marquez NP 238 [place] [address] Historical LMR Provider 07/15/17 Lacie Olivares MD [address] [place] [address] Consulting Provider Geriatric Medicine 07/24/21 08/07/25 Lacie Olivares MD [address] [place] [address] Geriatric Medicine 07/31/24 08/07/25 Andi Wetzel DO 22 [place] [address] Geriatric Medicine 08/08/25 documented as of this encounter Additional Source Comments The information contained in this document represents components of the legal health record. It is not the complete legal health record.[facility]
--- OUTSIDE RECORDS SUMMARY | 2025-09-25 18:15 | XMS_ITS | Encounter Summary ---
Author Organization [facility] Address [address] [facility] [address] [place] [address] Phone Care Team Providers Care Well Tender Name Role Phone Lance Jack MD Unavailable Orly Marquez NP Unavailable [phone] Lacie Olivares MD Unavailable [phone] Marina Richey Primary Care Provider [phone] Lacie Olivares MD Unavailable [phone] Andi Wetzel DO Unavailable [phone] Reason for Referral * MRI/CAT Scan - Closed Specialty Diagnoses / Procedures Referred By Conthermes t Referred To Contact Radiology Diagnoses Cervicalgia Spondylosis, unspecified Cervicogenic headache Procedures CT Cervical Spine Sanya Delacruz PA [address] [address] Phone: tel: fax: Referral ID Status Reason Start Date Expiration Date Visits Re quested Visits Authorized [id number] Closed 05/08/2024 05/08/2025 1 1 Encounter Details Date Type Department Care Team (Latest Contact Info) Description 05/08/2024 Transcribe Orders [facility] Department 30 [place] [address] Sanya Delacruz PA [address] [address] Cervicalgia (Primary Dx); Spondylosis, unspecified; Cervicogenic headache [...] 06/05/2025 Procedure Pass [facility] [address] [place] [address] [place] [address] 06/05/2025 Procedure Pass [facility] [address] [place] [address] [place] [address] 10/05/2025 12:20 PM EST Office Visit [facility] [address] [place] [address] 3rd Floor, [address] [place] [address] Sundar Martinez MD, MS 22 [facility], [address] [address] 12/11/2025 12:20 PM EDT Appointment [facility] [place] [address] Abhay Tamayo MD 22 [facility], [address] [address] [email or web address] 12/11/2025 12:40 PM EDT Office Visit [facility] [address] 3rd Floor, [address] [place] [address] Abhay Tamayo MD 22 [facility], [address] [place] [address] documented as of this encounter Results * [...] documented as of this encounter Care Teams Well Tender Relationship Specialty Start Date End Date Marina Richey PA [address] [place] [address] PCP - General Econometrics Professor 08/31/22 Lance Jack MD [email or web address] Historical LMR Provider 07/15/17 Orly Marquez NP 238 [place] [address] Historical LMR Provider 07/15/17 Lacie Olivares MD 238 [place] [address] [email or web address] Consulting Provider Geriatric Medicine 07/24/21 08/07/25 Lacie Olivares MD 238 [place] [address] Geriatric Medicine 07/31/24 08/07/25 Andi Wetzel DO 22 [place] [address] [email or web address] Geriatric Medicine 08/08/25 documented as of this encounter Additional Source Comments The information contained in this document represents components of the legal health record. It is not the complete legal health record.[facility]
--- OUTSIDE RECORDS SUMMARY | 2025-09-25 18:15 | XMS_ITS | Encounter Summary ---
Author Organization [facility] Address [address] [place] [address] Phone Care Team Providers Care Maori Liaison Adviser Name Role Phone Lance Jack MD Unavailable [phone] Orly Marquez NP Unavailable [phone] Romy Donis MD Primary Care Provider [phone] Lacie Olivares MD Unavailable [phone] Marina Richey Primary Care Provider + [phone] Lacie Olivares MD Unavailable [phone] Andi Wetzel DO Unavailable [phone] Encounter Details Date Type Department Care Team (Late st Contact Info) Description 02/03/2022 Procedure Pass [facility] [address] [place] [address] Social History Tobacco Use Types Packs/Day Years [...] st Contact Info) Description 06/05/2025 Procedure Pass [facility] Non-Invasive Cardiology [address] [place] [address] 06/05/2025 Procedure Pass [facility] Non-Invasive Cardiology [address] [place] [address] 10/05/2025 12:20 PM EST Office Visit [facility] [address] [place] [address] 3rd Floor, [address] [place] [address] Sundar Martinez MD, MS [address] [place] [address], [address] [address] 12/11/2025 12:20 PM EDT Appointment [facility] Non-Invasive Cardiology [address] [place] [address] [place] [address] Abhay Tamayo MD [address] [place] [address], [address] [address] 12/11/2025 12:40 PM EDT Office Visit [facility] [address] 3rd [facility], [address] [place] [address] Abhay Tamayo MD [address] [place] [address], [address] [address] documented as of this encounter Visit Diagnoses Not on filedocumented in this encounter Additional Health Concerns Assessment Noted Time PHQ-9 Depression Total Score: 11 022 9:47 AM EST PHQ-2 Depression Total Score: 3 10/14/19 22 9:47 AM EST documented as of this encounter Care Teams Maori Liaison Adviser Relationship Specialty Start Date End Date Romy Donis MD [address] [place] [address] PCP - General Family Medicine 06/12/21 08/30/22 Marina Richey PA 238 [place] [address] PCP - General E Commerce Project Manager 08/31/22 Lance Jack MD [email or web address] Historical LMR Provider 07/15/17 Orly Marquez NP 238 [place] [address] Historical LMR Provider 07/15/17 Lacie Olivares MD [address] [place] [address] Consulting Provider Geriatric Medicine 07/24/21 08/07/25 Lacie Olivares MD [address] [place] [address] Geriatric Medicine 07/31/24 08/07/25 Andi Wetzel DO 22 [place] [address] Geriatric Medicine 08/08/25 documented as of this encounter Additional Source Comments The information contained in this document represents components of the legal health record. It is not the complete legal health record.[facility]
--- OUTSIDE RECORDS SUMMARY | 2025-09-25 18:15 | XMS_ITS | Encounter Summary ---
Author Organization [facility] Address [address] [place] [address] Phone Care Team Providers Care Brine Mixer Operator Name Role Phone Lance Jack MD Unavailable [phone] Orly Marquez NP Unavailable [phone] Romy Donis MD Primary Care Provider [phone] Lacie Olivares MD Unavailable [phone] Marina Richey Primary Care Provider + [phone] Lacie Olivares MD Unavailable [phone] Andi Wetzel DO Unavailable [phone] Encounter Details Date Type Department Care Team (Late st Contact Info) Description 07/18/2022 Procedure Pass [facility], Ct Scan - [address] [address] Social History Tobacco Use Types Packs/Day Years [...] Procedure Pass [facility] [address] [place] [address] 06/05/2025 Procedure Pass [facility] [address] [place] [address] 10/05/2025 12:20 PM EST Office Visit [facility] [address] [place] [address] 3rd Floor, [address] [place] [address] Sundar Martinez MD, MS [address] [place] [address], [address] [address] 12/11/2025 12:20 PM EDT Appointment [facility] Non-Invasive Cardiology [address] [place] [address] Abhay Tamayo MD [address] [place] [address] 12/11/2025 12:40 PM EDT Office Visit [facility] [address] 3rd [facility], [address] [place] [address] Abhya Tamayo MD [address] [place] [address], [address] [address] documented as of this encounter Visit Diagnoses Not on filedocumented in this encounter Additional Health Concerns Assessment Noted Time PHQ-9 Depression Total Score: 11 022 9:47 AM EST PHQ-2 Depression Total Score: 3 10/14/19 22 9:47 AM EST documented as of this encounter Care Teams Brine Mixer Operator Relationship Specialty Start Date End Date Romy Donis MD [address] [place] [address] PCP - General Family Medicine 06/12/21 08/30/22 Marina Richey PA 238 [place] [address] PCP - General Edge Blacker 08/31/22 Lance Jack MD [email or web address] Historical LMR Provider 07/15/17 Orly Marquez NP 238 [place] [address] Historical LMR Provider 07/15/17 Lacie Olivares MD [address] [place] [address] Consulting Provider Geriatric Medicine 07/24/21 08/07/25 Lacie Olivares MD [address] [place] [address] Geriatric Medicine 07/31/24 08/07/25 Andi Wetzel DO 22 [place] [address] Geriatric Medicine 08/08/25 documented as of this encounter Additional Source Comments The information contained in this document represents components of the legal health record. It is not the complete legal health record.[facility]
--- OUTSIDE RECORDS SUMMARY | 2025-09-25 18:15 | XMS_ITS | Encounter Summary ---
Author Organization [facility] Address [address] [address] Phone Care Team Providers Care Armament Installer Name Role Phone Orly Marquez NP Primary Care Provider [phone] Lance Jack MD Unavailable [phone] Jael Rodriguez Unavailable [email or web address] Orly Marquez NP Unavailable [phone] Jose Hansen NP Unavailable [phone] Flower Jacobson MD Unavailable [phone] Romy Donis MD Primary Care Provider [phone] Lacie Olivares MD Unavailable [phone] Marina Richey Primary Care Provider [phone] Lacie Olivares MD Unavailable [phone] Andi Wetzel DO Unavailable [phone] Encounter Details Date Type Department Care Team (Late st Contact Info) Description 04/30/2020 Procedure Pass [facility], [address] [address] Social History Tobacco Use Types Packs/Day Years [...] st Contact Info) Description 06/05/2025 Procedure Pass [facility] Non-Invasive Cardiology [address] [place] [address] 06/05/2025 Procedure Pass [facility] Non-Invasive Cardiology [address] [place] [address] 10/05/2025 12:20 PM EST Office Visit [facility] [address] [place] [address], [address] [address] Sundar Martinez MD, MS [address] [place] [address] 12/11/2025 12:20 PM EDT Appointment [facility] Non-Invasive Cardiology [address] [place] [address] [place] [address] Abhay Tamayo MD [address] [place] [address], [address] [address] 12/11/2025 12:40 PM EDT Office Visit [facility] [address], [address] [address] Abhay Tamayo MD [address] [place] [address] documented as of this encounter Visit Diagnoses Not on filedocumented in this encounter Care Teams Armament Installer Relationship Specialty Start Date End Date Orly Marquez NP [address] [place] [address] PCP - General 07/15/17 06/11/21 Romy Donis MD [address] [place] [address] [facility] [place] [address] [email or web address] PCP - General Family Medicine 06/12/21 08/30/22 Marina Richey PA 238 [place] [address] PCP - General Forest Fire Prevention Specialist 08/31/22 Lance Jack MD 238 [place] [address] [email or web address] Historical LMR Provider 07/15/17 Jael Rodriguez PA Historical LMR Provider 07/15/17 10/04/21 Orly Marquez NP [address] [place] [address] Historical LMR Provider 07/15/17 Jose Hansen, MARIAN [address] [place] [phone] Historical LMR Provider 07/15/17 Flower Smith MD [address] [place] [address] [facility], [place] [address] [email or web address] Historical LMR Provider 07/15/17 10/04/21 Lacie Olivares MD [address] [place] [address] [facility] [place], [place] [address] [email or web address] Consulting Provider Geriatric Medicine 07/24/21 08/07/25 Lacie Olivares MD [address] [place] [address] [facility], [place] [address] [email or web address] Geriatric Medicine 07/31/24 08/07/25 Andi Wetzel DO [address] [place] [address] [email or web address] Geriatric Medicine 08/08/25 documented as of this encounter Additional Source Comments The information contained in this document represents components of the legal health record. It is not the complete legal health record.[facility]
--- OUTSIDE RECORDS SUMMARY | 2025-09-25 18:15 | XMS_ITS | Encounter Summary ---
Author Organization [facility] Address [address] [address] Phone Care Team Providers Care Filler Block Inserter Remover Name Role Phone Orly Marquez NP Primary Care Provider [phone] Lance Jack MD Unavailable [phone] Jael Rodriguez Unavailable [email or web address] Orly Maqruez NP Unavailable [phone] Jose Hansen NP Unavailable [phone] Flower Jacobson MD Unavailable [phone] Romy Donis MD Primary Care Provider [phone] Lacie Olivares MD Unavailable [phone] Marina Richey Primary Care Provider [phone] Lacie Olivares MD Unavailable [phone] Andi Wetzel DO Unavailable [phone] Reason for Referral * MRI/CAT Scan - Closed Specialty Diagnoses / Procedures Referred By Lydia brush Referred To Contact Radiology Diagnoses Lumbar radiculopathy Procedures MRI Lumbar Spine Ethan Guillory DO Phone: tel: fax: [email or web address] Referral ID Status Reason Start Date Expiration Date Visits Re quested Visits Authorized [id number] Closed 03/06/2020 07/02/2020 1 1 Encounter Details Date Type Department Care Team (Latest Contact Info) Description 04/30/2020 Ancillary Orders Virtual Department 30 [place] [address] Ethan Guillory DO [address] [place] [address] [email or web address] Social History Tobacco Use Types [...] 06/05/2025 Procedure Pass [facility] [address] [place] [address] [place] [address] 06/05/2025 Procedure Pass [facility] [address] [place] [address] [place] [address] 10/05/2025 12:20 PM EST Office Visit [facility] [address] [place] [address] 3rd Floor, [address] [place] [address] Sundar Martinez MD, MS [address] [place] [address] 12/11/2025 12:20 PM EDT Appointment [facility] [address] [place] [address] [place] [address] Abhay Tamayo MD [address] [place] [address], [address] [address] [email or web address] 12/11/2025 12:40 PM EDT Office Visit [facility] 3rd Floor, [address] [place], [place] [address] Abhay Tamayo MD 22 [facility], [address] [place] [address] documented as of this encounter Results * [...] vertebral body compression deformity apparent. POS - [id number] Narrative 05/21/2020 1:36 PM EDT TECHNIQUE: Exam [...] edema underlying the inferior L1 and superior V5pkamqrtbd, most pronounced the left of midline and [...] without vertebral bodycompression deformity apparent. POS - [id number] Ethan Guillory DO IMG MR XSPECIALTY Final Resu lt documented in this encounter Visit Diagnoses Diagnosis Lumbar radiculopathy Thoracic or lumbosacral neuritis or radiculitis, unspecified Lumbar radiculopathy Thoracic or lumbosacral neuritis or radiculitis, unspecified documented in this encounter Care Teams Filler Block Inserter Remover Relationship Specialty Start Date End Date Orly Marquez NP [address] [place] [address] PCP - General 07/15/17 06/11/21 Romy Donis MD [address] [place] [address] [facility], [place] [address] [email or web address] PCP - General Family Medicine 06/12/21 08/30/22 Marina Richey PA [address] [place] [address] PCP - General Enterprise Systems Engineer 08/31/22 Lance Jack MD [address] [place] [address] [email or web address] Historical LMR Provider 07/15/17 Jael Rodriguez PA Historical LMR Provider 07/15/17 10/04/21 Orly Marquez NP [address] [place] [address] Historical LMR Provider 07/15/17 Jose Hansen NP [address] [place] [address] 21 [place] [address] Historical LMR Provider 07/15/17 2 Flower Jacobson MD [address] [place] [address] [address] [facility], [place] [address] Historical LMR Provider 07/15/17 10/04/21 Lacie Olivares MD [address] [place] [address] Consulting Provider Geriatric Medicine 07/24/21 08/07/25 Lacie Olivares MD [address] [place] [address], [place] [address] Geriatric Medicine 07/31/24 08/07/25 Andi Wetzel DO 22 [place] [address] Geriatric Medicine 08/08/25 documented as of this encounter Additional Source Comments The information contained in this document represents components of the legal health record. It is not the complete legal health record.[facility]
--- OUTSIDE RECORDS SUMMARY | 2025-09-25 18:16 | XMS_ITS | Encounter Summary ---
Author Organization [facility] Address [address] [facility] [address] [place] [address] Phone Care Team Providers Care Tow Motor Operator Name Role Phone Lance Jack MD Unavailable Orly Marquez NP Unavailable [phone] Lacie Olivares MD Unavailable [phone] Marina Richey Primary Care Provider [phone] Lacie Olivares MD Unavailable [phone] Adni Wetzel DO Unavailable [phone] Encounter Details Date Type Department Care Team (Late st Contact Info) Description 11/21/2024 Procedure Pass [facility], Ct Scan - [address] [address] Social History Tobacco Use Types Packs/Day Years [...] st Contact Info) Description 06/05/2025 Procedure Pass [facility] Non-Invasive Cardiology [address] [place] [address] 06/05/2025 Procedure Pass [facility] Non-Invasive Cardiology [address] [place] [address] 10/05/2025 12:20 PM EST Office Visit [facility] [address] [place] [address] 3rd [facility], [address] [address] Sundar Martinez MD, MS [address] [place] [address] 12/11/2025 12:20 PM EDT Appointment [facility] Non-Invasive Cardiology [address] [place] [address] [place] [address] Abhay Tamayo MD [address] [place] [address] 12/11/2025 12:40 PM EDT Office Visit [facility] [address] 3rd [facility], [address] [place] [address] Abhay Tamayo MD [address] [place] [address] documented as of this encounter Visit Diagnoses Not on filedocumented in this encounter Additional Health Concerns Assessment Noted Time PHQ-9 Depression Total Score: 11 022 9:47 AM EST PHQ-2 Depression Total Score: 3 10/14/19 22 9:47 AM EST documented as of this encounter Care Teams Tow Motor Operator Relationship Specialty Start Date End Date Marina Richey PA 238 [place] [address] PCP - General Pool Finisher 08/31/22 Lance Jack MD [email or web address] Historical LMR Provider 07/15/17 Orly Marquez NP 238 [place] [address] Historical LMR Provider 07/15/17 Lacie Olivares MD [address] [place] [address] [email or web address] Consulting Provider Geriatric Medicine 07/24/21 08/07/25 Lacie Olivares MD [address] [place] [address] Geriatric Medicine 07/31/24 08/07/25 Andi Wetzel DO 22 [place] [address] Geriatric Medicine 08/08/25 documented as of this encounter Additional Source Comments The information contained in this document represents components of the legal health record. It is not the complete legal health record.[facility]
--- OUTSIDE RECORDS SUMMARY | 2025-09-25 18:16 | XMS_ITS | Encounter Summary ---
Author Organization [facility] Address [address] [address] Phone Care Team Providers Care Client Account Representative Name Role Phone Orly Marquez NP Primary Care Provider [phone] Lance Jack MD Unavailable [phone] Jael Rodriguez Unavailable [email or web address] Orly Marquez NP Unavailable [phone] Jose Hansen NP Unavailable [phone] Flower Jacobson MD Unavailable [phone] Romy Donis MD Primary Care Provider [phone] Lacie Olivares MD Unavailable [phone] Marina Richey Primary Care Provider [phone] Lacie Olivares MD Unavailable [phone] Andi Wetzel DO Unavailable [phone] Encounter Details Date Type Department Care Team (Late st Contact Info) Description 05/23/2021 Procedure Pass [facility] [address] [place] [address] Social History Tobacco Use Types Packs/Day [...] st Contact Info) Description 06/05/2025 Procedure Pass [facility] Non-Invasive Cardiology [address] [place] [address] 06/05/2025 Procedure Pass [facility] Non-Invasive Cardiology 22 [place] [address] 10/05/2025 12:20 PM EST Office Visit [facility] [address], [address] [address] Sundar Martinez MD, [place] [address] [place] [address] [email or web address] 12/11/2025 12:20 PM EDT Appointment [facility] Non-Invasive Cardiology [address] [place] [address] [place] [address] Abhay Tamayo MD [address] [place] [address] [email or web address] 12/11/2025 12:40 PM EDT Office Visit [facility] [address], [address] [address] Abhay Tamayo MD [address] [place] [address] documented as of this encounter Visit Diagnoses Not on filedocumented in this encounter Care Teams Client Account Representative Relationship Specialty Start Date End Date Orly Marquez NP [address] [place] [address] PCP - General 07/15/17 06/11/21 Romy Donis MD [address] [place] [address] [facility], [place] [address] PCP - General Family Medicine 06/12/21 08/30/22 Marina Richey PA 238 [place] [address] PCP - General Abstract Manager 08/31/22 Lance Jack MD 238 [place] [address] [email or web address] Historical LMR Provider 07/15/17 Jael Rodriguez PA Historical LMR Provider 07/15/17 10/04/21 Orly Marquez NP [address] [place] [address] Historical LMR Provider 07/15/17 Jose Hansen, MARIAN [address] [place] [phone] Historical LMR Provider 07/15/17 Flower Smith MD [address] [place] [address] [facility] [place] [address] Historical LMR Provider 07/15/17 10/04/21 Lacie Olivares MD [address] [place] [address] [facility] [place] [address] Consulting Provider Geriatric Medicine 07/24/21 08/07/25 Lacie Olivares MD [address] [place] [address] [facility], [place] [address] [email or web address] Geriatric Medicine 07/31/24 08/07/25 Andi Wetzel DO [address] [place] [address] [email or web address] Geriatric Medicine 08/08/25 documented as of this encounter Additional Source Comments The information contained in this document represents components of the legal health record. It is not the complete legal health record.[facility]
--- OUTSIDE RECORDS SUMMARY | 2025-09-25 18:16 | XMS_ITS | Encounter Summary ---
Author Organization [facility] Address 399 [facility] [address] [place] [address] Phone Care Team Providers Care Director Appointment Name Role Phone Orly Marquez NP Primary Care Provider [phone] Lance Jack MD Unavailable [phone] Jael Rodriguez Unavailable [email or web address] Orly Marquez NP Unavailable [phone] Jose Hansen NP Unavailable Flower Jacobson MD Unavailable [phone] Romy Donis MD Primary Care Provider [phone] Lacie Olivares MD Unavailable [phone] Marina Richey Primary Care Provider [phone] Lacie Olivares MD Unavailable [phone] Andi Wetzel DO Unavailable [phone] Encounter Details Date Type Department Care Team (Late st Contact Info) Description 01/13/[address] [facility] [address] [place] [address] Lance Jack MD [address] [place] [address] [email or web address] Social History Tobacco Use Types Packs/Day Years [...] st Contact Info) Description 06/05/2025 Procedure Pass [facility] Non-Invasive Cardiology [address] [place] [address] 06/05/2025 Procedure Pass [facility] Non-Invasive Cardiology [address] [place] [address] 10/05/2025 12:20 PM EST Office Visit [facility] [address] [place] [address] [place] [address], [address] [place] [address] Sundar Martinez MD, MS [address] [place] [address] 12/11/2025 12:20 PM EDT Appointment [facility] Non-Invasive Cardiology [address] [place] [address] [place] [address] Abhay Tamayo MD [address] [place] [address] 12/11/2025 12:40 PM EDT Office Visit [facility] [address] [place] [address] 3rd [facility], [address] [place] [address] Abhay Tamayo MD [address] [place] [address] documented as of this encounter Visit Diagnoses Not on filedocumented in this encounter Care Teams Director Appointment Relationship Specialty Start Date End Date Orly Marquez NP 238 [place] [address] PCP - General 07/15/17 06/11/21 Romy Donis MD [address] [place] [address] Orthopedics Sports [facility], [place], [place] [id number] [email or web address] PCP - General Family Medicine 06/12/21 08/30/22 Marina Richey PA [address] [place] [address] PCP - General Manager Wellness 08/31/22 Lance Jack MD [address] [place] [address] [email or web address] Historical LMR Provider 07/15/17 Jael Rodriguez PA Historical LMR Provider 07/15/17 10/04/21 Orly Marquez YARD JOCKEY [address] [place] [address] Historical LMR Provider 07/15/17 Jose Hansen NP [address] [place] [address] [address] Historical LMR Provider 07/15/17 Flower Smith MD [address] [place] [address] Orthopedics & Sports [facility], [place], [place] [id number] Historical LMR Provider 07/15/17 10/04/21 Lacie Olivares MD [facility] Orth[facility]ics [facility] Sports Medicine, [facility] [place] [address] [email or web address] Consulting Provider Geriatric Medicine 07/24/21 08/07/25 Lacie Olivares MD [facility] Orthopedics & Sports [facility], [place] [address] [email or web address] Geriatric Medicine 07/31/24 08/07/25 Andi Wetzel DO [address] [place] [address] [email or web address] Geriatric Medicine 08/08/25 documented as of this encounter Additional Source Comments The information contained in this document represents components of the legal health record. It is not the complete legal health record.[facility]
--- OUTSIDE RECORDS SUMMARY | 2025-09-25 18:16 | XMS_ITS | Encounter Summary ---
Author Organization [facility] Address 399 [facility] [address] [place] [address] Phone Care Team Providers Care Internal Medicine Physician Name Role Phone Lance Jack MD Unavailable Orly Marquez NP Unavailable [phone] Lacie Olivares MD Unavailable [phone] Marina Richey Primary Care Provider [phone] Lacie Olivares MD Unavailable [phone] Andi Wetzel DO Unavailable [phone] Encounter Details Date Type Department Care Team (Late st Contact Info) Description 09/16/2023 Procedure Pass [facility] [address] [place] [address] Social History Tobacco Use Types Packs/Day Years [...] st Contact Info) Description 06/05/2025 Procedure Pass [facility] Non-Invasive Cardiology [address] [place] [address] 06/05/2025 Procedure Pass [facility] Non-Invasive Cardiology [address] [place] [address] 10/05/2025 12:20 PM EST Office Visit [facility] Cardiovascular [address] 3rd [facility], [address] [address] Sundar Martinez MD, MS [address] [place] [address], [address] [address] [email or web address] 12/11/2025 12:20 PM EDT Appointment [facility] Non-Invasive Cardiology [address] [place] [address] [place] [address] Abhay Tamayo MD [address] [place] [address], [address] [address] 12/11/2025 12:40 PM EDT Office Visit [facility] [address] 3rd [facility], [address] [place] [address] Abhay Tamayo MD [address] [place] [address], [address] [address] documented as of this encounter Visit Diagnoses Not on filedocumented in this encounter Additional Health Concerns Assessment Noted Time PHQ-9 Depression Total Score: 11 022 9:47 AM EST PHQ-2 Depression Total Score: 3 10/14/19 22 9:47 AM EST documented as of this encounter Care Teams Internal Medicine Physician Relationship Specialty Start Date End Date Marina Richey PA 238 [place] [address] PCP - General Vp [employer] 08/31/22 Lance Jack MD [email or web address] Historical LMR Provider 07/15/17 Orly Marquez NP 238 [place] [address] Historical LMR Provider 07/15/17 Lacie Olivares MD [address] [place] [address] [email or web address] Consulting Provider Geriatric Medicine 07/24/21 08/07/25 Lacie Olivares MD 238 [place] [address] Geriatric Medicine 07/31/24 08/07/25 Andi Wetzel DO 22 [place] [address] Geriatric Medicine 08/08/25 documented as of this encounter Additional Source Comments The information contained in this document represents components of the legal health record. It is not the complete legal health record.[facility]
--- OUTSIDE RECORDS SUMMARY | 2025-09-25 18:16 | XMS_ITS | Encounter Summary ---
Author Organization [facility] Address 399 [facility] [address] [place] [address] Phone Care Team Providers Care Senior Supply Chain Analyst Name Role Phone Lance Jack MD Unavailable Orly Marquez NP Unavailable [phone] Lacie Olivares MD Unavailable [phone] Marina Richey Primary Care Provider [phone] Lacie Olivares MD Unavailable [phone] Andi Wetzel DO Unavailable [phone] Encounter Details Date Type Department Care Team (Latest Contact Info) Description 05/11/2025 Transcribe Orders Virtual Department 30 [place], [place] [id number] Marina Richey PA [address] [place] [phone] Polymyalgia rheumatica (Primary Dx) Social History Tobacco [...] 06/05/2025 Procedure [facility] [address] [place] [address] [place] [address] 06/05/2025 Procedure Pass [facility] [address] [place] [address] 10/05/2025 12:20 PM EST Office Visit [facility] [address] [place] [address] 3rd Floor, [address] [address] Sundar Martinez MD, [place] [address] [place] [address], [address] [address] 12/11/2025 12:20 PM EDT Appointment [facility] [place] [address] Abhay Tamayo MD [address] [place] [address], [address] [address] 12/11/2025 12:40 PM EDT Office Visit [facility] [address] [place] [address] 3rd Floor, [address] [place] [address] Abhay Tamayo MD 22 [facility], [address] [place] [address] [email or web address] documented as of this encounter Visit Diagnoses Diagnosis Polymyalgia rheumatica- Primary documented in this encounter Additional Health Concerns Assessment Noted Time PHQ-9 Depression Total Score: 11 022 9:47 AM EST PHQ-2 Depression Total Score: 3 10/14/19 22 9:47 AM EST documented as of this encounter Care Teams Senior Supply Chain Analyst Relationship Specialty Start Date End Date Marina Richey PA 238 [place] [address] PCP - General Salt Miner 08/31/22 aLnce Jack MD [email or web address] Historical LMR Provider 07/15/17 Orly Marquez NP 238 [place] [address] Historical LMR Provider 07/15/17 Lacie Olivares MD 238 [place] [address] [email or web address] Consulting Provider Geriatric Medicine 07/24/21 08/07/25 Lacie Olivares MD 238 [place] [address] [email or web address] Geriatric Medicine 07/31/24 08/07/25 Anid Wetzel DO 22 [place] [address] [email or web address] Geriatric Medicine 08/08/25 documented as of this encounter Additional Source Comments The information contained in this document represents components of the legal health record. It is not the complete legal health record.[facility]
--- OUTSIDE RECORDS SUMMARY | 2025-09-25 18:16 | XMS_ITS | Encounter Summary ---
Author Organization [facility] Address 399 [facility] [address] [place] [address] Phone Care Team Providers Care Business Process Representative Name Role Phone Orly Marquez NP Primary Care Provider [phone] Lance Jack MD Unavailable [phone] Jael Rodriguez Unavailable [email or web address] Orly Marquez NP Unavailable [phone] Jose Hansen NP Unavailable Flower Jacobson MD Unavailable [phone] Romy Donis MD Primary Care Provider [phone] Lacie Olivares MD Unavailable [phone] Marina Richey Primary Care Provider [phone] Lacie Olivares MD Unavailable [phone] Andi Wetzel DO Unavailable [phone] Encounter Details Date Type Department Care Team (Latest Contact Info) Description 09/07/2017 Transcribe Orders [facility] 22 [facility] 3rd Floor, [address] [place] [address] Lance Jack MD 22 [place] [address] [email or web address] Sick sinus syndrome (Primary Dx) [...] st Contact Info) Description 06/05/2025 Procedure Pass [facility] Non-Invasive Cardiology [address] [place] [address] 06/05/2025 Procedure Pass [facility] [place] Non-Invasive Cardiology [address] [place] [address] 10/05/2025 12:20 PM EST Office Visit [facility] [address] [place] [address] [place] [address], [address] [place] [address] Sundar Martinez MD, MS [address] [place] [address], [address] [address] 12/11/2025 12:20 PM EDT Appointment [facility] Non-Invasive Cardiology [address] [place] [address] [place] [address] Abhay Tamayo MD [address] [place] [address], [address] [address] 12/11/2025 12:40 PM EDT Office Visit [facility] [address] [place] [address] 3rd [facility], [address] [place] [address] Abhay Tamayo MD [address] [place] [address], [address] [address] documented as of this encounter Results * TTE COMPREHENSIVE (09/08/2017 12:50 PM EST) Body Surface Area 1.92 m2 Anatomical Region Laterality Modality Heart Ultrasound us Irwin Quinones MD CV ECHO ORDERABLES Final Re sult documented in this encounter Visit Diagnoses Diagnosis Sick sinus syndrome- Primary Sinoatrial node dysfunction documented in this encounter Care Teams Business Process Representative Relationship Specialty Start Date End Date Orly Marquez NP 238 [place] [address] PCP - General 07/15/17 06/11/21 Romy Donis MD [address] [place] [address] Orthopedics & Sports Medicine, [place] [address] [email or web address] PCP - General Family Medicine 06/12/21 08/30/22 Marina Richey PA [address] [place] [address] PCP - General Utility Manager 08/31/22 Lance Jack MD [address] [place] [address] [email or web address] Historical LMR Provider 07/15/17 Jael Rodriguez PA Historical LMR Provider 07/15/17 10/04/21 Orly Marquez NP [address] [place] [address] Historical LMR Provider 07/15/17 Jose Hansen NP [address] [place] [phone] Historical LMR Provider 07/15/17 2 Flower Jcaobson MD 4 [facility] Orthopedics & Sports [facility], [place] [address] Historical LMR Provider 07/15/17 10/04/21 Lacie Olivares MD [address] [place] [address] Orthopedics Sports [facility], [place] [address] [email or web address] Consulting Provider Geriatric Medicine 07/24/21 08/07/25 Lacie Olivares MD [address] [place] [address] Orthopedics Sports [facility], [place] [address] Geriatric Medicine 07/31/24 08/07/25 Andi Wetzel DO 22 [place] [address] [email or web address] Geriatric Medicine 08/08/25 documented as of this encounter Additional Source Comments The information contained in this document represents components of the legal health record. It is not the complete legal health record.[facility]
--- OUTSIDE RECORDS SUMMARY | 2025-09-25 18:16 | XMS_ITS | Encounter Summary ---
Author Organization [facility] Address 399 [facility] [address] [place] [address] Phone Care Team Providers Care Limousine And Hearse Upholsterer Name Role Phone Orly Marquez NP Primary Care Provider [phone] Lance Jack MD Unavailable [phone] Jael Rodriguez Unavailable [email or web address] Orly Marquez NP Unavailable Jose Hansen NP Unavailable [phone] Flower Jacobson MD Unavailable Romy Donis MD Primary Care Provider [phone] Lacie Olivares MD Unavailable [phone] Marina Richey Primary Care Provider [phone] Lacie Olivares MD Unavailable [phone] Andi Wetzel DO Unavailable [phone] Encounter Details Date Type Department Care Team (Latest Contact Info) Description 04/15/2021 Transcribe Orders [facility] EKG [address] [place], [place] [phone] Yefri Mccartney MD [address] [place], [place] [phone] [email or web address] Preop examination (Primary Dx) Social [...] Procedure [facility] [address] [place] [address] 06/05/2025 Procedure Pass [facility] [address] [place] [address] 10/05/2025 12:20 PM EST Office Visit [facility] [address] [place] [address] [place] [address], [address] [address] Sundar Martinez MD, MS [address] [place] [address] [email or web address] 12/11/2025 12:20 PM EDT Appointment [facility] Non-Invasive Cardiology [address] [place] [address] [place] [address] Abhay Tamayo MD [address] [place] [address], [address] [address] 12/11/2025 12:40 PM EDT Office Visit [facility] [address] [place] [address] 3rd [facility], [address] [address] Abhay Tamayo MD [address] [place] [address] documented as of this encounter Results * ECG 12-LEAD (04/15/2021 1:57 PM EDT) Ventricular Rate EKG/MIN 72 BPM [facility] Atrial Rate 72 BPM [facility] [place] Interval 180 ms [facility] QRS Duration 148 ms [facility] QT Interval 428 ms [facility] QTC Interval 468 ms [facility] P [place] 99 degrees [facility] R Wave [place] -67 degrees [facility] T Wave [place] 71 degrees [facility] 04/15/2021 1:57 PM EDT [...] examination documented in this encounter Care Teams Limousine And Hearse Upholsterer Relationship Specialty Start Date End Date Orly Marquez NP 238 [place] [address] PCP - General 07/15/17 06/11/21 Romy Donis MD [address] [place] [address] Orthopedics & Sports Medicine, [place] [address] [email or web address] PCP - General Family Medicine 06/12/21 08/30/22 Marina Richey PA 238 [place] [address] PCP - General Health And Wellness Manager 08/31/22 Lance Jack MD 238 [place] [address] [email or web address] Historical LMR Provider 07/15/17 Jael Rodriguez PA Historical LMR Provider 07/15/17 10/04/21 Orly Marquez CHILDREN'S MINISTER [address] [place] [address] Historical LMR Provider 07/15/17 Jose Hansen NP [address] [place], [place] [phone] Historical LMR Provider 07/15/17 2 Flower Jacobson MD [address] [place] [address] Orthopedics Sports [facility], [place] [address] [email or web address] Historical LMR Provider 07/15/17 10/04/21 Lacie Olivares MD [address] [place] [address], [place] [address] Consulting Provider Geriatric Medicine 07/24/21 08/07/25 Lacie Olivares MD [address] [place] [address] Orthopedics Sports [facility], [place] [address] Geriatric Medicine 07/31/24 08/07/25 Andi Wetzel DO 22 [place] [address] [email or web address] Geriatric Medicine 08/08/25 documented as of this encounter Additional Source Comments The information contained in this document represents components of the legal health record. It is not the complete legal health record.[facility]
--- OUTSIDE RECORDS SUMMARY | 2025-09-25 18:16 | XMS_ITS | Encounter Summary ---
Author Organization [facility] Address [address] [facility] [address] [place] [address] Phone Care Team Providers Care Revenue Agent Name Role Phone Oryl Marquez NP Primary Care Provider [phone] Lance Jack MD Unavailable [phone] Jael Rodriguez Unavailable [email or web address] Orly Marquez NP Unavailable [phone] Jose Hansen NP Unavailable [phone] Flower Jacobsno MD Unavailable [phone] Romy Donis MD Primary Care Provider [phone] Lacie Olivares MD Unavailable [phone] Marina Richey Primary Care Provider [phone] Lacie Olivares MD Unavailable [phone] Andi Wetzel DO Unavailable [phone] Encounter Details Date Type Department Care Team (Latest Contact Info) Description 02/06/2019 Prep for Surgery [facility] [address] [facility] 3rd Floor, [address] [place], [place] [phone] Lance Jack MD [address] [place] [address] [email or web address] Sick sinus syndrome (Primary Dx) Social [...] Procedure Pass [facility] [address] [place] [address] 06/05/2025 Procedure Pass [facility] [address] [place] [address] 10/05/2025 12:20 PM EST Office Visit [facility] [address] [place] [address] [place] [address], [address] [address] Sundar Martinez MD, [place] [address] [place] [address], [address] [address] [email or web address] 12/11/2025 12:20 PM EDT Appointment [facility] [address] [place] [address] [place] [address] Abhay Tamayo MD [address] [place] [address], [address] [address] 12/11/2025 12:40 PM EDT Office Visit [facility] [address] [place] [address] 3rd [facility], [address] [place] [address] Abhay Tamayo MD [address] [place] [address] documented as of this encounter Visit Diagnoses Diagnosis Sick sinus syndrome- Primary Sinoatrial node dysfunction documented in this encounter Care Teams Revenue Agent Relationship Specialty Start Date End Date Orly Marquez, MARIAN [address] [place] [address] PCP - General 07/15/17 06/11/21 Romy Donis MD [address] [place] [address] Orthopedics & Sports [facility], [place], [place] [id number] PCP - General Family Medicine 06/12/21 08/30/22 Marina Richey PA [address] [place] [address] PCP - General Flask Fitter 08/31/22 Lance Jack MD [address] [place] [address] [email or web address] Historical LMR Provider 07/15/17 Jael Rodriguez PA Historical LMR Provider 07/15/17 10/04/21 Orly Marquez EMERGENCY MEDICAL SERVICE MANAGER [address] [place] [address] Historical LMR Provider 07/15/17 Jose Hansen NP [address] [place] [address] Historical LMR Provider 07/15/17 Flower Smith MD [address] [place] [address] [facility] [place] [phone] Historical LMR Provider 07/15/17 10/04/21 Lacie Olivares MD 4 [facility] Orthopedics & Sports [facility], [place] [address] [email or web address] Consulting Provider Geriatric Medicine 07/24/21 08/07/25 Lacie Olivares MD 4 [facility] Orthopedics & Sports [facility], [place] [address] [email or web address] Geriatric Medicine 07/31/24 08/07/25 Andi Wetzel DO 22 [place] [address] [email or web address] Geriatric Medicine 08/08/25 documented as of this encounter Additional Source Comments The information contained in this document represents components of the legal health record. It is not the complete legal health record.[facility]
--- OUTSIDE RECORDS SUMMARY | 2025-09-25 18:16 | XMS_ITS | Encounter Summary ---
Author Organization [facility] Address [address] [facility] [address] [place] [address] Phone Care Team Providers Care Mounted Police Name Role Phone Orly Marquez NP Primary Care Provider Lance Jack MD Unavailable Jael Rodriguez Unavailable [email or web address] Orly Marquez NP Unavailable Jose Hansen NP Unavailable Flower Jacobson MD Unavailable Romy Donis MD Primary Care Provider [phone] Lacie Olivares MD Unavailable [phone] Marina Richey Primary Care Provider [phone] Lacie Olivares MD Unavailable [phone] Andi Wetzel DO Unavailable [phone] Encounter Details Date Type Department Care Team (Late st Contact Info) Description 12/17/2020 Ancillary Orders [facility] [address] 3rd Floor, [address] [place], [place] [phone] Shreyas Lu MD [address] [place] [address] [email or web address] Social History Tobacco Use Types Packs/Day Years [...] Contact Info) Description 06/05/2025 Procedure Pass [facility]-Invasive Cardiology [address] [place] [address] 06/05/2025 Procedure Pass [facility] Non-Invasive Cardiology [address] [place] [address] 10/05/2025 12:20 PM EST Office Visit [facility] [address] [place] [address] [place] [address], [address] [place] [address] Sundar Martinez MD, MS [address] [place] [address] 12/11/2025 12:20 PM EDT Appointment [facility] Cardiology [address] [place] [address] [place] [address] Abhay Tamayo MD [address] [place] [address] 12/11/2025 12:40 PM EDT Office Visit [facility] [address] [place] [address] 3rd [facility], [address] [place] [address] Abhay Tamayo MD [address] [place] [address] documented as of this encounter Visit Diagnoses Not on filedocumented in this encounter Care Teams Mounted Police Relationship Specialty Start Date End Date Orly Marquez NP 238 [place] [address] PCP - General 07/15/17 06/11/21 Romy Donis MD [address] [place] [address] Orthopedics Sports [facility], [place], [place] [address] [email or web address] PCP - General Family Medicine 06/12/21 08/30/22 Marina Richey PA [address] [place] [address] PCP - General Station Manager 08/31/22 Lance Jack MD [address] [place] [address] [email or web address] Historical LMR Provider 07/15/17 Jael Rodriguez PA Historical LMR Provider 07/15/17 10/04/21 Orly Marquez DRIVER SALES [address] [place] [address] Historical LMR Provider 07/15/17 Jose Hansen NP [address] [place] [address] [address] Historical LMR Provider 07/15/17 Flower Smith MD [address] [place] [address] Orthopedics & Sports [facility], [place], [place] [phone] Historical LMR Provider 07/15/17 10/04/21 Lacie Olivares MD 4 [place] [facility] Orthopedics & Sports Medicine, [facility] [place] [address] [email or web address] Consulting Provider Geriatric Medicine 07/24/21 08/07/25 Lacie Olivares MD 4 [facility] Orthopedics & Sports [facility], [place] [address] [email or web address] Geriatric Medicine 07/31/24 08/07/25 Andi Wetzel DO [address] [place] [address] [email or web address] Geriatric Medicine 08/08/25 documented as of this encounter Additional Source Comments The information contained in this document represents components of the legal health record. It is not the complete legal health record.[facility]
--- OUTSIDE RECORDS SUMMARY | 2025-09-25 18:16 | XMS_ITS | Encounter Summary ---
Author Organization [facility] Address [address] [address] Phone Care Team Providers Care Insurance Inspector Name Role Phone Lance Jack MD Unavailable Orly Marquez NP Unavailable [phone] Lacie Olivares MD Unavailable [phone] Marina Richey Primary Care Provider [phone] Lacie Olivares MD Unavailable [phone] Andi Wetzel DO Unavailable [phone] Reason for Referral * MRI/CAT Scan - Closed Specialty Diagnoses / Procedures Referred By Conthermes t Referred To Contact Radiology Diagnoses Nonintractable headache, unspecified chronicity pattern, unspecified headache type Nausea Vision changes Procedures CT Head Marina Richey PA [address] [place] [address] [place] [address] Phone: tel: fax: Referral ID Status Reason Start Date Expiration Date Visits Re quested Visits Authorized [id number] Closed 11/21/2024 11/21/2025 1 1 Encounter Details Date Type Department Care Team (Latest Contact Info) Description 11/21/2024 Transcribe Orders Virtual Department 30 [place], [place] [phone] Marina Richey PA [address] [place] [phone] Nonintractable headache, unspecified chronicity pattern, unspecified headache [...] 06/05/2025 Procedure Pass [facility] [address] [place] [address] [place] [address] 06/05/2025 Procedure Pass [facility] [address] [place] [address] 10/05/2025 12:20 PM EST Office Visit [facility] [address] [place] [address] 3rd Floor, [address] [place] [address] Sundar Martinez MD, MS 22 [facility], [address] [place] [address] 12/11/2025 12:20 PM EDT Appointment [facility] [address] [place] [address] [place] [address] Abhay Tamayo MD 22 [facility], [address] [place] [address] [email or web address] 12/11/2025 12:40 PM EDT Office Visit [facility] 22 [facility] 3rd Floor, [address] [place] [address] Abhay Tamayo MD 22 [facility], [address] [place] [address] [email or web address] documented as of this encounter Results * [...] clinician's provided indication for this examination in [facility]:Outside Radiology Order; headache TECHNIQUE: Multidetector-row CT [...] documented as of this encounter Care Teams Insurance Inspector Relationship Specialty Start Date End Date Marina Richey PA [address] [place] [address] PCP - General Forest Resources Professor 08/31/22 Lance Jack MD [email or web address] Historical LMR Provider 07/15/17 Orly Marquez NP 238 [place] [address] Historical LMR Provider 07/15/17 Lacie Olivares MD [address] [place] [address] [email or web address] Consulting Provider Geriatric Medicine 07/24/21 08/07/25 Lacie Olivares MD [address] [place] [address] Geriatric Medicine 07/31/24 08/07/25 Andi Wetzel DO [address] [place] [address] [email or web address] Geriatric Medicine 08/08/25 documented as of this encounter Additional Source Comments The information contained in this document represents components of the legal health record. It is not the complete legal health record.[facility]
--- OUTSIDE RECORDS SUMMARY | 2025-09-25 18:16 | XMS_ITS | Encounter Summary ---
Author Organization [facility] Address [address] [address] Phone Care Team Providers Care Juice Mixer Name Role Phone Orly Marquez NP Primary Care Provider [phone] Lance Jack MD Unavailable [phone] Jael Rodriguez Unavailable [email or web address] Orly Marquez NP Unavailable [phone] Jose Hansen NP Unavailable [phone] Flower Jacobson MD Unavailable [phone] Romy Donis MD Primary Care Provider [phone] Lacie Olivares MD Unavailable [phone] Marina Richey Primary Care Provider [phone] Lacie Olivares MD Unavailable [phone] Andi Wetzel DO Unavailable [phone] Encounter Details Date Type Department Care Team (Late st Contact Info) Description 12/17/2020 Procedure Pass [facility] [address] [place] [id number] Social History Tobacco Use Types Packs/Day [...] [facility] [address] [place] [address] 06/05/2025 Procedure Pass [facility] Cardiology [address] [place] [address] 10/05/2025 12:20 PM EST Office Visit [facility] [address] [place] [address] [place] [address], [address] [address] Sundar Martinez MD, MS [address] [place] [address] 12/11/2025 12:20 PM EDT Appointment [facility] Non-Invasive Cardiology [address] [place] [address] [place] [address] Abhay Tamayo MD [address] [place] [address], [address] [address] 12/11/2025 12:40 PM EDT Office Visit [facility] [address] [place] [address], [address] [address] Abhay Tamayo MD [address] [place] [address] documented as of this encounter Visit Diagnoses Not on filedocumented in this encounter Care Teams Juice Mixer Relationship Specialty Start Date End Date Orly Marquez NP [address] [place] [address] PCP - General 07/15/17 06/11/21 Romy Donis MD [address] [place] [address] Orthopedics & Sports Medicine, [place] [address] [email or web address] PCP - General Family Medicine 06/12/21 08/30/22 Marina Richey PA 238 [place] [address] PCP - General Rn Patient Services 08/31/22 aLnce Jack MD 238 [place] [address] [email or web address] Historical LMR Provider 07/15/17 Jael Rodriguez PA Historical LMR Provider 07/15/17 10/04/21 Orly Marquez NP [address] [place] [address] Historical LMR Provider 07/15/17 Jose Hansen NP [address] [place] [phone] Historical LMR Provider 07/15/17 Flower Smith MD [address] [place] [address] [facility], [place] [address] Historical LMR Provider 07/15/17 10/04/21 Lacie Olivares MD [address] [place] [address] [facility], [place] [address] Consulting Provider Geriatric Medicine 07/24/21 08/07/25 Lacie Olivares MD [address] [place] [address] [facility] Medicine, [place] [address] [email or web address] Geriatric Medicine 07/31/24 08/07/25 Andi Wetzel DO [address] [place] [address] [email or web address] Geriatric Medicine 08/08/25 documented as of this encounter Additional Source Comments The information contained in this document represents components of the legal health record. It is not the complete legal health record.[facility]
--- OUTSIDE RECORDS SUMMARY | 2025-09-25 18:16 | XMS_ITS | Encounter Summary ---
Author Organization [facility] Address [address] [address] Phone Care Team Providers Care Acid Etch Operator Name Role Phone Orly Marquez NP Primary Care Provider Lance Jack MD Unavailable [phone] Jael Rodriguez Unavailable [email or web address] Orly Marquez NP Unavailable Jose Hansen NP Unavailable [phone] Flower Jacobson MD Unavailable [phone] Romy Donis MD Primary Care Provider [phone] Lacie Olivares MD Unavailable [phone] Marina Richey Primary Care Provider [phone] Lacie Olivares MD Unavailable [phone] Andi Wetzel DO Unavailable [phone] Encounter Details Date Type Department Care Team (Late st Contact Info) Description 01/13/2018 Ancillary Orders [facility] [address] [place] [address] [place] [address] [email or web address] Sick sinus syndrome Social History Tobacco [...] Procedure Pass [facility] [address] [place] [address] 06/05/2025 Procedure Pass [facility] [address] [place] [address] 10/05/2025 12:20 PM EST Office Visit [facility] [address] [place] [address] 3rd [facility], [address] [place] [address] Sundar Martinez MD, MS [address] [place] [address], [address] [address] [email or web address] 12/11/2025 12:20 PM EDT Appointment [facility] [address] [place] [address] [place] [address] Abhay Tamayo MD [address] [place] [address], [address] [address] 12/11/2025 12:40 PM EDT Office Visit [facility] [address] [place] [address] 3rd [facility], [address] [place] [address] Abhay Tamayo MD [address] [place] [address], [address] [address] documented as of this encounter Visit Diagnoses Diagnosis Sick sinus syndrome Sinoatrial node dysfunction documented in this encounter Care Teams Acid Etch Operator Relationship Specialty Start Date End Date Orly Marquez NP 238 [place] [address] PCP - General 07/15/17 06/11/21 Romy Donis MD [address] [place] [address] [facility], [place], [place] [address] PCP - General Family Medicine 06/12/21 08/30/22 Marina Richey PA 238 [place], [place] [phone] PCP - General Circle Edger 08/31/22 Lance Jack MD [address] [place] [address] [email or web address] Historical LMR Provider 07/15/17 Jael Rodriguez PA Historical LMR Provider 07/15/17 10/04/21 Orly Marquez WINE MASTER [address] [place] [address] Historical LMR Provider 07/15/17 Jose Hansen NP [address] [place] [phone] Historical LMR Provider 07/15/17 Flower Smith MD [address] [place] [address] [facility], [place], [place] [address] Historical LMR Provider 07/15/17 10/04/21 Lacie Olivares MD 4 [facility] Orthopedics & Sports Medicine, [facility] [place] [address] [email or web address] Consulting Provider Geriatric Medicine 07/24/21 08/07/25 Lacie Olivares MD 4 [facility] Orthopedics & Sports [facility], [place] [address] [email or web address] Geriatric Medicine 07/31/24 08/07/25 Andi Wetzel DO 22 [place] [address] [email or web address] Geriatric Medicine 08/08/25 documented as of this encounter Additional Source Comments The information contained in this document represents components of the legal health record. It is not the complete legal health record.[facility]
--- OUTSIDE RECORDS SUMMARY | 2025-09-25 18:16 | XMS_ITS | Encounter Summary ---
Author Organization [facility] Address [address] [facility] [address] [place] [address] Phone Care Team Providers Care Nuisance Animal Damage Control Agent Name Role Phone Lance Jack MD Unavailable Orly Marquez NP Unavailable [phone] Lacie Olivares MD Unavailable [phone] Marina Richey Primary Care Provider [phone] Lacie Olivares MD Unavailable [phone] Andi Wetzel DO Unavailable Reason for Referral * MRI/CAT Scan - Closed Specialty Diagnoses / Procedures Referred By Contac t Referred To Contact Radiology Diagnoses Radiculopathy, lumbar region Spondylosis, unspecified Procedures CT Lumbar Spine Sanya Delacruz PA [address] [facility] [address] [place] [address] Phone: tel: fax: Referral ID Status Reason Start Date Expiration Date Visits Re quested Visits Authorized [id number] Closed 11/30/2023 1 1 Encounter Details Date Type Department Care Team (Latest Contact Info) Description 11/30/2023 Transcribe Orders [facility] [address] [place] [address] Sanya Delacruz PA [address] [facility] [address] [place] [address] Radiculopathy, lumbar region (Primary Dx); Spondylosis, unspecified [...] 06/05/2025 Procedure Pass [facility] [address] [place] [address] [place] [address] 06/05/2025 Procedure Pass [facility] [address] [place] [address] [place] [address] 10/05/2025 12:20 PM EST Office Visit [facility] [address] [place] [address] 3rd Floor, [address] [place] [address] Sundar Martinez MD, MS 22 [facility], [address] [address] 12/11/2025 12:20 PM EDT Appointment [facility] [address] [place] [address] Abhay Tamayo MD 22 [facility], [address] [address] [email or web address] 12/11/2025 12:40 PM EDT Office Visit [facility] 22 [facility] 3rd Floor, [address] [place] [address] Abhay Tamayo MD 22 [facility], [address] [place] [address] [email or web address] documented as of this encounter Results * [...] documented as of this encounter Care Teams Nuisance Animal Damage Control Agent Relationship Specialty Start Date End Date Marina Richey PA [address] [place] [address] PCP - General Electrotype Finisher 08/31/22 Lance Jack MD [email or web address] Historical LMR Provider 07/15/17 Orly Marquez NP [address] [place] [address] Historical LMR Provider 07/15/17 Lacie Olivares MD [address] [place] [address] [email or web address] Consulting Provider Geriatric Medicine 07/24/21 08/07/25 Lacie Olivares MD [address] [place] [address] Geriatric Medicine 07/31/24 08/07/25 Andi Wetzel DO [address] [place] [address] [email or web address] Geriatric Medicine 08/08/25 documented as of this encounter Additional Source Comments The information contained in this document represents components of the legal health record. It is not the complete legal health record.[facility]
--- OUTSIDE RECORDS SUMMARY | 2025-09-25 18:16 | XMS_ITS | Encounter Summary ---
Author Organization [facility] Address [address] [address] Phone Care Team Providers Care Molder Foam Rubber Name Role Phone Orly Marquez NP Primary Care Provider [phone] Lance Jack MD Unavailable [phone] Jael Rodriguez Unavailable [email or web address] Orly Marquez NP Unavailable [phone] Jose Hansen NP Unavailable [phone] Flower Jacobson MD Unavailable [phone] Romy Donis MD Primary Care Provider [phone] Lacie Olivares MD Unavailable [phone] Marina Richey Primary Care Provider [phone] Lacie Olivares MD Unavailable [phone] Andi Wetzel DO Unavailable [phone] Encounter Details Date Type Department Care Team (Late st Contact Info) Description 06/11/2021 Procedure Pass [place] Admitting Dept - Virtual Department [address] [place] [address] [id number] Social History Tobacco Use Types Packs/Day Years [...] st Contact Info) Description 06/05/2025 Procedure Pass [facility] Non-Invasive Cardiology [address] [place] [address] 06/05/2025 Procedure Pass [facility] Non-Invasive Cardiology [address] [place] [address] 10/05/2025 12:20 PM EST Office Visit [facility] [address] 3rd [facility], [address] [address] Sundar Martinez MD, MS [address] [place] [address], [address] [address] 12/11/2025 12:20 PM EDT Appointment [facility] Non-Invasive Cardiology [address] [place] [address] [place] [address] Abhay Tamayo MD [address] [place] [address], [address] [address] [email or web address] 12/11/2025 12:40 PM EDT Office Visit [facility] [address] 3rd [facility], [address] [address] Abhya Tamayo MD [address] [place] [address] documented as of this encounter Visit Diagnoses Not on filedocumented in this encounter Care Teams Molder Foam Rubber Relationship Specialty Start Date End Date Orly Marquez NP [address] [place] [address] PCP - General 07/15/17 06/11/21 Romy Donis MD [address] [place] [address] [facility], [place] [address] PCP - General Family Medicine 06/12/21 08/30/22 Marina Richey PA [address] [place] [address] PCP - General Principal Examiner 08/31/22 Lance Jack MD [address] [place] [address] [email or web address] Historical LMR Provider 07/15/17 Jael Rodriguez PA Historical LMR Provider 07/15/17 10/04/21 Orly Marquez NP [address] [place] [address] Historical LMR Provider 07/15/17 Jose Hansen, MARIAN [address] [place] [phone] Historical LMR Provider 07/15/17 Flower Smith MD [address] [place] [address] [facility] [place] [address] [email or web address] Historical LMR Provider 07/15/17 10/04/21 Lacie Olivares MD [address] [place] [address] [facility] [place] [address] [email or web address] Consulting Provider Geriatric Medicine 07/24/21 08/07/25 Lacie Olivares MD [address] [place] [address] [facility], [place] [address] [email or web address] Geriatric Medicine 07/31/24 08/07/25 Andi Wetzel DO [address] [place] [address] [email or web address] Geriatric Medicine 08/08/25 documented as of this encounter Additional Source Comments The information contained in this document represents components of the legal health record. It is not the complete legal health record.[facility]
--- OUTSIDE RECORDS SUMMARY | 2025-09-25 18:16 | XMS_ITS | Encounter Summary ---
Author Organization [facility] Address [address] [address] Phone Care Team Providers Care Gunner'S Mate M Name Role Phone Orly Marquez NP Primary Care Provider Lance Jack MD Unavailable [phone] Jael Rodriguez Unavailable [email or web address] Orly Marquez NP Unavailable [phone] Jose Hansen NP Unavailable Flower Jacobson MD Unavailable [phone] Romy Donis MD Primary Care Provider [phone] Lacie Olivares MD Unavailable [phone] Marina Richey Primary Care Provider [phone] Lacie Olivares MD Unavailable [phone] Andi Wetzel DO Unavailable [phone] Encounter Details Date Type Department Care Team (Late st Contact Info) Description 11/04/2020 Ancillary Orders Virtual Department [address] [place], [place] [phone] Ethan Guillory DO [address] [place] [address] .Quantros Pain in hip Social History Tobacco Use [...] Procedure Pass [facility] [address] [place] [address] 06/05/2025 Procedure Pass [facility] Non-Invasive Cardiology [address] [place] [address] 10/05/2025 12:20 PM EST Office Visit [facility] [address] [place] [address] [place] [address], [address] [place] [address] Sundar Martinez MD, MS [address] [place] [address], [address] [address] 12/11/2025 12:20 PM EDT Appointment [facility] Non-Invasive Cardiology [address] [place] [address] [place] [address] Abhay Tamayo MD [address] [place] [address] 12/11/2025 12:40 PM EDT Office Visit [facility] [address] [place] [address] 3rd [facility], [address] [place] [address] Abhay Tamayo MD [address] [place] [address] documented as of this encounter Results * [...] hip documented in this encounter Care Teams Gunner'S Mate M Relationship Specialty Start Date End Date Orly Marquez NP [address] [place] [address] PCP - General 07/15/17 06/11/21 Romy Donis MD [address] [place] [address] [facility] Medicine, [place] [address] [email or web address] PCP - General Family Medicine 06/12/21 08/30/22 Marina Richey PA 238 [place] [address] PCP - General Sports Medicine [place] 08/31/22 Lance Jack MD 238 [place] [address] [email or web address] Historical LMR Provider 07/15/17 Jael Rodriguez PA Historical LMR Provider 07/15/17 10/04/21 Orly Marquez NP [address] [place] [address] Historical LMR Provider 07/15/17 Jose Hansen NP [address] [place] [address] Historical LMR Provider 07/15/17 Flower Smith MD [address] [place] [address] Orthopedics & Sports [facility], [place] [address] [email or web address] Historical LMR Provider 07/15/17 10/04/21 Lacie Olivares MD [address] [place] [address] Orthopedics [facility], [place] [address] Consulting Provider Geriatric Medicine 07/24/21 08/07/25 Lacie Olivares MD [address] [place] [address] Sports [facility], [place] [address] Geriatric Medicine 07/31/24 08/07/25 Andi Wetzel DO [address] [place] [address] [email or web address] Geriatric Medicine 08/08/25 documented as of this encounter Additional Source Comments The information contained in this document represents components of the legal health record. It is not the complete legal health record.[facility]
--- OUTSIDE RECORDS SUMMARY | 2025-09-25 18:16 | XMS_ITS | Encounter Summary ---
Author Organization [facility] Address 399 [facility] [address] [place] [address] Phone Care Team Providers Care Triage Specialist Name Role Phone Lance Jack MD Unavailable Orly Marquez NP Unavailable [phone] Lacie Olivares MD Unavailable [phone] Marina Richey Primary Care Provider [phone] Lacie Olivares MD Unavailable [phone] Andi Wetzel DO Unavailable [phone] Encounter Details Date Type Department Care Team (Late st Contact Info) Description 11/30/2023 Procedure Pass [facility], Ct Scan - [address] [address] Social History Tobacco Use Types Packs/Day Years [...] st Contact Info) Description 06/05/2025 Procedure Pass [facility] Non-Invasive Cardiology [address] [place] [address] 06/05/2025 Procedure Pass [facility] Non-Invasive Cardiology [address] [place] [address] 10/05/2025 12:20 PM EST Office Visit [facility] [address] [place] [address] 3rd [facility], [address] [address] Sundar Martinez MD, MS [address] [place] [address] [email or web address] 12/11/2025 12:20 PM EDT Appointment [facility] Non-Invasive Cardiology [address] [place] [address] [place] [address] Abhay Tamayo MD [address] [place] [address] 12/11/2025 12:40 PM EDT Office Visit [facility] [address] 3rd [facility], [address] [place] [address] Abhay Tamayo MD [address] [place] [address] documented as of this encounter Visit Diagnoses Not on filedocumented in this encounter Additional Health Concerns Assessment Noted Time PHQ-9 Depression Total Score: 11 022 9:47 AM EST PHQ-2 Depression Total Score: 3 10/14/19 22 9:47 AM EST documented as of this encounter Care Teams Triage Specialist Relationship Specialty Start Date End Date Marina Richey PA [address] [place] [address] PCP - General Manager Of Selection And Assessment 08/31/22 Lance Jack MD [email or web address] Historical LMR Provider 07/15/17 Orly Marquez NP [address] [place] [address] Historical LMR Provider 07/15/17 Lacie Olivares MD [address] [place] [address] [email or web address] Consulting Provider Geriatric Medicine 07/24/21 08/07/25 Lacie Olivares MD [address] [place] [address] Geriatric Medicine 07/31/24 08/07/25 Andi Wetzel DO 22 [place] [address] Geriatric Medicine 08/08/25 documented as of this encounter Additional Source Comments The information contained in this document represents components of the legal health record. It is not the complete legal health record.[facility]
--- OUTSIDE RECORDS SUMMARY | 2025-09-25 18:16 | XMS_ITS | Encounter Summary ---
Author Organization [facility] Address 399 [facility] [address] [place] [address] Phone Care Team Providers Care Digital Experience Manager Name Role Phone Lance Jack MD Unavailable Orly Marquez NP Unavailable [phone] Lacie Olivares MD Unavailable [phone] Marina Richey Primary Care Provider [phone] Lacie Olivares MD Unavailable Andi Wetzel DO Unavailable [phone] Encounter Details Date Type Department Care Team (Late st Contact Info) Description 03/12/2025 Procedure Pass [facility], Ct Scan - [address] [address] Social History Tobacco Use Types Packs/Day Years [...] 06/05/2025 Procedure Pass [facility] [address] [place] [address] [place] [address] 06/05/2025 Procedure Pass [facility] [address] [place] [address] 10/05/2025 12:20 PM EST Office Visit [facility] [address] [place] [address] [place] [address], [address] [place] [address] Sundar Martinez MD, MS [address] [place] [address], [address] [address] [email or web address] 12/11/2025 12:20 PM EDT Appointment [facility] [place] [address] Abhay Tamayo MD [address] [place] [address], [address] [address] 12/11/2025 12:40 PM EDT Office Visit [facility] [address] [place] [address] [place] [address], [address] [place] [address] Abhay Tamayo MD 22 [facility], [address] [place] [address] [email or web address] documented as of this encounter Visit Diagnoses Not on filedocumented in this encounter Additional Health Concerns Assessment Noted Time PHQ-9 Depression Total Score: 11 022 9:47 AM EST PHQ-2 Depression Total Score: 3 10/14/19 22 9:47 AM EST documented as of this encounter Care Teams Digital Experience Manager Relationship Specialty Start Date End Date Marina Richey PA [address] [place] [address] PCP - General Chinese Language Professor 08/31/22 Lance Jack MD [email or web address] Historical LMR Provider 07/15/17 Orly Marquez CLAIM EXAMINER [address] [place] [address] Historical LMR Provider 07/15/17 Lacie Olivares MD [address] [place] [address] [email or web address] Consulting Provider Geriatric Medicine 07/24/21 08/07/25 Lacie Olivares MD [address] [place] [address] [email or web address] Geriatric Medicine 07/31/24 08/07/25 Andi Wetzel DO [address] [place] [address] [email or web address] Geriatric Medicine 08/08/25 documented as of this encounter Additional Source Comments The information contained in this document represents components of the legal health record. It is not the complete legal health record.[facility]
--- OUTSIDE RECORDS SUMMARY | 2025-09-25 18:16 | XMS_ITS | Clinical Summary ---
Author Organization [facility] Address 399 [facility] [address] [place] [address] Phone Care Team Providers Care Telecommunications Engineer Name Role Phone Lance Jack MD Unavailable Orly Marquez NP Unavailable [phone] Marina Richey Primary Care Provider [phone] Andi Wetzel DO Unavailable [phone] Allergies No known active allergies Medications multivitamin-min erals-lutein (CENTRUM SILVER) Tab Take 1 tablet by mouth daily. Active tamsulosin (FLOMAX) 0.4 mg Cap 01/16/2025 Active apixaban (ELIQUIS) 5 mg tabletIndication s:Medication refill Take 1 tablet (5 mg total) by mouth 2 (two) times a day. 180 tablet 3 05/10/2025 Active XDEMVY 0.25 % Drop 08/02/2025 Active IBUPROFEN-ACETAM INOPHEN ORAL Take by mouth. Active Active Problems Problem Noted Date Diagnosed Date [...] the patient is interested in getting the [employer]im[employer] mobile potentially. I have discussed with him [...] a history for sick sinus syndrome s/p [employer] pacemaker. Interrogation today shows he has [...] above there are no EKGs in the [email or web address] system to compare to since 2015. He has had multiple visits to the [place] [facility] so we will have them [...] healthy 81-year-old patient of Orly Marquez at [facility] for planned bilateral hip replacement with Dr. [...] pacemaker and which was last evaluated at [facility] in January when he was atrial pacing [...] Encounters Date Type Department Care Team Description 08/20/2025 12:30 PM EST Office Visit [facility] [address] [place] [address] Andi Wetzel DO Memory change (Primary Dx); Attention deficit disorder, unspecified type; Encounter for medication review; Anxiety state 07/05/2025 Telephone [facility] [address] 3rd Floor, [address] [place] [address] Sundar Martinez MD, MS from Last 3 Months Immunizations Immunization Administration [...] IM 07/02/2020 Influenza, Unspecified Formulation 07/30/2008 Novel [id number], Injectable 10/16/2009 Pneumococcal conjugate PCV13 11/05/2015 Pneumococcal [...] Sign Reading Time Taken Comments Blood Pressure 118/68 08/20/2025 12:50 PM EST Pulse 84 08/20/2025 12:50 PM EST Temperature 36.4 C (97.5 F) 12/08/2024 1:45 PM EDT Respiratory Rate 26 12/08/2024 12:15 PM EDT Oxygen Saturation 96% 08/20/2025 12:50 PM EST Inhaled Oxygen Concentration - - Weight 85.7 kg (189 lb) 08/20/2025 12:50 PM EST Height 170.2 cm (5' 7.01 ) 06/05/2025 1:43 PM ED T Body Mass Index 29.59 06/05/2025 1:43 PM EDT Plan of Treatment Upcoming Encounters Date Type Department Care Team (Late st Contact Info) Description 06/05/2025 Procedure Pass [facility] [address] [place] [address] 06/05/2025 Procedure Pass [facility] Non-Invasive Cardiology [address] [place] [address] 10/05/2025 12:20 PM EST Office Visit [facility] [address] [place] [address] 3rd Floor, [address] [place] [address] Sundar Martinez MD, MS 22 [facility], [address] [place] [address] [email or web address] 12/11/2025 12:20 PM EDT Appointment [facility] Non-Invasive Cardiology [address] [place] [address] Abhay Tamayo MD [address] [place] [address], [address] [place] [address] 12/11/2025 12:40 PM EDT Office Visit [facility] [address] [place] [address] 3rd Floor, [address] [place] [address] Abhay Tamayo MD [address] [place] [address], [address] [place] [address] Health Maintenance Due Date Last Done Comments CREATININE LEVEL 07/26/2023 07/26/2022, , 07/24/2022, Additional history exists COVID-19 VACCINE (2024- season) 2026 07/16/2025, 05/24/2024, 12/14/2023, Additional history exists DEPRESSION SCREENING 08/20/2026 08/20/2025, 08/20/20 25 Adult Td,Tdap Booster 05/15/2032 05/15/2022 , 06/21/2012, 07/30/2008, Additional history exists HEPATITIS A VACCINES Aged Out 07/10/1998, 10/22/18 98 No longer eligible based on patient's age to complete this topic PNEUMOCOCCAL VACCINES (50+ years) Completed 07/15/2017, 11/05/2015 ZOSTER VACCINES Completed 04/19/2019, 01/25, 09/03/2008 RSV VACCINE Completed 07/27/2023 INFLUENZA VACCINE Completed 06/11/2025, , 06/24/2023, Additional history exists HIB VACCINES Aged Out No longer eligi ble based on patient's age to complete this topic MENINGOCOCCAL VACCINES (ACWY) Aged Out No longer eligible based on patient's age to complete this topic MENINGOCOCCAL VACCINES (B) Aged Out N o longer eligible based on patient's age to complete this topic Medical Devices Implanted Type Area Exhibit Specialist Device Identifier Shelf Expiration Date Model / Serial / Lot Lead-03/14/2007 Implanted:02/25 by Sundar Merrill MD (Quantity not on file) Lead GUIDANT [employer] [id number] / [id number] / Lead-03/14/2007 Implanted:02/25 by Sundar Merrill MD (Quantity not on file) Lead GUIDANT [employer] [id number] / [id number] / Pacemaker Essentio 13.7cc 4.45cm 5.02cm .75cm 23.6g Dr Bojorquez Is1/Eduard Is1 Connector - [id number] Implanted:Qty: 1 on 03/10/2019 by Lance Jack MD at [facility] Pacemaker [employer] [id number] 03/22/2020 [id number] / [id number] / Hip 36mm 3.0 G7 [place] Modular Type 1 Tapered Plus - [id number] Implanted:Qty: 1 on 06/11/2021 by Rodney Mancini MD at [facility] STANDARD Right: Acetabulum [employer] 02/21/[id number] / / [id number] Hip 36mm 6.0 G7 [place] Modular Type 1 Tapered Plus - [id number] Implanted:Qty: 1 on 06/11/2021 by Rodney Mancini MD at [facility] STANDARD Left: Acetabulum [employer] 09/02/[id number] / / [id number] Hip Stem 57c303zi 130deg Echo Bi Metric Titanium Alloy Porous Plasma Sprayed Full Proximalimal Profile Standard Lateralized - [id number] Implanted:Qty: 1 on 06/11/2021 by Rodney Mancini MD at [facility] Left: Femur [employer] 11/06/2025 [id number] / / [id number] Acetabular Shell 56mm Size F G7 Porous Plasma Lamar Limited Hole - [id number] Implanted:Qty: 1 on 06/11/2021 by Rodney Mancini MD at [facility] Right: Acetabulum [employer] 12/09/2030 [id number] / / [id number] Hip Liner 36mm F Acetabular Neutral G7 Longevity - [id number] Implanted:Qty: 1 on 06/11/2021 by Rodney Mancini MD at [facility] Right: Acetabulum AMPARO / DIV OF [employer] 02/02/[id number] / / [id number] Hip Stem 12f418au 130deg Echo Bi Metric Titanium Alloy Porous Plasma Sprayed Full Proximalimal Profile Standard Lateralized - [id number] Implanted:Qty: 1 on 06/11/2021 by Rodney Mancini MD at [facility] Right: Femur [employer] 05/30/2029 [id number] / / [id number] Acetabular Shell 54mm Size F G7 Porous Plasma Lamar Limited Hole - [id number] Implanted:Qty: 1 on 06/11/2021 by Rodney Mancini MD at [facility] Left: Acetabulum [employer] 02/13/2031 [id number] / / [id number] Screw Dome 6.5x35mm G7 Aceetabular Low Profile Hip - [id number] Implanted:Qty: 1 on 06/11/2021 by Rodney Mancini MD at [facility] Left: Acetabulum [employer] 06/24/2025 [id number] / / [id number] Hip Liner 36mm F Acetabular Neutral G7 Longevity - [id number] Implanted:Qty: 1 on 06/11/2021 by Rodney Mancini MD at [facility] Left: Acetabulum AMPARO / DIV OF BRISTOL [employer] 04/12/[id number] / / [id number] Procedures Procedure Name Priority Date/Time Associated Diagnosis Comments BASIC METABOLIC PANEL (BMP) Routine 07/26/2022 3:12 AM EDT from Last 3 Months or Most Recently Relevant to Health Maintenance Results * (ABNORMAL) Basic metabolic panel (07/26/2022 3:12 AM EDT) SODIUM 137 133 - 146 mmol/L [facility] CHLORIDE 99 96 - 108 mmol/L [facility] POTASSIUM 4.5 3.3 - 5.1 mmol/L [facility] CO2 27 21 - 35 mmol/L [facility] BUN 20(H) 6 - 19 mg/dL [facility] CREATININE 0.90 0.5 - 1.5 mg/dL [facility] GLUCOSE 108(H) 70 - 99 mg/dL [facility] CALCIUM 8.8 8.4 - 10.3 mg/dL [facility] EGFR 85 >59 mL/min/1.7 3m2 [facility] Comment:Estimated glomerular filtration rate calculated using the CKD-EPI refit equation. ANION GAP 16 10 - 20 mmol/L [facility] Blood 07/26/2022 3:12 AM EDT 07/26/2022 4:07 AM EDT us Aure Deleon MD LAB BLOOD BKR ORDERABLES Final Result Performing Organization Address City/State/[facility] Co de Phone Number [facility] [address] [place] [address] from Last 3 Months or Most Recently Relevant to Health Maintenance Insurance [facility] REPLAC[facility] REPLACEMENT [facility] MEDIC[facility] REPLACEMENT [facility] MEDIC[facility] REPLACEMENT [facility] MEDICARE REPLACEMENT [facility] MEDICARE REPLACEMENT [facility] MEDICARE REPLACEMENT [facility] MEDICARE REPLACEMENT [employer] Advance Directives For more information, please contact: [phone] (9AM - 5PM [facility], Wednesday-Wednesday) Documents on File Type Date Recorded Patient Project Geologist Expl anation Healthcare Proxy 06/17/2021 9:06 AM [...] Name Relationship Healthcare Agent Relationship Communication Isabel Diandra Spouse .Primary Health Care Agent (Proxy form on file) josé eva Montes De Ocaer Alternate He althcare Agent (Proxy form on file) Care Teams Telecommunications Engineer Relationship Specialty Start Date End Date Marina Richey PA [address] [place] [address] PCP - General Vacuum Frame Operator 08/31/22 Lance Jack MD [email or web address] Historical LMR Provider 07/15/17 Orly Marquez NP [address] [place] [address] Historical LMR Provider 07/15/17 Andi Wetzel DO [address] [place] [address] [email or web address] Geriatric Medicine 08/08/25 Additional Source Comments The information contained in this document represents components of the legal health record. It is not the complete legal health record.[facility]
--- OUTSIDE RECORDS SUMMARY | 2025-09-25 18:16 | XMS_ITS | Encounter Summary ---
Author Organization [facility] Address [address] [address] Phone Care Team Providers Care Route Rider Supervisor Name Role Phone Orly Marquez NP Primary Care Provider [phone] Lance Jack MD Unavailable [phone] Jael Rodriguez Unavailable [email or web address] Orly Marquez NP Unavailable [phone] Jose Hansen NP Unavailable [phone] Flower Jacobson MD Unavailable [phone] Romy Donis MD Primary Care Provider [phone] Lacie Olivares MD Unavailable [phone] Marina Richey Primary Care Provider [phone] Lacie Olivares MD Unavailable [phone] Andi Wetzel DO Unavailable [phone] Encounter Details Date Type Department Care Team (Late st Contact Info) Description 05/23/2021 Procedure Pass [facility] [address] [place] [address] Social History Tobacco Use Types Packs/Day [...] st Contact Info) Description 06/05/2025 Procedure Pass [facility] Non-Invasive Cardiology [address] [place] [address] 06/05/2025 Procedure Pass [facility] Non-Invasive Cardiology [address] [place] [address] 10/05/2025 12:20 PM EST Office Visit [facility] Cardiovascular [address] [facility] [place], [address] [address] Sundar Martinez MD, [place] [address] [place] [address] [email or web address] 12/11/2025 12:20 PM EDT Appointment [facility] Non-Invasive Cardiology [address] [place] [address] [place] [address] Abhay Tamayo MD [address] [place] [address] [email or web address] 12/11/2025 12:40 PM EDT Office Visit [facility] [address] [facility] [place], [address] [address] Abhay Tamayo MD [address] [place] [address] documented as of this encounter Visit Diagnoses Not on filedocumented in this encounter Additional Health Concerns Assessment Noted Time PHQ-9 Depression Total Score: 11 022 9:47 AM EST PHQ-2 Depression Total Score: 3 10/14/19 22 9:47 AM EST documented as of this encounter Care Teams Route Rider Supervisor Relationship Specialty Start Date End Date Orly Marquez NP [address] [place] [address] PCP - General 07/15/17 06/11/21 Romy Donis MD [address] [place] [address] Orthopedics Sports [facility], [place], [place] [id number] [email or web address] PCP - General Family Medicine 06/12/21 08/30/22 Marina Richey PA [address] [place] [address] PCP - General Enrollment Counselor 08/31/22 Lance Jack MD [address] [place] [address] [email or web address] Historical LMR Provider 07/15/17 Jael Rodriguez PA Historical LMR Provider 07/15/17 10/04/21 Orly Marquez CERTIFIED ATHLETIC TRAINER [address] [place] [address] Historical LMR Provider 07/15/17 Jose Hansen NP [address] [place] [address] [address] Historical LMR Provider 07/15/17 Flower Smith MD [address] [place] [address] Orthopedics & Sports [facility], [place], [place] [id number] Historical LMR Provider 07/15/17 10/04/21 Lacie Olivares MD 4 [facility] Orthopedics & Sports Medicine, [facility] [place] [address] [email or web address] Consulting Provider Geriatric Medicine 07/24/21 08/07/25 Lacie Olivares MD 4 [facility] Orthopedics & Sports [facility], [place] [address] [email or web address] Geriatric Medicine 07/31/24 08/07/25 Andi Wetzel DO [address] [place] [address] [email or web address] Geriatric Medicine 08/08/25 documented as of this encounter Additional Source Comments The information contained in this document represents components of the legal health record. It is not the complete legal health record.[facility]
--- OUTSIDE RECORDS SUMMARY | 2025-09-25 18:16 | XMS_ITS | Encounter Summary ---
Author Organization [facility] Address 399 [facility] [address] [place] [address] Phone Care Team Providers Care Assistant Men'S Lacrosse Coach Name Role Phone Lance Jack MD Unavailable Orly Marquez NP Unavailable [phone] Lacie Olivares MD Unavailable [phone] Marina Richey Primary Care Provider [phone] Lacie Olivares MD Unavailable [phone] Andi Wetzel DO Unavailable [phone] Encounter Details Date Type Department Care Team (Late st Contact Info) Description 12/08/2024 Procedure Pass [place] Admitting Dept - Virtual Department [address] [place] [address] Social History Tobacco Use Types Packs/Day Years [...] Contact Info) Description 06/05/2025 Procedure Pass [facility] [address] [place] [address] 06/05/2025 Procedure Pass [facility] Non-Invasive Cardiology [address] [place] [address] [place] [address] 10/05/2025 12:20 PM EST Office Visit [facility] [address] [place] [address] [place] [address], [address] [place] [address] Sundar Martinez MD, MS [address] [place] [address], [address] [address] [email or web address] 12/11/2025 12:20 PM EDT Appointment [facility] Non-Invasive [place] [address] Abhay Tamayo MD [address] [place] [address], [address] [address] 12/11/2025 12:40 PM EDT Office Visit [facility] [address] [facility], [address] [place] [address] Abhay Tamayo MD 22 [facility], [address] [place] [address] [email or web address] documented as of this encounter Visit Diagnoses Not on filedocumented in this encounter Additional Health Concerns Assessment Noted Time PHQ-9 Depression Total Score: 11 022 9:47 AM EST PHQ-2 Depression Total Score: 3 10/14/19 22 9:47 AM EST documented as of this encounter Care Teams Assistant Men'S Lacrosse Coach Relationship Specialty Start Date End Date Marina Richey PA [address] [place] [address] PCP - General Gang Tailer 08/31/22 Lance Jack MD [email or web address] Historical LMR Provider 07/15/17 Orly Marquez, LENS MOUNTER [address] [place] [address] Historical LMR Provider 07/15/17 Lacie Olivares MD [address] [place] [address] [email or web address] Consulting Provider Geriatric Medicine 07/24/21 08/07/25 Lacie Olivares MD [address] [place] [address] [email or web address] Geriatric Medicine 07/31/24 08/07/25 Andi Wetzel DO [address] [place] [address] [email or web address] Geriatric Medicine 08/08/25 documented as of this encounter Additional Source Comments The information contained in this document represents components of the legal health record. It is not the complete legal health record.[facility]
--- OUTSIDE RECORDS SUMMARY | 2025-09-25 18:16 | XMS_ITS | Encounter Summary ---
Author Organization [facility] Address 399 [facility] [address] [place] [address] Phone Care Team Providers Care Wood Technologist Name Role Phone Lance Jack MD Unavailable Orly Marquez NP Unavailable [phone] Lacie Olivares MD Unavailable [phone] Marina Richey Primary Care Provider [phone] Lacie Olivares MD Unavailable [phone] Andi Wetzel DO Unavailable [phone] Encounter Details Date Type Department Care Team (Late st Contact Info) Description 06/04/2025 Procedure Pass [facility] Non-Invasive Cardiology [address] [place] [address] Social History Tobacco Use Types Packs/Day Years [...] Procedure Pass [facility] [address] [place] [address] 06/05/2025 Procedure Pass [facility] Non-[facility] Cardiology [address] [place] [address] 10/05/2025 12:20 PM EST Office Visit [facility] [address] [place] [address], [address] [place] [address] Sundar Martinez MD, MS [address] [place] [address], [address] [address] [email or web address] 12/11/2025 12:20 PM EDT Appointment [facility] [place] [address] Abhay Tamayo MD [address] [place] [address], [address] [address] 12/11/2025 12:40 PM EDT Office Visit [facility] [address] [facility], [address] [place] [address] Abhay Tamayo MD 22 [facility], [address] [place] [address] [email or web address] documented as of this encounter Visit Diagnoses Not on filedocumented in this encounter Additional Health Concerns Assessment Noted Time PHQ-9 Depression Total Score: 11 022 9:47 AM EST PHQ-2 Depression Total Score: 3 10/14/19 22 9:47 AM EST documented as of this encounter Care Teams Wood Technologist Relationship Specialty Start Date End Date Marina Richey PA [address] [place] [address] PCP - General Healthcare Administration Internship 08/31/22 Lance Jack MD [email or web address] Historical LMR Provider 07/15/17 Orly Marquez KENO MANAGER [address] [place] [address] Historical LMR Provider 07/15/17 Lacie Olivares MD [address] [place] [address] [email or web address] Consulting Provider Geriatric Medicine 07/24/21 08/07/25 Lacie Olivares MD [address] [place] [address] [email or web address] Geriatric Medicine 07/31/24 08/07/25 Andi Wetzel DO [address] [place] [address] [email or web address] Geriatric Medicine 08/08/25 documented as of this encounter Additional Source Comments The information contained in this document represents components of the legal health record. It is not the complete legal health record.[facility]
== END 2025-09-25 14:38 | disposition home or self-care (01) ==
LOC: HO.US 14:37
PROVIDERS: PCP Physician Assistant Medical; Visit Provider Nurse Practitioner Family
DX: R32 Unspecified urinary incontinence (principal)
CPT/HCPCS: 76770

== ENCOUNTER → 2025-09-25 14:38 | Outpatient (BNV) | payer MEDICARE, SELFPAY | PROVIDERS: PCP Physician Assistant Medical; Visit Provider Radiology Diagnostic Radiology | DX: R32 Unspecified urinary incontinence (principal) | CPT/HCPCS: 76770 ==